=== PATIENT | male | born 1960 | race Caucasian/White ===

== ENCOUNTER 2017-05-10 16:41 | Inpatient (IN) | payer BC, MEDICARE, OTHER ==
[2017-05-10] MEDS ORDERED: IPRATROPIUM-ALBUTEROL 3 ML NEB INHALATION STA (17:15)
[2017-05-10] MEDS ORDERED: methylPREDNISolone SOD SUCCI 125 MG/2 ML VIAL IV STA (17:15)
[2017-05-10] MEDS ORDERED: LEVOFLOXACIN 750MG-D5W PMX 750 MG in DEXTROSE/WATER 1 150ML.BAG IVPB STA (17:15)
[2017-05-10] MEDS ORDERED: ACETAMINOPHEN TAB 500 MG TAB PO STA (17:16)
[2017-05-10] MEDS ORDERED: KETOROLAC 30 MG/ML 1 ML VIAL IVP STA (17:16)
--- NOTE | 2017-05-10 17:20 | ED ---
SOB HPI - General Chief Complaint: Shortness of Breath Stated Complaint: TWYLA Time Seen by Provider: 05/10/17 16:57 Source: patient Mode of arrival: ambulatory Limitations: no limitations - History of Present Illness Initial Comments: This 56-year-old white male presents with a complaint of some shortness of breath. This is been present over the past few days. He has had a cough with only slight clear production. He did have a fever today of 100.5 at home. He denies any chest pain. He complains of significant nasal congestion and rhinorrhea and frontal headache as well. He denies any previous known pulmonary problems but does state that he quit smoking after a long history of tobacco abuse 1 month ago. He was seen yesterday at [facility] and was diagnosed with bronchitis. He did not have a flu test completed at that time. He was placed on an inhaler and states that this does not seem to be helping him much. He has significant exertional dyspnea. He denies any previous similar incidents. He states that his legs feel somewhat swollen as well but are not painful. His apparently has somewhat similar but less severe symptoms. No other complaints or modifying factors. - Related Data Home Medications Medication Instructions Recorded Confirmed Albuterol Inhaler [Ventolin Hfa 2 puff INHALATION RT-Q6H PRN 05/10/17 05/10/17 Inhaler] Aspirin EC [Ecotrin Low Dose] 81 mg PO DAILY 05/10/17 05/10/17 Atorvastatin [Lipitor] 80 mg PO DAILY 05/10/17 05/10/17 Azithromycin [Zithromax Z-pack] See Taper PO DIRECTED 05/10/17 05/10/17 Baclofen 10 mg PO TID PRN 05/10/17 05/10/17 Fluticasone/Salmeterol [Advair 1 puff INHALATION RT-BID 05/10/17 05/10/17 100-50 Diskus] HYDROcodone/APAP 10-325MG [[place] 1 tab PO DAILY PRN 05/10/17 05/10/17 10-325] Insulin Aspart [Novolog Flexpen] 40 unit SQ TID 05/10/17 05/10/17 Insulin Glargine [Lantus] 80 unit SQ DAILY 05/10/17 05/10/17 Lidocaine 4% Cream [Lmx 4] 1 applic TOPICAL DAILY PRN 05/10/17 05/10/17 Lisinopril 40 mg PO DAILY 05/10/17 05/10/17 Loratadine 10 mg PO DAILY 05/10/17 05/10/17 Meloxicam [Mobic] 15 mg PO DAILY 05/10/17 05/10/17 Omeprazole 20 mg PO BID 05/10/17 05/10/17 Polyethylene Glycol 3350 [Miralax] 17 gm PO DAILY PRN 05/10/17 05/10/17 Repaglinide/Metformin HCl 2 tab PO DAILY 05/10/17 05/10/17 [Prandimet 1-500mg] Sildenafil Citrate [Viagra] 100 mg PO ONCE PRN 05/10/17 05/10/17 Allergies Allergy/AdvReac Type Severity Reaction Status Date / Time No Known Allergies Allergy Verified 05/10/17 17:18 Review of Systems ROS Statement: Those systems with pertinent positive or pertinent negative responses have been documented in the HPI. ROS Other: All systems not noted in ROS Statement are negative. Past Medical History Past Medical History: Diabetes Mellitus, Hyperlipidemia, Hypertension, Sleep Apnea/CPAP/BIPAP History of Any Multi-Drug Resistant Organisms: None Reported Past Surgical History: Orthopedic Surgery Additional Past Surgical History / Comment(s): l/r knee, laminectomy L3-5 Past Psychological History: No Psychological Hx Reported Smoking Status: Former smoker Past Alcohol Use History: None Reported Past Drug Use History: None Reported General Exam - General Exam Comments Initial Comments: GENERAL: The patient is well nourished and well hydrated. VITAL SIGNS: Heart rate, blood pressure, respiratory rate reviewed as recorded in nurse's notes. EYES: Pupils are round and reactive. Extraocular movements are intact. No conjunctival / lid redness or swelling. ENT: No external evidence of injury, swelling, or ecchymosis. Airway is patent. Throat is clear. Mild nasal congestion identified. NECK: Nontender. No swelling or evidence of injury. No subcutaneous emphysema. Trachea is midline. No thyroid mass. HEART: Regular rate and rhythm. Good peripheral pulses. LUNGS/CHEST: Mild scattered wheezing noted bilaterally. No ecchymosis, subcutaneous emphysema, or tenderness. ABDOMEN: Abdomen soft without tenderness. No palpable masses or organomegaly. No peritoneal signs. No abdominal wall swelling or ecchymosis. EXTREMITIES: No extremity tenderness. Normal muscle tone and function. No thoracolumbar tenderness. No pitting edema noted. NEUROLOGIC: Sensation is grossly intact. Cranial nerve exam reveals face is symmetrical, tongue is midline, speech is clear. SKIN: No abrasions or ecchymosis is noted. No induration or masses noted. PSYCHIATRIC: Alert and oriented. Appropriate behavior and judgment. Limitations: no limitations Course Vital Signs 05/10/17 05/10/17 05/10/17 16:52 17:43 17:53 Temperature 100.5 F H Pulse Rate 108 H 102 H 105 H Respiratory 22 18 Rate Blood Pressure 176/77 182/85 O2 Sat by Pulse 94 L 96 Oximetry 05/10/17 17:58 Temperature Pulse Rate 110 H Respiratory Rate Blood Pressure O2 Sat by Pulse Oximetry Medical Decision Making - Medical Decision Making The patient was seen and examined. All diagnostics were reviewed. EKG shows a sinus tachycardia at a rate of 106. There is no acute ST-T wave changes identified. The AK intervals 144, QRS duration is 90, and QTC intervals 459. An IV is established patient does receive Solu-Medrol intravenously as well as some Toradol. He receives Tylenol orally and a double DuoNeb breathing treatment. He also receives some Levaquin intravenously. The influenza test came back negative. The laboratory shows slight elevation of the CK-MB at the troponin is negative. The BNP is essentially normal. The chest x-ray is read out per radiology as showing some scarring but there is no current evidence of definite infiltrate or pneumonia. It is felt as though he likely does have a COPD exacerbation with a bronchitis. He is still hypoxic and dyspneic. He states that he is still short of breath even with standing up for the x-ray. It is felt as though he would require admission. Case is discussed with Dr. Cedeño and he is agreeable to admission. - Lab Data Result diagrams: 05/10/17 17:00 05/10/17 17:00 Lab Results 05/10/17 05/10/17 05/10/17 Range/Units 17:00 17:00 17:00 WBC 8.5 (3.8-10.6) k/uL RBC 5.61 (4.30-5.90) m/uL Hgb 14.8 (13.0-17.5) gm/dL Hct 46.8 (39.0-53.0) % MCV 83.5 (80.0-100.0) fL MCH 26.4 (25.0-35.0) pg MCHC 31.6 (31.0-37.0) g/dL RDW 12.8 (11.5-15.5) % Plt Count 349 (150-450) k/uL Neutrophils % 72 % Lymphocytes % 13 % Monocytes % 10 % Eosinophils % 1 % Basophils % 1 % Neutrophils # 6.1 (1.3-7.7) k/uL Lymphocytes # 1.1 (1.0-4.8) k/uL Monocytes # 0.8 (0-1.0) k/uL Eosinophils # 0.1 (0-0.7) k/uL Basophils # 0.1 (0-0.2) k/uL PT (9.0-12.0) sec INR (<1.2) APTT (22.0-30.0) sec Sodium 138 (137-145) mmol/L Potassium 4.4 (3.5-5.1) mmol/L Chloride 104 (98-107) mmol/L Carbon Dioxide 25 (22-30) mmol/L Anion Gap 9 mmol/L BUN 14 (9-20) mg/dL Creatinine 0.98 (0.66-1.25) mg/dL Est GFR (MDRD) Af Amer >60 (>60 ml/min/1.73 sqM) Est GFR (MDRD) Non-Af >60 (>60 ml/min/1.73 sqM) Glucose 182 H (74-99) mg/dL Calcium 9.1 (8.4-10.2) mg/dL Total Bilirubin 0.5 (0.2-1.3) mg/dL AST 44 (17-59) U/L ALT 75 H (21-72) U/L Alkaline Phosphatase 111 (38-126) U/L Total Creatine Kinase 467 H (55-170) U/L CK-MB (CK-2) 5.7 H* (0.0-2.4) ng/mL CK-MB (CK-2) Rel Index 1.2 Troponin I 0.020 (0.000-0.034) ng/mL NT-Pro-B Natriuret Pep pg/mL Total Protein 6.8 (6.3-8.2) g/dL Albumin 3.6 (3.5-5.0) g/dL Influenza Type A RNA (Not Detectd) Influenza Type B (PCR) (Not Detectd) 05/10/17 05/10/17 05/10/17 Range/Units 17:00 17:00 17:00 WBC (3.8-10.6) k/uL RBC (4.30-5.90) m/uL Hgb (13.0-17.5) gm/dL Hct (39.0-53.0) % MCV (80.0-100.0) fL MCH (25.0-35.0) pg MCHC (31.0-37.0) g/dL RDW (11.5-15.5) % Plt Count (150-450) k/uL Neutrophils % % Lymphocytes % % Monocytes % % Eosinophils % % Basophils % % Neutrophils # (1.3-7.7) k/uL Lymphocytes # (1.0-4.8) k/uL Monocytes # (0-1.0) k/uL Eosinophils # (0-0.7) k/uL Basophils # (0-0.2) k/uL PT 9.7 (9.0-12.0) sec INR 1.0 (<1.2) APTT 23.8 (22.0-30.0) sec Sodium (137-145) mmol/L Potassium (3.5-5.1) mmol/L Chloride (98-107) mmol/L Carbon Dioxide (22-30) mmol/L Anion Gap mmol/L BUN (9-20) mg/dL Creatinine (0.66-1.25) mg/dL Est GFR (MDRD) Af Amer (>60 ml/min/1.73 sqM) Est GFR (MDRD) Non-Af (>60 ml/min/1.73 sqM) Glucose (74-99) mg/dL Calcium (8.4-10.2) mg/dL Total Bilirubin (0.2-1.3) mg/dL AST (17-59) U/L ALT (21-72) U/L Alkaline Phosphatase (38-126) U/L Total Creatine Kinase (55-170) U/L CK-MB (CK-2) (0.0-2.4) ng/mL CK-MB (CK-2) Rel Index Troponin I (0.000-0.034) ng/mL NT-Pro-B Natriuret Pep 195 pg/mL Total Protein (6.3-8.2) g/dL Albumin (3.5-5.0) g/dL Influenza Type A RNA Not Detected (Not Detectd) Influenza Type B (PCR) Not Detected (Not Detectd) Disposition Clinical Impression: Fever, Dyspnea, Hypoxia, Bronchitis, COPD exacerbation, Hypertension Disposition: ADMITTED IP TO THIS HOSP Condition: Fair Time of Disposition: 18:34 Decision Date: 05/10/17 Decision Time: 18:35
[2017-05-10 17:31] LABS: Basophils # (A) 0.1 k/uL (0-0.2); Basophils % (A) 1 %; Eosinophils # (A) 0.1 k/uL (0-0.7); Eosinophils % (A) 1 %; HCT 46.8 % (39.0-53.0); HGB 14.8 gm/dL (13.0-17.5); Lymphocytes # (A) 1.1 k/uL (1.0-4.8); Lymphocytes % (A) 13 %; MCH 26.4 pg (25.0-35.0); MCHC 31.6 g/dL (31.0-37.0); MCV 83.5 fL (80.0-100.0); Mean Platelet Volume 6.6; Monocytes # (A) 0.8 k/uL (0-1.0); Monocytes % (A) 10 %; Neutrophils # (A) 6.1 k/uL (1.3-7.7); Neutrophils % (A) 72 %; Platelet Count 349 k/uL (150-450); RBC 5.61 m/uL (4.30-5.90); RDW 12.8 % (11.5-15.5); WBC 8.5 k/uL (3.8-10.6)
[2017-05-10 17:40] LABS: Partial Thromboplastin Time 23.8 sec (22.0-30.0); Prothrombin Time 9.7 sec (9.0-12.0)
[2017-05-10 17:54] LABS: ALT 75 U/L (21-72); AST 44 U/L (17-59); Albumin 3.6 g/dL (3.5-5.0); Alkaline Phosphatase 111 U/L (38-126); Anion Gap 9 mmol/L; Blood Urea Nitrogen 14 mg/dL (9-20); Calcium 9.1 mg/dL (8.4-10.2); Carbon Dioxide 25 mmol/L (22-30); Chloride 104 mmol/L (98-107); Glucose 182 mg/dL (74-99); Potassium 4.4 mmol/L (3.5-5.1); Sodium 138 mmol/L (137-145); Total Bilirubin 0.5 mg/dL (0.2-1.3); Total Protein 6.8 g/dL (6.3-8.2)
[2017-05-10 18:06] LABS: Troponin I 0.02 ng/mL (0.000-0.034)
[2017-05-10 18:19] LABS: Creatine Kinase MB 5.7 ng/mL (0.0-2.4)
--- NOTE | 2017-05-10 18:22 | XR ---
EXAMINATION TYPE: XR chest 2V DATE OF EXAM: 05/10/2017 COMPARISON: 04/10/2009 HISTORY: Difficulty breathing TECHNIQUE: Frontal and lateral views of the chest are obtained. FINDINGS: Heart is normal. Lungs are clear of consolidation. There is some coarsening of interstitia l markings. There are chest leads. Costophrenic angles are clear. There is spurring in the thoracic s pine. IMPRESSION: Mild pulmonary fibrotic changes. This appears increased slightly compared to old exam.
[2017-05-10] MEDS ORDERED: IPRATROPIUM-ALBUTEROL 3 ML NEB INHALATION PRN (18:35)
[2017-05-10] MEDS ORDERED: HYDROcodone/APAP 10-325MG 1 EACH TAB PO PRN (18:38)
[2017-05-10] MEDS ORDERED: LIDOCAINE 4% CREAM 5 GM TUBE TOPICAL PRN (18:38)
[2017-05-10] MEDS ORDERED: BACLOFEN 10 MG TAB PO PRN (18:38)
[2017-05-10] MEDS ORDERED: POLYETHYLENE GLYCOL 3350 17 GM POWD.PACK PO PRN (18:38)
[2017-05-10] MEDS: SYMBICORT 80-4.5 MCG INHALER INHALATION SCH (19:26)
[2017-05-10] MEDS ORDERED: BUDESONIDE 0.5 MG/2 ML NEBU INHALATION SCH (20:00)
[2017-05-10 21:23] LABS: Glucose,Whole Blood 221 mg/dL (75-99)
[2017-05-10] MEDS ORDERED: INSULIN ASPART 100 UNIT/ML 1 ML 10 ML VIAL SQ SCH (22:00)
[2017-05-10 22:02] VITALS: BMI 42.3
[2017-05-10] MEDS: PANTOPRAZOLE 40 MG TABLET PO SCH (22:05)
[2017-05-10] MEDS ORDERED: RX INFO: IV CONTRAST WAS GIVEN 1 EACH MISC MISCELLANE PRN (22:32)
[2017-05-10] MEDS ORDERED: MELATONIN 3 MG TABLET PO PRN (22:36)
[2017-05-10] MEDS ORDERED: CALCIUM CARBONATE 500 MG CHEWABLE PO PRN (22:36)
[2017-05-10] MEDS ORDERED: LORazepam 0.5 MG TAB PO PRN (22:36)
[2017-05-10] MEDS ORDERED: ONDANSETRON 4 MG/2 ML VIAL IVP PRN (22:36)
[2017-05-10] MEDS ORDERED: traMADol 50 MG TAB PO PRN (22:36)
[2017-05-10] MEDS ORDERED: NALOXONE 0.4 MG/ML 1 ML VIAL IV PRN (22:36)
[2017-05-10] MEDS ORDERED: ACETAMINOPHEN TAB 325 MG TAB PO PRN (22:36)
--- NOTE | 2017-05-10 23:26 | CT ---
EXAMINATION TYPE: CT angio chest DATE OF EXAM: 05/10/2017 11:11 PM COMPARISON: NONE HISTORY: R/o PE chest pain CT DLP: 729.20 mGycm Automated exposure control for dose reduction was used. CONTRAST: CTA scan of the thorax is performed with IV Contrast, patient injected with 70 mL of Omnipaque 350, p ulmonary embolism protocol. There are 3-D post processed images.. FINDINGS: The lungs are clear of consolidation. There is no evidence of a pulmonary mass. I see no filling defects in the pulmonary arteries. There is no evidence of aortic aneurysm or dissec tion. There is minimal atheromatous change in the thoracic aorta. There is no pericardial effusion. T here are some mediastinal and bronchial lymph nodes that measure up to 1.8 cm. There is no pleural effusion. There is no pericardial effusion. There is minimal, emphysema at the evans ng apices. There is minimal pleural thickening posteriorly at the right lung apex. There is spurring in the thoracic spine. IMPRESSION: NO EVIDENCE OF PULMONARY EMBOLISM. MILD PULMONARY EMPHYSEMA. MILD PLEURAL SCARRING AT THE LUNG APICES . THERE IS MILD MEDIASTINAL AND BRONCHIAL ADENOPATHY OF UNCERTAIN SIGNIFICANCE.
[2017-05-11] MEDS ORDERED: methylPREDNISolone SOD SUCCI 125 MG/2 ML VIAL IV SCH
[2017-05-11] MEDS: INSULIN DETEMIR 100 UNIT/ML 10 ML VIAL SQ SCH ×2 (00:09→21:43)
[2017-05-11] MEDS: methylPREDNISolone SOD SUCCI 40 MG/ML 1 ML VIAL IV SCH ×3 (00:09→19:14)
[2017-05-11 00:18] LABS: Creatine Kinase MB 5.2 ng/mL (0.0-2.4)
[2017-05-11 00:20] LABS: Troponin I 0.055 ng/mL (0.000-0.034)
[2017-05-11 05:07] LABS: Basophils % (A) 0 %; Eosinophils % (A) 0 %; HCT 47.7 % (39.0-53.0); HGB 14.2 gm/dL (13.0-17.5); Hypochromasia Slight; Lymphocytes # (A) 0.8 k/uL (1.0-4.8); Lymphocytes % (A) 10 %; MCH 25.6 pg (25.0-35.0); MCHC 29.7 g/dL (31.0-37.0); MCV 86.1 fL (80.0-100.0); Mean Platelet Volume 6.8; Monocytes # (A) 0.2 k/uL (0-1.0); Monocytes % (A) 3 %; Neutrophils # (A) 6.5 k/uL (1.3-7.7); Neutrophils % (A) 85 %; Platelet Count 371 k/uL (150-450); RBC 5.54 m/uL (4.30-5.90); RDW 13.2 % (11.5-15.5); WBC 7.6 k/uL (3.8-10.6)
[2017-05-11 05:10] LABS: Anion Gap 11 mmol/L; Blood Urea Nitrogen 20 mg/dL (9-20); Calcium 9.6 mg/dL (8.4-10.2); Carbon Dioxide 23 mmol/L (22-30); Chloride 105 mmol/L (98-107); Glucose 235 mg/dL (74-99); Sodium 139 mmol/L (137-145)
[2017-05-11 05:51] LABS: Creatine Kinase MB 6.8 ng/mL (0.0-2.4); Troponin I 0.036 ng/mL (0.000-0.034)
--- NOTE | 2017-05-11 06:49 | HP ---
HISTORY AND PHYSICAL DATE OF ADMISSION: 05/10/17 PRESENTING COMPLAINT: Short of breath. HISTORY OF PRESENTING COMPLAINT: This is a 56-year-old patient of Dr. Ng. Chronic stable medical conditions include diabetes, hypertension, hyperlipidemia. The patient also has got obstructive sleep apnea, does not use the CPAP. The patient progressively the patient has been short of breath for quite a while, but getting more so for the last 3 days. Very mild cough, some clear sputum. Low-grade fever. No nausea, vomiting. Decreased appetite. The patient is having increasing edema lower extremity at least a month and also having some orthopnea. The patient is getting easily short-winded. Going to the bathroom. Admitted for the same. REVIEW OF SYSTEMS: Constitutional: Tired, low-grade fever. HEENT as above. Respiratory as above. Cardiovascular: No chest pain. Gastrointestinal none. Genitourinary none. Musculoskeletal none. Dermatological and hematologic, lymphatic none. Psychiatry: A bit of anxiety. Neurological: Numbness and tingling in hands and feet. PAST MEDICAL HISTORY: Diabetes mellitus type 2, hypertension, hyperlipidemia, obstructive sleep apnea. PAST SURGICAL HISTORY: Orthopedic surgery, laminectomy L3-L5. SOCIAL HISTORY: Patient smoked about 2 packs a day for 38 years, stopped about a month ago. 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 . FAMILY HISTORY: Of diabetes. Myocardial infarction. HOME MEDICATION: 1. Z-Darell. 2. Ventolin HFA 2 puffs q.6h p.r.n. 3. Viagra 100 mg p.o. p.r.n. 4. Prandimet 2 tablets p.o. daily. 5. MiraLAX 17 g p.o. daily p.r.n. 6. Omeprazole 20 mg p.o. b.i.d. 7. Mobic 50 mg p.o. daily. 8. Claritin 10 mg p.o. daily. 9. Lidocaine 4% cream topical daily p.r.n. 10.Lantus 80 units subcu daily. 11.NovoLog 40 units a.c. t.i.d. 12.Lisinopril 40 mg p.o. daily. 13.Advair 100/50 1 puff b.i.d. 14.Baclofen 10 mg t.i.d. p.r.n. 15.Lipitor 80 mg p.o. daily. 16.Aspirin 81 mg p.o. daily. 17.[place] 10 1 tab p.o. daily p.r.n. ALLERGIES: None. PHYSICAL EXAMINATION: Vital signs on presentation: Temperature 100.5, 108, respiratory 22, blood pressure 176/77, pulse ox 94% on 3 L. General appearance: Well built, BMI of 42.3, sitting up, short of breath. Eyes: Pupils are equal. Conjunctivae normal. HEENT: Oral cavity normal. Neck JVD unable to assess. Mass not palpable. Respiratory effort increased. Lungs decreased breath sounds. Prolonged expiration. Cardiovascular: First and seconds normal. Edema present. Abdomen distended, soft. Liver and spleen not palpable. No mass palpable. Lymphatics: No lymph nodes palpable in the neck and axilla. Psychiatry: Alert and oriented times three. Mood and affect normal. Neurological pupils equal. Cranial nerves grossly intact. Power and sensation decreased distally. The patient has got good distal pulses. INVESTIGATIONS: White count 8.5, hemoglobin 14.8, potassium 4.4. BUN and creatinine is normal. Troponin 0.020. ProBNP is 195. Chest x-ray showed some prominent interstitium, prominent pulmonary artery. ASSESSMENT: 1. This is a patient who has been getting short of breath for some time much worse in the last 3 days. The patient has got a low-grade fever, slight cough and patient may have an acute pneumonitis, pneumonia cannot be ruled out. 2. Acute chronic obstructive pulmonary disease exacerbation in a recent ex smoker. 3. Highly doubt congestive heart failure given that the patient's BNP is only 195. 4. Suspect underlying pulmonary hypertension. We will do 2D echocardiogram. 5. Rule out a pulmonary embolism. Ordered CT scan of the chest with angio. 6. Diabetes mellitus type 2, chronically on insulin. 7. Essential hypertension. 8. Hyperlipidemia. 9. Obstructive sleep apnea, does not use CPAP machine. PLAN: Do CT angio chest. Give patient breathing treatments, steroids, inhaled steroids. Also order 2D echocardiogram. Care was discussed with the patient. Questions were answered. Copy to Dr. Ng. MMLAIL / JEYSONN: [id number] /
[2017-05-11] MEDS: BUDESONIDE 1 MG/2 ML NEBU INHALATION SCH ×2 (07:04→19:08)
[2017-05-11] MEDS: IPRATROPIUM-ALBUTEROL 3 ML NEB INHALATION SCH ×6 (07:04→23:51)
[2017-05-11 07:15] LABS: Glucose,Whole Blood 212 mg/dL (75-99)
[2017-05-11] MEDS: SYMBICORT 80-4.5 MCG INHALER INHALATION SCH ×2 (07:38→19:10)
[2017-05-11] MEDS: INSULIN ASPART 100 UNIT/ML 1 ML 10 ML VIAL SQ SCH ×3 (08:12→19:14)
--- NOTE | 2017-05-11 08:32 | CT ---
EXAMINATION TYPE: CT chest wo con DATE OF EXAM: 05/11/2017 COMPARISON: May 10, 2017 HISTORY: Pulmonary fibrosis CT DLP: 156 mGycm High-resolution noncontrast CT of the chest was performed with the patient in the prone and supine po sitions. Lung and mediastinal window settings are submitted. The lungs appear to be well-aerated. Minimal upper lobe emphysematous change. I do not see evidence f or fibrotic change. There is no evidence for bronchiectasis, groundglass infiltrate, nodule or mass . No pleural effusion is identified. Prominence of the mediastinal and hilar lymph nodes of uncertai n etiology described on previous examination. IMPRESSION: 1. No evidence of pulmonary fibrosis. 2. Mild hilar and mediastinal adenopathy of uncertain etiology described on previous examination.
[2017-05-11] MEDS ORDERED: INSULIN DETEMIR 100 UNIT/ML 10 ML VIAL SQ SCH (09:00)
[2017-05-11] MEDS ORDERED: metFORMIN 500 MG TAB PO SCH (09:00)
[2017-05-11] MEDS: ATORVASTATIN 80 MG TAB PO SCH (09:30)
[2017-05-11] MEDS: REPAGLINIDE 1 MG TAB PO SCH (09:30)
[2017-05-11] MEDS: MELOXICAM 7.5 MG TAB PO SCH (09:31)
[2017-05-11] MEDS: LORATADINE 10 MG TAB PO SCH (09:31)
[2017-05-11] MEDS: ASPIRIN 81 MG PO SCH (09:31)
[2017-05-11] MEDS: LISINOPRIL 20 MG TAB PO SCH (09:31)
[2017-05-11] MEDS: PANTOPRAZOLE 40 MG TABLET PO SCH ×2 (09:31→21:43)
[2017-05-11] MEDS: ENOXAPARIN 40 MG/0.4 ML SYRINGE SQ SCH (09:32)
--- NOTE | 2017-05-11 10:16 | CONS ---
CONSULTATION Mr. Malin is a 56-year-old male with a known history of smoking which he stopped very recently, history of diabetes, hypertension, obstructive sleep apnea, who presented with symptoms of significant dyspnea over the last few days. He was seen in the emergency room at [facility] and subsequently was sent home and readmitted yesterday because of the progressive dyspnea, that is according to him is much worse than his baseline. He has some chest heaviness at times. He has no prior documented history of cardiac disease. Recently, he had a low-grade fever as well as coughing with no clear wheezing. He is not very active physically, had recently some peripheral edema. He denies any dizziness. He has occasional palpitation. No syncope. He has no clear PND nor orthopnea. His coronary risk factors are remarkable for the recent history of smoking. He had a history of diabetes and hypertension and hyperlipidemia. MEDICATION: His medications at home included albuterol, Viagra, Prandimet, MiraLAX, Mobic, insulin, lisinopril 40 mg daily, baclofen, Lipitor 80 mg daily, aspirin once a day. REVIEW OF SYSTEMS: RESPIRATORY SYSTEM: He had dyspnea on exertion and cough. Prior history of smoking. GI SYSTEM: No recent GI bleeding. No peptic ulcer disease. SYSTEM: No dysuria or hematuria. NERVOUS SYSTEM: No stroke or seizure. PHYSICAL EXAMINATION: He is a 56-year-old male, alert, oriented, in no apparent distress. Blood pressure 172/80 with the heart rate in the 90s, had a temperature of 100.5 on presentation. HEAD: Normocephalic EYES: Sclerae anicteric. NECK: Good carotid upstroke. No bruit. LUNGS: With decreased air exchange with no wheezes. HEART: Regular rate and rhythm. S1, S2. No S3 with systolic murmur at the base, ejection type. No diastolic murmur. No rub. ABDOMEN: Soft, obese, nontender. Positive bowel sounds. No organomegaly. EXTREMITIES: With +1 edema. Intact distal pulses. LAB DATA: Lab data revealed hemoglobin 14.2, white blood cell of 7.6, platelet count 371. BUN and creatinine 20 and 1.15. Troponin 0.02, 0.05 and 0.03. His EKG revealed a sinus mechanism, rate of [address]-T wave changes. He had a CT angiogram of the chest that revealed no evidence of pulmonary embolism with adenopathy of the mediastinum and bronchial. Subsequently he had chest CT revealed the hilar and mediastinal adenopathy. IMPRESSION: 1. Symptoms of progressive dyspnea with cough and fever, could be exacerbation of chronic obstructive pulmonary disease with acute bronchitis. 2. Minimally elevated troponin could be a type 2 event although in a patient with multiple risk factors. 3. Abnormal CT scan of the chest. 4. Diabetes. 5. Hypertension. 6. Hyperlipidemia. 7. Prior history of smoking. 8. Obesity. RECOMMENDATION: From the cardiac standpoint, I would obtain an echocardiogram with Doppler to evaluate left ventricular systolic function. His blood pressure remains elevated and adjustment of his medical regimen will be done. The patient may require further cardiac workup once his respiratory status is stabilized. Depending on his progress, further recommendation will be made. Thank you for this consult. We will follow with you. MMLAIL / IJN: [id number] /
[2017-05-11] MEDS: ISOSORBIDE MONONITRATE ER 30 MG TAB.ER.24H PO SCH (11:11)
[2017-05-11] MEDS: METOPROLOL TARTRATE 25 MG TAB PO SCH ×2 (11:11→21:43)
[2017-05-11 11:21] LABS: Glucose,Whole Blood 198 mg/dL (75-99)
[2017-05-11 11:42] LABS: Troponin I 0.019 ng/mL (0.000-0.034)
[2017-05-11 11:46] LABS: Creatine Kinase MB 7.9 ng/mL (0.0-2.4)
[2017-05-11 17:16] LABS: Glucose,Whole Blood 199 mg/dL (75-99)
--- NOTE | 2017-05-11 17:33 | P.PN ---
Progress Note - Text Progress Note Date: 05/11/17 DATE OF SERVICE: 05/11/2017 PRESENTING COMPLAINT: Shortness of breath HISTORY OF PRESENT ILLNESS: 56-year-old male who developed progressive shortness of breath but got worse over the previous 3 days. Mild cough, is clear sputum low-grade fever. No nausea no vomiting but decreased appetite. Does have lower extremity edema that 's been increasing over the last month and having some orthopnea. Easily short winded when doing activities such as going to the bathroom. INTERVAL HISTORY: 05/11/2017 Sitting up in a chair at the bedside, appears very anxious and short of breath with minimal exertion. Has a very coarse cough with clear sputum production. Continues to feel very tired, but improved since admission. Appetite is improving but continues to be low eating about 50% of his meals. Is able to ambulate as long as he is oxygen on and only to the bathroom. Last BM prior to admission. REVIEW OF SYSTEMS: Done for constitutional ,cardiovascular, GI, pulmonary with relevant findings as above. CURRENT MEDICATIONS Acetaminophen, [place], DuoNeb, aspirin, Lipitor, baclofen, Pulmicort, Serafin, Lovenox, NovoLog insulin, Levemir, Imdur, lidocaine cream, lisinopril, Claritin, , Ativan, melatonin, mobility, Solu-Medrol, Lopressor, Zofran, Narcan, MiraLAX, Prandin, Ultram. PHYSICAL EXAM VITAL SIGNS: Temperature 97.5, pulse 93, respiratory rate 18, blood pressure 172/81, oxygen saturation 94% on 2 L GENERAL APPEARANCE: Sitting up in a chair at the bedside visiting with his , mildly anxious appearing. HENT: Normocephalic, JVD not raised. Mass not palpable. Oral cavity dry mucous membranes, external appearance of ears and nose normal. EYES:Pupils equal. Conjunctiva normal. RESPIRATORY: Respiratory effort increased with minimal exertion. Lungs diminished with prolonged expiration to auscultation. CARDIOVASCULAR: First and second sounds normal. No edema. ABDOMEN: Soft. Liver and spleen not palpable. No tenderness. No mass palpable. PSYCHIATRY: Alert and oriented x3. Mood and affect somewhat anxious appearing. INVESTIGATIONS: LABS: CBC unremarkable, BMP unremarkable Accu-Cheks noted. ASSESSMENT: -Possible acute pneumonitis, likely viral, pneumonia cannot be ruled out, slow to respond -Acute chronic obstructive pulmonary disease exacerbation in a recent ex-smoker , slow to respond -Chronic congestive heart failure in a patient whose BNP is only 195 -Suspect underlying coronary hypertension 2-D echocardiogram pending -Rule out pulmonary embolism, computed tomography scan of the chest with angiogram . -Diabetes mellitus type 2 chronically on insulin. -Essential hypertension. -Hyperlipidemia. -Obstructive sleep apnea, does not use a CPAP machine. PLAN: Continue breathing treatments steroids and inhaled steroids, 2-D echocardiogram pending. Chest CTA negative for pulmonary embolism. We'll continue current medication and treatment plan discussed plan of care at bedside with and patient they're agreeable. We will follow closely. FANCY WIRE DRAWER statement: Patient was seen and examined by nurse practitioner Umu Phan and all elements of the case discussed with attending Dr. Cedeño
[2017-05-11] MEDS ORDERED: LEVOFLOXACIN 750MG-D5W PMX 750 MG in DEXTROSE/WATER 1 150ML.BAG IVPB SCH (18:00)
--- NOTE | 2017-05-11 19:28 | P.CNPUL ---
History of Present Illness Consult date: 05/11/17 Reason for consult: dyspnea, COPD, hypoxemia, pulmonary hypertension, obstructive sleep apnea Chief complaint: Shortness of breath as dressed with worsening dyspnea on exertion for week History of present illness: Mr. Malin is a pleasant 56-year-old morbidly obese male seen and evaluated examined in fifth floor, this patient has been admitted to hospital with progressive increased shortness of breath all week to 10 day duration in addition to that patient also noted some swelling and edema in the lower extremity, patient has a long-standing history of diabetes dyslipidemia hypertension hypertensive cardiovascular disease patient has a history of obstructive sleep apnea with polysomnogram performed about 7 years ago at [facility] patient was recommended for CPAP machine but couldn't tolerated and did not use for extended period time. 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 He did have a fever today of 100.5 at home. He denies any chest pain. He complains of significant nasal congestion and rhinorrhea and frontal headache as well. He denies any previous known pulmonary problems but does state that he quit smoking after a long history of tobacco abuse 1 month ago. He was seen yesterday at [facility] and was diagnosed with bronchitis. He did not have a flu test completed at that time. He was placed on an inhaler and states that this does not seem to be helping him much. He has significant exertional dyspnea. He denies any previous similar incidents. He states that his legs feel somewhat swollen as well but are not painful. His apparently has somewhat similar but less severe symptoms. No other complaints or modifying factors. Patient has been complaining of nasal stuffiness congestion and facial discomfort and pain Review of Systems All systems: negative Past Medical History Past Medical History: Diabetes Mellitus, Hyperlipidemia, Hypertension, Sleep Apnea/CPAP/BIPAP Additional Past Medical History / Comment(s): doesnt wear cpap uncomfortable History of Any Multi-Drug Resistant Organisms: None Reported Past Surgical History: Orthopedic Surgery Additional Past Surgical History / Comment(s): l/r knee, laminectomy L3-5 Past Psychological History: No Psychological Hx Reported Smoking Status: Former smoker Past Alcohol Use History: None Reported Past Drug Use History: None Reported - Past Family History Mother Family Medical History: Diabetes Mellitus, Myocardial Infarction (NM) Father Additional Family Medical History / Comment(s): silicosis of the lung, lung removal Medications and Allergies Home Medications Medication Instructions Recorded Confirmed Type Albuterol Inhaler [Ventolin Hfa 2 puff INHALATION RT-Q6H PRN 05/10/17 05/10/17 History Inhaler] Aspirin EC [Ecotrin Low Dose] 81 mg PO DAILY 05/10/17 05/10/17 History Atorvastatin [Lipitor] 80 mg PO DAILY 05/10/17 05/10/17 History Azithromycin [Zithromax Z-pack] See Taper PO DIRECTED 05/10/17 05/10/17 History Baclofen 10 mg PO TID PRN 05/10/17 05/10/17 History Fluticasone/Salmeterol [Advair 1 puff INHALATION RT-BID 05/10/17 05/10/17 History 100-50 Diskus] HYDROcodone/APAP 10-325MG [[place] 1 tab PO DAILY PRN 05/10/17 05/10/17 History 10-325] Insulin Aspart [Novolog Flexpen] 40 unit SQ TID 05/10/17 05/10/17 History Insulin Glargine [Lantus] 80 unit SQ DAILY 05/10/17 05/10/17 History Lidocaine 4% Cream [Lmx 4] 1 applic TOPICAL DAILY PRN 05/10/17 05/10/17 History Lisinopril 40 mg PO DAILY 05/10/17 05/10/17 History Loratadine 10 mg PO DAILY 05/10/17 05/10/17 History Meloxicam [Mobic] 15 mg PO DAILY 05/10/17 05/10/17 History Omeprazole 20 mg PO BID 05/10/17 05/10/17 History Polyethylene Glycol 3350 [Miralax] 17 gm PO DAILY PRN 05/10/17 05/10/17 History Repaglinide/Metformin HCl 2 tab PO DAILY 05/10/17 05/10/17 History [Prandimet 1-500mg] Sildenafil Citrate [Viagra] 100 mg PO ONCE PRN 05/10/17 05/10/17 History Allergies Allergy/AdvReac Type Severity Reaction Status Date / Time No Known Allergies Allergy Verified 05/10/17 17:18 Physical Exam Vitals: Vital Signs Temp Pulse Pulse Resp BP Pulse Ox 05/11/17 15:22 86 05/11/17 15:11 88 05/11/17 15:00 97.9 F 92 18 138/64 91 L 05/11/17 12:52 94 19 05/11/17 11:38 86 05/11/17 11:28 86 05/11/17 11:01 93 L 05/11/17 10:55 88 L 05/11/17 07:18 82 05/11/17 07:06 80 92 L 05/11/17 07:00 97.5 F L 93 18 172/81 94 L 05/10/17 22:45 97.3 F L 96 17 172/85 93 L 05/10/17 22:36 94 L 05/10/17 21:00 102 H 20 05/10/17 19:49 98.1 F 107 H 17 162/86 94 L 05/10/17 19:38 112 H 05/10/17 19:28 108 H Intake and Output 05/11/17 05/11/17 05/11/17 06:59 14:59 22:59 Intake Total 730 Output Total 900 Balance -170 Intake: IV 80 0.9 20 80 Oral 650 Output: Urine 900 Other: Voiding Method Urinal # Voids 3 Weight 145.5 kg Patient Weight 05/12/17 06:59 Weight 145.5 kg GENERAL: The patient is well nourished and well hydrated. VITAL SIGNS: Heart rate, blood pressure, respiratory rate reviewed as recorded in nurse's notes. EYES: Pupils are round and reactive. Extraocular movements are intact. No conjunctival / lid redness or swelling. ENT: No external evidence of injury, swelling, or ecchymosis. Airway is patent. Throat is clear extremely narrow Mallampati grade 4. Mild nasal congestion identified. NECK: Nontender. No swelling or evidence of injury. No subcutaneous emphysema. Trachea is midline. No thyroid mass. Form nodule left anterior cervical area noted with mobile his skin discussed with the patient it is been there for over 2 years has been biopsied in the past and was benign HEART: Regular rate and rhythm. Good peripheral pulses. LUNGS/CHEST: Mild scattered wheezing noted bilaterally. No ecchymosis, subcutaneous emphysema, or tenderness. ABDOMEN: Abdomen soft without tenderness. No palpable masses or organomegaly. No peritoneal signs. No abdominal wall swelling or ecchymosis. EXTREMITIES: No extremity tenderness. Normal muscle tone and function. No thoracolumbar tenderness. +1 pitting edema noted. NEUROLOGIC: Sensation is grossly intact. Cranial nerve exam reveals face is symmetrical, tongue is midline, speech is clear. SKIN: No abrasions or ecchymosis is noted. No induration or masses noted. PSYCHIATRIC: Alert and oriented. Appropriate behavior and judgment. Results - Laboratory Findings CBC and BMP: 05/11/17 04:25 05/11/17 04:25 PT/INR, D-dimer PT 9.7 sec (9.0-12.0) 05/10/17 17:00 INR 1.0 (<1.2) 05/10/17 17:00 Abnormal lab findings: Abnormal Labs 05/10/17 05/10/17 05/10/17 17:00 17:00 20:55 MCHC Lymphocytes # Glucose 182 H POC Glucose (mg/dL) 221 H ALT 75 H Total Creatine Kinase 467 H CK-MB (CK-2) 5.7 H* Troponin I 05/10/17 05/11/17 05/11/17 23:10 04:25 04:25 MCHC 29.7 L Lymphocytes # 0.8 L Glucose POC Glucose (mg/dL) ALT Total Creatine Kinase 526 H 681 H CK-MB (CK-2) 5.2 H* 6.8 H* Troponin I 0.055 H* 0.036 H* 05/11/17 05/11/17 05/11/17 04:25 07:13 10:37 MCHC Lymphocytes # Glucose 235 H POC Glucose (mg/dL) 212 H ALT Total Creatine Kinase 814 H CK-MB (CK-2) 7.9 H* Troponin I 05/11/17 05/11/17 11:19 17:08 MCHC Lymphocytes # Glucose POC Glucose (mg/dL) 198 H 199 H ALT Total Creatine Kinase CK-MB (CK-2) Troponin I - Diagnostic Findings Chest x-ray: report reviewed, image reviewed CT scan - chest: report reviewed, image reviewed (EKG reviewed sinus tachycardia otherwise fairly within normal limit, chest x-ray performed on 05/10 revealed prominent interstitial marking early pulmonary fibrosis cannot be excluded, CT N0 negative for pulmonary embolism however pulmonary emphysema was seen along with pleural scarring and some thickening in the apices some nonspecific mediastinal and bronchial adenopathy has been noted, high- resolution computed tomography scan of the chest continue show mild hilar and mediastinal prominent lymph node but no pulmonary fibrosis or honeycombing seen , echocardiogram is pending) Assessment and Plan Assessment: Low-grade fever cough shortness of breath off unclear etiology, Acute sinusitis Lymphadenopathy and hilar and mediastinal area Acute hypoxic respiratory failure with Exertional dyspnea appears to be multifactorial likely associated with severe COPD and emphysema, pulmonary hypertension and sleep disorder breathing and sleep apnea of long-standing duration Non-ST segment elevated [place] Suspect acute bronchitis/viral syndrome, would recommend to repeat flu testing as index of suspicion is high Severe morbid obesity along with obstructive sleep apnea to be further evaluated outpatient setting Severe COPD emphysema to be further evaluated outpatient setting Plan: IV steroids along with bronchodilators Follow up on echocardiogram Computed tomography scan of the chest high-resolution as well as CT NG reviewed Further evaluation of lymphadenopathy and follow-up in outpatient setting Repeat influenza A and B nasopharyngeal swab IV antibiotics with Rocephin Time with Patient: Greater than 30
--- NOTE | 2017-05-11 19:55 | PN ---
PROGRESS NOTE DATE OF SERVICE: 05/11/2017. ATTENDING NOTE: This patient was seen and examined by me. I discussed the case with the nurse practitioner Ms. Phan. Patient was admitted very short of breath, felt to be acute pneumonitis and COPD exacerbation. Congestive heart failure is felt to be unlikely. PE was ruled out. Patient is still quite a bit short of breath, sitting on the edge of the bed. On examination, afebrile. Pulse 92, respiration 22, blood pressure 138/64, pulse ox 91% on 2 L. GENERAL APPEARANCE: Sitting up, short of breath. RESPIRATORY: Effort increased. LUNGS: Diminished breath sounds. Mild edema. INVESTIGATIONS: Troponin 0.066, 0.019. Chest CTA negative for PE. Spiral CT negative for any pulmonary fibrosis. ASSESSMENT: 1. Acute severe chronic obstructive pulmonary disease exacerbation. 2. Diabetes mellitus, type 2, chronically on insulin. 3. Essential hypertension. 4. Hyperlipidemia. 5. Obstructive sleep apnea; does not use CPAP machine. 6. Possible cor pulmonale. Will await 2D echocardiogram. 7. Morbid obesity. BMI of 42.3. 8. Acute chronic obstructive pulmonary disease exacerbation, slow to respond. PLAN: Keep the patient on nebulized bronchodilators, steroids. Follow Accu-Cheks. Awaiting 2D echocardiogram. Care was discussed with the patient. Will follow. MMLAIL / IJN: [id number] /
[2017-05-11 20:06] LABS: Glucose,Whole Blood 253 mg/dL (75-99)
[2017-05-12] MEDS: methylPREDNISolone SOD SUCCI 40 MG/ML 1 ML VIAL IV SCH ×3 (00:43→16:50)
[2017-05-12] MEDS: IPRATROPIUM-ALBUTEROL 3 ML NEB INHALATION SCH ×5 (03:44→20:42)
[2017-05-12 07:05] LABS: Glucose,Whole Blood 323 mg/dL (75-99)
[2017-05-12] MEDS: LISINOPRIL 20 MG TAB PO SCH (08:02)
[2017-05-12] MEDS: INSULIN ASPART 100 UNIT/ML 1 ML 10 ML VIAL SQ SCH ×4 (08:02→20:34)
[2017-05-12] MEDS: ASPIRIN 81 MG PO SCH (08:03)
[2017-05-12] MEDS: METOPROLOL TARTRATE 25 MG TAB PO SCH ×2 (08:03→20:34)
[2017-05-12] MEDS: REPAGLINIDE 1 MG TAB PO SCH (08:03)
[2017-05-12] MEDS: ISOSORBIDE MONONITRATE ER 30 MG TAB.ER.24H PO SCH (08:03)
[2017-05-12] MEDS: PANTOPRAZOLE 40 MG TABLET PO SCH ×2 (08:03→20:35)
[2017-05-12] MEDS: ATORVASTATIN 80 MG TAB PO SCH (08:04)
[2017-05-12] MEDS: MELOXICAM 7.5 MG TAB PO SCH (08:04)
[2017-05-12] MEDS: LORATADINE 10 MG TAB PO SCH (08:04)
[2017-05-12] MEDS: ENOXAPARIN 40 MG/0.4 ML SYRINGE SQ SCH (08:04)
[2017-05-12] MEDS: cefTRIAXone IN SWFI 1,000 MG/10 ML SYRINGE IVP SCH (09:07)
[2017-05-12] MEDS: BUDESONIDE 1 MG/2 ML NEBU INHALATION SCH ×2 (09:50→20:42)
[2017-05-12] MEDS: SYMBICORT 80-4.5 MCG INHALER INHALATION SCH ×2 (09:50→20:42)
--- NOTE | 2017-05-12 10:14 | ECHOF ---
Referral Reason:poss pulm HTN MEASUREMENTS -------- HEIGHT: 185.4 cm WEIGHT: 145.1 kg BP: 172/85 RVIDd: 2.8 cm (< 3.3) IVSd: 1.5 cm (0.6 - 1.1) LVIDd: 5.0 cm (3.9 - 5.3) LVPWd: 1.3 cm (0.6 - 1.1) IVSs: 1.5 cm LVIDs: 3.7 cm LVPWs: 1.8 cm LA Diam: 3.8 cm (2.7 - 3.8) Ao Diam: 4.0 cm (2.0 - 3.7) AV Cusp: 2.3 cm (1.5 - 2.6) MV EXCURSION: 17.180 mm (> 18.000) MV EF SLOPE: 56 mm/s (70 - 150) EPSS: 0.6 cm MV E Taiwo: 0.86 m/s MV DecT: 346 ms MV A Taiwo: 0.91 m/s MV E/A Ratio: 0.94 FINDINGS -------- Sinus rhythm. This was a technically difficult study with suboptimal views. The left ventricular size is normal. There is moderate concentric left ventricular hypertrophy. O verall left ventricular systolic function is normal with, an EF between 60 - 65 %. The right ventricle is normal in size. The left atrial size is normal. The right atrium is normal in size. 1.5mg of Definity was utilized for enhancement of images There is mild aortic valve sclerosis. Mild mitral annular calcification present. There is trace to mild mitral regurgitation. No regurgitation noted The pulmonic valve was not well visualized. The aortic root is dilated measuring 4.0cm. IVC Not well visulized. There is no pericardial effusion. CONCLUSIONS -------- 1. Sinus rhythm. 2. This was a technically difficult study with suboptimal views. 3. The left ventricular size is normal. 4. There is moderate concentric left ventricular hypertrophy. 5. Overall left ventricular systolic function is normal with, an EF between 60 - 65 %. 6. The left atrial size is normal. 7. 1.5mg of Definity was utilized for enhancement of images 8. There is mild aortic valve sclerosis. 9. Mild mitral annular calcification present. 10. There is trace to mild mitral regurgitation. 11. No regurgitation noted 12. The pulmonic valve was not well visualized. 13. The aortic root is dilated measuring 4.0cm. 14. IVC Not well visulized. 15. There is no pericardial effusion. WATER POLLUTION CONTROL TECHNICIAN: Lilia Spicer RDCS
[2017-05-12 11:38] LABS: Glucose,Whole Blood 261 mg/dL (75-99)
--- NOTE | 2017-05-12 12:53 | P.PN ---
Subjective Progress Note Date: 05/12/17 Mr. Malin is seen and examined today sitting up in the chair. He continues to complain of shortness of breath. He denies chest pain, palpitations, dizziness, nausea or vomiting. He states he hasn't really gotten up and moved around much except from the chair to the bed. Echocardiogram obtained yesterday reveals preserved left ventricular systolic function with ejection fraction 60-65%, moderate left ventricular hypertrophy, mild aortic valve sclerosis and mild mitral calcification. He has no documented history of heart failure in the past. Telemetry tracings have been unremarkable. He was also seen and examined by pulmonary as well and continues on IV antibiotics, IV steroids and nebulizer treatments. Objective - Vital Signs Vital signs: Vital Signs Temp 96.9 F L 05/12/17 07:00 Pulse 92 05/12/17 10:07 Resp 18 05/12/17 09:11 BP 147/81 05/12/17 07:00 Pulse Ox 94 L 05/12/17 07:00 Intake & Output 05/11/17 05/12/17 05/12/17 18:59 06:59 18:59 Weight 145.5 kg Other: Voiding Method Urinal Urinal Urinal # Voids 3 2 - Exam Blood pressure 147/81 heart rate 88 afebrile since admission GENERAL: Well-appearing, well-nourished and in no acute distress. Morbid obesity. NECK: Supple without JVD or thyromegaly. LUNGS: Breath sounds clear to auscultation bilaterally. Respiration equal and unlabored. No wheezes, rales or rhonchi. Diminished. HEART: Regular rate and rhythm with systolic ejection murmur at the base, no rubs or gallops. S1 and S2 heard. EXTREMITIES: Normal range of motion, 1+ pitting bilateral lower extremity edema. No clubbing or cyanosis. Peripheral pulses intact. - Labs CBC & Chem 7: 05/11/17 04:25 05/11/17 04:25 Labs: Abnormal Lab Results - Last 24 Hours (Table) 05/11/17 05/11/17 05/11/17 Range/Units 10:37 17:08 20:01 POC Glucose (mg/dL) 199 H 253 H (75-99) mg/dL Total Creatine Kinase 814 H (55-170) U/L CK-MB (CK-2) 7.9 H* (0.0-2.4) ng/mL 05/12/17 Range/Units 07:03 POC Glucose (mg/dL) 323 H (75-99) mg/dL Total Creatine Kinase (55-170) U/L CK-MB (CK-2) (0.0-2.4) ng/mL Microbiology - Last 24 Hours (Table) 05/10/17 17:00 Blood Culture - Preliminary Blood No Growth after 24 hours Assessment and Plan Assessment: ASSESSMENT 1. Symptoms of progressive dyspnea with cough and fever, could be exacerbation of COPD with acute bronchitis. Not heart failure with normal proBNP, no rales in lungs and normal EF. 2. Minimally elevated troponin, secondary to a type II event in a patient with multiple cardiac risk factors. 3. Abnormal computed tomography scan of the chest 4. Diabetes mellitus 5. Hypertension 6. Dyslipidemia 7. Former tobacco abuse 8. Sleep apnea 9. Obesity PLAN Continue with ongoing medical treatment of COPD. Medical therapy has been maximized with addition of imdur and metoprolol. Further cardiac evaluation to take place once respiratory status has stabilized. Advised to attempt to slowly increase activity and ambulation perhaps just around his room today. Continue with lisinopril, aspirin, atorvastatin, imdur and metoprolol as was previously ordered. Will add small dose of hydrochlorothiazide that he has taken in the past for lower extremity edema. Follow up with Dr. Mancini in 3 weeks. We will continue to follow as needed, please feel free to call with questions or concerns. Nurse Practitioner note has been reviewed, I agree with a documented findings and plan of care. Patient was seen and examined.
--- NOTE | 2017-05-12 14:00 | P.PN ---
Subjective Progress Note Date: 05/12/17 Principal diagnosis: Acute COPD exacerbation, acute sinusitis and tracheobronchitis, lymphadenopathy likely reactive, acute on chronic hypoxic respiratory failure, non-ST segment elevated [place], severe morbid obesity obstructive sleep apnea and severe COPD 05/12/2017, patient seen and evaluated examined he feels less congested on the face his cough congestion is improved he is not producing any sputum his Rocephin has been started last night he's due for second dose today he had a repeat influenza nasopharyngeal swab which is negative, patient is breathing lifting more easily Mr. Malin is a pleasant 56-year-old morbidly obese male seen and evaluated examined in fifth floor, this patient has been admitted to hospital with progressive increased shortness of breath all week to 10 day duration in addition to that patient also noted some swelling and edema in the lower extremity, patient has a long-standing history of diabetes dyslipidemia hypertension hypertensive cardiovascular disease patient has a history of obstructive sleep apnea with polysomnogram performed about 7 years ago at [facility] patient was recommended for CPAP machine but couldn't tolerated and did not use for extended period time. 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 He did have a fever today of 100.5 at home. He denies any chest pain. He complains of significant nasal congestion and rhinorrhea and frontal headache as well. He denies any previous known pulmonary problems but does state that he quit smoking after a long history of tobacco abuse 1 month ago. He was seen yesterday at [facility] and was diagnosed with bronchitis. He did not have a flu test completed at that time. He was placed on an inhaler and states that this does not seem to be helping him much. He has significant exertional dyspnea. He denies any previous similar incidents. He states that his legs feel somewhat swollen as well but are not painful. His apparently has somewhat similar but less severe symptoms. No other complaints or modifying factors. Patient has been complaining of nasal stuffiness congestion and facial discomfort and pain Objective - Vital Signs Vital signs: Vital Signs Temp 96.9 F L 05/12/17 07:00 Pulse 84 05/12/17 13:20 Resp 18 05/12/17 09:11 BP 147/81 05/12/17 07:00 Pulse Ox 94 L 05/12/17 07:00 Intake & Output 05/11/17 05/12/17 05/12/17 18:59 06:59 18:59 Output Total 700 Balance -700 Weight 145.5 kg Output: Urine 700 Other: Voiding Method Urinal Urinal Urinal # Voids 3 2 - Exam GENERAL: The patient is well nourished and well hydrated. VITAL SIGNS: Heart rate, blood pressure, respiratory rate reviewed as recorded in nurse's notes. EYES: Pupils are round and reactive. Extraocular movements are intact. No conjunctival / lid redness or swelling. ENT: No external evidence of injury, swelling, or ecchymosis. Airway is patent. Throat is clear extremely narrow Mallampati grade 4. Mild nasal congestion identified. NECK: Nontender. No swelling or evidence of injury. No subcutaneous emphysema. Trachea is midline. No thyroid mass. Form nodule left anterior cervical area noted with mobile his skin discussed with the patient it is been there for over 2 years has been biopsied in the past and was benign HEART: Regular rate and rhythm. Good peripheral pulses. LUNGS/CHEST: Mild scattered wheezing noted bilaterally. No ecchymosis, subcutaneous emphysema, or tenderness. ABDOMEN: Abdomen soft without tenderness. No palpable masses or organomegaly. No peritoneal signs. No abdominal wall swelling or ecchymosis. EXTREMITIES: No extremity tenderness. Normal muscle tone and function. No thoracolumbar tenderness. +1 pitting edema noted. NEUROLOGIC: Sensation is grossly intact. Cranial nerve exam reveals face is symmetrical, tongue is midline, speech is clear. SKIN: No abrasions or ecchymosis is noted. No induration or masses noted. PSYCHIATRIC: Alert and oriented. Appropriate behavior and judgment. - Labs CBC & Chem 7: 05/11/17 04:25 05/11/17 04:25 Labs: Abnormal Lab Results - Last 24 Hours (Table) 05/11/17 05/11/17 05/12/17 Range/Units 17:08 20:01 07:03 POC Glucose (mg/dL) 199 H 253 H 323 H (75-99) mg/dL 05/12/17 Range/Units 11:36 POC Glucose (mg/dL) 261 H (75-99) mg/dL Microbiology - Last 24 Hours (Table) 05/10/17 17:00 Blood Culture - Preliminary Blood No Growth after 24 hours Assessment and Plan Assessment: Low-grade fever cough shortness of breath off unclear etiology, Acute sinusitis Acute COPD exacerbation and purulent tracheobronchitis Lymphadenopathy and hilar and mediastinal area Acute hypoxic respiratory failure with Exertional dyspnea appears to be multifactorial likely associated with severe COPD and emphysema, pulmonary hypertension and sleep disorder breathing and sleep apnea of long-standing duration Non-ST segment elevated [place] Suspect acute bronchitis/viral syndrome, would recommend to repeat flu testing as index of suspicion is high Severe morbid obesity along with obstructive sleep apnea to be further evaluated outpatient setting Severe COPD emphysema to be further evaluated outpatient setting Plan: IV steroids along with bronchodilators Follow up on echocardiogram Computed tomography scan of the chest high-resolution as well as CT NG reviewed Further evaluation of lymphadenopathy and follow-up in outpatient setting Repeat influenza A and B nasopharyngeal swab noted is negative IV antibiotics with Rocephin Time with Patient: Greater than 30
[2017-05-12] MEDS: HYDROCHLOROTHIAZIDE 12.5 MG CAP PO SCH (16:50)
[2017-05-12 17:19] LABS: Glucose,Whole Blood 292 mg/dL (75-99)
--- NOTE | 2017-05-12 18:05 | PN ---
PROGRESS NOTE DATE OF SERVICE: May 12, 2017. ATTENDING NOTE: The patient seen and examined by me. I discussed with my nurse practitioner, Ms. Phan. The patient breathing slowly getting better. Admitted with acute pneumonitis and COPD exacerbation. Did tolerate a diet. Sitting in a chair. is present today. PHYSICAL EXAMINATION: Temperature 97.4,pulse 95, respirations 18, blood pressure 130/71, pulse ox 93% on 4- 1/2 L. Lungs decreased breath sounds. Slightly improved air entry. Cardiovascular 1st and 2nd sounds normal. 2D shows some concentric LVH. Accu-Cheks are noted. ASSESSMENT: 1. Acute severe chronic obstructive pulmonary disease exacerbation, slow to respond. 2. Diabetes mellitus type 2, chronically on insulin, uncontrolled from being on steroids. 3. Essential hypertension. 4. Obesity. PLAN: Continue nebulized bronchodilators, IV Solu-Medrol. Care was discussed with the patient and . Encouraged to ambulate. MMODL / IJN: [id number] /
--- NOTE | 2017-05-12 18:08 | P.PN ---
Progress Note - Text Progress Note Date: 05/12/17 DATE OF SERVICE: 05/12/2017 PRESENTING COMPLAINT: Shortness of breath HISTORY OF PRESENT ILLNESS: 56-year-old male who developed progressive shortness of breath but got worse over the previous 3 days. Mild cough, is clear sputum low-grade fever. No nausea no vomiting but decreased appetite. Does have lower extremity edema that 's been increasing over the last month and having some orthopnea. Easily short winded when doing activities such as going to the bathroom. INTERVAL HISTORY: 05/12/2017: Sitting up in a chair talking to family on the cell phone. Appears very anxious remains short of breath with minimal exertion, has a coarse productive cough with clear sputum. States he feels somewhat better today however continues to be tired did not sleep well last night. Appetite improving continues to be low. is bringing him things from home to eat. Patient counseled on weight management and smoking cessation. Able to ambulate a bit easier today to and from the bathroom. Last BM prior to admission. 05/11/2017 Sitting up in a chair at the bedside, appears very anxious and short of breath with minimal exertion. Has a very coarse cough with clear sputum production. Continues to feel very tired, but improved since admission. Appetite is improving but continues to be low eating about 50% of his meals. Is able to ambulate as long as he is oxygen on and only to the bathroom. Last BM prior to admission. REVIEW OF SYSTEMS: Done for constitutional ,cardiovascular, GI, pulmonary with relevant findings as above. CURRENT MEDICATIONS Acetaminophen, [place], DuoNeb, aspirin, Lipitor, baclofen, Pulmicort, Serafin, Lovenox, NovoLog insulin, Levemir, Imdur, lidocaine cream, lisinopril, Claritin, , Ativan, melatonin, mobility, Solu-Medrol, Lopressor, Zofran, Narcan, MiraLAX, Prandin, Ultram. PHYSICAL EXAM VITAL SIGNS: Temperature 96.9, pulse 80, respiratory rate 18, blood pressure 147/81, oxygen saturation 94% on 2 L. GENERAL APPEARANCE: Sitting up in a chair at the bedside using his cell phone. mildly anxious appearing. HENT: Normocephalic, JVD not raised. Mass not palpable. Oral cavity dry mucous membranes, external appearance of ears and nose normal. EYES:Pupils equal. Conjunctiva normal. RESPIRATORY: Respiratory effort increased with minimal exertion. Lungs diminished with prolonged expiration to auscultation. CARDIOVASCULAR: First and second sounds normal. No edema. ABDOMEN: Soft. Liver and spleen not palpable. No tenderness. No mass palpable. PSYCHIATRY: Alert and oriented x3. Mood and affect somewhat anxious appearing. INVESTIGATIONS: LABS: Accu-Cheks noted to be high due to steroid use. ASSESSMENT: -Acute severe chronic obstructive pulmonary disease exacerbation in a recent ex- smoker, slow to respond -Chronic congestive heart failure in a patient whose BNP is only 195 -Suspect underlying coronary hypertension 2-D echocardiogram pending -pulmonary embolism, computed tomography scan of the chest negative for pulmonary embolism. -Diabetes mellitus type 2 chronically on insulin. -Essential hypertension. -Hyperlipidemia. -Obstructive sleep apnea, does not use a CPAP machine. -Morbid obesity BMI of 42.3 PLAN: Continue breathing treatments steroids and inhaled steroids, 2-D echocardiogram reveals preserved left ventricular systolic function with ejection fraction of 60-65 %. Additional cardiac evaluation will take place once his respiratory status is stabilized. We'll continue current medication and treatment plan discussed plan of care at bedside with and patient they're agreeable. Discharge planning for closer to the weekend. We'll see how he does. We will follow closely. SCHOOL CROSSING GUARD SUPERVISOR statement: Patient was seen and examined by nurse practitioner Umu Phan and all elements of the case discussed with attending Dr. Cedeño
[2017-05-12 20:00] LABS: Glucose,Whole Blood 324 mg/dL (75-99)
[2017-05-12] MEDS: INSULIN DETEMIR 100 UNIT/ML 10 ML VIAL SQ SCH (20:33)
[2017-05-13] MEDS: IPRATROPIUM-ALBUTEROL 3 ML NEB INHALATION SCH ×6 (00:56→21:46)
[2017-05-13] MEDS: methylPREDNISolone SOD SUCCI 40 MG/ML 1 ML VIAL IV SCH ×3 (00:59→15:58)
[2017-05-13 07:20] LABS: Glucose,Whole Blood 318 mg/dL (75-99)
[2017-05-13] MEDS: INSULIN ASPART 100 UNIT/ML 1 ML 10 ML VIAL SQ SCH ×6 (07:57→17:42)
[2017-05-13] MEDS: ENOXAPARIN 40 MG/0.4 ML SYRINGE SQ SCH (07:59)
[2017-05-13] MEDS: FLUTICASONE 50MCG/SPRAY NASAL 16GM EA NOSTRIL SCH (08:01)
[2017-05-13] MEDS: REPAGLINIDE 1 MG TAB PO SCH (08:02)
[2017-05-13] MEDS: MELOXICAM 7.5 MG TAB PO SCH (08:02)
[2017-05-13] MEDS: ASPIRIN 81 MG PO SCH (08:02)
[2017-05-13] MEDS: ATORVASTATIN 80 MG TAB PO SCH (08:02)
[2017-05-13] MEDS: metFORMIN 500 MG TAB PO SCH (08:03)
[2017-05-13] MEDS: PANTOPRAZOLE 40 MG TABLET PO SCH (08:03)
[2017-05-13] MEDS: LISINOPRIL 20 MG TAB PO SCH (08:03)
[2017-05-13] MEDS: HYDROCHLOROTHIAZIDE 12.5 MG CAP PO SCH (08:03)
[2017-05-13] MEDS: LORATADINE 10 MG TAB PO SCH (08:03)
[2017-05-13] MEDS: ISOSORBIDE MONONITRATE ER 30 MG TAB.ER.24H PO SCH (08:03)
[2017-05-13] MEDS: METOPROLOL TARTRATE 25 MG TAB PO SCH (08:04)
[2017-05-13] MEDS: cefTRIAXone IN SWFI 1,000 MG/10 ML SYRINGE IVP SCH (08:15)
[2017-05-13] MEDS: BUDESONIDE 1 MG/2 ML NEBU INHALATION SCH ×2 (08:38→21:46)
[2017-05-13] MEDS: SYMBICORT 80-4.5 MCG INHALER INHALATION SCH ×2 (08:38→21:46)
[2017-05-13 11:51] LABS: Glucose,Whole Blood 277 mg/dL (75-99)
--- NOTE | 2017-05-13 14:07 | P.PN ---
Subjective Progress Note Date: 05/13/17 Mr. Malin is seen and examined today sitting up in the chair. He states he has been up and ambulating in his room. Complains of shortness of breath after he gets back to the chair but this seems to be getting better. He denies chest pain, palpitations, dizziness, nausea or vomiting. Hydrochlorothiazide was added yesterday for lower extremity edema. This is mildly improving but not completely resolved. Telemetry tracings have been unremarkable. He is continued on IV antibiotics, steroids and nebulizer treatments. Objective - Vital Signs Vital signs: Vital Signs Temp 97.6 F 05/13/17 07:00 Pulse 88 05/13/17 12:12 Resp 20 05/13/17 09:50 BP 172/82 05/13/17 07:00 Pulse Ox 93 L 05/13/17 07:00 Intake & Output 05/12/17 05/13/17 05/13/17 18:59 06:59 18:59 Output Total 700 Balance -700 Output: Urine 700 Other: Voiding Method Urinal Urinal Urinal # Voids 2 1 - Exam Blood pressure 172/82 heart rate 79 afebrile GENERAL: Well-appearing, well-nourished and in no acute distress. Morbid obesity. NECK: Supple without JVD or thyromegaly. LUNGS: Breath sounds clear to auscultation bilaterally. Respiration equal and unlabored. No wheezes, rales or rhonchi. Diminished. HEART: Regular rate and rhythm with systolic ejection murmur at the base, no rubs or gallops. S1 and S2 heard. EXTREMITIES: Normal range of motion, 1+ pitting bilateral lower extremity edema. No clubbing or cyanosis. Peripheral pulses intact. - Labs CBC & Chem 7: 05/11/17 04:25 05/11/17 04:25 Labs: Abnormal Lab Results - Last 24 Hours (Table) 05/12/17 05/12/17 05/13/17 Range/Units 17:17 19:58 07:14 POC Glucose (mg/dL) 292 H 324 H 318 H (75-99) mg/dL 05/13/17 Range/Units 11:50 POC Glucose (mg/dL) 277 H (75-99) mg/dL Microbiology - Last 24 Hours (Table) 05/10/17 17:00 Blood Culture - Preliminary Blood No Growth after 48 hours Assessment and Plan Assessment: ASSESSMENT 1. Symptoms of progressive dyspnea with cough and fever, could be exacerbation of COPD with acute bronchitis. Not heart failure with normal proBNP, no rales in lungs and normal EF. 2. Minimally elevated troponin, secondary to a type II event in a patient with multiple cardiac risk factors. 3. Abnormal computed tomography scan of the chest 4. Diabetes mellitus 5. Hypertension 6. Dyslipidemia 7. Former tobacco abuse 8. Sleep apnea 9. Obesity PLAN Continue with ongoing medical treatment of COPD. No further cardiac work-up as an inpatient. Appointment has been made to see Dr. Mancini in 3 weeks. Nurse Practitioner note has been reviewed, I agree with a documented findings and plan of care. Patient was seen and examined.
[2017-05-13 16:06] LABS: Hemoglobin A1C 7.8 % (4.0-6.0)
[2017-05-13 17:19] LABS: Glucose,Whole Blood 226 mg/dL (75-99)
--- NOTE | 2017-05-13 17:36 | PN ---
PROGRESS NOTE DATE OF SERVICE: 05/13/17. ATTENDING NOTE: The patient seen and examined by me. I discussed with nurse practitioner Ms. Phan. Patient continues to improve. No sputum production. Been up to the bathroom. On oxygen. PHYSICAL EXAMINATION: Temperature 97.6, pulse 79, respiratory rate 20, blood pressure 132/82, pulse ox 93% on 4 L. Repeat blood pressure 130/63. Lungs slightly improved air entry. Decreased wheezing. No edema. Accu-Cheks noted. ASSESSMENT: 1. Acute severe chronic obstructive pulmonary disease exacerbation improving. 2. Diabetes mellitus type 2, uncontrolled from being on steroids. PLAN: The patient is overall doing much better. The patient is on 94% on 3 L. Oxygen to be dialed down and we will check for home oxygen. We will switch patient over to oral prednisone. Care was discussed with the patient. KENYETTA / MILAGROS: [id number] /
--- NOTE | 2017-05-13 20:01 | P.PN ---
Progress Note - Text Progress Note Date: 05/13/17 DATE OF SERVICE: 05/13/2017 PRESENTING COMPLAINT: Shortness of breath HISTORY OF PRESENT ILLNESS: 56-year-old male who developed progressive shortness of breath but got worse over the previous 3 days. Mild cough, is clear sputum low-grade fever. No nausea no vomiting but decreased appetite. Does have lower extremity edema that 's been increasing over the last month and having some orthopnea. Easily short winded when doing activities such as going to the bathroom. INTERVAL HISTORY: 05/13/2017: Sitting up in a chair talking to family on the cell phone. Eating a bag of Doritos. No acute overnight events, vital signs are stable. Looks comfortable. Has shortness of breath with minimal exertion has only been walking to and from the bathroom. Has a cough but unable to produce any sputum. States he feels much better today. Appetite is improving. 05/12/2017: Sitting up in a chair talking to family on the cell phone. Appears very anxious remains short of breath with minimal exertion, has a coarse productive cough with clear sputum. States he feels somewhat better today however continues to be tired did not sleep well last night. Appetite improving continues to be low. is bringing him things from home to eat. Patient counseled on weight management and smoking cessation. Able to ambulate a bit easier today to and from the bathroom. Last BM prior to admission. 05/11/2017 Sitting up in a chair at the bedside, appears very anxious and short of breath with minimal exertion. Has a very coarse cough with clear sputum production. Continues to feel very tired, but improved since admission. Appetite is improving but continues to be low eating about 50% of his meals. Is able to ambulate as long as he is oxygen on and only to the bathroom. Last BM prior to admission. REVIEW OF SYSTEMS: Done for constitutional ,cardiovascular, GI, pulmonary with relevant findings as above. CURRENT MEDICATIONS Acetaminophen, [place], DuoNeb, aspirin, Lipitor, baclofen, Pulmicort, Serafin, Lovenox, NovoLog insulin, Levemir, Imdur, lidocaine cream, lisinopril, Claritin, , Ativan, melatonin, mobility, Solu-Medrol, Lopressor, Zofran, Narcan, MiraLAX, Prandin, Ultram. PHYSICAL EXAM VITAL SIGNS: Temperature 97.6, pulse 79, respirations 20, blood pressure 172/82, oxygen saturation 93% on 4 L. GENERAL APPEARANCE: Sitting up in a chair at the bedside using his cell phone. Comfortable appearing. HENT: Normocephalic, JVD not raised. Mass not palpable. Oral cavity normal, external appearance of ears and nose normal. EYES:Pupils equal. Conjunctiva normal. RESPIRATORY: Respiratory effort increased with minimal exertion. Lungs diminished with prolonged expiration to auscultation. CARDIOVASCULAR: First and second sounds normal. No edema. ABDOMEN: Soft. Liver and spleen not palpable. No tenderness. No mass palpable. PSYCHIATRY: Alert and oriented x3. Mood and affect somewhat anxious appearing. INVESTIGATIONS: LABS: Accu-Cheks noted to be high due to steroid use sliding scale available. ASSESSMENT: -Acute severe chronic obstructive pulmonary disease exacerbation in a recent ex- smoker, improving -Chronic congestive heart failure in a patient whose BNP is only 195 -Suspect underlying coronary hypertension 2-D echocardiogram pending -pulmonary embolism, computed tomography scan of the chest negative for pulmonary embolism. -Diabetes mellitus type 2 chronically on insulin, uncontrolled due to steroid use. -Essential hypertension. -Hyperlipidemia. -Obstructive sleep apnea, does not use a CPAP machine. -Morbid obesity BMI of 42.3 PLAN: Continue breathing treatments steroids and inhaled steroids, patient had an initial troponin elevation on admission, cardiology is seeing the patient and feels that it is a type II event in which case patient can follow-up outpatient once his respiratory status is stabilized and he is discharged. We'll continue to titrate oxygen down and determine if patient requires home oxygen. Nebulizer prescription provided earlier today. We'll continue current medication and treatment plan discussed plan of care at bedside with patient he is agreeable. Discharge planning for closer to the weekend. We'll see how he does. We will follow closely. BRANCH OFFICE ADMINISTRATOR statement: Patient was seen and examined by nurse practitioner Umu Phan and all elements of the case discussed with attending Dr. Cedeño
[2017-05-13 20:50] LABS: Glucose,Whole Blood 275 mg/dL (75-99)
[2017-05-13] MEDS: INSULIN DETEMIR 100 UNIT/ML 10 ML VIAL SQ SCH (21:50)
[2017-05-13 22:59] VITALS: TEMP 97.8
[2017-05-14] MEDS: INSULIN ASPART 100 UNIT/ML 1 ML 10 ML VIAL SQ SCH ×5 (00:05→12:44)
[2017-05-14] MEDS: IPRATROPIUM-ALBUTEROL 3 ML NEB INHALATION SCH ×5 (00:24→15:28)
[2017-05-14] MEDS: PANTOPRAZOLE 40 MG TABLET PO SCH ×2 (03:06→07:59)
[2017-05-14] MEDS: METOPROLOL TARTRATE 25 MG TAB PO SCH ×2 (03:08→07:59)
[2017-05-14] MEDS: methylPREDNISolone SOD SUCCI 40 MG/ML 1 ML VIAL IV SCH ×2 (03:09→09:16)
[2017-05-14 03:16] LABS: Glucose,Whole Blood 262 mg/dL (75-99)
[2017-05-14] MEDS: SYMBICORT 80-4.5 MCG INHALER INHALATION SCH (07:14)
[2017-05-14] MEDS: BUDESONIDE 1 MG/2 ML NEBU INHALATION SCH (07:14)
[2017-05-14 07:42] LABS: Glucose,Whole Blood 280 mg/dL (75-99)
[2017-05-14] MEDS: ENOXAPARIN 40 MG/0.4 ML SYRINGE SQ SCH (07:55)
[2017-05-14] MEDS: FLUTICASONE 50MCG/SPRAY NASAL 16GM EA NOSTRIL SCH (07:57)
[2017-05-14] MEDS: LORATADINE 10 MG TAB PO SCH (07:57)
[2017-05-14] MEDS: ISOSORBIDE MONONITRATE ER 30 MG TAB.ER.24H PO SCH (07:57)
[2017-05-14] MEDS: REPAGLINIDE 1 MG TAB PO SCH (07:58)
[2017-05-14] MEDS: metFORMIN 500 MG TAB PO SCH (07:59)
[2017-05-14] MEDS: ATORVASTATIN 80 MG TAB PO SCH (07:59)
[2017-05-14] MEDS: ASPIRIN 81 MG PO SCH (07:59)
[2017-05-14] MEDS: MELOXICAM 7.5 MG TAB PO SCH (07:59)
[2017-05-14] MEDS: LISINOPRIL 20 MG TAB PO SCH (07:59)
[2017-05-14 08:24] VITALS: BP 178/86; RESP 19
[2017-05-14] MEDS ORDERED: HYDROCHLOROTHIAZIDE 25 MG TAB PO SCH (09:00)
[2017-05-14] MEDS: cefTRIAXone IN SWFI 1,000 MG/10 ML SYRINGE IVP SCH (10:15)
[2017-05-14 11:32] VITALS: PULSE 88
[2017-05-14 12:11] LABS: Glucose,Whole Blood 129 mg/dL (75-99)
--- NOTE | 2017-05-14 12:43 | P.PN ---
Subjective Progress Note Date: 05/13/17 (Late entry note) Principal diagnosis: Acute COPD exacerbation, acute sinusitis and tracheobronchitis, lymphadenopathy likely reactive, acute on chronic hypoxic respiratory failure, non-ST segment elevated ME, severe morbid obesity obstructive sleep apnea and severe COPD 05/13/2017, patient seen and evaluated examined from respiratory standpoint is still congested complaining of facial congestion and nasal stuffiness noted that patient is on oxygen sats are in mid 90s, facial headache and sinus pain is better under control denies any more chest pain does have intermittent cough 05/12/2017, patient seen and evaluated examined he feels less congested on the face his cough congestion is improved he is not producing any sputum his Rocephin has been started last night he's due for second dose today he had a repeat influenza nasopharyngeal swab which is negative, patient is breathing lifting more easily Mr. Malin is a pleasant 56-year-old morbidly obese male seen and evaluated examined in fifth floor, this patient has been admitted to hospital with progressive increased shortness of breath all week to 10 day duration in addition to that patient also noted some swelling and edema in the lower extremity, patient has a long-standing history of diabetes dyslipidemia hypertension hypertensive cardiovascular disease patient has a history of obstructive sleep apnea with polysomnogram performed about 7 years ago at [facility] patient was recommended for CPAP machine but couldn't tolerated and did not use for extended period time. 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 He did have a fever today of 100.5 at home. He denies any chest pain. He complains of significant nasal congestion and rhinorrhea and frontal headache as well. He denies any previous known pulmonary problems but does state that he quit smoking after a long history of tobacco abuse 1 month ago. He was seen yesterday at [facility] and was diagnosed with bronchitis. He did not have a flu test completed at that time. He was placed on an inhaler and states that this does not seem to be helping him much. He has significant exertional dyspnea. He denies any previous similar incidents. He states that his legs feel somewhat swollen as well but are not painful. His apparently has somewhat similar but less severe symptoms. No other complaints or modifying factors. Patient has been complaining of nasal stuffiness congestion and facial discomfort and pain Objective - Vital Signs Vital signs: Vital Signs Temp 97.8 F 05/14/17 07:00 Pulse 88 05/14/17 11:32 Resp 19 05/14/17 09:25 BP 178/86 05/14/17 07:00 Pulse Ox 92 L 05/14/17 10:27 Intake & Output 05/13/17 05/14/17 05/14/17 18:59 06:59 18:59 Intake Total 140 400 Balance 140 400 Weight 145.5 kg Intake: IV 140 160 0.9 20 140 160 Oral 240 Other: Voiding Method Urinal Urinal Toilet # Voids 1 - Exam GENERAL: The patient is well nourished and well hydrated. VITAL SIGNS: Heart rate, blood pressure, respiratory rate reviewed as recorded in nurse's notes. EYES: Pupils are round and reactive. Extraocular movements are intact. No conjunctival / lid redness or swelling. ENT: No external evidence of injury, swelling, or ecchymosis. Airway is patent. Throat is clear extremely narrow Mallampati grade 4. Mild nasal congestion identified. Positive facial tenderness in the maxillary area NECK: Nontender. No swelling or evidence of injury. No subcutaneous emphysema. Trachea is midline. No thyroid mass. Form nodule left anterior cervical area noted with mobile his skin discussed with the patient it is been there for over 2 years has been biopsied in the past and was benign HEART: Regular rate and rhythm. Good peripheral pulses. LUNGS/CHEST: Mild scattered wheezing noted bilaterally. No ecchymosis, subcutaneous emphysema, or tenderness. ABDOMEN: Abdomen soft without tenderness. No palpable masses or organomegaly. No peritoneal signs. No abdominal wall swelling or ecchymosis. EXTREMITIES: No extremity tenderness. Normal muscle tone and function. No thoracolumbar tenderness. +1 pitting edema noted. NEUROLOGIC: Sensation is grossly intact. Cranial nerve exam reveals face is symmetrical, tongue is midline, speech is clear. SKIN: No abrasions or ecchymosis is noted. No induration or masses noted. PSYCHIATRIC: Alert and oriented. Appropriate behavior and judgment. - Labs CBC & Chem 7: 05/11/17 04:25 05/11/17 04:25 Labs: Abnormal Lab Results - Last 24 Hours (Table) 05/11/17 05/13/17 05/13/17 Range/Units 04:25 17:16 20:48 POC Glucose (mg/dL) 226 H 275 H (75-99) mg/dL Hemoglobin A1c 7.8 H (4.0-6.0) % 05/14/17 05/14/17 05/14/17 Range/Units 03:04 07:36 12:02 POC Glucose (mg/dL) 262 H 280 H 129 H (75-99) mg/dL Hemoglobin A1c (4.0-6.0) % Microbiology - Last 24 Hours (Table) 05/10/17 17:00 Blood Culture - Preliminary Blood No Growth after 72 hours Assessment and Plan Assessment: Acute sinusitis Low-grade fever cough shortness of breath off unclear etiology, Acute sinusitis Acute COPD exacerbation and purulent tracheobronchitis Lymphadenopathy and hilar and mediastinal area Acute hypoxic respiratory failure with Exertional dyspnea appears to be multifactorial likely associated with severe COPD and emphysema, pulmonary hypertension and sleep disorder breathing and sleep apnea of long-standing duration Non-ST segment elevated ME Suspect acute bronchitis/viral syndrome, would recommend to repeat flu testing as index of suspicion is high Severe morbid obesity along with obstructive sleep apnea to be further evaluated outpatient setting Severe COPD emphysema to be further evaluated outpatient setting Plan: Check pulse ox at room air if the saturation are more than 92% DC the oxygen IV steroids along with bronchodilators Follow up on echocardiogram Computed tomography scan of the chest high-resolution as well as CT NG reviewed Further evaluation of lymphadenopathy and follow-up in outpatient setting Repeat influenza A and B nasopharyngeal swab noted is negative IV antibiotics with Rocephin Time with Patient: Greater than 30
--- NOTE | 2017-05-14 12:45 | P.PN ---
Subjective Progress Note Date: 05/14/17 Principal diagnosis: Acute COPD exacerbation, acute sinusitis and tracheobronchitis, lymphadenopathy likely reactive, acute on chronic hypoxic respiratory failure, non-ST segment elevated MA, severe morbid obesity obstructive sleep apnea and severe COPD 05/14/2017, patient seen eval examined during the rounds doing well from respiratory standpoint nasal stuffiness congestion is improved her cough is better and denies any chest pain breathing more comfortably sinus pressure headache is slightly better as well patient is now off of oxygen saturation is stable 05/13/2017, patient seen and evaluated examined from respiratory standpoint is still congested complaining of facial congestion and nasal stuffiness noted that patient is on oxygen sats are in mid 90s, facial headache and sinus pain is better under control denies any more chest pain does have intermittent cough 05/12/2017, patient seen and evaluated examined he feels less congested on the face his cough congestion is improved he is not producing any sputum his Rocephin has been started last night he's due for second dose today he had a repeat influenza nasopharyngeal swab which is negative, patient is breathing lifting more easily Mr. Malin is a pleasant 56-year-old morbidly obese male seen and evaluated examined in fifth floor, this patient has been admitted to hospital with progressive increased shortness of breath all week to 10 day duration in addition to that patient also noted some swelling and edema in the lower extremity, patient has a long-standing history of diabetes dyslipidemia hypertension hypertensive cardiovascular disease patient has a history of obstructive sleep apnea with polysomnogram performed about 7 years ago at [facility] patient was recommended for CPAP machine but couldn't tolerated and did not use for extended period time. 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 He did have a fever today of 100.5 at home. He denies any chest pain. He complains of significant nasal congestion and rhinorrhea and frontal headache as well. He denies any previous known pulmonary problems but does state that he quit smoking after a long history of tobacco abuse 1 month ago. He was seen yesterday at [facility] and was diagnosed with bronchitis. He did not have a flu test completed at that time. He was placed on an inhaler and states that this does not seem to be helping him much. He has significant exertional dyspnea. He denies any previous similar incidents. He states that his legs feel somewhat swollen as well but are not painful. His apparently has somewhat similar but less severe symptoms. No other complaints or modifying factors. Patient has been complaining of nasal stuffiness congestion and facial discomfort and pain Objective - Vital Signs Vital signs: Vital Signs Temp 97.8 F 05/14/17 07:00 Pulse 88 05/14/17 11:32 Resp 19 05/14/17 09:25 BP 178/86 05/14/17 07:00 Pulse Ox 92 L 05/14/17 10:27 Intake & Output 05/13/17 05/14/17 05/14/17 18:59 06:59 18:59 Intake Total 140 400 Balance 140 400 Weight 145.5 kg Intake: IV 140 160 0.9 20 140 160 Oral 240 Other: Voiding Method Urinal Urinal Toilet # Voids 1 - Exam GENERAL: The patient is well nourished and well hydrated. VITAL SIGNS: Heart rate, blood pressure, respiratory rate reviewed as recorded in nurse's notes. EYES: Pupils are round and reactive. Extraocular movements are intact. No conjunctival / lid redness or swelling. ENT: No external evidence of injury, swelling, or ecchymosis. Airway is patent. Throat is clear extremely narrow Mallampati grade 4. Mild nasal congestion identified. Positive facial tenderness in the maxillary area improved compared to yesterday exam NECK: Nontender. No swelling or evidence of injury. No subcutaneous emphysema. Trachea is midline. No thyroid mass. Form nodule left anterior cervical area noted with mobile his skin discussed with the patient it is been there for over 2 years has been biopsied in the past and was benign HEART: Regular rate and rhythm. Good peripheral pulses. LUNGS/CHEST: Mild scattered wheezing noted bilaterally. No ecchymosis, subcutaneous emphysema, or tenderness. ABDOMEN: Abdomen soft without tenderness. No palpable masses or organomegaly. No peritoneal signs. No abdominal wall swelling or ecchymosis. EXTREMITIES: No extremity tenderness. Normal muscle tone and function. No thoracolumbar tenderness. +1 pitting edema noted. NEUROLOGIC: Sensation is grossly intact. Cranial nerve exam reveals face is symmetrical, tongue is midline, speech is clear. SKIN: No abrasions or ecchymosis is noted. No induration or masses noted. PSYCHIATRIC: Alert and oriented. Appropriate behavior and judgment. - Labs CBC & Chem 7: 05/11/17 04:25 05/11/17 04:25 Labs: Abnormal Lab Results - Last 24 Hours (Table) 05/11/17 05/13/17 05/13/17 Range/Units 04:25 17:16 20:48 POC Glucose (mg/dL) 226 H 275 H (75-99) mg/dL Hemoglobin A1c 7.8 H (4.0-6.0) % 05/14/17 05/14/17 05/14/17 Range/Units 03:04 07:36 12:02 POC Glucose (mg/dL) 262 H 280 H 129 H (75-99) mg/dL Hemoglobin A1c (4.0-6.0) % Microbiology - Last 24 Hours (Table) 05/10/17 17:00 Blood Culture - Preliminary Blood No Growth after 72 hours Assessment and Plan Assessment: Acute sinusitis Low-grade fever cough shortness of breath off unclear etiology, Acute sinusitis Acute COPD exacerbation and purulent tracheobronchitis Lymphadenopathy and hilar and mediastinal area Acute hypoxic respiratory failure with Exertional dyspnea appears to be multifactorial likely associated with severe COPD and emphysema, pulmonary hypertension and sleep disorder breathing and sleep apnea of long-standing duration Non-ST segment elevated MA Suspect acute bronchitis/viral syndrome, would recommend to repeat flu testing as index of suspicion is high Severe morbid obesity along with obstructive sleep apnea to be further evaluated outpatient setting Severe COPD emphysema to be further evaluated outpatient setting Plan: Monitor off of oxygen keep saturation more than 92% If remains stable can be discharged home from pulmonary standpoint on oral antibiotics and tapering steroids with follow-up in outpatient setting IV steroids along with bronchodilators Follow up on echocardiogram Computed tomography scan of the chest high-resolution as well as CT NG reviewed Further evaluation of lymphadenopathy and follow-up in outpatient setting Repeat influenza A and B nasopharyngeal swab noted is negative IV antibiotics with Rocephin Time with Patient: Greater than 30
--- NOTE | 2017-05-17 01:16 | DS ---
DISCHARGE SUMMARY DATE OF ADMISSION: May 10, 2017. DATE OF DISCHARGE: May 14, 2017. FINAL DIAGNOSES: 1. Acute severe chronic obstructive pulmonary disease exacerbation in a recent ex- smoker. 2. Pulmonary embolism ruled out. 3. Diabetes mellitus type 2, chronically on insulin uncontrolled due to steroid use. 4. Essential hypertension. 5. Hyperlipidemia. 6. Obstructive sleep apnea does not use CPAP machine. 7. Morbid obesity BMI 42.34. 8. The patient does not have secondary pulmonary hypertension and patient does not have congestive heart failure. 9. Hypertensive heart disease. HOSPITAL COURSE: This patient presented with shortness of breath/COPD exacerbation. Recently did stop smoking. Chest CTA was negative for PE. 2D echocardiogram showed preserved LV function and did not report any evidence of pulmonary hypertension. The patient is doing better by the time of discharge. Breathing better. The patient's pulse ox is 92% on room air. EXAMINATION: Lungs improved air entry. Cardiovascular 1st and 2nd sounds normal. Care was discussed in detail with the patient and . Questions were answered. CONSULTATION: Dr. Crispin Hernandez from Pulmonary, Dr. Mancini from Cardiology. PLAN: 1. Ventolin HFA 2 puffs q.6h p.r.n. 2. Aspirin 81 mg p.o. daily. 3. Lipitor 80 mg p.o. daily. 4. Baclofen 10 mg p.o. t.i.d. p.r.n. 5. Advair 100/50 1 puff b.i.d. 6. [place] 10 1 tab p.o. daily p.r.n. 7. NovoLog 40 units subcu t.i.d. 8. Lantus 8 units subcu daily. 9. Lidocaine 4% topical daily p.r.n. 10.Lisinopril 40 mg p.o. daily. 11.Claritin 10 mg p.o. daily. 12.Mobic 50 mg p.o. daily. 13.Omeprazole 20 mg p.o. b.i.d. 14.MiraLAX 17 g p.o. daily p.r.n.. 15. 1/100 2 tablets p.o. daily. 16.Viagra p.r.n. 17.Ceftin 500 mg p.o. b.i.d. 6 tablets. 18.Chlorthalidone 25 mg p.o. daily. 19.DuoNeb t.i.d. 20.Imdur ER 30 mg p.o. daily. 21.Melatonin 3 mg at bedtime p.r.n. 22.Lopressor 25 p.o. b.i.d. 23.Prednisone taper. FOLLOWUP: Follow up with Dr. Mancini in 3 weeks, Dr. Ng on 05/21/17, Dr. Crispin Hernandez on 05/20/17. Copy to Dr Ng. KENYETTA / JEYSONN: [id number] /
== END 2017-05-14 16:20 | disposition home or self-care (01) | DRG 193 ==
LOC: EC 16:41 → 5MS5E 18:35
PROVIDERS: ADMIT Hospitalist; ATTEND Hospitalist
DX: J18.9 Pneumonia, unspecified organism (principal); I21.A1 Myocardial infarction type 2; J96.21 Acute and chronic respiratory failure with hypoxia; J44.0 Chronic obstructive pulmonary disease with (acute) lower respiratory infection; E66.01 Morbid (severe) obesity due to excess calories; J01.90 Acute sinusitis, unspecified; E11.9 Type 2 diabetes mellitus without complications; Z68.41 Body mass index [BMI] 40.0-44.9, adult; J44.1 Chronic obstructive pulmonary disease with (acute) exacerbation; I11.9 Hypertensive heart disease without heart failure; J20.9 Acute bronchitis, unspecified; R59.1 Generalized enlarged lymph nodes; I35.8 Other nonrheumatic aortic valve disorders; E78.5 Hyperlipidemia, unspecified; G47.33 Obstructive sleep apnea (adult) (pediatric); T38.0X5A Adverse effect of glucocorticoids and synthetic analogues, initial encounter; Z79.82 Long term (current) use of aspirin; Z79.1 Long term (current) use of non-steroidal anti-inflammatories (NSAID); Z79.51 Long term (current) use of inhaled steroids; Z79.4 Long term (current) use of insulin; Z79.899 Other long term (current) drug therapy; Z87.891 Personal history of nicotine dependence
CPT/HCPCS: 36415; 71046; 71250; 71275; 80048; 80053; 82550; 82553; 83036; 83880; 84484; 85025; 85610; 85730; 87040; 87502; 93005; 93306; 94640; 94760; 96365; 96375; 99285

== ENCOUNTER 2020-06-05 09:50 | Day surgery (SDC) | payer BC, MEDICARE, OTHER ==
[2020-06-03 11:07] VITALS: BMI 46.1
[~2020-06-05 09:50] MED LIST: LACTATED RINGERS 1,000 ML IV SCH; LIDOCAINE 1% (10MG/ML) FOR IV START INTRADERMA PRN
[2020-06-05 10:27] LABS: Glucose,Whole Blood 135 mg/dL (75-99)
[2020-06-05 10:28] VITALS: TEMP 96.8
[2020-06-05] MEDS ORDERED: PROPOFOL 10 MG/ML 20 ML VIAL IV ONE (10:53)
--- NOTE | 2020-06-05 11:21 | P.PCN ---
Date of Procedure: 06/05/20 Procedure(s) Performed: BRIEF HISTORY: Patient is a in [id number] pleasant white male scheduled for an elective colonoscopy as a part of evaluation of chronic diarrhea for the last 1 year duration. PROCEDURE PERFORMED: Colonoscopy and since snare polypectomy. PREOPERATIVE DIAGNOSIS: Chronic diarrhea for 1 year duration. IV sedation per Anesthesia. PROCEDURE: After informed consent was obtained, the patient, was brought into the endoscopy unit. IV sedation was administered by Anesthesia under continuous monitoring. Digital rectal examination was normal. Initially the Olympus CF-160 flexible video colonoscope was then inserted in the rectum, gradually advanced into the cecum without any difficulty. Careful examination was performed as the scope was gradually being withdrawn. Ileocecal valve and the appendiceal orifice were visualized and appeared normal. Prep was fair.. Mucosa of the cecum, appeared normal. In the ascending colon there was a 5 mm and 7 mm polyps removed by snare polypectomy. In the hepatic flexure there was another 5 limited polyp that was removed by snare polypectomy. Rest of the ascending colon, transverse colon, descending colon, sigmoid colon, and rectum appeared normal. Scattered left-sided diverticulosis seen. Retroflexion was performed in the rectum and no lesions were seen. The patient tolerated the procedure well. IMPRESSION: 5 mm, 7 mm 2 ascending colon polyp status post polypectomy 5 mm hepatic flexure polyp status post polypectomy Scattered sigmoid diverticulosis RECOMMENDATIONS: Findings of this examination were discussed with the patient well as his family. He was advised to follow with the biopsy results. He'll be seen in office in 2 weeks..
[2020-06-05 11:28] VITALS: RESP 16
[2020-06-05 11:44] VITALS: BP 163/81; PULSE 85
== END 2020-06-05 12:10 | disposition home or self-care (01) ==
LOC: ORWHC2ENDO 09:50
PROVIDERS: ATTEND Internal Medicine Gastroenterology
DX: K51.30 Ulcerative (chronic) rectosigmoiditis without complications (principal); K52.9 Noninfective gastroenteritis and colitis, unspecified; D12.2 Benign neoplasm of ascending colon; D12.3 Benign neoplasm of transverse colon
CPT/HCPCS: 88305; 45385; J2704

== ENCOUNTER → 2020-06-26 | Outpatient (CLI) | payer BC, MEDICARE, OTHER ==
--- NOTE | 2020-06-26 15:16 | CT ---
EXAMINATION TYPE: CT lumbar spine wo con DATE OF EXAM: 06/26/2020 3:00 PM COMPARISON: None HISTORY: Pt states lower back pain, pain is worse on the left. Spondylosis w/o myelopathy or radiculo path CT DLP: 2402.00 mGycm Automated exposure control for dose reduction was used. Unenhanced CT of the lumbar spine was performed. Bone and soft tissue window settings are submitted as well as coronal and sagittal reconstructions. L1-L2: Mild degenerative disc space narrowing. Ventral spondylosis. No disc herniation protrusion or central stenosis. No facet joint arthropathy. No evidence for foraminal encroachment. L2-L3: Mild degenerative disc space narrowing. Ventral spondylosis. No disc herniation protrusion or central stenosis. No facet joint arthropathy. No evidence for foraminal encroachment. L3-L4: Moderate degenerative disc space narrowing with posterior disc bulge. Effacement ventral theca l sac. Hypertrophic change of the facet joints all contribute to mild central stenosis. L4-L5: Postoperative changes of lumbar laminectomy. Moderate degenerative disc space narrowing. Poste rior disc bulge. Lack of contrast limits evaluation. No definite recurrent or residual disease. L5-S1: Severe degenerative disc disease. Vacuum disks noted. Disc endplate complex identified with ef facement of the ventral thecal sac. Bilateral lateral recess stenosis without evidence for central st enosis. Bilateral foraminal encroachment left greater than right. IMPRESSION: 1. Multilevel degenerative disc disease with mild stenosis identified at L3-4. 2. Bilateral lateral recess stenosis L5-S1. 3. Postoperative changes lumbar laminectomy L4-5.
== END | disposition home or self-care (01) ==
LOC: RADCTMAIN 14:27
PROVIDERS: ATTEND Psychiatry & Neurology Neurology
DX: M48.07 Spinal stenosis, lumbosacral region (principal); M51.36 Other intervertebral disc degeneration, lumbar region
CPT/HCPCS: 72131

== ENCOUNTER 2020-11-14 10:02 | Emergency (ER) | payer BC, MEDICARE, OTHER ==
[2020-11-14 10:08] VITALS: RESP 18
[2020-11-14 10:09] LABS: Glucose,Whole Blood 159 mg/dL (75-99)
[2020-11-14] MEDS ORDERED: SODIUM CHLORIDE 0.9% 500 ML 500 ML IV STA (10:24)
[2020-11-14] MEDS ORDERED: MECLIZINE 12.5 MG TAB PO STA (10:25)
[2020-11-14 10:44] LABS: Basophils # (A) 0.1 k/uL (0-0.2); Basophils % (A) 1 %; Eosinophils # (A) 0.3 k/uL (0-0.7); Eosinophils % (A) 3 %; HCT 43.7 % (39.0-53.0); HGB 14.1 gm/dL (13.0-17.5); Lymphocytes # (A) 1.2 k/uL (1.0-4.8); Lymphocytes % (A) 13 %; MCHC 32.2 g/dL (31.0-37.0); MCV 83.9 fL (80.0-100.0); Mean Platelet Volume 6.6; Monocytes # (A) 0.7 k/uL (0-1.0); Monocytes % (A) 7 %; Neutrophils # (A) 6.9 k/uL (1.3-7.7); Neutrophils % (A) 74 %; Platelet Count 422 k/uL (150-450); RBC 5.21 m/uL (4.30-5.90); RDW 13.7 % (11.5-15.5); WBC 9.3 k/uL (3.8-10.6)
--- NOTE | 2020-11-14 10:50 | ED ---
General Adult HPI - General Source: patient, EMS, RN notes reviewed Mode of arrival: EMS Limitations: physical limitation <Artis Hall - Last Filed: 11/14/20 11:35> <Arabella Ramos - Last Filed: 11/15/20 21:54> - General Chief complaint: Dizziness Stated complaint: weakness/dizziness Time Seen by Provider: 11/14/20 10:21 - History of Present Illness Initial comments: This a 60-year-old male presents emergency Department with chief complaint of left-sided weakness, dizziness, headache. Patient states symptoms started 2-3 days ago. Patient states that he just didn't feel well he is very dizzy room was spinning felt off balance. Patient has noticed that he said left-sided arm and leg weakness. Patient does have a history of hypertension hyperlipidemia and diabetes. Patient has no history of CVA. He does complain of a headache. He also has been having injections and difficulty with right eye vision which he is currently seen gas leak tester and a pain specialist. (Artis Hall) - Related Data Home Medications Medication Instructions Recorded Confirmed Aspirin EC [Ecotrin Low Dose] 81 mg PO DAILY 05/10/17 11/14/20 Baclofen 10 mg PO DAILY 05/10/17 11/14/20 Insulin Regular [HumuLIN R] 50 units SQ BID 06/03/20 11/14/20 DULoxetine HCL [Cymbalta] 60 mg PO DAILY 11/14/20 11/14/20 Dicyclomine HCl 20 mg PO QID 11/14/20 11/14/20 HYDROcodone/APAP 7.5-325MG [[place] 1 tab PO BID PRN 11/14/20 11/14/20 7.5-325] Ipratropium-Albuterol Nebulize 3 ml INHALATION RT-TID PRN 11/14/20 11/14/20 [Duoneb 0.5 mg-3 mg/3 ml Soln] Lidocaine 5% Patch [Lidoderm] 1 patch TOPICAL DAILY 11/14/20 11/14/20 Montelukast [Singulair] 10 mg PO DAILY 11/14/20 11/14/20 Ozempic 4mg/3ml 4 mg SQ TU 11/14/20 11/14/20 Pioglitazone [Actos] 15 mg PO DAILY 11/14/20 11/14/20 Rosuvastatin [Crestor] 10 mg PO DAILY 11/14/20 11/14/20 lisinopriL [Zestril] 10 mg PO DAILY 11/14/20 11/14/20 Previous Rx's Medication Instructions Recorded Chlorthalidone 25 mg PO DAILY #30 tab 05/14/17 Isosorbide Mononitrate ER [Imdur] 30 mg PO DAILY #30 tab.er.24h 05/14/17 Metoprolol Tartrate [Lopressor] 25 mg PO BID #60 tab 05/14/17 Allergies Allergy/AdvReac Type Severity Reaction Status Date / Time No Known Allergies Allergy Verified 11/14/20 11:08 Review of Systems ROS Other: All systems not noted in ROS Statement are negative. <Artis Hall - Last Filed: 11/14/20 11:35> ROS Other: All systems not noted in ROS Statement are negative. <Arabella Ramos - Last Filed: 11/15/20 21:54> ROS Statement: Those systems with pertinent positive or pertinent negative responses have been documented in the HPI. Past Medical History Past Medical History: Diabetes Mellitus, Hyperlipidemia, Hypertension, Sleep Apnea/CPAP/BIPAP Additional Past Medical History / Comment(s): DIARRHEA. doesnt wear cpap uncomfortable History of Any Multi-Drug Resistant Organisms: None Reported Past Surgical History: Back Surgery, Orthopedic Surgery Additional Past Surgical History / Comment(s): BILAT knee, laminectomy L3-5, COLONOSCOPY, SPINAL CORD STIMULATOR, Past Anesthesia/Blood Transfusion Reactions: No Reported Reaction Past Psychological History: Anxiety Smoking Status: Former smoker Past Alcohol Use History: None Reported Past Drug Use History: None Reported - Past Family History Mother Family Medical History: Diabetes Mellitus, Myocardial Infarction (NH) Father Additional Family Medical History / Comment(s): silicosis of the lung, lung removal <Artis Hall - Last Filed: 11/14/20 11:35> General Exam Limitations: physical limitation General appearance: alert, in no apparent distress Head exam: Present: atraumatic, normocephalic, normal inspection Eye exam: Present: normal appearance, PERRL, EOMI. Absent: scleral icterus, conjunctival injection, periorbital swelling ENT exam: Present: normal exam, normal oropharynx, mucous membranes moist Neck exam: Present: normal inspection, full ROM. Absent: tenderness, menin gismus, lymphadenopathy Respiratory exam: Present: normal lung sounds bilaterally. Absent: respiratory distress, wheezes, rales, rhonchi, stridor Cardiovascular Exam: Present: regular rate, normal rhythm, normal heart sounds. Absent: systolic murmur, diastolic murmur, rubs, gallop, clicks GI/Abdominal exam: Present: soft, normal bowel sounds. Absent: distended, tenderness, guarding, rebound, rigid Extremities exam: Present: other (Left arm and left leg strength 3/5 right side 5/5) Neurological exam: Present: alert, oriented X3, CN II-XII intact, reflexes normal, other (NIH 2) Expanded Speech: Present: fluid speech Cranial nerves: EOM's Intact: Normal, Tongue Deviation: Normal, Facial Sensation: Normal Cerebellar function: Finger to Nose: Normal Upper motor neuron: Ranjit Neglect: Abnormal Left Motor strength exam: RUE: 5, LUE: 3, RLE: 5, LLE: 3 Eye Response: (4) open spontaneously Motor Response: (6) obeys commands Verbal Response: (5) oriented [place] Total: 15 Skin exam: Present: warm, dry, intact, normal color. Absent: rash <Artis Hall - Last Filed: 11/14/20 11:35> Course Vital Signs 11/14/20 11/14/20 11/14/20 10:04 10:10 12:09 Temperature 97.8 F 98.0 F Pulse Rate 71 74 76 Respiratory 18 18 18 Rate Blood Pressure 181/96 162/92 O2 Sat by Pulse 98 97 94 L Oximetry Medical Decision Making - Lab Data Result diagrams: 11/14/20 10:24 11/14/20 10:24 <Artis Hall - Last Filed: 11/14/20 11:35> - Lab Data Result diagrams: 11/14/20 10:24 11/14/20 10:24 <Arabella Ramos - Last Filed: 11/15/20 21:54> - Medical Decision Making Patient's CT shows vasogenic edema, Yury 0.5 x 1.7 on the right. Patient does have left-sided weakness, vertigo. I discuss case with Bijan Sheehan accepts admission for neurosurgery. (Artis Hall) I was available for consultation in the emergency department. The history and physical exam were done by the midlevel provider. I was consulted for this patients care. I reviewed the case with the midlevel provider and based on their presentation of the patient, I agree with the assessment, medical decision making and plan of care as documented. Chart was dictated using [employer]Roll dictation software. Attempts were made to glynn ect any dictation errors however some typographical errors may persist. Patient was seen during a national state of emergency due to the Covid-19 pandemic. (Arabella Ramos) - Lab Data Lab Results 11/14/20 11/14/20 11/14/20 Range/Units 10:08 10:24 10:24 WBC 9.3 (3.8-10.6) k/uL RBC 5.21 (4.30-5.90) m/uL Hgb 14.1 (13.0-17.5) gm/dL Hct 43.7 (39.0-53.0) % MCV 83.9 (80.0-100.0) fL MCH 27.0 (25.0-35.0) pg MCHC 32.2 (31.0-37.0) g/dL RDW 13.7 (11.5-15.5) % Plt Count 422 (150-450) k/uL MPV 6.6 Neutrophils % 74 % Lymphocytes % 13 % Monocytes % 7 % Eosinophils % 3 % Basophils % 1 % Neutrophils # 6.9 (1.3-7.7) k/uL Lymphocytes # 1.2 (1.0-4.8) k/uL Monocytes # 0.7 (0-1.0) k/uL Eosinophils # 0.3 (0-0.7) k/uL Basophils # 0.1 (0-0.2) k/uL PT 10.2 (9.0-12.0) sec INR 0.9 (<1.2) APTT 24.6 (22.0-30.0) sec Sodium (137-145) mmol/L Potassium (3.5-5.1) mmol/L Chloride (98-107) mmol/L Carbon Dioxide (22-30) mmol/L Anion Gap mmol/L BUN (9-20) mg/dL Creatinine (0.66-1.25) mg/dL Est GFR (CKD-EPI)AfAm (>60 ml/min/1.73 sqM) Est GFR (CKD-EPI)NonAf (>60 ml/min/1.73 sqM) Glucose (74-99) mg/dL POC Glucose (mg/dL) 159 H (75-99) mg/dL POC Glu [employer] Installation Mechanic Federico Duarte Calcium (8.4-10.2) mg/dL Total Bilirubin (0.2-1.3) mg/dL AST (17-59) U/L ALT (4-49) U/L Alkaline Phosphatase (38-126) U/L Troponin I (0.000-0.034) ng/mL Total Protein (6.3-8.2) g/dL Albumin (3.5-5.0) g/dL 11/14/20 11/14/20 Range/Units 10:24 10:24 WBC (3.8-10.6) k/uL RBC (4.30-5.90) m/uL Hgb (13.0-17.5) gm/dL Hct (39.0-53.0) % MCV (80.0-100.0) fL MCH (25.0-35.0) pg MCHC (31.0-37.0) g/dL RDW (11.5-15.5) % Plt Count (150-450) k/uL MPV Neutrophils % % Lymphocytes % % Monocytes % % Eosinophils % % Basophils % % Neutrophils # (1.3-7.7) k/uL Lymphocytes # (1.0-4.8) k/uL Monocytes # (0-1.0) k/uL Eosinophils # (0-0.7) k/uL Basophils # (0-0.2) k/uL PT (9.0-12.0) sec INR (<1.2) APTT (22.0-30.0) sec Sodium 137 (137-145) mmol/L Potassium 4.4 (3.5-5.1) mmol/L Chloride 105 (98-107) mmol/L Carbon Dioxide 23 (22-30) mmol/L Anion Gap 9 mmol/L BUN 21 H (9-20) mg/dL Creatinine 0.96 (0.66-1.25) mg/dL Est GFR (CKD-EPI)AfAm >90 (>60 ml/min/1.73 sqM) Est GFR (CKD-EPI)NonAf 85 (>60 ml/min/1.73 sqM) Glucose 171 H (74-99) mg/dL POC Glucose (mg/dL) (75-99) mg/dL POC Glu [employer] Truck Installation Mechanic ID Calcium 9.3 (8.4-10.2) mg/dL Total Bilirubin 0.3 (0.2-1.3) mg/dL AST 31 (17-59) U/L ALT 26 (4-49) U/L Alkaline Phosphatase 208 H (38-126) U/L Troponin I 0.013 (0.000-0.034) ng/mL Total Protein 7.1 (6.3-8.2) g/dL Albumin 3.5 (3.5-5.0) g/dL Disposition Time of Disposition: 11:37 - Out of Hospital Transfer - Req. Specs Out of Hospital Transfer - Requested Specifics: Other Emergency Center ([facility]) <Artis Hall - Last Filed: 11/14/20 11:35> <Arabella Ramos - Last Filed: 11/15/20 21:54> Clinical Impression: Brain mass, Vasogenic brain edema, CVA (cerebral vascular accident) Disposition: OTHER INSTITUTION NOT DEFINED Referrals: Beto Ng MD [Primary Care Provider] - 1-2 days
[2020-11-14 10:54] LABS: Anion Gap 9 mmol/L; Blood Urea Nitrogen 21 mg/dL (9-20); Carbon Dioxide 23 mmol/L (22-30); Chloride 105 mmol/L (98-107); Glucose 171 mg/dL (74-99); Potassium 4.4 mmol/L (3.5-5.1); Sodium 137 mmol/L (137-145)
[2020-11-14 10:55] LABS: ALT 26 U/L (4-49); AST 31 U/L (17-59); African American GFR (CKD) >90 (>60 ml/min/1.73 sqM); Albumin 3.5 g/dL (3.5-5.0); Alkaline Phosphatase 208 U/L (38-126); Calcium 9.3 mg/dL (8.4-10.2); Non-African American GFR(CKD) 85 (>60 ml/min/1.73 sqM); Total Bilirubin 0.3 mg/dL (0.2-1.3); Total Protein 7.1 g/dL (6.3-8.2)
--- NOTE | 2020-11-14 10:57 | CT ---
EXAMINATION TYPE: CT brain wo con DATE OF EXAM: 11/14/2020 COMPARISON: None HISTORY: Weakness/dizziness, stroke suspected CT DLP: 1162.[address] of the brain was performed. Large area of vasogenic edema right parietal lobe with difficult to visualize underlying mass estimat ed at 3.5 x 1.7 cm. Correlate for underlying glioma or metastatic lesion. MRI of the brain is advised . No additional abnormal areas of vasogenic edema seen. No evidence for cytotoxic edema. Midline shif t from right to left of 3.9 mm without subfalcine herniation at this time. No evidence for intracranial hemorrhage. There is decreased attenuation about the periventricular white matter and deep white matter of both c erebral hemispheres, compatible with chronic small vessel ischemia. Differential diagnosis does inclu de demyelination. Osseous calvarium is intact. If symptoms persist consider MRI. IMPRESSION: 1. Large area of vasogenic edema right parietal lobe with difficult to visualize underlying mass neil mated at 3.5 x 1.7 cm. Correlate for underlying glioma or metastatic lesion. MRI of the brain is advi sed. 2. Midline shift from right to left of 3.9 mm without herniation at this point in time.
[2020-11-14 10:58] LABS: INR 0.9 (<1.2); Partial Thromboplastin Time 24.6 sec (22.0-30.0); Prothrombin Time 10.2 sec (9.0-12.0)
--- NOTE | 2020-11-14 10:58 | XR ---
EXAMINATION TYPE: XR chest 2V DATE OF EXAM: 11/14/2020 COMPARISON: 05/10/2017 HISTORY: Shortness of breath TECHNIQUE: Frontal and lateral views of the chest are obtained. FINDINGS: Scattered senescent parenchymal changes noted. Hyperinflation compatible with COPD. No evidence for infiltrate. No evidence for atelectasis. Heart size is stable. Mediastinal structures are stable and grossly unremarkable. No evidence for hilar prominence. Degenerative changes dorsal spine. IMPRESSION: 1. No evidence for acute pulmonary disease.
[2020-11-14] MEDS ORDERED: DEXAMETHASONE SOD PHOSPHATE 10 MG/ML 1 ML VIAL IV STA (11:21)
[2020-11-14 12:10] VITALS: BP 162/92; PULSE 76; TEMP 98
== END 2020-11-14 12:25 | disposition other institution (70) ==
LOC: EC 10:02
DX: G93.9 Disorder of brain, unspecified (principal); G93.6 Cerebral edema; I63.9 Cerebral infarction, unspecified; I10 Essential (primary) hypertension; E78.5 Hyperlipidemia, unspecified; E11.9 Type 2 diabetes mellitus without complications; Z87.891 Personal history of nicotine dependence; Z79.899 Other long term (current) drug therapy; Z79.4 Long term (current) use of insulin
CPT/HCPCS: 99285; 36415; 93005; 80053; 84484; 85025; 85610; 85730; 71046; 70450; 96374; J1100

== ENCOUNTER → 2021-01-03 | Outpatient (CLI) | payer BC, MEDICARE, OTHER ==
--- NOTE | 2021-01-07 15:04 | PE ---
Nuclear medicine PET/CT HISTORY: Brain neoplasm Patient received 11.8 mCi F-18 FDG intravenously in delayed scanning was performed from the skull bas e to the mid thighs. Localization and attenuation correction CT scan was formed. 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 There is some mild hypermetabolic uptake along the region of the jugulodigastric node on the left, axial image #48. SUV is 3.1 . No supraclavicular adenopathy. Some calcified nodes are pres ent in the supraclavicular region on the right however, there is some uptake associated with the praful bilaterally, SUV on the left 4.9 and on the right 4.0. There are calcified mediastinal, hilar, some carinal nodes present. There is no pleural or pericardial effusion. Emphysematous changes are present within the lungs. ABDOMEN: There is no suspicious uptake. No evident retroperitoneal adenopathy. Exam somewhat limited by patient body habitus. No evident pelvic adenopathy. Uptake along the bowel is thought likely to be physiologic. Osseous structures show no suspicious uptake. Degenerative disc change and facet arthropathy noted at the lower lumbar spine. 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 Cooper elate for old granulomatous disease, sarcoid. There is hilar uptake as described. Exam may be limited by patient body habitus.
== END | disposition home or self-care (01) ==
LOC: RADPETMAIN 13:49
PROVIDERS: ATTEND Radiology Radiation Oncology
DX: C79.31 Secondary malignant neoplasm of brain (principal); C71.3 Malignant neoplasm of parietal lobe
CPT/HCPCS: 78815; A9552

== ENCOUNTER 2021-01-27 01:52 | Inpatient (IN) | payer BC, MEDICARE, OTHER ==
[2021-01-27] MEDS ORDERED: SODIUM CHLORIDE 0.9% 500 ML 500 ML IV STA (02:20)
--- NOTE | 2021-01-27 02:35 | ED ---
SOB HPI - General Source: patient, EMS Mode of arrival: EMS - History of Present Illness MD Complaint: chest pain, pain with inspiration Onset/Timin -: hour(s) Severity: moderate Quality: aching, sharp Consistency: constant Improves With: nothing Worsens With: nothing Associated Symptoms: denies other symptoms Treatments Prior to Arrival: none - Related Data Home Oxygen Therapy: No <Rakesh Guy - Last Filed: 01/27/21 04:33> <Caleb Argueta - Last Filed: 01/27/21 08:02> - General Source: RN notes reviewed, old records reviewed <Beto Trimble - Last Filed: 01/28/21 06:09> - General Chief Complaint: Shortness of Breath Stated Complaint: SOB Time Seen by Provider: 01/27/21 02:07 - History of Present Illness Initial Comments: This is a 60-year-old male here with significant shortness of breath and chest pain. Began just prior to arrival. At home treatments were not doing a much help. Patient denies fevers but does have headache and chest pain. Otherwise no travel history or sick contacts. No other complaints (Beto Trimble) - Related Data Home Medications Medication Instructions Recorded Confirmed Aspirin EC [Ecotrin Low Dose] 81 mg PO DAILY 05/10/17 01/27/21 Baclofen 10 mg PO TID PRN 05/10/17 01/27/21 DULoxetine HCL [Cymbalta] 60 mg PO DAILY 11/14/20 01/27/21 Dicyclomine HCl 20 mg PO QID 11/14/20 01/27/21 HYDROcodone/APAP 7.5-325MG [[place] 1 tab PO Q6H PRN 11/14/20 01/27/21 7.5-325] Ipratropium-Albuterol Nebulize 3 ml INHALATION RT-QID PRN 11/14/20 01/27/21 [Duoneb 0.5 mg-3 mg/3 ml Soln] Lidocaine 5% Patch [Lidoderm] 1 patch TOPICAL DAILY 11/14/20 01/27/21 Montelukast [Singulair] 10 mg PO DAILY 11/14/20 01/27/21 Ozempic 4mg/3ml 4 mg SQ WE 11/14/20 01/27/21 Pioglitazone [Actos] 15 mg PO DAILY 11/14/20 01/27/21 Rosuvastatin [Crestor] 10 mg PO DAILY 11/14/20 01/27/21 Albuterol Inhaler [Ventolin Hfa 2 puff INHALATION RT-QID PRN 01/27/21 01/27/21 Inhaler] Cholecalciferol (Vitamin D3) 250 mcg PO DAILY 01/27/21 01/27/21 [Vitamin D3 (125 MCG = 5,000 IU)] Dextrose Chew [Glucose Chew Tab] 4 gm PO Q10M PRN 01/27/21 01/27/21 Fluticasone Nasal [place] [Flonase 1 spray EA NOSTRIL BID 01/27/21 01/27/21 Nasal [place]] Gabapentin 300 mg PO HS 01/27/21 01/27/21 Insulin Regular, Human [humulin R 135 unit SQ BID 01/27/21 01/27/21 U-500 Kwikpen] Lidocaine 5% Oint [Xylocaine 5% 1 applic TOPICAL DAILY PRN 01/27/21 01/27/21 Oint] Loratadine [Claritin] 10 mg PO DAILY 01/27/21 01/27/21 levETIRAcetam [Keppra] 1,000 mg PO Q12HR 01/27/21 01/27/21 Previous Rx's Medication Instructions Recorded Chlorthalidone 25 mg PO DAILY #30 tab 05/14/17 Isosorbide Mononitrate ER [Imdur] 30 mg PO DAILY #30 tab.er.24h 05/14/17 Allergies Allergy/AdvReac Type Severity Reaction Status Date / Time No Known Allergies Allergy Verified 01/27/21 08:19 Review of Systems ROS Other: All systems not noted in ROS Statement are negative. Constitutional: Denies: fever, chills Respiratory: Reports: cough. Denies: dyspnea Cardiovascular: Reports: chest pain. Denies: palpitations, dyspnea on exertion Gastrointestinal: Denies: abdominal pain, nausea, vomiting, diarrhea Musculoskeletal: Denies: back pain Skin: Denies: rash Neurological: Denies: headache, weakness, numbness <Rakesh Guy - Last Filed: 01/27/21 04:33> ROS Other: All systems not noted in ROS Statement are negative. <Caleb Argueta - Last Filed: 01/27/21 08:02> ROS Other: All systems not noted in ROS Statement are negative. <Beto Trimble - Last Filed: 01/28/21 06:09> ROS Statement: Those systems with pertinent positive or pertinent negative responses have been documented in the HPI. Past Medical History Past Medical History: Diabetes Mellitus, Hyperlipidemia, Hypertension, Sleep Apnea/CPAP/BIPAP Additional Past Medical History / Comment(s): DIARRHEA. doesnt wear cpap unc omfortable History of Any Multi-Drug Resistant Organisms: None Reported Past Surgical History: Back Surgery, Orthopedic Surgery Additional Past Surgical History / Comment(s): BILAT knee, laminectomy L3-5, COLONOSCOPY, SPINAL CORD STIMULATOR, brain tumor removed ([id number]) Past Anesthesia/Blood Transfusion Reactions: No Reported Reaction Past Psychological History: Anxiety Smoking Status: Former smoker Past Alcohol Use History: None Reported Past Drug Use History: None Reported - Past Family History Mother Family Medical History: Diabetes Mellitus, Myocardial Infarction ([place]) Father Additional Family Medical History / Comment(s): silicosis of the lung, lung removal <Rakesh Guy - Last Filed: 01/27/21 04:33> General Exam General appearance: alert, in no apparent distress Head exam: Present: atraumatic, normocephalic Eye exam: Present: normal appearance. Absent: scleral icterus, conjunctival injection ENT exam: Present: normal oropharynx Neck exam: Present: normal inspection Respiratory exam: Present: normal lung sounds bilaterally. Absent: respiratory distress, wheezes, rales, rhonchi, stridor, chest wall tenderness Cardiovascular Exam: Present: regular rate, normal rhythm, normal heart sounds. Absent: systolic murmur, diastolic murmur, rubs, gallop GI/Abdominal exam: Present: soft. Absent: distended, tenderness, guarding, rebound, rigid, mass Extremities exam: Present: normal inspection, normal capillary refill. Absent: pedal edema, calf tenderness Back exam: Present: normal inspection. Absent: CVA tenderness (R), CVA tenderness (L) Neurological exam: Present: alert Skin exam: Present: warm, dry, intact, normal color. Absent: rash <Rakesh Guy - Last Filed: 01/27/21 04:33> General appearance: alert, in no apparent distress, anxious Head exam: Present: atraumatic, normocephalic, normal inspection Eye exam: Present: normal appearance, PERRL, EOMI. Absent: scleral icterus, conjunctival injection, periorbital swelling ENT exam: Present: normal exam, mucous membranes moist Neck exam: Present: normal inspection. Absent: tenderness, meningismus, lymphadenopathy Respiratory exam: Present: normal lung sounds bilaterally. Absent: respiratory distress, wheezes, rales, rhonchi, stridor Cardiovascular Exam: Present: normal rhythm, tachycardia, normal heart sounds. Absent: systolic murmur, diastolic murmur, rubs, gallop, clicks GI/Abdominal exam: Present: soft, normal bowel sounds. Absent: distended, tenderness, guarding, rebound, rigid Extremities exam: Present: normal inspection, full ROM, normal capillary refill. Absent: tenderness, pedal edema, joint swelling, calf tenderness Back exam: Present: normal inspection Neurological exam: Present: alert, oriented X3, CN II-XII intact Psychiatric exam: Present: normal affect, normal mood Skin exam: Present: warm, dry, intact, normal color. Absent: rash <Beto Trimble - Last Filed: 01/28/21 06:09> Course <Beto Trimble - Last Filed: 01/28/21 06:09> Vital Signs 01/27/21 01/27/21 01/27/21 01:58 02:03 05:00 Temperature 97.3 F L Pulse Rate 109 H 116 H Respiratory 22 24 18 Rate Blood Pressure 128/85 133/75 O2 Sat by Pulse 97 97 Oximetry - Reevaluation(s) Reevaluation #1: Medical record is reviewed Patient symptoms are significantly improved Patient family informed results questions answered (Beto Trimble) Medical Decision Making - Lab Data Result diagrams: 01/27/21 02:36 01/27/21 02:36 - EKG Data EKG shows normal: sinus rhythm, axis (Normal), intervals (Normal), QRS complexes (Normal), ST-T waves (Normal) Rate: tachycardia (Rate 108 bpm) <Rakesh Guy - Last Filed: 01/27/21 04:33> - Lab Data Result diagrams: 01/27/21 02:36 01/27/21 02:36 <Caleb Argueta - Last Filed: 01/27/21 08:02> - Lab Data Result diagrams: 01/27/21 02:36 01/27/21 02:36 - Radiology Data Radiology results: report reviewed (Chest x-ray CT chest positive for pericardial effusion), image reviewed <Beto Trimble - Last Filed: 01/28/21 06:09> - Medical Decision Making 60 male to the emergency department for evaluation of significant chest pain. Shortness of breath. Patient doesn't currently effusion possibly related to pericarditis. Patient be admitted for cardiology to evaluate and see (Beto Trimble) - Lab Data Lab Results 01/27/21 01/27/21 01/27/21 Range/Units 02:36 02:36 02:36 WBC 15.2 H (3.8-10.6) k/uL RBC 4.90 (4.30-5.90) m/uL Hgb 13.3 (13.0-17.5) gm/dL Hct 42.2 (39.0-53.0) % MCV 86.2 (80.0-100.0) fL MCH 27.2 (25.0-35.0) pg MCHC 31.5 (31.0-37.0) g/dL RDW 14.4 (11.5-15.5) % Plt Count 392 (150-450) k/uL MPV 7.3 Neutrophils % 83 % Lymphocytes % 8 % Monocytes % 5 % Eosinophils % 2 % Basophils % 1 % Neutrophils # 12.6 H (1.3-7.7) k/uL Lymphocytes # 1.2 (1.0-4.8) k/uL Monocytes # 0.8 (0-1.0) k/uL Eosinophils # 0.4 (0-0.7) k/uL Basophils # 0.1 (0-0.2) k/uL PT 10.4 (9.0-12.0) sec INR 1.0 (<1.2) APTT 23.5 (22.0-30.0) sec D-Dimer 9.84 H (<0.60) mg/L FEU Sodium 135 L (137-145) mmol/L Potassium 4.9 (3.5-5.1) mmol/L Chloride 102 (98-107) mmol/L Carbon Dioxide 24 (22-30) mmol/L Anion Gap 9 mmol/L BUN 18 (9-20) mg/dL Creatinine 1.20 (0.66-1.25) mg/dL Est GFR (CKD-EPI)AfAm 75 (>60 ml/min/1.73 sqM) Est GFR (CKD-EPI)NonAf 65 (>60 ml/min/1.73 sqM) Glucose 241 H (74-99) mg/dL Lactic Ac Sepsis Rflx Plasma Lactic Acid German (0.7-2.0) mmol/L Calcium 9.0 (8.4-10.2) mg/dL Total Bilirubin 0.6 (0.2-1.3) mg/dL AST 43 (17-59) U/L ALT 31 (4-49) U/L Alkaline Phosphatase 304 H (38-126) U/L Lactate Dehydrogenase (313-618) U/L Troponin I (0.000-0.034) ng/mL C-Reactive Protein (<1.0) mg/dL NT-Pro-B Natriuret Pep pg/mL Total Protein 7.5 (6.3-8.2) g/dL Albumin 3.3 L (3.5-5.0) g/dL Procalcitonin (0.02-0.09) ng/mL Coronavirus (PCR) (Not Detectd) 01/27/21 01/27/21 01/27/21 Range/Units 02:36 02:36 02:36 WBC (3.8-10.6) k/uL RBC (4.30-5.90) m/uL Hgb (13.0-17.5) gm/dL Hct (39.0-53.0) % MCV (80.0-100.0) fL MCH (25.0-35.0) pg MCHC (31.0-37.0) g/dL RDW (11.5-15.5) % Plt Count (150-450) k/uL MPV Neutrophils % % Lymphocytes % % Monocytes % % Eosinophils % % Basophils % % Neutrophils # (1.3-7.7) k/uL Lymphocytes # (1.0-4.8) k/uL Monocytes # (0-1.0) k/uL Eosinophils # (0-0.7) k/uL Basophils # (0-0.2) k/uL PT (9.0-12.0) sec INR (<1.2) APTT (22.0-30.0) sec D-Dimer (<0.60) mg/L FEU Sodium (137-145) mmol/L Potassium (3.5-5.1) mmol/L Chloride (98-107) mmol/L Carbon Dioxide (22-30) mmol/L Anion Gap mmol/L BUN (9-20) mg/dL Creatinine (0.66-1.25) mg/dL Est GFR (CKD-EPI)AfAm (>60 ml/min/1.73 sqM) Est GFR (CKD-EPI)NonAf (>60 ml/min/1.73 sqM) Glucose (74-99) mg/dL Lactic Ac Sepsis Rflx Plasma Lactic Acid German 2.3 H* (0.7-2.0) mmol/L Calcium (8.4-10.2) mg/dL Total Bilirubin (0.2-1.3) mg/dL AST (17-59) U/L ALT (4-49) U/L Alkaline Phosphatase (38-126) U/L Lactate Dehydrogenase (313-618) U/L Troponin I <0.012 (0.000-0.034) ng/mL C-Reactive Protein (<1.0) mg/dL NT-Pro-B Natriuret Pep 145 pg/mL Total Protein (6.3-8.2) g/dL Albumin (3.5-5.0) g/dL Procalcitonin (0.02-0.09) ng/mL Coronavirus (PCR) (Not Detectd) 01/27/21 01/27/21 01/27/21 Range/Units 03:55 06:33 06:35 WBC (3.8-10.6) k/uL RBC (4.30-5.90) m/uL Hgb (13.0-17.5) gm/dL Hct (39.0-53.0) % MCV (80.0-100.0) fL MCH (25.0-35.0) pg MCHC (31.0-37.0) g/dL RDW (11.5-15.5) % Plt Count (150-450) k/uL MPV Neutrophils % % Lymphocytes % % Monocytes % % Eosinophils % % Basophils % % Neutrophils # (1.3-7.7) k/uL Lymphocytes # (1.0-4.8) k/uL Monocytes # (0-1.0) k/uL Eosinophils # (0-0.7) k/uL Basophils # (0-0.2) k/uL PT (9.0-12.0) sec INR (<1.2) APTT (22.0-30.0) sec D-Dimer (<0.60) mg/L FEU Sodium (137-145) mmol/L Potassium (3.5-5.1) mmol/L Chloride (98-107) mmol/L Carbon Dioxide (22-30) mmol/L Anion Gap mmol/L BUN (9-20) mg/dL Creatinine (0.66-1.25) mg/dL Est GFR (CKD-EPI)AfAm (>60 ml/min/1.73 sqM) Est GFR (CKD-EPI)NonAf (>60 ml/min/1.73 sqM) Glucose (74-99) mg/dL Lactic Ac Sepsis Rflx Y Plasma Lactic Acid [place] (0.7-2.0) mmol/L Calcium (8.4-10.2) mg/dL Total Bilirubin (0.2-1.3) mg/dL AST (17-59) U/L ALT (4-49) U/L Alkaline Phosphatase (38-126) U/L Lactate Dehydrogenase 1192 H (313-618) U/L Troponin I (0.000-0.034) ng/mL C-Reactive Protein 3.1 H (<1.0) mg/dL NT-Pro-B Natriuret Pep pg/mL Total Protein (6.3-8.2) g/dL Albumin (3.5-5.0) g/dL Procalcitonin (0.02-0.09) ng/mL Coronavirus (PCR) Not Detected (Not Detectd) 01/27/21 01/27/21 Range/Units 06:45 06:45 WBC (3.8-10.6) k/uL RBC (4.30-5.90) m/uL Hgb (13.0-17.5) gm/dL Hct (39.0-53.0) % MCV (80.0-100.0) fL MCH (25.0-35.0) pg MCHC (31.0-37.0) g/dL RDW (11.5-15.5) % Plt Count (150-450) k/uL MPV Neutrophils % % Lymphocytes % % Monocytes % % Eosinophils % % Basophils % % Neutrophils # (1.3-7.7) k/uL Lymphocytes # (1.0-4.8) k/uL Monocytes # (0-1.0) k/uL Eosinophils # (0-0.7) k/uL Basophils # (0-0.2) k/uL PT (9.0-12.0) sec INR (<1.2) APTT (22.0-30.0) sec D-Dimer (<0.60) mg/L FEU Sodium (137-145) mmol/L Potassium (3.5-5.1) mmol/L Chloride (98-107) mmol/L Carbon Dioxide (22-30) mmol/L Anion Gap mmol/L BUN (9-20) mg/dL Creatinine (0.66-1.25) mg/dL Est GFR (CKD-EPI)AfAm (>60 ml/min/1.73 sqM) Est GFR (CKD-EPI)NonAf (>60 ml/min/1.73 sqM) Glucose (74-99) mg/dL Lactic Ac Sepsis Rflx Plasma Lactic Acid [place] 1.5 (0.7-2.0) mmol/L Calcium (8.4-10.2) mg/dL Total Bilirubin (0.2-1.3) mg/dL AST (17-59) U/L ALT (4-49) U/L Alkaline Phosphatase (38-126) U/L Lactate Dehydrogenase (313-618) U/L Troponin I (0.000-0.034) ng/mL C-Reactive Protein (<1.0) mg/dL NT-Pro-B Natriuret Pep pg/mL Total Protein (6.3-8.2) g/dL Albumin (3.5-5.0) g/dL Procalcitonin 0.19 H (0.02-0.09) ng/mL Coronavirus (PCR) (Not Detectd) Critical Care Time Critical Care Time: Yes Total Critical Care Time: 31 <Beto Trimble - Last Filed: 01/28/21 06:09> Disposition <Rakesh Guy - Last Filed: 01/27/21 04:33> <Caleb Argueta - Last Filed: 01/27/21 08:02> Is patient prescribed a controlled substance at d/c from ED?: No <Beto Trimble - Last Filed: 01/28/21 06:09> Clinical Impression: COPD exacerbation, Hypoxia, Pericardial effusion, Community acquired pneumonia, Pericarditis Disposition: ADMITTED IP TO THIS HOSP Condition: Fair
--- NOTE | 2021-01-27 02:54 | XR ---
EXAMINATION TYPE: XR chest 2V DATE OF EXAM: 01/27/2021 COMPARISON: 05/10/2017 HISTORY: Short of breath TECHNIQUE: FINDINGS: Heart is enlarged. There is no gross heart failure. There is mild coarsening of interstitia l markings. There is neural stimulator in the thoracic spine. Bony thorax is intact. There is slight blunting of the costophrenic angles. There is minimal fluid in the left major fissure. IMPRESSION: Mild cardiomegaly. Small pleural effusions appear new compared to old exam. No obvious he art failure.
[2021-01-27 03:07] LABS: Basophils # (A) 0.1 k/uL (0-0.2); Basophils % (A) 1 %; Eosinophils # (A) 0.4 k/uL (0-0.7); Eosinophils % (A) 2 %; HCT 42.2 % (39.0-53.0); HGB 13.3 gm/dL (13.0-17.5); Lymphocytes # (A) 1.2 k/uL (1.0-4.8); Lymphocytes % (A) 8 %; MCH 27.2 pg (25.0-35.0); MCHC 31.5 g/dL (31.0-37.0); MCV 86.2 fL (80.0-100.0); Mean Platelet Volume 7.3; Monocytes # (A) 0.8 k/uL (0-1.0); Monocytes % (A) 5 %; Neutrophils # (A) 12.6 k/uL (1.3-7.7); Neutrophils % (A) 83 %; Platelet Count 392 k/uL (150-450); RDW 14.4 % (11.5-15.5); WBC 15.2 k/uL (3.8-10.6)
[2021-01-27 03:19] LABS: Albumin 3.3 g/dL (3.5-5.0); Total Bilirubin 0.6 mg/dL (0.2-1.3); Total Protein 7.5 g/dL (6.3-8.2)
[2021-01-27 03:35] LABS: Partial Thromboplastin Time 23.5 sec (22.0-30.0); Prothrombin Time 10.4 sec (9.0-12.0)
[2021-01-27 03:39] LABS: Potassium 4.9 mmol/L (3.5-5.1)
[2021-01-27] MEDS ORDERED: SODIUM CHLORIDE 0.9% 1,000 ML IV ONE (04:01)
--- NOTE | 2021-01-27 05:04 | CT ---
EXAMINATION TYPE: CT chest angio for PE DATE OF EXAM: 01/27/2021 COMPARISON: 05/11/2017 and 01/03/2021 HISTORY: R/O PE CT DLP: 1088.90 mGycm Automated exposure control for dose reduction was used. CONTRAST: Performed with IV Contrast, patient injected with 100 mL of Isovue 370. There are 3-D post processed images. There is a moderate-sized pericardial effusion. There are large calcified granulomata at the pulmonar y praful. There is densely calcified subcarinal lymph nodes. There are also extensive calcified lymph n odes at the aortopulmonary window. The thoracic aorta is intact. There is no aneurysm or dissection. Pericardial fluid measures up to 2 cm. There is no evidence of filling defect in the pulmonary arteries. There is some patchy atelectasis at the lung bases. There is some degenerative spurring in the thoracic spine. There is no compression f racture. IMPRESSION: No evidence of pulmonary embolism. There are bilateral basilar pulmonary linear infiltrates and atele ctasis which are mostly new compared to 01/03/2021. There is a moderate pericardial effusion that is s ignificantly increased compared to recent exam. Extensive old granulomatous disease.
[2021-01-27] MEDS ORDERED: cefTRIAXone IN SWFI 1,000 MG/10 ML SYRINGE IVP STA (08:09)
[2021-01-27] MEDS ORDERED: AZITHROMYCIN 500 MG in SODIUM CHLORIDE 0.9% 250 ML IVPB STA (08:14)
[2021-01-27] MEDS ORDERED: CHLORTHALIDONE 25 MG TAB PO SCH (09:15)
[2021-01-27] MEDS ORDERED: BACLOFEN 10 MG TAB PO PRN (09:15)
[2021-01-27] MEDS ORDERED: ALBUTEROL HFA INHALER INHALATION PRN (09:15)
--- NOTE | 2021-01-27 09:29 | P.HPIM ---
History of Present Illness H&P Date: 01/27/21 This is a 60-year-old male with complex past medical history noted below significant for metastatic lung cancer to the brain status post brain mass removal and radiation therapy at [facility] presented to the emergency room with chest pain. Patient said his pain started last night and he describe it as heaviness feeling in the middle of his chest only with breathing. Patient denies any radiation. No diaphoresis or nausea. He does not wear oxygen at home. Patient is a former smoker and quit 4 years ago. Before that he used to smoke 2 packs of cigarettes per day. Patient told me that he is following with an oncologist at [place] and is scheduled to start chemotherapy in the next week or 2. Patient was evaluated in the ER Twelve-lead EKG showed no acute ischemic changes. CT angiogram was negative for PE that showed a questionable infiltrate. Patient denies any cough. No fevers or chills. Patient is vaccinated against COVID-19. Not[address] on CT was enlarging pericardial effusion compared to previous imaging. Patient will be placed in observation. Review of Systems Review of system: 14 points review of systems were obtained and were negative except to what were mentioned in the HPI. Past Medical History Past Medical History: Diabetes Mellitus, Hyperlipidemia, Hypertension, Sleep Apnea/CPAP/BIPAP Additional Past Medical History / Comment(s): DIARRHEA. doesnt wear cpap uncomfortable History of Any Multi-Drug Resistant Organisms: None Reported Past Surgical History: Back Surgery, Orthopedic Surgery Additional Past Surgical History / Comment(s): BILAT knee, laminectomy L3-5, COLONOSCOPY, SPINAL CORD STIMULATOR, brain tumor removed ([id number]) Past Anesthesia/Blood Transfusion Reactions: No Reported Reaction Past Psychological History: Anxiety Smoking Status: Former smoker Past Alcohol Use History: None Reported Past Drug Use History: None Reported - Past Family History Mother Family Medical History: Diabetes Mellitus, Myocardial Infarction ([place]) Father Additional Family Medical History / Comment(s): silicosis of the lung, lung removal Medications and Allergies Home Medications Medication Instructions Recorded Confirmed Type Aspirin EC [Ecotrin Low Dose] 81 mg PO DAILY 05/10/17 01/27/21 History Baclofen 10 mg PO TID PRN 05/10/17 01/27/21 History Chlorthalidone 25 mg PO DAILY #30 tab 05/14/17 01/27/21 Rx Isosorbide Mononitrate ER [Imdur] 30 mg PO DAILY #30 tab.er.24h 05/14/17 01/27/21 Rx DULoxetine HCL [Cymbalta] 60 mg PO DAILY 11/14/20 01/27/21 History Dicyclomine HCl 20 mg PO QID 11/14/20 01/27/21 History HYDROcodone/APAP 7.5-325MG [[place] 1 tab PO Q6H PRN 11/14/20 01/27/21 History 7.5-325] Ipratropium-Albuterol Nebulize 3 ml INHALATION RT-QID PRN 11/14/20 01/27/21 History [Duoneb 0.5 mg-3 mg/3 ml Soln] Lidocaine 5% Patch [Lidoderm] 1 patch TOPICAL DAILY 11/14/20 01/27/21 History Montelukast [Singulair] 10 mg PO DAILY 11/14/20 01/27/21 History Ozempic 4mg/3ml 4 mg SQ WE 11/14/20 01/27/21 History Pioglitazone [Actos] 15 mg PO DAILY 11/14/20 01/27/21 History Rosuvastatin [Crestor] 10 mg PO DAILY 11/14/20 01/27/21 History Albuterol Inhaler [Ventolin Hfa 2 puff INHALATION RT-QID PRN 01/27/21 01/27/21 History Inhaler] Cholecalciferol (Vitamin D3) 250 mcg PO DAILY 01/27/21 01/27/21 History [Vitamin D3 (125 MCG = 5,000 IU)] Dextrose Chew [Glucose Chew Tab] 4 gm PO Q10M PRN 01/27/21 01/27/21 History Fluticasone Nasal [place] [Flonase 1 spray EA NOSTRIL BID 01/27/21 01/27/21 History Nasal [place]] Gabapentin 300 mg PO HS 01/27/21 01/27/21 History Insulin Regular, Human [humulin R 135 unit SQ BID 01/27/21 01/27/21 History U-500 Kwikpen] Lidocaine 5% Oint [Xylocaine 5% 1 applic TOPICAL DAILY PRN 01/27/21 01/27/21 History Oint] Loratadine [Claritin] 10 mg PO DAILY 01/27/21 01/27/21 History levETIRAcetam [Keppra] 1,000 mg PO Q12HR 01/27/21 01/27/21 History Allergies Allergy/AdvReac Type Severity Reaction Status Date / Time No Known Allergies Allergy Verified 01/27/21 08:19 Physical Exam Vitals: Vital Signs Temp Pulse Resp BP Pulse Ox 01/27/21 05:00 116 H 18 133/75 97 01/27/21 02:03 24 01/27/21 01:58 97.3 F L 109 H 22 128/85 97 Intake and Output 01/26/21 01/27/21 01/27/21 22:59 06:59 14:59 Other: Weight 147.418 kg General: The patient is awake and alert, in no distress Eye: there is normal conjunctiva bilaterally. Neck: The neck is supple, there is no JVD. Cardiovascular: Normal S1-S2, no S3-S4, no murmurs. Respiratory: Lungs clear to auscultation bilaterally Gastrointestinal: Abdomen is soft, nontender Musculoskeletal: There is no pedal edema. Neurological:. Speech is normal. Skin: Skin is warm and dry Results CBC & Chem 7: 01/27/21 02:36 01/27/21 02:36 Labs: Abnormal Lab Results - Last 24 Hours (Table) 01/27/21 01/27/21 01/27/21 Range/Units 02:36 02:36 02:36 WBC 15.2 H (3.8-10.6) k/uL Neutrophils # 12.6 H (1.3-7.7) k/uL D-Dimer 9.84 H (<0.60) mg/L FEU Sodium 135 L (137-145) mmol/L Glucose 241 H (74-99) mg/dL Plasma Lactic Acid German (0.7-2.0) mmol/L Alkaline Phosphatase 304 H (38-126) U/L Albumin 3.3 L (3.5-5.0) g/dL 01/27/21 Range/Units 02:36 WBC (3.8-10.6) k/uL Neutrophils # (1.3-7.7) k/uL D-Dimer (<0.60) mg/L FEU Sodium (137-145) mmol/L Glucose (74-99) mg/dL Plasma Lactic Acid German 2.3 H* (0.7-2.0) mmol/L Alkaline Phosphatase (38-126) U/L Albumin (3.5-5.0) g/dL Assessment and Plan Assessment: 1. Chest pain: Mostly pleuritic pain with breathing. Repeat EKG showed no acute ischemic changes. Initial troponin was negative. Cardiology consulted for further evaluation. I ordered a second troponin as well. 2. Worsening pericardial effusion, I ordered echocardiogram for further evaluation 3. Metastatic lung cancer status post brain metastases surgical removal and radiation [facility]. Scheduled to follow-up with oncology 4. Type 2 diabetes, I adjusted his insulin dose will continue sliding scale. 5. Hypertension, hyperlipidemia, morbid obesity, former heavy smoker, Today, I reviewed his medication list and lab work results. I would check pro calcitonin to rule out underlying pneumonia. Clinical presentation is not suggestive for pneumonia. We will continue supportive care otherwise. Appreciate talent development consultant's recommendations.
[2021-01-27 10:47] LABS: C Reactive Protein 3.1 mg/dL (<1.0)
--- NOTE | 2021-01-27 11:01 | ECHOF ---
Referral Reason:pericardial effusion MEASUREMENTS -------- HEIGHT: 185.4 cm WEIGHT: 147.4 kg BP: 123/61 RVIDd: 3.4 cm (< 3.3) IVSd: 1.7 cm (0.6 - 1.1) LVIDd: 4.0 cm (3.9 - 5.3) LVPWd: 1.4 cm (0.6 - 1.1) IVSs: 1.9 cm LVIDs: 3.0 cm LVPWs: 1.8 cm Ao Diam: 3.2 cm (2.0 - 3.7) AV Cusp: 1.7 cm (1.5 - 2.6) LA Diam: 4.1 cm (2.7 - 3.8) MV EXCURSION: 17.297 mm (> 18.000) MV EF SLOPE: 138 mm/s (70 - 150) EPSS: 0.4 cm MV E Taiwo: 0.90 m/s MV DecT: 197 ms MV A Taiwo: 1.06 m/s MV E/A Ratio: 0.85 RAP: 5.00 mmHg RVSP: 32.86 mmHg FINDINGS -------- Sinus rhythm. This was a technically difficult study with suboptimal views. The left ventricular size is normal. There is moderate concentric left ventricular hypertrophy. O verall left ventricular systolic function is low-normal with, an EF between 50 - 55 %. The right ventricle is mildly enlarged. The left atrium is mildly dilated. The right atrial size is normal. 5.0mg of Lumason was utilized for enhancement of images Interatrial and interventricular septum intact. The aortic valve was not well visualized. There is no evidence of aortic regurgitation. There is no evidence of aortic stenosis. The mitral valve was not well visualized. No mitral regurgitation. Mild tricuspid regurgitation present. There is no evidence of pulmonary hypertension. The right v entricular systolic pressure, as measured by Doppler, is 32.86mmHg. There is no pulmonic regurgitation present. The aortic root size is normal. IVC Not well visulized. There is a moderate, generalized pericardial effusion present. CONCLUSIONS -------- 1. The left ventricular size is normal. 2. There is moderate concentric left ventricular hypertrophy. 3. Overall left ventricular systolic function is low-normal with, an EF between 50 - 55 %. 4. The right ventricle is mildly enlarged. 5. The left atrium is mildly dilated. 6. Mild tricuspid regurgitation present. 7. There is a moderate, generalized pericardial effusion present. LIBRARY SALES CONSULTANT: Hiwot Vee RDCS
[2021-01-27 11:30] LABS: Glucose,Whole Blood 401 mg/dL (75-99)
--- NOTE | 2021-01-27 11:39 | P.CRDCN ---
History of Present Illness Consult date: 01/27/21 Chief complaint: Chest discomfort History of present illness: This is a 60-year-old gentleman who was unfortunate with a diagnosis of lung cancer with metastasis to the brain and recent history of brain mass removal and status post radiation therapy as well as history of smoking and chronic obstructive pulmonary disease in addition to multiple comorbid conditions including diabetes and hypertension and dyslipidemia presented to the emergency department complaining of chest discomfort. The patient stated that the chest discomfort started within the last 12 hours. He described it in the middle of the chest as a sharp kind of discomfort definitely worse with a deep breath. He denies any increasing in the shortness of breath or dizziness or lightheadedness or presyncope or syncope. No symptoms of fever or chills. The EKG showed sinus rhythm with somewhat low voltage across the chest lead. The first set of troponin came in to be unremarkable. He underwent a computed tomography scan of the chest to rule out PE and that showed no evidence of PE but it did show bilateral pulmonary infiltrate and also evidence of pericardial effusion seems to be circumferential. Subsequently he underwent an echocardiogram which I reviewed and that showed normal LV function with evidence of moderate pericardial effusion without any evidence of RV diastolic collapse but he definitely does have flow variation across mitral and tricuspid valve with respiration. Currently the patient is hemodynamically stable in terms of blood pressure with a heart rate around 100 bpm. He was receiving chlorthalidone as well as oral nitrate which I'm going to stop both. I'm going to start him on colchicine. We are going to monitor the patient for evidence of tamponade clinically. If he develop any increasing in the heart rate or lower blood pressure he might benefit from pericardiocentesis/pericardial window. At this point he is relatively stable. Past Medical History Past Medical History: Cancer, Diabetes Mellitus, Hyperlipidemia, Hypertension, Sleep Apnea/CPAP/BIPAP Additional Past Medical History / Comment(s): Patient has metastatic lung cancer, brain and neck also - sees treating teams at [facility]. History of Any Multi-Drug Resistant Organisms: None Reported Past Surgical History: Back Surgery, Orthopedic Surgery Additional Past Surgical History / Comment(s): BILAT knee, laminectomy L3-5, COLONOSCOPY, SPINAL CORD STIMULATOR. Excision of brain tumor October 2020 at [facility]. Past Anesthesia/Blood Transfusion Reactions: No Reported Reaction Past Psychological History: Anxiety Smoking Status: Former smoker Past Alcohol Use History: None Reported Additional Past Alcohol Use History / Comment(s): QUIT SMOKING 2017 Past Drug Use History: None Reported - Past Family History Mother Family Medical History: Diabetes Mellitus, Myocardial Infarction ([place]) Father Additional Family Medical History / Comment(s): silicosis of the lung, lung removal Medications and Allergies Home Medications Medication Instructions Recorded Confirmed Type Aspirin EC [Ecotrin Low Dose] 81 mg PO DAILY 05/10/17 01/27/21 History Baclofen 10 mg PO TID PRN 05/10/17 01/27/21 History Chlorthalidone 25 mg PO DAILY #30 tab 05/14/17 01/27/21 Rx Isosorbide Mononitrate ER [Imdur] 30 mg PO DAILY #30 tab.er.24h 05/14/17 01/27/21 Rx DULoxetine HCL [Cymbalta] 60 mg PO DAILY 11/14/20 01/27/21 History Dicyclomine HCl 20 mg PO QID 11/14/20 01/27/21 History HYDROcodone/APAP 7.5-325MG [[place] 1 tab PO Q6H PRN 11/14/20 01/27/21 History 7.5-325] Ipratropium-Albuterol Nebulize 3 ml INHALATION RT-QID PRN 11/14/20 01/27/21 History [Duoneb 0.5 mg-3 mg/3 ml Soln] Lidocaine 5% Patch [Lidoderm] 1 patch TOPICAL DAILY 11/14/20 01/27/21 History Montelukast [Singulair] 10 mg PO DAILY 11/14/20 01/27/21 History Ozempic 4mg/3ml 4 mg SQ WE 11/14/20 01/27/21 History Pioglitazone [Actos] 15 mg PO DAILY 11/14/20 01/27/21 History Rosuvastatin [Crestor] 10 mg PO DAILY 11/14/20 01/27/21 History Albuterol Inhaler [Ventolin Hfa 2 puff INHALATION RT-QID PRN 01/27/21 01/27/21 History Inhaler] Cholecalciferol (Vitamin D3) 250 mcg PO DAILY 01/27/21 01/27/21 History [Vitamin D3 (125 MCG = 5,000 IU)] Dextrose Chew [Glucose Chew Tab] 4 gm PO Q10M PRN 01/27/21 01/27/21 History Fluticasone Nasal [place] [Flonase 1 spray EA NOSTRIL BID 01/27/21 01/27/21 History Nasal [place]] Gabapentin 300 mg PO HS 01/27/21 01/27/21 History Insulin Regular, Human [humulin R 135 unit SQ BID 01/27/21 01/27/21 History U-500 Kwikpen] Lidocaine 5% Oint [Xylocaine 5% 1 applic TOPICAL DAILY PRN 01/27/21 01/27/21 History Oint] Loratadine [Claritin] 10 mg PO DAILY 01/27/21 01/27/21 History levETIRAcetam [Keppra] 1,000 mg PO Q12HR 01/27/21 01/27/21 History Allergies Allergy/AdvReac Type Severity Reaction Status Date / Time No Known Allergies Allergy Verified 01/27/21 08:19 Physical Exam Vitals: Vital Signs Temp Pulse Pulse Resp BP BP Pulse Ox 01/27/21 10:40 98 F 104 H 16 138/83 98 01/27/21 05:00 116 H 18 133/75 97 01/27/21 02:03 24 01/27/21 01:58 97.3 F L 109 H 22 128/85 97 Intake and Output 01/26/21 01/27/21 01/27/21 22:59 06:59 14:59 Other: Weight 147.418 kg 147.418 kg - Constitutional General appearance: no acute distress - Respiratory Respiratory: bilateral: diminished - Cardiovascular Rhythm: regular Heart sounds: normal: S1, S2 Results 01/27/21 02:36 01/27/21 02:36 Cardiac Enzymes 01/27/21 01/27/21 01/27/21 Range/Units 02:36 02:36 06:33 AST 43 (17-59) U/L Lactate Dehydrogenase 1192 H (313-618) U/L Troponin I <0.012 (0.000-0.034) ng/mL Coagulation 01/27/21 Range/Units 02:36 PT 10.4 (9.0-12.0) sec APTT 23.5 (22.0-30.0) sec CBC 01/27/21 Range/Units 02:36 WBC 15.2 H (3.8-10.6) k/uL RBC 4.90 (4.30-5.90) m/uL Hgb 13.3 (13.0-17.5) gm/dL Hct 42.2 (39.0-53.0) % Plt Count 392 (150-450) k/uL Comprehensive Metabolic Panel 01/27/21 Range/Units 02:36 Sodium 135 L (137-145) mmol/L Potassium 4.9 (3.5-5.1) mmol/L Chloride 102 (98-107) mmol/L Carbon Dioxide 24 (22-30) mmol/L BUN 18 (9-20) mg/dL Creatinine 1.20 (0.66-1.25) mg/dL Glucose 241 H (74-99) mg/dL Calcium 9.0 (8.4-10.2) mg/dL AST 43 (17-59) U/L ALT 31 (4-49) U/L Alkaline Phosphatase 304 H (38-126) U/L Total Protein 7.5 (6.3-8.2) g/dL Albumin 3.3 L (3.5-5.0) g/dL Current Medications Generic Name Dose Route Start Last Admin Trade Name Freq PRN Reason Stop Dose Admin Hydrocodone Bitart/Acetaminophen 1 each 01/27/21 09:15 Hydrocodone/Apap 7.5-325mg 1 Each Tab PO Q6H PRN Pain Albuterol/Ipratropium 3 ml 01/27/21 09:15 Ipratropium-Albuterol 3 Ml Neb INHALATION RT-QID PRN Shortness Of Breath Aspirin 81 mg 01/27/21 09:15 Aspirin 81 Mg PO DAILY [facility] Atorvastatin Calcium 20 mg 01/28/21 09:00 Atorvastatin 20 Mg Tab PO DAILY [facility] Baclofen 10 mg 01/27/21 09:15 Baclofen 10 Mg Tab PO TID PRN Muscle Spasm Cholecalciferol 250 mcg 01/28/21 09:00 Cholecalciferol 25 Mcg (1000 Iu) Tablet PO DAILY [facility] Colchicine 0.6 mg 01/27/21 21:00 Colchicine 0.6 Mg Each PO BID [facility] Dicyclomine HCl 20 mg 01/27/21 13:00 Dicyclomine 20 Mg Tab PO QID [facility] Duloxetine HCl 60 mg 01/27/21 09:15 Duloxetine Hcl 60 Mg Capsule.Dr PO DAILY [facility] Fluticasone Propionate 1 spray 01/27/21 21:00 Fluticasone 50mcg/[place] Nasal 16gm EA NOSTRIL BID [facility] Gabapentin 300 mg 01/27/21 21:00 Gabapentin 300 Mg Cap PO HS [facility] Ceftriaxone Sodium 1 gm/ 50 mls @ 100 mls/hr 01/27/21 11:12 Sodium Chloride IVPB 01/27/21 11:41 ONCE STA Insulin Aspart 0 unit 01/27/21 12:30 Insulin Aspart (Novolog) 100 Unit/Ml Vial SQ ACHS [facility] Protocol Insulin Detemir 25 unit 01/28/21 07:00 Insulin Detemir (Levemir) 100 Unit/Ml Syr SQ DAILY@0700 [facility] Insulin Detemir 25 unit 01/27/21 21:00 Insulin Detemir (Levemir) 100 Unit/Ml Syr SQ HS [facility] Levetiracetam 1,000 mg 01/27/21 09:15 Levetiracetam 500 Mg Tab PO Q12HR [facility] Loratadine 10 mg 01/28/21 09:00 Loratadine 10 Mg Tab PO DAILY [facility] Montelukast Sodium 10 mg 01/28/21 09:00 Montelukast 10 Mg Tab PO DAILY [facility] Intake and Output 01/26/21 01/27/21 01/27/21 22:59 06:59 14:59 Other: Weight 147.418 kg 147.418 kg Patient Weight 01/28/21 06:59 Weight 147.418 kg 01/27/21 02:36 01/27/21 02:36 Assessment and Plan Assessment: Assessment #1 pleuritic chest discomfort likely related to pericarditis #2 pericardial effusion secondary to the above #3 history of lung cancer with metastasis #4 history of smoking #5 multiple comorbid conditions Plan #1 avoid any medication can lower the blood pressure. #2 in the light of that stop chlorthalidone and stopped oral nitrate #3 monitor the patient hemodynamically very closely #4 repeat the echo in 48 hours if there is no clinical deterioration #5 start the patient on colchicine #6 continue aspirin We will continue following up with the patient
[2021-01-27] MEDS: DULoxetine HCL 60 MG CAPSULE.DR PO SCH (11:51)
[2021-01-27] MEDS: ASPIRIN 81 MG PO SCH (11:51)
[2021-01-27] MEDS: levETIRAcetam 500 MG TAB PO SCH ×2 (11:51→20:47)
[2021-01-27] MEDS: INSULIN ASPART (NovoLOG) 100 UNIT/ML VIAL SQ SCH ×3 (12:03→20:47)
[2021-01-27] MEDS ORDERED: INSULIN DETEMIR (LEVEMIR) 100 UNIT/ML SYR SQ ONE (12:30)
[2021-01-27] MEDS: DICYCLOMINE 20 MG TAB PO SCH ×3 (14:19→20:47)
--- NOTE | 2021-01-27 14:49 | P.CNPUL ---
History of Present Illness Consult date: 01/27/21 Requesting physician: Andreas Velasquez Reason for consult: dyspnea, abnormal CXR/CT Chief complaint: Lung cancer. History of present illness: Pulmonary consultation dated 01/27/2021. 60-year-old male who presents to the emergency department on January 27, complaining of chest pain, with inspiration. The pain was described as being moderate in severity, and very sharp in nature. It was constant. Nothing seemed to improve it or make it worse. He did have some very mild shortness of breath. He denies any fever or chills. He is not coughing or bringing up any phlegm. He denies any nausea, vomiting, diarrhea, or abdominal pain. He also denies any genitourinary complaints. 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 The patient has a very interesting history of having had a craniotomy, with removal of a lesion in his brain. The lesion in the brain turned out to be adenocarcinoma, thought to be lung primary. The patient has received radiation to the brain. He sees a medical oncologist at an outside hospital. He also sees a radiation doctor, Dr. Cancino. He has a history of diabetes, hyperlipidemia, hypertension, sleep apnea, probable COPD, and was a heavy smoker in the past. A computed tomography scan showed a moderately large pericardial effusion, and an echocardiogram was ordered. The pulmonary standpoint, he is relatively stable on 4 L nasal cannula with saturations of 98%. White count 15.2, hemoglobin 13.3, hematocrit 42.2, platelet count 392,000. D-dimer was 9.84. Sodium 135, potassium 4.9, chlorides 102, CO2 24, anion gap 9, BUN 18, creatinine 1.20. Alkaline phosphatase was 304, and lactate dehydrogenase was 1192. Testing for coronavirus was negative. Chest x-ray showed cardiomegaly and small pleural effusions. CT angiogram was negative for PE, but did show a moderate pericardial effusion that is new. Review of Systems REVIEW OF SYSTEMS: CONSTITUTIONAL: [Negative.] NEUROLOGIC: [ Negative.] HEENT: [ Negative.] CARDIAC: Sharp chest pain on deep inspiration. PULMONARY: Very mild shortness of breath. GI: [Negative.] : [Negative.] RHEUMATOLOGIC: [ Negative.] IMMUNOLOGIC: [ Negative.] ENDOCRINE: [Negative. ] DERMATOLOGIC: [Negative.] Past Medical History Past Medical History: Cancer, Diabetes Mellitus, Hyperlipidemia, Hypertension, Sleep Apnea/CPAP/BIPAP Additional Past Medical History / Comment(s): Patient has metastatic lung cancer, brain and neck also - sees treating teams at [facility]. History of Any Multi-Drug Resistant Organisms: None Reported Past Surgical History: Back Surgery, Orthopedic Surgery Additional Past Surgical History / Comment(s): BILAT knee, laminectomy L3-5, COLONOSCOPY, SPINAL CORD STIMULATOR. Excision of brain tumor October 2020 at [facility]. Past Anesthesia/Blood Transfusion Reactions: No Reported Reaction Past Psychological History: Anxiety Smoking Status: Former smoker Past Alcohol Use History: None Reported Additional Past Alcohol Use History / Comment(s): QUIT SMOKING 2017 Past Drug Use History: None Reported - Past Family History Mother Family Medical History: Diabetes Mellitus, Myocardial Infarction ([place]) Father Additional Family Medical History / Comment(s): silicosis of the lung, lung removal Medications and Allergies Home Medications Medication Instructions Recorded Confirmed Type Aspirin EC [Ecotrin Low Dose] 81 mg PO DAILY 05/10/17 01/27/21 History Baclofen 10 mg PO TID PRN 05/10/17 01/27/21 History Chlorthalidone 25 mg PO DAILY #30 tab 05/14/17 01/27/21 Rx Isosorbide Mononitrate ER [Imdur] 30 mg PO DAILY #30 tab.er.24h 05/14/17 01/27/21 Rx DULoxetine HCL [Cymbalta] 60 mg PO DAILY 11/14/20 01/27/21 History Dicyclomine HCl 20 mg PO QID 11/14/20 01/27/21 History HYDROcodone/APAP 7.5-325MG [[place] 1 tab PO Q6H PRN 11/14/20 01/27/21 History 7.5-325] Ipratropium-Albuterol Nebulize 3 ml INHALATION RT-QID PRN 11/14/20 01/27/21 History [Duoneb 0.5 mg-3 mg/3 ml Soln] Lidocaine 5% Patch [Lidoderm] 1 patch TOPICAL DAILY 11/14/20 01/27/21 History Montelukast [Singulair] 10 mg PO DAILY 11/14/20 01/27/21 History Ozempic 4mg/3ml 4 mg SQ WE 11/14/20 01/27/21 History Pioglitazone [Actos] 15 mg PO DAILY 11/14/20 01/27/21 History Rosuvastatin [Crestor] 10 mg PO DAILY 11/14/20 01/27/21 History Albuterol Inhaler [Ventolin Hfa 2 puff INHALATION RT-QID PRN 01/27/21 01/27/21 History Inhaler] Cholecalciferol (Vitamin D3) 250 mcg PO DAILY 01/27/21 01/27/21 History [Vitamin D3 (125 MCG = 5,000 IU)] Dextrose Chew [Glucose Chew Tab] 4 gm PO Q10M PRN 01/27/21 01/27/21 History Fluticasone Nasal [place] [Flonase 1 spray EA NOSTRIL BID 01/27/21 01/27/21 History Nasal [place]] Gabapentin 300 mg PO HS 01/27/21 01/27/21 History Insulin Regular, Human [humulin R 135 unit SQ BID 01/27/21 01/27/21 History U-500 Kwikpen] Lidocaine 5% Oint [Xylocaine 5% 1 applic TOPICAL DAILY PRN 01/27/21 01/27/21 History Oint] Loratadine [Claritin] 10 mg PO DAILY 01/27/21 01/27/21 History levETIRAcetam [Keppra] 1,000 mg PO Q12HR 01/27/21 01/27/21 History Allergies Allergy/AdvReac Type Severity Reaction Status Date / Time No Known Allergies Allergy Verified 01/27/21 08:19 Physical Exam Osteopathic Statement: *. No significant issues noted on an osteopathic structural exam other than those noted in the History and Physical/Consult. Vitals: Vital Signs Temp Pulse Pulse Resp BP BP Pulse Ox 01/27/21 14:30 106 H 16 01/27/21 13:36 98.1 F 106 H 16 106/70 97 01/27/21 10:40 98 F 104 H 16 138/83 98 01/27/21 05:00 116 H 18 133/75 97 01/27/21 02:03 24 01/27/21 01:58 97.3 F L 109 H 22 128/85 97 Intake and Output 01/26/21 01/27/21 01/27/21 22:59 06:59 14:59 Intake Total 236 Balance 236 Intake: Oral 236 Other: Voiding Method Toilet Weight 147.418 kg 147.418 kg No acute distress, oriented 3. Nasal O2 in place. No respiratory distress, audible wheezing, use of accessory muscles, or conversational dyspnea. HEENT examination is grossly unremarkable. Neck supple. Full range of motion. No adenopathy thyromegaly or neck vein distention. Cardiovascular examination reveals regular rhythm rate. S1-S2 normal. No S3 or S4. No discernible murmur noted. Heart sounds are distant. Heart rate 100 bpm. Lungs reveal mostly clear breath sounds. Minimal rhonchi noted. No wheezes or crackles. Breath sounds equal bilaterally. 4 L saturation is 98%. Abdomen soft bowel sounds are heard. No masses or tenderness. Extremities are intact. No cyanosis clubbing or edema. Skin is without rash or lesion. Neurologic examination is brief but nonfocal. Results - Laboratory Findings CBC and BMP: 01/27/21 02:36 01/27/21 02:36 PT/INR, D-dimer PT 10.4 sec (9.0-12.0) 01/27/21 02:36 INR 1.0 (<1.2) 01/27/21 02:36 D-Dimer 9.84 mg/L FEU (<0.60) H 01/27/21 02:36 Abnormal lab findings: Abnormal Labs 01/27/21 01/27/21 01/27/21 02:36 02:36 02:36 WBC 15.2 H Neutrophils # 12.6 H D-Dimer 9.84 H Sodium 135 L Glucose 241 H POC Glucose (mg/dL) Plasma Lactic Acid [place] Alkaline Phosphatase 304 H Lactate Dehydrogenase C-Reactive Protein Albumin 3.3 L 01/27/21 01/27/21 01/27/21 02:36 06:33 11:29 WBC Neutrophils # D-Dimer Sodium Glucose POC Glucose (mg/dL) 401 H Plasma Lactic Acid [place] 2.3 H* Alkaline Phosphatase Lactate Dehydrogenase 1192 H C-Reactive Protein 3.1 H Albumin - Diagnostic Findings Chest x-ray: image reviewed CT scan - chest: image reviewed Assessment and Plan Assessment: Sharp pleuritic-type chest pain with findings of a moderate pericardial effusion on CT and echocardiogram. Probable underlying COPD. History of metastatic adenocarcinoma of the lung, to the brain, status post craniotomy and excision. Left parotid mass, rule out metastatic disease. Prior history of tobacco use. History of diabetes mellitus. History of hyperlipidemia. History of hypertension. History of sleep apnea syndrome, noncompliant with CPAP. Chronic back pain, status post spinal cord stimulator. Plan: Plan dated 01/27/2021. The patient is being transferred down to 3 S. per cardiology. From the pulmonary standpoint, the patient is stable. We will continue to follow make recommendations where appropriate. The patient may need a thoracic surgery consultation for the pericardial effusion, given his history of metastatic lung cancer. The patient also has a lesion in his left parotid gland that will need attention. We will continue to follow and make recommendations where appropriate. Time with Patient: Greater than 30
[2021-01-27] MEDS: HYDROcodone/APAP 7.5-325MG 1 EACH TAB PO PRN (15:13)
[2021-01-27 16:41] LABS: Glucose,Whole Blood 242 mg/dL (75-99)
[2021-01-27 20:08] LABS: Glucose,Whole Blood 203 mg/dL (75-99)
[2021-01-27] MEDS: GABAPENTIN 300 MG CAP PO SCH (20:47)
[2021-01-27] MEDS: INSULIN DETEMIR (LEVEMIR) 100 UNIT/ML SYR SQ SCH (20:49)
[2021-01-27] MEDS: COLCHICINE 0.6 MG EACH PO SCH (21:50)
[2021-01-27] MEDS: FLUTICASONE 50MCG/SPRAY NASAL 16GM EA NOSTRIL SCH (21:50)
[2021-01-28] MEDS: HYDROcodone/APAP 7.5-325MG 1 EACH TAB PO PRN ×3 (03:52→15:48)
[2021-01-28 06:04] LABS: Glucose,Whole Blood 180 mg/dL (75-99)
[2021-01-28] MEDS: INSULIN ASPART (NovoLOG) 100 UNIT/ML VIAL SQ SCH ×4 (07:07→20:54)
[2021-01-28] MEDS: INSULIN DETEMIR (LEVEMIR) 100 UNIT/ML SYR SQ SCH ×2 (07:07→20:54)
[2021-01-28] MEDS: ATORVASTATIN 20 MG TAB PO SCH (07:54)
[2021-01-28] MEDS: DICYCLOMINE 20 MG TAB PO SCH ×4 (07:54→20:53)
[2021-01-28] MEDS: COLCHICINE 0.6 MG EACH PO SCH ×2 (07:54→20:55)
[2021-01-28] MEDS: DULoxetine HCL 60 MG CAPSULE.DR PO SCH (07:54)
[2021-01-28] MEDS: ASPIRIN 81 MG PO SCH (07:54)
[2021-01-28] MEDS: MONTELUKAST 10 MG TAB PO SCH (07:55)
[2021-01-28] MEDS: levETIRAcetam 500 MG TAB PO SCH ×2 (07:55→20:53)
[2021-01-28] MEDS: LORATADINE 10 MG TAB PO SCH (07:55)
[2021-01-28] MEDS: CHOLECALCIFEROL 25 MCG (1000 IU) TABLET PO SCH (07:56)
[2021-01-28] MEDS: FLUTICASONE 50MCG/SPRAY NASAL 16GM EA NOSTRIL SCH ×2 (07:57→20:58)
[2021-01-28] MEDS: AZITHROMYCIN 250 MG TAB PO SCH (08:53)
[2021-01-28] MEDS ORDERED: ISOSORBIDE MONONITRATE ER 30 MG TAB.ER.24H PO SCH (09:00)
[2021-01-28 10:56] LABS: Basophils # (A) 0.1 k/uL (0-0.2); Basophils % (A) 1 %; Eosinophils # (A) 0.4 k/uL (0-0.7); Eosinophils % (A) 3 %; HCT 39.7 % (39.0-53.0); HGB 12.4 gm/dL (13.0-17.5); Lymphocytes % (A) 8 %; MCH 26.8 pg (25.0-35.0); MCHC 31.2 g/dL (31.0-37.0); MCV 86.1 fL (80.0-100.0); Mean Platelet Volume 7.8; Monocytes # (A) 0.9 k/uL (0-1.0); Monocytes % (A) 7 %; Neutrophils # (A) 10.7 k/uL (1.3-7.7); Neutrophils % (A) 80 %; Platelet Count 390 k/uL (150-450); RBC 4.61 m/uL (4.30-5.90); RDW 14.5 % (11.5-15.5); WBC 13.4 k/uL (3.8-10.6)
[2021-01-28 11:24] LABS: Calcium 8.4 mg/dL (8.4-10.2); Magnesium 1.9 mg/dL (1.6-2.3); Potassium 5.4 mmol/L (3.5-5.1)
[2021-01-28 12:17] LABS: Glucose,Whole Blood 180 mg/dL (75-99)
--- NOTE | 2021-01-28 12:46 | P.PN ---
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 Patient follows with an oncologist and radiation oncologist from [facility]. His most recent PET scan was done here at [facility] on 01/05/2021 and showed left salivary gland mass, with local jugulodigastric hypermetabolic uptake and SCV of 3.4. There was no supraclavicular adenopathy, there were calcified nodes present in the supraclavicular region on the right, some uptake associated with the hilar bilaterally with SUV on the left of 4.9 and on the right of 4.0, there are calcified mediastinal hilar and subcarinal nodes present. At that time there was no evidence of pleural or pericardial effusion. Patient came into the emergency department on 01/27/2021 complaining of sharp chest pain with inspiration. He described a sensation of heaviness in the middle of the chest with breathing only. Patient is supposed to be starting on chemotherapy in the next 2 weeks. His EKG in the emergency department showed no evidence of acute ischemic changes. Patient denies any fever or chills, no cough, no phlegm production, patient has completed his COVID-[address] angiogram of the chest showed no evidence of pulmonary embolism, however showed bilateral basilar pulmonary anemia infiltrates and atelectasis and moderate pericardial effusion that has significantly increased from his recent exam. Chest x-ray showed mild cardiomegaly and small pleural effusions. Patient has been afebrile while in the hospital, he is currently on 4 L of oxygen pulse ox is 97-98%, blood pressure is 128/85. EKG showed sinus tachycardia. COVID-19 PCR was negative. Initial blood work was reviewed showing white blood cell count of 15.2, hemoglobin of 13.3, d-dimer was 9.84, PT INR and APTT were within normal limits, sodium was 135, the rest of electrolytes were within normal limits, BUN of 18 creatinine is 1.2, lactic acid was 2.3, alkaline phosphatase was 304, and AST and ALT were within normal limits of 43 and 31, LDH is 1192, troponin was less than 0.012, CRP was 3.1, proBNP was within normal limits at 145. Patient was started on empiric antibiotics in the form of azithromycin and Rocephin in the emergency department, he was also started on colchicine 0.6 mg by mouth twice daily. He was given a liter bolus and IV fluids, his lactic acid has improved. He started on nebulized bronchodilators. Echocardiogram has been completed showing moderate concentric LVH, low normal EF of 50-55%, no evidence of pulmonary hypertension, no evidence of valvular heart disease. It did show moderate generalized pericardial effusion. On 01/28/2021 patient seen in follow-up on selective care unit, he states his breathing much more comfortably today, no complaints of chest pain on today's exam, he is awake and alert, he is on room air, his pulse ox is 92%, he is afebrile, he is in sinus mechanism with a rate of 104 BPM, he does get some mild shortness of breath with exertion, but no acute distress, he is getting ready to get in the shower with limited assistance. He's been tolerating ambulation. He's had no acute events overnight, blood pressure is been stable, 102/63. Lung sounds reveal some scattered bibasilar crackles, no wheezing. His echocardiogram showed moderate pericardial effusion, cardiology is following, and is planning on repeating the echocardiogram in another 24 hours, today's labs have been reviewed, white blood cell count is 13.4, improved from admission, hemoglobin is 12.4, sodium is 136, potassium is 5.4, B1 is 22, creatinine is 1.58. His had no fever or chills, his pro-calcitonin level came back at 0.19, and his subsequent pro-calcitonin was 0.39, patient is on empiric antibiotics in the form of Rocephin and azithromycin. Objective - Vital Signs Vital signs: Vital Signs Temp 97.9 F 01/28/21 12:00 Pulse 104 H 01/28/21 12:00 Resp 18 01/28/21 12:00 BP 102/63 01/28/21 12:00 Pulse Ox 92 L 01/28/21 12:00 Intake & Output 01/27/21 01/28/21 01/28/21 18:59 06:59 18:59 Intake Total 236 360 Balance 236 360 Weight 147.418 kg 153 kg Intake: Oral 236 360 Other: Voiding Method Toilet Toilet # Voids 1 - Exam GENERAL EXAM: Alert, very pleasant, 60-year-old white male, sitting up in the recliner, currently on room air with pulse ox of 92% comfortable in no apparent distress. HEAD: Normocephalic/atraumatic. EYES: Normal reaction of pupils, equal size. Conjunctiva pink, sclera white. NOSE: Clear with pink turbinates. THROAT: No erythema or exudates. NECK: No masses, no JVD, no thyroid enlargement, no adenopathy. CHEST: No chest wall deformity. Symmetrical expansion. LUNGS: Equal air entry with no crackles, wheeze, rhonchi or dullness. CVS: Regular rate and rhythm, normal S1 and S2, no gallops, no murmurs, no rubs ABDOMEN: Soft, nontender. No hepatosplenomegaly, normal bowel sounds, no guarding or rigidity. EXTREMITIES: No clubbing, chronic venous stasis changes in bilateral lower extremities noted, no edema was appreciated on today's exam no cyanosis, 2+ pu lses and upper and lower extremities. MUSCULOSKELETAL: Muscle strength and tone normal. SPINE: No scoliosis or deformity SKIN: No rashes CENTRAL NERVOUS SYSTEM: Alert and oriented -3. No focal deficits, tone is normal in all 4 extremities. PSYCHIATRIC: Alert and oriented -3. Appropriate affect. Intact judgment and insight. - Labs CBC & Chem 7: 01/28/21 10:39 01/28/21 10:39 Labs: Abnormal Lab Results - Last 24 Hours (Table) 01/27/21 01/27/21 01/27/21 Range/Units 06:45 12:34 16:34 WBC (3.8-10.6) k/uL Hgb (13.0-17.5) gm/dL Neutrophils # (1.3-7.7) k/uL Sodium (137-145) mmol/L Potassium (3.5-5.1) mmol/L BUN (9-20) mg/dL Creatinine (0.66-1.25) mg/dL Glucose (74-99) mg/dL POC Glucose (mg/dL) 242 H (75-99) mg/dL Procalcitonin 0.19 H 0.39 H (0.02-0.09) ng/mL 01/27/21 01/28/21 01/28/21 Range/Units 20:06 06:02 10:39 WBC 13.4 H (3.8-10.6) k/uL Hgb 12.4 L (13.0-17.5) gm/dL Neutrophils # 10.7 H (1.3-7.7) k/uL Sodium (137-145) mmol/L Potassium (3.5-5.1) mmol/L BUN (9-20) mg/dL Creatinine (0.66-1.25) mg/dL Glucose (74-99) mg/dL POC Glucose (mg/dL) 203 H 180 H (75-99) mg/dL Procalcitonin (0.02-0.09) ng/mL 01/28/21 01/28/21 Range/Units 10:39 11:52 WBC (3.8-10.6) k/uL Hgb (13.0-17.5) gm/dL Neutrophils # (1.3-7.7) k/uL Sodium 136 L (137-145) mmol/L Potassium 5.4 H (3.5-5.1) mmol/L BUN 22 H (9-20) mg/dL Creatinine 1.58 H (0.66-1.25) mg/dL Glucose 199 H (74-99) mg/dL POC Glucose (mg/dL) 180 H (75-99) mg/dL Procalcitonin (0.02-0.09) ng/mL Assessment and Plan Plan: Assessment: #1. Pleuritic chest pain, and shortness of breath related to moderately sized generalized pericardial effusion, possibly malignant. COVID-19 negative. Possibility of bacterial pneumonia is less likely, CT chest showed #2. Metastatic adenocarcinoma of the lungs with brain metastasis, status post surgical resection and radiation therapy at [facility]. Patient will be starting on chemotherapy in the next 2 weeks #3. History of emphysema, not home oxygen dependent at baseline #4. Type 2 diabetes mellitus #5. Hypertension #6. Hyperlipidemia #7. Morbid obesity #8. History of sleep apnea syndrome, noncompliant with CPAP #9. Chronic back pain, status post spinal cord stimulator #10. Probable underlying COPD Plan: Continue current medical treatment No worsening dyspnea, no chest pain on today's exam No fever or chills No acute events overnight Cardiology is planning on repeating echocardiogram in another 24 hours Hemodynamically patient is stable We'll continue to follow his clinical course Possibility of metastatic pericardial effusion is also being considered Currently clinically stable, his chest pain has improved Continue to follow I performed a history & physical examination of the patient and discussed their management with my nurse practitioner, Steffanie Drake. I reviewed the nurse practitioner's note and agree with the documented findings and plan of care. Lung sounds are positive for bibasilar crackles throughout the lung perez. The findings and the impression was discussed with the patient. I attest to the d ocumentation by the nurse practitioner. Time with Patient: Less than 30
--- NOTE | 2021-01-28 14:22 | P.PN ---
Subjective Progress Note Date: 01/28/21 HISTORY OF PRESENT ILLNESS: This is a 60-year-old gentleman who was unfortunate with a diagnosis of lung cancer with metastasis to the brain and recent history of brain mass removal and status post radiation therapy as well as history of smoking and chronic obstructive pulmonary disease in addition to multiple comorbid conditions including diabetes and hypertension and dyslipidemia presented to the emergency department complaining of chest discomfort. The patient stated that the chest discomfort started within the last 12 hours. He described it in the middle of the chest as a sharp kind of discomfort definitely worse with a deep breath. He denies any increasing in the shortness of breath or dizziness or lightheadedness or presyncope or syncope. No symptoms of fever or chills. The EKG showed sinus rhythm with somewhat low voltage across the chest lead. The first set of troponin came in to be unremarkable. He underwent a computed tomography scan of the chest to rule out PE and that showed no evidence of PE but it did show bilateral pulmonary infiltrate and also evidence of pericardial effusion seems to be circumferential. Subsequently he underwent an echocardiogram which I reviewed and that showed normal LV function with evidence of moderate pericardial effusion without any evidence of RV diastolic collapse but he definitely does have flow variation across mitral and tricuspid valve with respiration. Currently the patient is hemodynamically stable in terms of blood pressure with a heart rate around 100 bpm. He was receiving chlorthalidone as well as oral nitrate which I'm going to stop both. I'm going to start him on colchicine. We are going to monitor the patient for evidence of tamponade clinically. If he develop any increasing in the heart rate or lower blood pressure he might benefit from pericardiocentesis/pericardial window. At this point he is relatively stable. 01/28/2021 Patient examined this morning. He is sitting up in the chair. Patient states his chest discomfort has improved since yesterday. He does report some dizziness today. Blood pressure is on the lower side with a systolic in the 90s. He is mildly tachycardic. PHYSICAL EXAM: VITAL SIGNS: Reviewed. GENERAL: Well-developed in no acute distress. NECK: Supple. No JVD or thyromegaly LUNGS: Respirations even and unlabored. Lungs diminished to auscultation bilaterally. HEART: Regular rate and rhythm. S1 and S2 heard. EXTREMITIES: Normal range of motion. No clubbing or cyanosis. Peripheral pulses intact. No lower extremity edema ASSESSMENT: Pericardial effusion Pleuritic chest discomfort Pericarditis History of lung cancer with metastasis History of smoking PLAN: Continue current medications Continue aspirin and colchicine Begin IV fluids at 50cc/hr Consult CTS for evaluation Further recommendations pending patient course Nurse practitioner note has been reviewed by physician. Signing provider agrees with the documented findings, assessment, and plan of care. Objective - Vital Signs Vital signs: Vital Signs Temp 97.9 F 01/28/21 12:00 Pulse 104 H 01/28/21 12:00 Resp 18 01/28/21 12:00 BP 102/63 01/28/21 12:00 Pulse Ox 92 L 01/28/21 12:00 Intake & Output 01/27/21 01/28/21 01/28/21 18:59 06:59 18:59 Intake Total 236 960 Balance 236 960 Weight 147.418 kg 153 kg Intake: Oral 236 960 Other: Voiding Method Toilet Toilet # Voids 1 - Labs CBC & Chem 7: 01/28/21 10:39 01/28/21 10:39 Labs: Abnormal Lab Results - Last 24 Hours (Table) 01/27/21 01/27/21 01/27/21 Range/Units 06:45 12:34 16:34 WBC (3.8-10.6) k/uL Hgb (13.0-17.5) gm/dL Neutrophils # (1.3-7.7) k/uL Sodium (137-145) mmol/L Potassium (3.5-5.1) mmol/L BUN (9-20) mg/dL Creatinine (0.66-1.25) mg/dL Glucose (74-99) mg/dL POC Glucose (mg/dL) 242 H (75-99) mg/dL Procalcitonin 0.19 H 0.39 H (0.02-0.09) ng/mL 01/27/21 01/28/21 01/28/21 Range/Units 20:06 06:02 10:39 WBC 13.4 H (3.8-10.6) k/uL Hgb 12.4 L (13.0-17.5) gm/dL Neutrophils # 10.7 H (1.3-7.7) k/uL Sodium (137-145) mmol/L Potassium (3.5-5.1) mmol/L BUN (9-20) mg/dL Creatinine (0.66-1.25) mg/dL Glucose (74-99) mg/dL POC Glucose (mg/dL) 203 H 180 H (75-99) mg/dL Procalcitonin (0.02-0.09) ng/mL 01/28/21 01/28/21 Range/Units 10:39 11:52 WBC (3.8-10.6) k/uL Hgb (13.0-17.5) gm/dL Neutrophils # (1.3-7.7) k/uL Sodium 136 L (137-145) mmol/L Potassium 5.4 H (3.5-5.1) mmol/L BUN 22 H (9-20) mg/dL Creatinine 1.58 H (0.66-1.25) mg/dL Glucose 199 H (74-99) mg/dL POC Glucose (mg/dL) 180 H (75-99) mg/dL Procalcitonin (0.02-0.09) ng/mL
--- NOTE | 2021-01-28 14:36 | P.PN ---
Subjective Patient is doing fairly well today. He denies any shortness of breath. He said that his chest discomfort is a lot better. Objective - Vital Signs Vital signs: Vital Signs Temp 97.9 F 01/28/21 12:00 Pulse 104 H 01/28/21 12:00 Resp 18 01/28/21 12:00 BP 102/63 01/28/21 12:00 Pulse Ox 92 L 01/28/21 12:00 Intake & Output 01/27/21 01/28/21 01/28/21 18:59 06:59 18:59 Intake Total 236 960 Balance 236 960 Weight 147.418 kg 153 kg Intake: Oral 236 960 Other: Voiding Method Toilet Toilet # Voids 1 - Exam General: The patient is awake and alert, in no distress Eye: there is normal conjunctiva bilaterally. Neck: The neck is supple, there is no JVD. Cardiovascular: Normal S1-S2, no S3-S4, no murmurs. Respiratory: Lungs clear to auscultation bilaterally Gastrointestinal: Abdomen is soft, nontender Musculoskeletal: There is no pedal edema. Neurological:. Speech is normal. Skin: Skin is warm and dry - Labs CBC & Chem 7: 01/28/21 10:39 01/28/21 10:39 Labs: Abnormal Lab Results - Last 24 Hours (Table) 01/27/21 01/27/21 01/27/21 Range/Units 06:45 12:34 16:34 WBC (3.8-10.6) k/uL Hgb (13.0-17.5) gm/dL Neutrophils # (1.3-7.7) k/uL Sodium (137-145) mmol/L Potassium (3.5-5.1) mmol/L BUN (9-20) mg/dL Creatinine (0.66-1.25) mg/dL Glucose (74-99) mg/dL POC Glucose (mg/dL) 242 H (75-99) mg/dL Procalcitonin 0.19 H 0.39 H (0.02-0.09) ng/mL 01/27/21 01/28/21 01/28/21 Range/Units 20:06 06:02 10:39 WBC 13.4 H (3.8-10.6) k/uL Hgb 12.4 L (13.0-17.5) gm/dL Neutrophils # 10.7 H (1.3-7.7) k/uL Sodium (137-145) mmol/L Potassium (3.5-5.1) mmol/L BUN (9-20) mg/dL Creatinine (0.66-1.25) mg/dL Glucose (74-99) mg/dL POC Glucose (mg/dL) 203 H 180 H (75-99) mg/dL Procalcitonin (0.02-0.09) ng/mL 01/28/21 01/28/21 Range/Units 10:39 11:52 WBC (3.8-10.6) k/uL Hgb (13.0-17.5) gm/dL Neutrophils # (1.3-7.7) k/uL Sodium 136 L (137-145) mmol/L Potassium 5.4 H (3.5-5.1) mmol/L BUN 22 H (9-20) mg/dL Creatinine 1.58 H (0.66-1.25) mg/dL Glucose 199 H (74-99) mg/dL POC Glucose (mg/dL) 180 H (75-99) mg/dL Procalcitonin (0.02-0.09) ng/mL Assessment and Plan Assessment: 1. Chest pain: Mostly pleuritic pain with breathing. EKG showed no acute ischemic changes. troponin negative x2. Cardiology consulted for further evaluation. 2. Worsening pericardial effusion with suspected pericarditis/malignant effusion, echocardiogram reviewed by cardiology. Patient was started on colchicine. Surgery consulted for possible drainage 3. Suspected pneumonia on chest x-ray with elevated pro calcitonin, started on ceftriaxone and azithromycin day #2 4. Metastatic lung cancer status post brain metastases surgical removal and radiation therapy at [facility]. Scheduled to follow-up with oncology 5. Type 2 diabetes, I adjusted his insulin dose will continue sliding scale. 6. Hypertension, hyperlipidemia, morbid obesity, former heavy smoker, Today, I reviewed his medication list and lab work results. We will continue supportive care otherwise. Appreciate hr shared services consultant's recommendations.
[2021-01-28] MEDS: SODIUM CHLORIDE 0.9% 1,000 ML IV SCH (15:49)
--- NOTE | 2021-01-28 16:12 | P.GSCN ---
History of Present Illness Consult date: 01/28/21 Reason for Consult: Pericardial effusion Requesting physician: Cachorro Singer History of present illness: This is a 60-year-old gentleman who follows with Dr. Vargas Ng on an outpatient basis for his primary care services. He also follows with Dr. Mancini [facility] and a physician at [facility] for his oncology care. He is a past medical history significant for a brain tumor which was removed on 11/19/2020, status post 5 radiation treatments, history of a grape size mass to his left neck below his left ear, chronic back pain status post placement of spinal stimulator, hypertension, hyperlipidemia, COPD, remote history of smoking quit 4 years ago, vaccinated for COVID-19 receiving 2 doses Moderna vaccine, sleep apnea with noncompliance of CPAP use, type 2 diabetes mellitus, morbid obesity with a BMI of 44.5 kg/m and is hard of hearing to his left ear. He presented to the emergency department here at [facility] on 01/27/2021 via EMS due to an acute onset of chest tightness associated with shortness of breath and he became diaphoretic as well. The patient does report that he does get short of breath with activity typically, although the acute shortness of breath that he experienced was from pain to his chest with taking a breath. He denies any recent fever, chills, nausea, vomiting, diarrhea, constipation, headache, hemoptysis, hematemesis, recent trauma, or palpitations. The patient's does report that he has had some increase in swelling to his bilateral lower extremities over the past few months. In October 2020 the patient had a craniotomy with removal of a brain mass. According to the patient and his the brain mass turned out to be positive for adenocarcinoma, thought to be primary lung cancer. Subsequently due to the findings of pathology the patient underwent a PET computed tomography scan on 01/05/2021 which demonstrated a left Salvatori gland mass, some local jugulodigastric hypermetabolic uptake with an SUV of 3.1, and some hilar uptake bilaterally with the SUV on the left of 4.9 and on the right of 4.0. On admission to the hospital the patient's initial labs showed a WBC count of 15.2, hemoglobin 13.3, platelets 392, d-dimer 9.84, sodium 135, potassium 4.9, BUN 18, creatinine 1.20, glucose 241, plastic lactic acid 2.3, alkaline phosphatase 304, troponin less than 0.012 and proBNP of 145. A chest x-ray was completed which showed mild cardiomegaly, small pleural effusions with no obvious heart failure. For further evaluation the patient underwent a CT chest angio for PE which showed no evidence of pulmonary embolism, bilateral basilar pulmonary linear infiltrate and atelectasis, and a moderate pericardial effusion. A 12-lead EKG was also completed which showed sinus tachycardia with a heart rate of 108 BPM. Patient has been afebrile since admission, and he remains hemodynamically stable and is currently on no anatrophic or pressor support. Oxygen saturations are currently 92% on room air. A 2-D echocardiogram was completed on 01/27/2021 which demonstrated a normal left ventricular size, and overall left ventricular systolic function to be low normal with an ejection fraction between 50 and 55%, mild tricuspid valve regurgitation, mildly enlarged right ventricle and a moderate, generalized pericardial effusion. Subsequently, due to the patient's presenting symptoms and findings on the above-mentioned studies a consult was placed to cardiothoracic surgery for further evaluation and treatment recommendations. Review of Systems A 14 point review of systems was completed and was negative except as mentioned in the HPI. Past Medical History Past Medical History: Cancer, COPD, Diabetes Mellitus, Hyperlipidemia, Hypertension, Sleep Apnea/CPAP/BIPAP Additional Past Medical History / Comment(s): Patient has metastatic lung cancer, brain and neck also - sees a team of physicians at [facility] for his cancer treatment. History of Any Multi-Drug Resistant Organisms: None Reported Past Surgical History: Back Surgery, Hernia Repair, Orthopedic Surgery Additional Past Surgical History / Comment(s): BILAT knee replacements, 2 laminectomies L3-5, COLONOSCOPY, SPINAL CORD STIMULATOR. Excision of brain tumor 11/19/2020 at [facility]. Right inguinal hernia repair. Bilateral catara cts. Past Anesthesia/Blood Transfusion Reactions: No Reported Reaction Past Psychological History: Anxiety Smoking Status: Former smoker Past Alcohol Use History: None Reported Additional Past Alcohol Use History / Comment(s): QUIT SMOKING 2017 Past Drug Use History: None Reported - Past Family History Mother Family Medical History: Diabetes Mellitus, Myocardial Infarction ([place]) Father Additional Family Medical History / Comment(s): silicosis of the lung, lung removal Medications and Allergies Home Medications Medication Instructions Recorded Confirmed Type Aspirin EC [Ecotrin Low Dose] 81 mg PO DAILY 05/10/17 01/27/21 History Baclofen 10 mg PO TID PRN 05/10/17 01/27/21 History Chlorthalidone 25 mg PO DAILY #30 tab 05/14/17 01/27/21 Rx Isosorbide Mononitrate ER [Imdur] 30 mg PO DAILY #30 tab.er.24h 05/14/17 01/27/21 Rx DULoxetine HCL [Cymbalta] 60 mg PO DAILY 11/14/20 01/27/21 History Dicyclomine HCl 20 mg PO QID 11/14/20 01/27/21 History HYDROcodone/APAP 7.5-325MG [[place] 1 tab PO Q6H PRN 11/14/20 01/27/21 History 7.5-325] Ipratropium-Albuterol Nebulize 3 ml INHALATION RT-QID PRN 11/14/20 01/27/21 History [Duoneb 0.5 mg-3 mg/3 ml Soln] Lidocaine 5% Patch [Lidoderm] 1 patch TOPICAL DAILY 11/14/20 01/27/21 History Montelukast [Singulair] 10 mg PO DAILY 11/14/20 01/27/21 History Ozempic 4mg/3ml 4 mg SQ WE 11/14/20 01/27/21 History Pioglitazone [Actos] 15 mg PO DAILY 11/14/20 01/27/21 History Rosuvastatin [Crestor] 10 mg PO DAILY 11/14/20 01/27/21 History Albuterol Inhaler [Ventolin Hfa 2 puff INHALATION RT-QID PRN 01/27/21 01/27/21 History Inhaler] Cholecalciferol (Vitamin D3) 250 mcg PO DAILY 01/27/21 01/27/21 History [Vitamin D3 (125 MCG = 5,000 IU)] Dextrose Chew [Glucose Chew Tab] 4 gm PO Q10M PRN 01/27/21 01/27/21 History Fluticasone Nasal [place] [Flonase 1 spray EA NOSTRIL BID 01/27/21 01/27/21 History Nasal [place]] Gabapentin 300 mg PO HS 01/27/21 01/27/21 History Insulin Regular, Human [humulin R 135 unit SQ BID 01/27/21 01/27/21 History U-500 Kwikpen] Lidocaine 5% Oint [Xylocaine 5% 1 applic TOPICAL DAILY PRN 01/27/21 01/27/21 History Oint] Loratadine [Claritin] 10 mg PO DAILY 01/27/21 01/27/21 History levETIRAcetam [Keppra] 1,000 mg PO Q12HR 01/27/21 01/27/21 History Allergies Allergy/AdvReac Type Severity Reaction Status Date / Time No Known Allergies Allergy Verified 01/27/21 08:19 Surgical - Exam Vital Signs Temp Pulse Resp BP Pulse Ox 97.3 F L 109 H 22 128/85 97 01/27/21 01:58 01/27/21 01:58 01/27/21 01:58 01/27/21 01:58 01/27/21 01:58 - General Currently sitting up to his bedside chair on the cardiac stepdown unit, he is cooperative, and is in no acute distress. well developed, well nourished, no distress, no pain, obese (Morbidly obese) - Eyes PERRL, normal ocular movement, no pale, no icteric - ENT normal pinna, normal nares, normal mucosa, no congestion, decreased hearing (To his left ear), poor retirement - Neck Grape sized mass to his left neck below his left ear. no bruits, trachea midline, no venous distension - Respiratory Lung sounds essentially clear throughout, diminished to his bilateral bases with few scattered crackles. Respirations are symmetrical and nonlabored. No wheezes or rhonchi present. Oxygen saturations 92% on room air. - Cardiovascular Regular rhythm and tachycardic rate. S1 and S2 present, negative for S3, gallop or murmur. +1 edema to his bilateral lower extremities. Knee-high TONIO hose in place to his bilateral lower extremities. - Abdomen Abdomen is soft, nontender and nondistended. Active bowel sounds present all 4 abdominal quadrants. No guarding or rigidity. No organomegaly appreciated. Morbidly obese. - Integumentary Skin is warm and dry. No clubbing or cyanosis is present. no rash, no abnormal pigmentation - Neurologic Speech is normal no disoriented, no combative, no confused, no memory loss - Musculoskeletal Generalized weakness. - Psychiatric oriented to time, oriented to person, oriented to place, speech is normal, memory intact Results - Labs 01/28/21 10:39 01/28/21 10:39 Abnormal Lab Results - Last 24 Hours (Table) 01/27/21 01/27/21 01/27/21 Range/Units 06:45 12:34 16:34 WBC (3.8-10.6) k/uL Hgb (13.0-17.5) gm/dL Neutrophils # (1.3-7.7) k/uL Sodium (137-145) mmol/L Potassium (3.5-5.1) mmol/L BUN (9-20) mg/dL Creatinine (0.66-1.25) mg/dL Glucose (74-99) mg/dL POC Glucose (mg/dL) 242 H (75-99) mg/dL Procalcitonin 0.19 H 0.39 H (0.02-0.09) ng/mL 01/27/21 01/28/21 01/28/21 Range/Units 20:06 06:02 10:39 WBC 13.4 H (3.8-10.6) k/uL Hgb 12.4 L (13.0-17.5) gm/dL Neutrophils # 10.7 H (1.3-7.7) k/uL Sodium (137-145) mmol/L Potassium (3.5-5.1) mmol/L BUN (9-20) mg/dL Creatinine (0.66-1.25) mg/dL Glucose (74-99) mg/dL POC Glucose (mg/dL) 203 H 180 H (75-99) mg/dL Procalcitonin (0.02-0.09) ng/mL 01/28/21 01/28/21 Range/Units 10:39 11:52 WBC (3.8-10.6) k/uL Hgb (13.0-17.5) gm/dL Neutrophils # (1.3-7.7) k/uL Sodium 136 L (137-145) mmol/L Potassium 5.4 H (3.5-5.1) mmol/L BUN 22 H (9-20) mg/dL Creatinine 1.58 H (0.66-1.25) mg/dL Glucose 199 H (74-99) mg/dL POC Glucose (mg/dL) 180 H (75-99) mg/dL Procalcitonin (0.02-0.09) ng/mL Diabetes panel 01/28/21 Range/Units 10:39 Sodium 136 L (137-145) mmol/L Potassium 5.4 H (3.5-5.1) mmol/L Chloride 104 (98-107) mmol/L Carbon Dioxide 25 (22-30) mmol/L BUN 22 H (9-20) mg/dL Creatinine 1.58 H (0.66-1.25) mg/dL Glucose 199 H (74-99) mg/dL Calcium 8.4 (8.4-10.2) mg/dL Calcium panel 01/28/21 Range/Units 10:39 Calcium 8.4 (8.4-10.2) mg/dL Pituitary panel 01/28/21 Range/Units 10:39 Sodium 136 L (137-145) mmol/L Potassium 5.4 H (3.5-5.1) mmol/L Chloride 104 (98-107) mmol/L Carbon Dioxide 25 (22-30) mmol/L BUN 22 H (9-20) mg/dL Creatinine 1.58 H (0.66-1.25) mg/dL Glucose 199 H (74-99) mg/dL Calcium 8.4 (8.4-10.2) mg/dL Adrenal panel 01/28/21 Range/Units 10:39 Sodium 136 L (137-145) mmol/L Potassium 5.4 H (3.5-5.1) mmol/L Chloride 104 (98-107) mmol/L Carbon Dioxide 25 (22-30) mmol/L BUN 22 H (9-20) mg/dL Creatinine 1.58 H (0.66-1.25) mg/dL Glucose 199 H (74-99) mg/dL Calcium 8.4 (8.4-10.2) mg/dL - Imaging Chest x-ray: report reviewed, image reviewed CT scan - chest: report reviewed, image reviewed EKG: image reviewed Additional studies: Results of transthoracic 2-D echocardiogram reviewed. Assessment and Plan Assessment: 1. Pleuritic chest pain and shortness of breath with a moderate generalized pericardial effusion, possibly malignant 2. Metastatic adenocarcinoma of the lungs with brain metastasis, status post surgical resection and 5 treatments of radiation therapy at [facility] 3. COPD 4. History of hypertension 5. Hyperlipidemia 6. Type 2 diabetes mellitus 7. Morbid obesity with a BMI of 44.5 kg/m 8. Sleep apnea with noncompliance of CPAP use 9. Chronic back pain, status post spinal cord stimulator implant 10. Remote history of nicotine dependence, quit smoking 4 years ago 11. History of grape sized mass to his left neck, below his left ear, shows hypermetabolic uptake on recent PET scan 12. Hard of hearing to his left ear Plan: The patient was seen and examined at his bedside on the cardiac stepdown unit. His chart and diagnostics were reviewed. His case was discussed in detail with Dr. Rita Sanz from cardiothoracic surgery. The patient is currently hemodynamically stable and he is on no inotropic or pressor support. Medical management per primary service, cardiology and pulmonary medicine. More recommendations to follow based on further evaluation and patient's clinical course. Thank you for this consult and we look forward to working with you in the care of this patient. Time with Patient: Greater than 30
[2021-01-28 16:40] LABS: Glucose,Whole Blood 202 mg/dL (75-99)
[2021-01-28 20:00] LABS: Glucose,Whole Blood 235 mg/dL (75-99)
[2021-01-28] MEDS: GABAPENTIN 300 MG CAP PO SCH (20:53)
[2021-01-29 05:56] LABS: Glucose,Whole Blood 159 mg/dL (75-99)
[2021-01-29] MEDS: INSULIN ASPART (NovoLOG) 100 UNIT/ML VIAL SQ SCH ×4 (06:16→22:12)
[2021-01-29 08:46] LABS: HCT 40.8 % (39.0-53.0); HGB 12.1 gm/dL (13.0-17.5); Hypochromasia Slight; MCH 25.8 pg (25.0-35.0); MCHC 29.8 g/dL (31.0-37.0); MCV 86.6 fL (80.0-100.0); Mean Platelet Volume 7.4; Platelet Count 395 k/uL (150-450); RBC 4.71 m/uL (4.30-5.90); RDW 14.1 % (11.5-15.5); WBC 13.1 k/uL (3.8-10.6)
[2021-01-29 09:04] LABS: Calcium 8.7 mg/dL (8.4-10.2); Potassium 5.2 mmol/L (3.5-5.1)
[2021-01-29] MEDS: CHOLECALCIFEROL 25 MCG (1000 IU) TABLET PO SCH (10:20)
[2021-01-29] MEDS: ATORVASTATIN 20 MG TAB PO SCH (10:21)
[2021-01-29] MEDS: MONTELUKAST 10 MG TAB PO SCH (10:21)
[2021-01-29] MEDS: COLCHICINE 0.6 MG EACH PO SCH ×2 (10:21→22:33)
[2021-01-29] MEDS: LORATADINE 10 MG TAB PO SCH (10:21)
[2021-01-29] MEDS: levETIRAcetam 500 MG TAB PO SCH ×2 (10:21→22:12)
[2021-01-29] MEDS: DULoxetine HCL 60 MG CAPSULE.DR PO SCH (10:21)
[2021-01-29] MEDS: ASPIRIN 81 MG PO SCH (10:22)
[2021-01-29] MEDS: INSULIN DETEMIR (LEVEMIR) 100 UNIT/ML SYR SQ SCH ×2 (10:22→22:13)
[2021-01-29] MEDS: DICYCLOMINE 20 MG TAB PO SCH ×4 (10:22→22:12)
[2021-01-29] MEDS: FLUTICASONE 50MCG/SPRAY NASAL 16GM EA NOSTRIL SCH ×2 (10:23→22:14)
[2021-01-29 10:28] LABS: Glucose,Whole Blood 234 mg/dL (75-99)
[2021-01-29] MEDS: SODIUM CHLORIDE 0.9% 1,000 ML IV SCH (10:28)
[2021-01-29] MEDS: AZITHROMYCIN 250 MG TAB PO SCH (10:28)
--- NOTE | 2021-01-29 11:09 | P.PN ---
Subjective Progress Note Date: 01/29/21 Principal diagnosis: Pericardial effusion. Past medical history significant for a brain tumor which was removed on 11/19/2020 at [facility], status post 5 radiation treatments, pathology was positive for adenocarcinoma lung, history of a grape size mass to his left neck below his left ear, chronic back pain status post placement of spinal stimulator, hypertension, hyperlipidemia, COPD, remote history of smoking quit 4 years ago, vaccinated for COVID-19 receiving 2 doses Moderna vaccine, sleep apnea with noncompliance of CPAP use, type 2 diabetes mellitus, morbid obesity with a BMI of 44.5 kg/m and is hard of hearing to his left ear. The patient was seen in follow-up today 01/29/2021 at his bedside on the cardiac stepdown unit with Dr Christopher Weber. Currently the patient is sitting up to the bedside chair, is awake, alert and oriented 3 and is in no acute apparent distress. At this time the patient denies any shortness of breath although he continues to complain of some pain with taking a deep breath. He does report he feels improved from yesterday and that his pain with taking a deep breath it is not as bad as yesterday. The patient has been afebrile in the last 24 hours, he remained hemodynamically stable, remote telemetry showing sinus tachycardia heart rate 101, and his current blood pressure is 153/61. Oxygen saturations are 91% on room air. Laboratory results this morning show a WBC count 13.1, hemoglobin 12.1, hematocrit 40.8, platelets 395, sodium 136, potassium 5.2, BUN 23, creatinine 1.5 to and magnesium 2.0. Objective - Vital Signs Vital signs: Vital Signs Temp 98.0 F 01/29/21 04:00 Pulse 98 01/29/21 04:00 Resp 18 01/29/21 04:00 BP 153/61 01/29/21 04:00 Pulse Ox 91 L 01/29/21 04:00 Intake & Output 01/28/21 01/29/21 01/29/21 18:59 06:59 18:59 Intake Total 1010 1200 140 Output Total 250 Balance 1010 950 140 Weight 151.7 kg Intake: Intake, IV Titration 50 600 Amount Sodium Chloride 0.9% 1, 600 000 ml @ 50 mls/hr IV . Q20H [facility] Rx#:[id number] cefTRIAXone 1 gm In 50 Sodium Chloride 0.9% 50 ml @ 100 mls/hr IVPB Q24HR [facility] Rx#:[id number] Oral 960 600 140 Output: Urine 250 Other: Voiding Method Toilet # Voids 1 1 - Exam CONSTITUTIONAL: Sitting up to the bedside chair on the cardiac stepdown unit, appears comfortable, cooperative, no apparent acute distress. HEENT: Neck is supple, no JVD, grape size mass to his left neck below his left ear. RESPIRATORY: Lungs sounds essentially clear throughout, diminished to his bilateral bases. Respirations are symmetrical and nonlabored. Currently on room air with oxygen saturations 91%. CARDIOVASCULAR: Regular rhythm and tachycardic rate. S1 and S2 present, negative for S3, gallop or murmur. +1 edema to his bilateral lower extremities. No calf pain or tenderness noted. Remote telemetry showing sinus tachycardia heart rate 101 BPM. Knee high TONIO hose in place to his bilateral lower extremities. GASTROINTESTINAL: Abdomen soft, nontender, nondistended. Active bowel sounds present 4 quadrants. Tolerating diet. Passing flatus. No guarding or rigidity. Morbidly obese. GENITOURINARY: Continues to void. INTEGUMENTARY: Skin is warm and dry with no evidence of clubbing or cyanosis. NEUROLOGIC: Alert and oriented 3. No focal deficits. MUSKULOSKELETAL: Able to move all extremities, generalized weakness. PSYCHIATRIC: Alert and oriented to person place and time, appropriate affect, intact judgment and insight. - Allied health notes Allied health notes reviewed: nursing - Labs CBC & Chem 7: 01/29/21 08:21 01/29/21 08:21 Labs: Abnormal Lab Results - Last 24 Hours (Table) 01/28/21 01/28/21 01/28/21 Range/Units 10:39 10:39 11:52 WBC 13.4 H (3.8-10.6) k/uL Hgb 12.4 L (13.0-17.5) gm/dL MCHC (31.0-37.0) g/dL Neutrophils # 10.7 H (1.3-7.7) k/uL Sodium 136 L (137-145) mmol/L Potassium 5.4 H (3.5-5.1) mmol/L BUN 22 H (9-20) mg/dL Creatinine 1.58 H (0.66-1.25) mg/dL Glucose 199 H (74-99) mg/dL POC Glucose (mg/dL) 180 H (75-99) mg/dL 01/28/21 01/28/21 01/29/21 Range/Units 16:30 19:57 05:55 WBC (3.8-10.6) k/uL Hgb (13.0-17.5) gm/dL MCHC (31.0-37.0) g/dL Neutrophils # (1.3-7.7) k/uL Sodium (137-145) mmol/L Potassium (3.5-5.1) mmol/L BUN (9-20) mg/dL Creatinine (0.66-1.25) mg/dL Glucose (74-99) mg/dL POC Glucose (mg/dL) 202 H 235 H 159 H (75-99) mg/dL 01/29/21 01/29/21 01/29/21 Range/Units 08:21 08:21 10:26 WBC 13.1 H (3.8-10.6) k/uL Hgb 12.1 L (13.0-17.5) gm/dL MCHC 29.8 L (31.0-37.0) g/dL Neutrophils # (1.3-7.7) k/uL Sodium 136 L (137-145) mmol/L Potassium 5.2 H (3.5-5.1) mmol/L BUN 23 H (9-20) mg/dL Creatinine 1.52 H (0.66-1.25) mg/dL Glucose 173 H (74-99) mg/dL POC Glucose (mg/dL) 234 H (75-99) mg/dL Assessment and Plan Assessment: 1. Pleuritic chest pain and shortness of breath with a moderate generalized pericardial effusion, possibly malignant 2. Metastatic adenocarcinoma of the lungs with brain metastasis, status post surgical resection and 5 treatments of radiation therapy at [facility] 3. COPD 4. History of hypertension 5. Hyperlipidemia 6. Type 2 diabetes mellitus 7. Morbid obesity with a BMI of 44.5 kg/m 8. Sleep apnea with noncompliance of CPAP use 9. Chronic back pain, status post spinal cord stimulator implant 10. Remote history of nicotine dependence, quit smoking 4 years ago 11. History of grape sized mass to his left neck, below his left ear, shows hypermetabolic uptake on recent PET scan 12. Hard of hearing to his left ear Plan: 1. The patient was seen and examined at his bedside by Dr. Christopher Weber. The patient's chart and diagnostics were reviewed. No surgical intervention is warranted at this time, if need diagnosis for pericardial fluid recommend pericardiocentesis or pericardial drain placement. This was discussed between Dr. Weber and Dr. Singer. Pericardial effusion is felt not to be tamponade physiology and the patient remains hemodynamically stable. 2. Medical management and other comorbidities per primary care service. 3. Patient is currently on aspirin and colchicine, managed by cardiology. 4. More recommendations to follow based on patient's clinical course. Time with Patient: Greater than 30
[2021-01-29 12:18] LABS: Glucose,Whole Blood 216 mg/dL (75-99)
--- NOTE | 2021-01-29 13:35 | P.PN ---
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 Patient follows with an oncologist and radiation oncologist from [facility]. His most recent PET scan was done here at [facility] on 01/05/2021 and showed left salivary gland mass, with local jugulodigastric hypermetabolic uptake and SCV of 3.4. There was no supraclavicular adenopathy, there were calcified nodes present in the supraclavicular region on the right, some uptake associated with the hilar bilaterally with SUV on the left of 4.9 and on the right of 4.0, there are calcified mediastinal hilar and subcarinal nodes present. At that time there was no evidence of pleural or pericardial effusion. Patient came into the emergency department on 01/27/2021 complaining of sharp chest pain with inspiration. He described a sensation of heaviness in the middle of the chest with breathing only. Patient is supposed to be starting on chemotherapy in the next 2 weeks. His EKG in the emergency department showed no evidence of acute ischemic changes. Patient denies any fever or chills, no cough, no phlegm production, patient has completed his COVID-[address] angiogram of the chest showed no evidence of pulmonary embolism, however showed bilateral basilar pulmonary infiltrates and atelectasis and moderate pericardial effusion that has significantly increased from his recent exam. Chest x-ray showed mild cardiomegaly and small pleural effusions. Patient has been afebrile while in the hospital, he is currently on 4 L of oxygen pulse ox is 97-98%, blood pressure is 128/85. EKG showed sinus tachycardia. COVID-19 PCR was negative. Initial blood work was reviewed showing white blood cell count of 15.2, hemoglobin of 13.3, d-dimer was 9.84, PT INR and APTT were within normal limits, sodium was 135, the rest of electrolytes were within normal limits, BUN of 18 creatinine is 1.2, lactic acid was 2.3, alkaline phosphatase was 304, and AST and ALT were within normal limits of 43 and 31, LDH is 1192, troponin was less than 0.012, CRP was 3.1, proBNP was within normal limits at 145. Patient was started on empiric antibiotics in the form of azithromycin and Rocephin in the emergency department, he was also started on colchicine 0.6 mg by mouth twi ce daily. He was given a liter bolus and IV fluids, his lactic acid has improved. He started on nebulized bronchodilators. Echocardiogram has been completed showing moderate concentric LVH, low normal EF of 50-55%, no evidence of pulmonary hypertension, no evidence of valvular heart disease. It did show moderate generalized pericardial effusion. On 01/28/2021 patient seen in follow-up on selective care unit, he states his breathing much more comfortably today, no complaints of chest pain on today's exam, he is awake and alert, he is on room air, his pulse ox is 92%, he is afebrile, he is in sinus mechanism with a rate of 104 BPM, he does get some mild shortness of breath with exertion, but no acute distress, he is getting ready to get in the shower with limited assistance. He's been tolerating ambulation. He's had no acute events overnight, blood pressure is been stable, 102/63. Lung sounds reveal some scattered bibasilar crackles, no wheezing. His echocardiogram showed moderate pericardial effusion, cardiology is following, and is planning on repeating the echocardiogram in another 24 hours, today's labs have been reviewed, white blood cell count is 13.4, improved from ad mission, hemoglobin is 12.4, sodium is 136, potassium is 5.4, B1 is 22, creatinine is 1.58. His had no fever or chills, his pro-calcitonin level came back at 0.19, and his subsequent pro-calcitonin was 0.39, patient is on empiric antibiotics in the form of Rocephin and azithromycin. On 01/29/2021 patient seen in follow-up on selective care unit. He states he feels mildly short of breath, but he is on room air, does not appear to be in any acute distress. He states that his chest discomfort today, has changed, and it is in the upper anterior bilateral chest traveling up to his neck area. It is exacerbated by deep breathing and coughing. Patient has had no fever or chills, room air pulse ox is 90-91%, lung sounds are diminished, with no wheezing, no rhonchi. She does get short of breath with activity, he remains on a combination of azithromycin and Rocephin. No cough, no phlegm production. Today his echo was repeated, results are pending, CT surgery is following. Labs have been reviewed, his white blood cell count is stable, at 13.1, hemoglobin is 12.1, sodium is 136, potassium is 5.2, renal profile stable with BUN of 23 creatinine 1.52. Objective - Vital Signs Vital signs: Vital Signs Temp 98.2 F 01/29/21 08:08 Pulse 104 H 01/29/21 08:08 Resp 20 01/29/21 08:08 BP 126/81 01/29/21 08:08 Pulse Ox 91 L 01/29/21 08:08 Intake & Output 01/28/21 01/29/21 01/29/21 18:59 06:59 18:59 Intake Total 1010 1200 150 Output Total 250 Balance 1010 950 150 Weight 151.7 kg Intake: IV 10 Invasive Line 1 10 Intake, IV Titration 50 600 Amount Sodium Chloride 0.9% 1, 600 000 ml @ 50 mls/hr IV . Q20H SUNNY Rx#:[id number] cefTRIAXone 1 gm In 50 Sodium Chloride 0.9% 50 ml @ 100 mls/hr IVPB Q24HR SUNNY Rx#:[id number] Oral 960 600 140 Output: Urine 250 Other: Voiding Method Toilet # Voids 1 1 - Exam GENERAL EXAM: Alert, very pleasant, 60-year-old white male, sitting up in the recliner, currently on room air with pulse ox of 92% comfortable in no apparent distress. HEAD: Normocephalic/atraumatic. EYES: Normal reaction of pupils, equal size. Conjunctiva pink, sclera white. NOSE: Clear with pink turbinates. THROAT: No erythema or exudates. NECK: No masses, no JVD, no thyroid enlargement, no adenopathy. CHEST: No chest wall deformity. Symmetrical expansion. LUNGS: Equal air entry with no crackles, wheeze, rhonchi or dullness. CVS: Regular rate and rhythm, normal S1 and S2, no gallops, no murmurs, no rubs ABDOMEN: Soft, nontender. No hepatosplenomegaly, normal bowel sounds, no guarding or rigidity. EXTREMITIES: No clubbing, chronic venous stasis changes in bilateral lower extremities noted, no edema was appreciated on today's exam no cyanosis, 2+ pulses and upper and lower extremities. MUSCULOSKELETAL: Muscle strength and tone normal. SPINE: No scoliosis or deformity SKIN: No rashes CENTRAL NERVOUS SYSTEM: Alert and oriented -3. No focal deficits, tone is normal in all 4 extremities. PSYCHIATRIC: Alert and oriented -3. Appropriate affect. Intact judgment and insight. - Labs CBC & Chem 7: 01/29/21 08:21 01/29/21 08:21 Labs: Abnormal Lab Results - Last 24 Hours (Table) 01/28/21 01/28/21 01/29/21 Range/Units 16:30 19:57 05:55 WBC (3.8-10.6) k/uL Hgb (13.0-17.5) gm/dL MCHC (31.0-37.0) g/dL Sodium (137-145) mmol/L Potassium (3.5-5.1) mmol/L BUN (9-20) mg/dL Creatinine (0.66-1.25) mg/dL Glucose (74-99) mg/dL POC Glucose (mg/dL) 202 H 235 H 159 H (75-99) mg/dL 01/29/21 01/29/21 01/29/21 Range/Units 08:21 08:21 10:26 WBC 13.1 H (3.8-10.6) k/uL Hgb 12.1 L (13.0-17.5) gm/dL MCHC 29.8 L (31.0-37.0) g/dL Sodium 136 L (137-145) mmol/L Potassium 5.2 H (3.5-5.1) mmol/L BUN 23 H (9-20) mg/dL Creatinine 1.52 H (0.66-1.25) mg/dL Glucose 173 H (74-99) mg/dL POC Glucose (mg/dL) 234 H (75-99) mg/dL 01/29/21 Range/Units 12:15 WBC (3.8-10.6) k/uL Hgb (13.0-17.5) gm/dL MCHC (31.0-37.0) g/dL Sodium (137-145) mmol/L Potassium (3.5-5.1) mmol/L BUN (9-20) mg/dL Creatinine (0.66-1.25) mg/dL Glucose (74-99) mg/dL POC Glucose (mg/dL) 216 H (75-99) mg/dL Assessment and Plan Plan: #1. Pleuritic chest pain, and shortness of breath related to moderately sized generalized pericardial effusion, possibly malignant. COVID-19 negative. Possibility of bacterial pneumonia is less likely, CT chest showed bilateral basilar pulmonary infiltrates and atelectasis, extensive old granulomatous disease. And moderate pericardial effusion #2. Metastatic adenocarcinoma of the lungs with brain metastasis, status post surgical resection and radiation therapy at [facility]. Patient will be starting on chemotherapy in the next 2 weeks #3. History of emphysema, not home oxygen dependent at baseline #4. Type 2 diabetes mellitus #5. Hypertension #6. Hyperlipidemia #7. Morbid obesity #8. History of sleep apnea syndrome, noncompliant with CPAP #9. Chronic back pain, status post spinal cord stimulator #10. Probable underlying COPD #11. Left salivary gland mass, with hypermetabolic uptake on the PET scan Plan: Continue current medical treatment Patient is mildly more short of breath Vital signs are stable, not requiring any oxygen, Still having pleurisy Continue empiric antibiotics Follow-up pro-calcitonin Awaiting results of the repeat echocardiogram Hemodynamically patient remains stable, not requiring any vasopressor support CT surgery on the case We'll continue to follow I performed a history & physical examination of the patient and discussed their management with my nurse practitioner, Steffanie Drake. I reviewed the nurse practitioner's note and agree with the documented findings and plan of care. Lung sounds are positive for diffuse wheezes throughout the lung perez. The findings and the impression was discussed with the patient. I attest to the documentation by the nurse practitioner. Time with Patient: Less than 30
--- NOTE | 2021-01-29 13:54 | P.PN ---
Subjective Progress Note Date: 01/29/21 HISTORY OF PRESENT ILLNESS: This is a 60-year-old gentleman who was unfortunate with a diagnosis of lung cancer with metastasis to the brain and recent history of brain mass removal and status post radiation therapy as well as history of smoking and chronic obstructive pulmonary disease in addition to multiple comorbid conditions including diabetes and hypertension and dyslipidemia presented to the emergency department complaining of chest discomfort. The patient stated that the chest discomfort started within the last 12 hours. He described it in the middle of the chest as a sharp kind of discomfort definitely worse with a deep breath. He denies any increasing in the shortness of breath or dizziness or lightheadedness or presyncope or syncope. No symptoms of fever or chills. The EKG showed sinus rhythm with somewhat low voltage across the chest lead. The first set of troponin came in to be unremarkable. He underwent a computed tomography scan of the chest to rule out PE and that showed no evidence of PE but it did show bilateral pulmonary infiltrate and also evidence of pericardial effusion seems to be circumferential. Subsequently he underwent an echocardiogram which I reviewed and that showed normal LV function with evidence of moderate pericardial effusion without any evidence of RV diastolic collapse but he definitely does have flow variation across mitral and tricuspid valve with respiration. Currently the patient is hemodynamically stable in terms of blood pressure with a heart rate around 100 bpm. He was receiving chlorthalidone as well as oral nitrate which I'm going to stop both. I'm going to start him on colchicine. We are going to monitor the patient for evidence of tamponade clinically. If he develop any increasing in the heart rate or lower blood pressure he might benefit from pericardiocentesis/pericardial window. At this point he is relatively stable. 01/28/2021 Patient examined this morning. He is sitting up in the chair. Patient states his chest discomfort has improved since yesterday. He does report some dizziness today. Blood pressure is on the lower side with a systolic in the 90s. He is mildly tachycardic. Addendum entered and electronically signed by Cachorro Singer DO 01/28/21 17:42: Patient with worsened SHELIA, may be related to IV contrast given with CT although may also be ATN from borderline hypotensive episodes. Therefore he was given IVF. Remains mildly tachycardic. Monitor closely for any changes in BP however appears stable at this time. He was complaining of some lightheadedness with standing however orthostatics negative. Check repeat 2D echo tomorrow. Cardiothoracic surgery was consulted to have on board if need for pericardial window if medical therapy unsuccessful or may consider pericardiocentesis. Does appear to have effusion with fibrinous material as well. May be beneficial for theraputic and diagnostic tap. Continue to monitor. 01/29/2021 Patient examined this morning. He is sitting up in the chair. present. She reports the patient was having some hallucinations this morning. He denies SOB. Reports mild left upper chest discomfort. Blood pressure improved today. He denies any further dizziness. PHYSICAL EXAM: VITAL SIGNS: Reviewed. GENERAL: Well-developed in no acute distress. NECK: Supple. No JVD or thyromegaly LUNGS: Respirations even and unlabored. Lungs diminished to auscultation bilaterally. HEART: Regular rate and rhythm. S1 and S2 heard. EXTREMITIES: Normal range of motion. No clubbing or cyanosis. Peripheral pulses intact. Trace lower extremity edema ASSESSMENT: Pericardial effusion Pleuritic chest discomfort Pericarditis History of lung cancer with metastasis History of smoking Acute kidney injury Dizziness, resolved PLAN: Continue current medications Continue aspirin and colchicine Continue IV fluids Monitor kidney function Discussed with cardiothoracic surgery. No plans for pericardial window at this time. Repeat echo ordered. Await results Further recommendations pending patient course Nurse practitioner note has been reviewed by physician. Signing provider agrees with the documented findings, assessment, and plan of care. Objective - Vital Signs Vital signs: Vital Signs Temp 98.2 F 01/29/21 08:08 Pulse 104 H 01/29/21 08:08 Resp 20 01/29/21 08:08 BP 126/81 01/29/21 08:08 Pulse Ox 91 L 01/29/21 08:08 Intake & Output 01/28/21 01/29/21 01/29/21 18:59 06:59 18:59 Intake Total 1010 1200 150 Output Total 250 Balance 1010 950 150 Weight 151.7 kg Intake: IV 10 Invasive Line 1 10 Intake, IV Titration 50 600 Amount Sodium Chloride 0.9% 1, 600 000 ml @ 50 mls/hr IV . Q20H SUNNY Rx#:[id number] cefTRIAXone 1 gm In 50 Sodium Chloride 0.9% 50 ml @ 100 mls/hr IVPB Q24HR SUNNY Rx#:[id number] Oral 960 600 140 Output: Urine 250 Other: Voiding Method Toilet # Voids 1 1 - Labs CBC & Chem 7: 01/29/21 08:21 01/29/21 08:21 Labs: Abnormal Lab Results - Last 24 Hours (Table) 01/28/21 01/28/21 01/29/21 Range/Units 16:30 19:57 05:55 WBC (3.8-10.6) k/uL Hgb (13.0-17.5) gm/dL MCHC (31.0-37.0) g/dL Sodium (137-145) mmol/L Potassium (3.5-5.1) mmol/L BUN (9-20) mg/dL Creatinine (0.66-1.25) mg/dL Glucose (74-99) mg/dL POC Glucose (mg/dL) 202 H 235 H 159 H (75-99) mg/dL 01/29/21 01/29/21 01/29/21 Range/Units 08:21 08:21 10:26 WBC 13.1 H (3.8-10.6) k/uL Hgb 12.1 L (13.0-17.5) gm/dL MCHC 29.8 L (31.0-37.0) g/dL Sodium 136 L (137-145) mmol/L Potassium 5.2 H (3.5-5.1) mmol/L BUN 23 H (9-20) mg/dL Creatinine 1.52 H (0.66-1.25) mg/dL Glucose 173 H (74-99) mg/dL POC Glucose (mg/dL) 234 H (75-99) mg/dL 01/29/21 Range/Units 12:15 WBC (3.8-10.6) k/uL Hgb (13.0-17.5) gm/dL MCHC (31.0-37.0) g/dL Sodium (137-145) mmol/L Potassium (3.5-5.1) mmol/L BUN (9-20) mg/dL Creatinine (0.66-1.25) mg/dL Glucose (74-99) mg/dL POC Glucose (mg/dL) 216 H (75-99) mg/dL
[2021-01-29] MEDS: IPRATROPIUM-ALBUTEROL 3 ML NEB INHALATION PRN (16:06)
[2021-01-29 16:35] LABS: Glucose,Whole Blood 177 mg/dL (75-99)
[2021-01-29] MEDS: HYDROcodone/APAP 7.5-325MG 1 EACH TAB PO PRN (19:43)
[2021-01-29 20:03] LABS: Glucose,Whole Blood 156 mg/dL (75-99)
--- NOTE | 2021-01-29 20:19 | P.PN ---
Subjective Progress Note Date: 01/29/21 (delayed charting seen at 1030) Patient is a 60-year-old male with known metastatic lung cancer with metastases to brain status post radiation therapy following with [facility], diabetes, hypertension, and dyslipidemia who presented with complaints of chest pain and shortness of breath. He underwent a CT angiogram which was negative for PE but did show questionable infiltrates. CT did no pericardial effusion. He was admitted and cardiology was consulted. Echocardiogram showed an ejection fracti on 50-55% with a generalized pericardial effusion. Pulmonary was consulted and history on antibiotics for possible pneumonia. He underwent surgical consultation for possible pericardiocentesis. He was started on colchicine. Patient seen and examined at bedside. He continues to have some chest pain with movement but states it is getting better, breathing is getting better. He is following at [facility] with his oncology team closely. He denies any diarrhea. General: non toxic, no distress, appears at stated age Derm: warm, dry Head: atraumatic, normocephalic, symmetric Eyes: EOMI, no lid lag, anicteric sclera Mouth: no lip lesion, mucus membranes moist Cardiovascular: Distant heart sounds S1S2 reg, no murmur, positive posterior tibial pulse bilateral, Lungs: Coarse breath sounds bilateral, no rhonchi, no rales , no accessory muscle use Abdominal: soft, nontender to palpation, no guarding, no appreciable organomegaly Ext: no gross muscle atrophy, no edema, no contractures Neuro: CN II-XI grossly intact, no focal neuro deficits Psych: Alert, oriented, appropriate affect Pericardial effusion Chest pain secondary to above -Case discussed with cardiothoracic surgery who does not feel pericardial window is indicated at this point in time and recommends pericardiocentesis if needs for diagnostic purposes -Continue with colchicine -Await repeat echo -Cardiology recommendations SHELIA -Suspect secondary to colchicine -Off chlorthalidone -IV fluids Diabetes mellitus type 2 with hyperglycemia -Continue with fixed dose and sliding scale insulin -Follow blood sugars -Actos on hold, Ozempic on hold Lung cancer with metastatic disease -Continue outpatient follow-up Possible pneumonia -Doubt clinically significant with low pro-calcitonin that could be related to patient's known malignancy -Pulmonary recommendations -5 days of Rocephin and Zithromax Obesity with BMI 44 -structured outpatient weight loss DVT prophylaxis: Lovenox Objective - Vital Signs Vital signs: Vital Signs Temp 98.1 F 01/29/21 19:53 Pulse 97 01/29/21 19:53 Resp 20 01/29/21 19:53 BP 164/71 01/29/21 19:53 Pulse Ox 96 01/29/21 19:53 Intake & Output 01/29/21 01/29/21 01/30/21 06:59 18:59 06:59 Intake Total 1200 400 Output Total 250 400 Balance 950 0 Weight 151.7 kg Intake: IV 20 Invasive Line 1 20 Intake, IV Titration 600 Amount Sodium Chloride 0.9% 1, 600 000 ml @ 50 mls/hr IV . Q20H SUNNY Rx#:[id number] Oral 600 380 Output: Urine 250 400 Other: # Voids 1 - Labs CBC & Chem 7: 01/29/21 08:21 01/29/21 08:21 Labs: Abnormal Lab Results - Last 24 Hours (Table) 01/29/21 01/29/21 01/29/21 Range/Units 05:55 08:21 08:21 WBC 13.1 H (3.8-10.6) k/uL Hgb 12.1 L (13.0-17.5) gm/dL MCHC 29.8 L (31.0-37.0) g/dL Sodium 136 L (137-145) mmol/L Potassium 5.2 H (3.5-5.1) mmol/L BUN 23 H (9-20) mg/dL Creatinine 1.52 H (0.66-1.25) mg/dL Glucose 173 H (74-99) mg/dL POC Glucose (mg/dL) 159 H (75-99) mg/dL 01/29/21 01/29/21 01/29/21 Range/Units 10:26 12:15 16:33 WBC (3.8-10.6) k/uL Hgb (13.0-17.5) gm/dL MCHC (31.0-37.0) g/dL Sodium (137-145) mmol/L Potassium (3.5-5.1) mmol/L BUN (9-20) mg/dL Creatinine (0.66-1.25) mg/dL Glucose (74-99) mg/dL POC Glucose (mg/dL) 234 H 216 H 177 H (75-99) mg/dL 01/29/21 Range/Units 20:00 WBC (3.8-10.6) k/uL Hgb (13.0-17.5) gm/dL MCHC (31.0-37.0) g/dL Sodium (137-145) mmol/L Potassium (3.5-5.1) mmol/L BUN (9-20) mg/dL Creatinine (0.66-1.25) mg/dL Glucose (74-99) mg/dL POC Glucose (mg/dL) 156 H (75-99) mg/dL
[2021-01-29] MEDS: GABAPENTIN 300 MG CAP PO SCH (22:12)
[2021-01-30 06:10] LABS: Glucose,Whole Blood 145 mg/dL (75-99)
[2021-01-30] MEDS: SODIUM CHLORIDE 0.9% 1,000 ML IV SCH (06:22)
[2021-01-30] MEDS: INSULIN ASPART (NovoLOG) 100 UNIT/ML VIAL SQ SCH ×4 (06:22→20:47)
[2021-01-30] MEDS: INSULIN DETEMIR (LEVEMIR) 100 UNIT/ML SYR SQ SCH ×2 (06:22→20:49)
[2021-01-30] MEDS: MONTELUKAST 10 MG TAB PO SCH (08:52)
[2021-01-30] MEDS: AZITHROMYCIN 250 MG TAB PO SCH (08:52)
[2021-01-30] MEDS: COLCHICINE 0.6 MG EACH PO SCH (08:52)
[2021-01-30] MEDS: DULoxetine HCL 60 MG CAPSULE.DR PO SCH (08:52)
[2021-01-30] MEDS: CHOLECALCIFEROL 25 MCG (1000 IU) TABLET PO SCH (08:53)
[2021-01-30] MEDS: ATORVASTATIN 20 MG TAB PO SCH (08:53)
[2021-01-30] MEDS: LORATADINE 10 MG TAB PO SCH (08:53)
[2021-01-30] MEDS: DICYCLOMINE 20 MG TAB PO SCH ×4 (08:53→20:47)
[2021-01-30] MEDS: ASPIRIN 81 MG PO SCH (08:53)
[2021-01-30] MEDS: levETIRAcetam 500 MG TAB PO SCH ×2 (08:53→20:47)
[2021-01-30] MEDS: FLUTICASONE 50MCG/SPRAY NASAL 16GM EA NOSTRIL SCH ×2 (08:54→20:47)
[2021-01-30] MEDS ORDERED: ENOXAPARIN 40 MG/0.4 ML SYRINGE SQ SCH (09:00)
[2021-01-30 09:16] LABS: HCT 36.1 % (39.0-53.0); HGB 11.7 gm/dL (13.0-17.5); MCH 27.3 pg (25.0-35.0); MCHC 32.4 g/dL (31.0-37.0); MCV 84.3 fL (80.0-100.0); Mean Platelet Volume 7.3; Platelet Count 443 k/uL (150-450); RBC 4.28 m/uL (4.30-5.90); RDW 14.2 % (11.5-15.5); WBC 10.5 k/uL (3.8-10.6)
[2021-01-30 09:27] LABS: Calcium 8.4 mg/dL (8.4-10.2); Potassium 4.8 mmol/L (3.5-5.1)
--- NOTE | 2021-01-30 09:55 | P.PN ---
Subjective Progress Note Date: 01/30/21 Principal diagnosis: Pericardial effusion. 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 The patient was seen and examined this morning at the bedside on the cardiac stepdown unit. He is in no acute distress. States pain is well-controlled, states shortness of breath is about the same. Remains on 2 L nasal cannula. Hemodynamically stable currently. The case was discussed yesterday between Dr. Sanz and Dr. Singer, as well as between Dr. Weber and Dr. Singer, no plans for surgical intervention at this time. Objective - Vital Signs Vital signs: Vital Signs Temp 98.1 F 01/30/21 08:50 Pulse 95 01/30/21 08:50 Resp 20 01/30/21 08:50 BP 125/76 01/30/21 08:50 Pulse Ox 95 01/30/21 08:50 Intake & Output 01/29/21 01/30/21 01/30/21 18:59 06:59 18:59 Intake Total 400 1220 Output Total 400 Balance 0 1220 Weight 151.6 kg Intake: IV 20 Invasive Line 1 20 Intake, IV Titration 600 Amount Sodium Chloride 0.9% 1, 600 000 ml @ 50 mls/hr IV . Q20H COUNT INCLUDES THE [facility] Rx#:[id number] Oral 380 620 Output: Urine 400 Other: # Voids 2 - Exam CONSTITUTIONAL: Appears comfortable, cooperative, no acute distress RESPIRATORY: Lungs sounds diminished bilaterally. Respirations even, nonlabored. Currently on 2 L nasal cannula with oxygen saturation 94%. Strong cough. CARDIOVASCULAR: S1, S2 present. Regular rate and rhythm, sinus rhythm on tele metry. Palpable peripheral pulses bilaterally. Mild lower extremity edema present. No calf pain or tenderness noted. GASTROINTESTINAL: Abdomen soft, nontender, nondistended. Active bowel sounds present 4 quadrants. Tolerating diet. GENITOURINARY: Continues to void INTEGUMENTARY: Skin is warm and dry with evidence of good perfusion. NEUROLOGIC: Cranial nerves II through XII intact MUSKULOSKELETAL: Able to move all extremities, strength equal bilaterally, gait normal PSYCHIATRIC: Alert and oriented to person place and time, appropriate affect, intact judgment and insight - Allied health notes Allied health notes reviewed: nursing - Labs CBC & Chem 7: 01/30/21 08:17 01/30/21 08:17 Labs: Abnormal Lab Results - Last 24 Hours (Table) 01/29/21 01/29/21 01/29/21 Range/Units 10:26 12:15 16:33 RBC (4.30-5.90) m/uL Hgb (13.0-17.5) gm/dL Hct (39.0-53.0) % Sodium (137-145) mmol/L BUN (9-20) mg/dL Creatinine (0.66-1.25) mg/dL Glucose (74-99) mg/dL POC Glucose (mg/dL) 234 H 216 H 177 H (75-99) mg/dL 01/29/21 01/30/21 01/30/21 Range/Units 20:00 06:09 08:17 RBC 4.28 L (4.30-5.90) m/uL Hgb 11.7 L (13.0-17.5) gm/dL Hct 36.1 L (39.0-53.0) % Sodium (137-145) mmol/L BUN (9-20) mg/dL Creatinine (0.66-1.25) mg/dL Glucose (74-99) mg/dL POC Glucose (mg/dL) 156 H 145 H (75-99) mg/dL 01/30/21 Range/Units 08:17 RBC (4.30-5.90) m/uL Hgb (13.0-17.5) gm/dL Hct (39.0-53.0) % Sodium 135 L (137-145) mmol/L BUN 21 H (9-20) mg/dL Creatinine 1.35 H (0.66-1.25) mg/dL Glucose 166 H (74-99) mg/dL POC Glucose (mg/dL) (75-99) mg/dL Assessment and Plan Assessment: 1. Moderate pericardial effusion, possibly malignant 2. Shortness of breath and mild chest pain on admission 3. History of metastatic adenocarcinoma of the lung with brain metastasis s tatus post resection 11/19/2020 at [facility], status post 5 radiation treatments and pending initiation of chemotherapy 4. Left salivary gland mass with hypermetabolic uptake on PET scan 5. Chronic back pain status post placement of spinal stimulator 6. Hypertension 7. Hyperlipidemia 8. Emphysema, probable COPD 9. Previous tobacco dependence 10. RAMILA with noncompliance of CPAP use 11. Type 2 diabetes mellitus 12. Morbid obesity Plan: 1. Pericardial effusion is felt to lack tamponade physiology and the patient remains hemodynamically stable. No surgical intervention at this time. 2. Continue aspirin, statin, colchicine per cardiology 3. Antibiotics per primary care service 4. Increase activity, ambulate as tolerated 5. Wean O2 as tolerated. 6. Medical management of other comorbidities per primary care service 7. Will continue to see again on an as-needed basis. Please call us with any further questions Time with Patient: Greater than 30
--- NOTE | 2021-01-30 10:00 | ECHOF ---
Referral Reason:re: pericardial effusion MEASUREMENTS -------- HEIGHT: 182.9 cm WEIGHT: 152.9 kg BP: FINDINGS -------- Sinus rhythm. Morbid Obesity Echo done 01/27/21 moderate pericardial effusion: reassess pericardial effusion, mod erated no changes from study 01/27/21 There is a moderate, generalized pericardial effusion present. CONCLUSIONS -------- 1. Echo done 01/27/21 moderate pericardial effusion: reassess pericardial effusion, moderated no tolbert ges from study 01/27/21 2. There is a moderate, generalized pericardial effusion present. COMPOSITION MOLDER: Dunia Quevedo RDCS
[2021-01-30] MEDS: IPRATROPIUM-ALBUTEROL 3 ML NEB INHALATION PRN (10:10)
[2021-01-30] MEDS: IPRATROPIUM-ALBUTEROL 3 ML NEB INHALATION SCH ×3 (11:50→20:44)
[2021-01-30 11:53] LABS: Glucose,Whole Blood 202 mg/dL (75-99)
[2021-01-30] MEDS: HYDROcodone/APAP 7.5-325MG 1 EACH TAB PO PRN (13:09)
--- NOTE | 2021-01-30 13:49 | P.PN ---
Subjective Progress Note Date: 01/30/21 HISTORY OF PRESENT ILLNESS: This is a 60-year-old gentleman who was unfortunate with a diagnosis of lung cancer with metastasis to the brain and recent history of brain mass removal and status post radiation therapy as well as history of smoking and chronic obstructive pulmonary disease in addition to multiple comorbid conditions including diabetes and hypertension and dyslipidemia presented to the emergency department complaining of chest discomfort. The patient stated that the chest discomfort started within the last 12 hours. He described it in the middle of the chest as a sharp kind of discomfort definitely worse with a deep breath. He denies any increasing in the shortness of breath or dizziness or lightheadedness or presyncope or syncope. No symptoms of fever or chills. The EKG showed sinus rhythm with somewhat low voltage across the chest lead. The first set of troponin came in to be unremarkable. He underwent a computed tomography scan of the chest to rule out PE and that showed no evidence of PE but it did show bilateral pulmonary infiltrate and also evidence of pericardial effusion seems to be circumferential. Subsequently he underwent an echocardiogram which I reviewed and that showed normal LV function with evidence of moderate pericardial effusion without any evidence of RV diastolic collapse but he definitely does have flow variation across mitral and tricuspid valve with respiration. Currently the patient is hemodynamically stable in terms of blood pressure with a heart rate around 100 bpm. He was receiving chlorthalidone as well as oral nitrate which I'm going to stop both. I'm going to start him on colchicine. We are going to monitor the patient for evidence of tamponade clinically. If he develop any increasing in the heart rate or lower blood pressure he might benefit from pericardiocentesis/pericardial window. At this point he is relatively stable. 01/28/2021 Patient examined this morning. He is sitting up in the chair. Patient states his chest discomfort has improved since yesterday. He does report some dizziness today. Blood pressure is on the lower side with a systolic in the 90s. He is mildly tachycardic. Addendum entered and electronically signed by Cachorro Singer DO 01/28/21 17:42: Patient with worsened SHELIA, may be related to IV contrast given with CT although may also be ATN from borderline hypotensive episodes. Therefore he was given IVF. Remains mildly tachycardic. Monitor closely for any changes in BP however appears stable at this time. He was complaining of some lightheadedness with standing however orthostatics negative. Check repeat 2D echo tomorrow. Cardiothoracic surgery was consulted to have on board if need for pericardial window if medical therapy unsuccessful or may consider pericardiocentesis. Does appear to have effusion with fibrinous material as well. May be beneficial for theraputic and diagnostic tap. Continue to monitor. 01/29/2021 Patient examined this morning. He is sitting up in the chair. present. She reports the patient was having some hallucinations this morning. He denies SOB. Reports mild left upper chest discomfort. Blood pressure improved today. He denies any further dizziness. 01/30/2021 Patient examined this morning. He is sitting up in the chair. Denies chest pain or pressure. Denies SOB at rest. Creatinine is improving. Down from 1.52-1.35. Vital signs are stable. Patient is on 2 L nasal cannula with oxygen saturations greater then 95%. Blood pressure 125/76. Heart rate in the 90s. Repeat limited echo done reveals moderate pericardial effusion unchanged from study completed on 01/27/2021 PHYSICAL EXAM: VITAL SIGNS: Reviewed. GENERAL: Well-developed in no acute distress. NECK: Supple. No JVD or thyromegaly LUNGS: Respirations even and unlabored. Lungs diminished to auscultation bilaterally. HEART: Regular rate and rhythm. S1 and S2 heard. EXTREMITIES: Normal range of motion. No clubbing or cyanosis. Peripheral pulses intact. Trace lower extremity edema ASSESSMENT: Pericardial effusion Pleuritic chest discomfort Pericarditis History of lung cancer with metastasis History of smoking Acute kidney injury Dizziness, resolved PLAN: Continue current medications Continue aspirin and colchicine Monitor kidney function Cardiothoracic surgery following Patient is currently stable from a cardiac perspective We will continue to follow on an as-needed basis. Please call with questions or concerns. Nurse practitioner note has been reviewed by physician. Signing provider agrees with the documented findings, assessment, and plan of care. Objective - Vital Signs Vital signs: Vital Signs Temp 98.1 F 01/30/21 08:50 Pulse 92 01/30/21 10:18 Resp 20 01/30/21 08:50 BP 125/76 01/30/21 08:50 Pulse Ox 95 01/30/21 08:50 Intake & Output 01/29/21 01/30/21 01/30/21 18:59 06:59 18:59 Intake Total 400 1220 180 Output Total 400 Balance 0 1220 180 Weight 151.6 kg Intake: IV 20 Invasive Line 1 20 Intake, IV Titration 600 Amount Sodium Chloride 0.9% 1, 600 000 ml @ 50 mls/hr IV . Q20H [facility] Rx#:[id number] Oral 380 620 180 Output: Urine 400 Other: # Voids 2 1 # Bowel Movements 1 - Labs CBC & Chem 7: 01/30/21 08:17 01/30/21 08:17 Labs: Abnormal Lab Results - Last 24 Hours (Table) 01/29/21 01/29/21 01/30/21 Range/Units 16:33 20:00 06:09 RBC (4.30-5.90) m/uL Hgb (13.0-17.5) gm/dL Hct (39.0-53.0) % Sodium (137-145) mmol/L BUN (9-20) mg/dL Creatinine (0.66-1.25) mg/dL Glucose (74-99) mg/dL POC Glucose (mg/dL) 177 H 156 H 145 H (75-99) mg/dL 01/30/21 01/30/21 01/30/21 Range/Units 08:17 08:17 11:52 RBC 4.28 L (4.30-5.90) m/uL Hgb 11.7 L (13.0-17.5) gm/dL Hct 36.1 L (39.0-53.0) % Sodium 135 L (137-145) mmol/L BUN 21 H (9-20) mg/dL Creatinine 1.35 H (0.66-1.25) mg/dL Glucose 166 H (74-99) mg/dL POC Glucose (mg/dL) 202 H (75-99) mg/dL
--- NOTE | 2021-01-30 14:27 | P.PN ---
Subjective Progress Note Date: 01/30/21 Principal diagnosis: Sharp pleuritic chest pain, shortness of breath This is a 60-year-old white male patient past medical history of hypertension, hyperlipidemia, diabetes mellitus type 2, obstructive sleep apnea, COPD/emphysema not on home oxygen at baseline, metastatic adenocarcinoma of the lungs with brain metastasis, status post surgical resection, and radiation. Patient follows with an oncologist and radiation oncologist from [facility]. His most recent PET scan was done here at [facility] on 01/05/2021 and showed left salivary gland mass, with local jugulodigastric hypermetabolic uptake and SCV of 3.4. There was no supraclavicular adenopathy, there were calcified nodes present in the supraclavicular region on the right, some uptake associated with the hilar bilaterally with SUV on the left of 4.9 and on the right of 4.0, there are calcified mediastinal hilar and subcarinal nodes present. At that time there was no evidence of pleural or pericardial effusion. Patient came into the emergency department on 01/27/2021 complaining of sharp chest pain with inspiration. He described a sensation of heaviness in the middle of the chest with breathing only. Patient is supposed to be starting on chemotherapy in the next 2 weeks. His EKG in the emergency department showed no evidence of acute ischemic changes. Patient denies any fever or chills, no cough, no phlegm production, patient has completed his COVID-[address] angiogram of the chest showed no evidence of pulmonary embolism, however showed bilateral basilar pulmonary infiltrates and atelectasis and moderate pericardial effusion that has significantly increased from his recent exam. Chest x-ray showed mild cardiomegaly and small pleural effusions. Patient has been afebrile while in the hospital, he is currently on 4 L of oxygen pulse ox is 97-98%, blood pressure is 128/85. EKG showed sinus tachycardia. COVID-19 PCR was negative. Initial blood work was reviewed showing white blood cell count of 15.2, hemoglobin of 13.3, d-dimer was 9.84, PT INR and APTT were within normal limits, sodium was 135, the rest of electrolytes were within normal limits, BUN of 18 creatinine is 1.2, lactic acid was 2.3, alkaline phosphatase was 304, and AST and ALT were within normal limits of 43 and 31, LDH is 1192, troponin was less than 0.012, CRP was 3.1, proBNP was within normal limits at 145. Patient was started on empiric antibiotics in the form of azithromycin and Rocephin in the emergency department, he was also started on colchicine 0.6 mg by mouth twi ce daily. He was given a liter bolus and IV fluids, his lactic acid has improved. He started on nebulized bronchodilators. Echocardiogram has been completed showing moderate concentric LVH, low normal EF of 50-55%, no evidence of pulmonary hypertension, no evidence of valvular heart disease. It did show moderate generalized pericardial effusion. On 01/28/2021 patient seen in follow-up on selective care unit, he states his breathing much more comfortably today, no complaints of chest pain on today's exam, he is awake and alert, he is on room air, his pulse ox is 92%, he is afebrile, he is in sinus mechanism with a rate of 104 BPM, he does get some mild shortness of breath with exertion, but no acute distress, he is getting ready to get in the shower with limited assistance. He's been tolerating ambulation. He's had no acute events overnight, blood pressure is been stable, 102/63. Lung sounds reveal some scattered bibasilar crackles, no wheezing. His echocardiogram showed moderate pericardial effusion, cardiology is following, and is planning on repeating the echocardiogram in another 24 hours, today's labs have been reviewed, white blood cell count is 13.4, improved from ad mission, hemoglobin is 12.4, sodium is 136, potassium is 5.4, B1 is 22, creatinine is 1.58. His had no fever or chills, his pro-calcitonin level came back at 0.19, and his subsequent pro-calcitonin was 0.39, patient is on empiric antibiotics in the form of Rocephin and azithromycin. On 01/29/2021 patient seen in follow-up on selective care unit. He states he feels mildly short of breath, but he is on room air, does not appear to be in any acute distress. He states that his chest discomfort today, has changed, and it is in the upper anterior bilateral chest traveling up to his neck area. It is exacerbated by deep breathing and coughing. Patient has had no fever or chills, room air pulse ox is 90-91%, lung sounds are diminished, with no wheezing, no rhonchi. She does get short of breath with activity, he remains on a combination of azithromycin and Rocephin. No cough, no phlegm production. Today his echo was repeated, results are pending, CT surgery is following. Labs have been reviewed, his white blood cell count is stable, at 13.1, hemoglobin is 12.1, sodium is 136, potassium is 5.2, renal profile stable with BUN of 23 creatinine 1.52. On 01/30/2021 patient seen in follow-up on selective care unit, he sitting up in a recliner, he stays still has some exertional dyspnea, and chest discomfort with deep breathing and coughing, but no acute distress. He is currently on room air, his pulse ox is 98%, his had no fever or chills, his vitals have been stable, blood pressure is 154/89. Lung sounds are clear to auscultation, diminished at the bases. His repeat echocardiogram showed moderate generalized pericardial effusion without change compared to the previous study. Clinically has remained stable, CT surgeries on the case, and has no plans for pericardial window or pericardiocentesis. Patient has had no fever or chills, he is on azithromycin and Rocephin for empiric antibiotic coverage, his pro-calcitonin level was 0.39, patient continues on nebulized bronchodilators. No coughing no wheezing, or phlegm production. Today's labs have been reviewed, his white blood cell count is improving and is down to 10.5, hemoglobin is 11.7, sodium is 135, rest of electrolytes are within normal limits, his renal profile is improving with BUN down to 21 and creatinine down to 1.35 on today's labs. Objective - Vital Signs Vital signs: Vital Signs Temp 98.3 F 01/30/21 12:00 Pulse 63 01/30/21 12:00 Resp 20 01/30/21 12:00 BP 154/89 01/30/21 12:00 Pulse Ox 98 01/30/21 12:00 Intake & Output 01/29/21 01/30/21 01/30/21 18:59 06:59 18:59 Intake Total 400 1220 180 Output Total 400 Balance 0 1220 180 Weight 151.6 kg Intake: IV 20 Invasive Line 1 20 Intake, IV Titration 600 Amount Sodium Chloride 0.9% 1, 600 000 ml @ 50 mls/hr IV . Q20H [facility] Rx#:[id number] Oral 380 620 180 Output: Urine 400 Other: # Voids 2 1 # Bowel Movements 1 - Exam GENERAL EXAM: Alert, very pleasant, 60-year-old white male, sitting up in the recliner, currently on room air with pulse ox of 92% comfortable in no apparent distress. HEAD: Normocephalic/atraumatic. EYES: Normal reaction of pupils, equal size. Conjunctiva pink, sclera white. NOSE: Clear with pink turbinates. THROAT: No erythema or exudates. NECK: No masses, no JVD, no thyroid enlargement, no adenopathy. CHEST: No chest wall deformity. Symmetrical expansion. LUNGS: Equal air entry with no crackles, wheeze, rhonchi or dullness. CVS: Regular rate and rhythm, normal S1 and S2, no gallops, no murmurs, no rubs ABDOMEN: Soft, nontender. No hepatosplenomegaly, normal bowel sounds, no guarding or rigidity. EXTREMITIES: No clubbing, chronic venous stasis changes in bilateral lower extremities noted, no edema was appreciated on today's exam no cyanosis, 2+ pulses and upper and lower extremities. MUSCULOSKELETAL: Muscle strength and tone normal. SPINE: No scoliosis or deformity SKIN: No rashes CENTRAL NERVOUS SYSTEM: Alert and oriented -3. No focal deficits, tone is normal in all 4 extremities. PSYCHIATRIC: Alert and oriented -3. Appropriate affect. Intact judgment and insight. - Labs CBC & Chem 7: 01/30/21 08:17 01/30/21 08:17 Labs: Abnormal Lab Results - Last 24 Hours (Table) 01/29/21 01/29/21 01/30/21 Range/Units 16:33 20:00 06:09 RBC (4.30-5.90) m/uL Hgb (13.0-17.5) gm/dL Hct (39.0-53.0) % Sodium (137-145) mmol/L BUN (9-20) mg/dL Creatinine (0.66-1.25) mg/dL Glucose (74-99) mg/dL POC Glucose (mg/dL) 177 H 156 H 145 H (75-99) mg/dL 1101/30/21 01/30/21 Range/Units 08:17 08:17 11:52 RBC 4.28 L (4.30-5.90) m/uL Hgb 11.7 L (13.0-17.5) gm/dL Hct 36.1 L (39.0-53.0) % Sodium 135 L (137-145) mmol/L BUN 21 H (9-20) mg/dL Creatinine 1.35 H (0.66-1.25) mg/dL Glucose 166 H (74-99) mg/dL POC Glucose (mg/dL) 202 H (75-99) mg/dL Assessment and Plan Plan: #1. Pleuritic chest pain, and shortness of breath related to moderately sized generalized pericardial effusion, possibly malignant. COVID-19 negative. Possibility of bacterial pneumonia is less likely, CT chest showed bilateral basilar pulmonary infiltrates and atelectasis, extensive old granulomatous disease. And moderate pericardial effusion #2. Metastatic adenocarcinoma of the lungs with brain metastasis, status post surgical resection and radiation therapy at [facility]. Patient will be starting on chemotherapy in the next 2 weeks #3. History of emphysema, not home oxygen dependent at baseline #4. Type 2 diabetes mellitus #5. Hypertension #6. Hyperlipidemia #7. Morbid obesity #8. History of sleep apnea syndrome, noncompliant with CPAP #9. Chronic back pain, status post spinal cord stimulator #10. Probable underlying COPD #11. Left salivary gland mass, with hypermetabolic uptake on the PET scan Plan: Continue current medical treatment Vital signs are stable, not requiring any oxygen, Still having pleurisy, which is overall improved since admission the repeat echocardiogram showed stable pericardial effusion Hemodynamically patient remains stable, not requiring any vasopressor support CT surgery on the case, no plans for surgery or pericardiocentesis From pulmonary perspective he is stable, increase activity as tolerated, may be considered for discharge home in 24 hours if cleared by medicine We'll continue to follow I performed a history & physical examination of the patient and discussed their management with my nurse practitioner, Steffanie Drake. I reviewed the nurse practitioner's note and agree with the documented findings and plan of care. Lung sounds are positive for diffuse wheezes throughout the lung perez. The findings and the impression was discussed with the patient. I attest to the documentation by the nurse practitioner. Time with Patient: Less than 30
[2021-01-30 16:41] LABS: Glucose,Whole Blood 161 mg/dL (75-99)
--- NOTE | 2021-01-30 20:16 | P.PN ---
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 He underwent a CT angiogram which was negative for PE but did show questionable infiltrates. CT did no pericardial effusion. He was admitted and cardiology was consulted. Echocardiogram showed an ejection fracti on 50-55% with a generalized pericardial effusion. Pulmonary was consulted and history on antibiotics for possible pneumonia. He underwent surgical consultation for possible pericardiocentesis. He was started on colchicine. He had improvement in his symptoms. He was determined not to need peric ardiocentesis or pericardial window. Repeat echo done 48 hours after admission showed stable pericardial effusion Patient seen and examined at bedside. He has had 2 loose bowel movements today. He reports that his chest pain is much better. He reports that he is still quite short of breath and states that he takes bronchodilators around the clock at home and has not been receiving them here. General: non toxic, no distress, appears at stated age Derm: warm, dry Head: atraumatic, normocephalic, symmetric Eyes: EOMI, no lid lag, anicteric sclera Mouth: no lip lesion, mucus membranes moist Cardiovascular: Distant heart sounds S1S2 reg, no murmur, positive posterior tibial pulse bilateral, Lungs: Coarse breath sounds bilateral, no rhonchi, no rales , no accessory muscle use Abdominal: soft, nontender to palpation, no guarding, no appreciable organomegaly Ext: no gross muscle atrophy, no edema, no contractures Neuro: CN II-XI grossly intact, no focal neuro deficits Psych: Alert, oriented, appropriate affect Pericardial effusion Chest pain secondary to above -Cardiothoracic surgery recs appreciated: No plans for surgical intervention -Cardiology recommendations appreciated -Continue with colchicine -Repeat echo with stable effusion -Cardiology recommendations Diarrhea secondary to colchicine -Dose reduce colchicine from 0.6 twice a day which is total of 1.2 mg daily.0.6 daily inconsistent with this COPD trial which demonstrated an improvement using 0.5-1 mg daily with a total duration of 3 months. SHELIA -Suspect secondary to colchicine -Off chlorthalidone -IV fluids Diabetes mellitus type 2 with hyperglycemia -Continue with fixed dose and sliding scale insulin -Follow blood sugars -Actos on hold, Ozempic on hold Lung cancer with metastatic disease -Continue outpatient follow-up - recent brain radiation due to edema Possible pneumonia -Doubt clinically significant with low pro-calcitonin that could be related to patient's known malignancy -Pulmonary recommendations -D#4 days of Rocephin and Zithromax Obesity with BMI 44 -structured outpatient weight loss DVT prophylaxis: SCD (no lovenox with recent cerebral edema due to mets) Home in AM if dairrhea improved Objective - Vital Signs Vital signs: Vital Signs Temp 97.6 F 01/30/21 19:52 Pulse 97 01/30/21 19:52 Resp 14 01/30/21 19:52 BP 130/81 01/30/21 19:52 Pulse Ox 96 01/30/21 19:52 Intake & Output 01/30/21 01/30/21 01/31/21 06:59 18:59 06:59 Intake Total 1220 720 Balance 1220 720 Weight 151.6 kg Intake: Intake, IV Titration 600 Amount Sodium Chloride 0.9% 1, 600 000 ml @ 50 mls/hr IV . Q20H [facility] Rx#:[id number] Oral 620 720 Other: # Voids 2 1 # Bowel Movements 1 - Labs CBC & Chem 7: 01/30/21 08:17 01/30/21 08:17 Labs: Abnormal Lab Results - Last 24 Hours (Table) 01/29/21 01/30/21 01/30/21 Range/Units 20:00 06:09 08:17 RBC 4.28 L (4.30-5.90) m/uL Hgb 11.7 L (13.0-17.5) gm/dL Hct 36.1 L (39.0-53.0) % Sodium (137-145) mmol/L BUN (9-20) mg/dL Creatinine (0.66-1.25) mg/dL Glucose (74-99) mg/dL POC Glucose (mg/dL) 156 H 145 H (75-99) mg/dL 01/30/21 01/30/21 01/30/21 Range/Units 08:17 11:52 16:39 RBC (4.30-5.90) m/uL Hgb (13.0-17.5) gm/dL Hct (39.0-53.0) % Sodium 135 L (137-145) mmol/L BUN 21 H (9-20) mg/dL Creatinine 1.35 H (0.66-1.25) mg/dL Glucose 166 H (74-99) mg/dL POC Glucose (mg/dL) 202 H 161 H (75-99) mg/dL
[2021-01-30 20:45] LABS: Glucose,Whole Blood 185 mg/dL (75-99)
[2021-01-30] MEDS: GABAPENTIN 300 MG CAP PO SCH (20:47)
[2021-01-31 05:56] LABS: Glucose,Whole Blood 125 mg/dL (75-99)
[2021-01-31] MEDS: INSULIN ASPART (NovoLOG) 100 UNIT/ML VIAL SQ SCH ×2 (06:26→13:21)
[2021-01-31] MEDS: SODIUM CHLORIDE 0.9% 1,000 ML IV SCH (06:27)
[2021-01-31] MEDS: INSULIN DETEMIR (LEVEMIR) 100 UNIT/ML SYR SQ SCH (06:27)
[2021-01-31 08:36] VITALS: BP 137/80; TEMP 98.3
[2021-01-31] MEDS: MONTELUKAST 10 MG TAB PO SCH (08:36)
[2021-01-31] MEDS: LORATADINE 10 MG TAB PO SCH (08:36)
[2021-01-31] MEDS: DULoxetine HCL 60 MG CAPSULE.DR PO SCH (08:36)
[2021-01-31] MEDS: ATORVASTATIN 20 MG TAB PO SCH (08:36)
[2021-01-31] MEDS: levETIRAcetam 500 MG TAB PO SCH (08:37)
[2021-01-31] MEDS: AZITHROMYCIN 250 MG TAB PO SCH (08:37)
[2021-01-31] MEDS: ASPIRIN 81 MG PO SCH (08:37)
[2021-01-31] MEDS: DICYCLOMINE 20 MG TAB PO SCH ×2 (08:37→13:22)
[2021-01-31] MEDS: CHOLECALCIFEROL 25 MCG (1000 IU) TABLET PO SCH (08:38)
[2021-01-31] MEDS: FLUTICASONE 50MCG/SPRAY NASAL 16GM EA NOSTRIL SCH (08:43)
[2021-01-31] MEDS ORDERED: COLCHICINE 0.6 MG EACH PO SCH (09:00)
[2021-01-31] MEDS: IPRATROPIUM-ALBUTEROL 3 ML NEB INHALATION SCH ×2 (09:47→12:59)
[2021-01-31 09:49] VITALS: RESP 16
[2021-01-31 09:56] LABS: HCT 37.5 % (39.0-53.0); HGB 11.4 gm/dL (13.0-17.5); MCHC 30.4 g/dL (31.0-37.0); MCV 85.3 fL (80.0-100.0); Platelet Count 448 k/uL (150-450); WBC 9.8 k/uL (3.8-10.6)
[2021-01-31 09:59] VITALS: PULSE 92
[2021-01-31 10:06] LABS: Calcium 8.4 mg/dL (8.4-10.2); Potassium 4.4 mmol/L (3.5-5.1)
[2021-01-31 11:55] LABS: Glucose,Whole Blood 149 mg/dL (75-99)
--- NOTE | 2021-01-31 12:40 | P.PN ---
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 Patient follows with an oncologist and radiation oncologist from [facility]. His most recent PET scan was done here at [facility] on 01/05/2021 and showed left salivary gland mass, with local jugulodigastric hypermetabolic uptake and SCV of 3.4. There was no supraclavicular adenopathy, there were calcified nodes present in the supraclavicular region on the right, some uptake associated with the hilar bilaterally with SUV on the left of 4.9 and on the right of 4.0, there are calcified mediastinal hilar and subcarinal nodes present. At that time there was no evidence of pleural or pericardial effusion. Patient came into the emergency department on 01/27/2021 complaining of sharp chest pain with inspiration. He described a sensation of heaviness in the middle of the chest with breathing only. Patient is supposed to be starting on chemotherapy in the next 2 weeks. His EKG in the emergency department showed no evidence of acute ischemic changes. Patient denies any fever or chills, no cough, no phlegm production, patient has completed his COVID-[address] angiogram of the chest showed no evidence of pulmonary embolism, however showed bilateral basilar pulmonary infiltrates and atelectasis and moderate pericardial effusion that has significantly increased from his recent exam. Chest x-ray showed mild cardiomegaly and small pleural effusions. Patient has been afebrile while in the hospital, he is currently on 4 L of oxygen pulse ox is 97-98%, blood pressure is 128/85. EKG showed sinus tachycardia. COVID-19 PCR was negative. Initial blood work was reviewed showing white blood cell count of 15.2, hemoglobin of 13.3, d-dimer was 9.84, PT INR and APTT were within normal limits, sodium was 135, the rest of electrolytes were within normal limits, BUN of 18 creatinine is 1.2, lactic acid was 2.3, alkaline phosphatase was 304, and AST and ALT were within normal limits of 43 and 31, LDH is 1192, troponin was less than 0.012, CRP was 3.1, proBNP was within normal limits at 145. Patient was started on empiric antibiotics in the form of azithromycin and Rocephin in the emergency department, he was also started on colchicine 0.6 mg by mouth twi ce daily. He was given a liter bolus and IV fluids, his lactic acid has improved. He started on nebulized bronchodilators. Echocardiogram has been completed showing moderate concentric LVH, low normal EF of 50-55%, no evidence of pulmonary hypertension, no evidence of valvular heart disease. It did show moderate generalized pericardial effusion. On 01/28/2021 patient seen in follow-up on selective care unit, he states his breathing much more comfortably today, no complaints of chest pain on today's exam, he is awake and alert, he is on room air, his pulse ox is 92%, he is afebrile, he is in sinus mechanism with a rate of 104 BPM, he does get some mild shortness of breath with exertion, but no acute distress, he is getting ready to get in the shower with limited assistance. He's been tolerating ambulation. He's had no acute events overnight, blood pressure is been stable, 102/63. Lung sounds reveal some scattered bibasilar crackles, no wheezing. His echocardiogram showed moderate pericardial effusion, cardiology is following, and is planning on repeating the echocardiogram in another 24 hours, today's labs have been reviewed, white blood cell count is 13.4, improved from ad mission, hemoglobin is 12.4, sodium is 136, potassium is 5.4, B1 is 22, creatinine is 1.58. His had no fever or chills, his pro-calcitonin level came back at 0.19, and his subsequent pro-calcitonin was 0.39, patient is on empiric antibiotics in the form of Rocephin and azithromycin. On 01/29/2021 patient seen in follow-up on selective care unit. He states he feels mildly short of breath, but he is on room air, does not appear to be in any acute distress. He states that his chest discomfort today, has changed, and it is in the upper anterior bilateral chest traveling up to his neck area. It is exacerbated by deep breathing and coughing. Patient has had no fever or chills, room air pulse ox is 90-91%, lung sounds are diminished, with no wheezing, no rhonchi. She does get short of breath with activity, he remains on a combination of azithromycin and Rocephin. No cough, no phlegm production. Today his echo was repeated, results are pending, CT surgery is following. Labs have been reviewed, his white blood cell count is stable, at 13.1, hemoglobin is 12.1, sodium is 136, potassium is 5.2, renal profile stable with BUN of 23 creatinine 1.52. On 01/30/2021 patient seen in follow-up on selective care unit, he sitting up in a recliner, he stays still has some exertional dyspnea, and chest discomfort with deep breathing and coughing, but no acute distress. He is currently on room air, his pulse ox is 98%, his had no fever or chills, his vitals have been stable, blood pressure is 154/89. Lung sounds are clear to auscultation, diminished at the bases. His repeat echocardiogram showed moderate generalized pericardial effusion without change compared to the previous study. Clinically has remained stable, CT surgeries on the case, and has no plans for pericardial window or pericardiocentesis. Patient has had no fever or chills, he is on azithromycin and Rocephin for empiric antibiotic coverage, his pro-calcitonin level was 0.39, patient continues on nebulized bronchodilators. No coughing no wheezing, or phlegm production. Today's labs have been reviewed, his white blood cell count is improving and is down to 10.5, hemoglobin is 11.7, sodium is 135, rest of electrolytes are within normal limits, his renal profile is improving with BUN down to 21 and creatinine down to 1.35 on today's labs. On today's evaluation on 01/31/2021 patient seen in follow-up on selective care unit, he is resting comfortably in the recliner, denies any worsening dyspnea, he is on room air, also paroxysmal 94%, he has been ambulating to the bathroom, does get exertional dyspnea but in no acute distress, and recovers. His chest pain is almost all resolved on today's examination, his vital signs have been stable, no cough, no wheezing, no rhonchi, no fever or chills. Maintenance on nebulized bronchodilators in the form of DuoNeb, he is on azithromycin and Rocephin, his had no fever or chills, today's labs show normal white count of 9.8, hemoglobin is 11.4, sodium was 137, potassium is 4.4, chloride is 108, BUN is 18 creatinine is 1.2. No acute events overnight, patient is being discharged home today. Objective - Vital Signs Vital signs: Vital Signs Temp 98.3 F 01/31/21 08:35 Pulse 92 01/31/21 09:59 Resp 16 01/31/21 09:59 BP 137/80 01/31/21 08:35 Pulse Ox 94 L 01/31/21 09:47 Intake & Output 01/30/21 01/31/21 01/31/21 18:59 06:59 18:59 Intake Total 720 50 50 Output Total 600 275 Balance 720 -550 -225 Intake: Intake, IV Titration 50 Amount Sodium Chloride 0.9% 1, 50 000 ml @ 50 mls/hr IV . Q20H [facility] Rx#:[id number] Oral 720 50 Output: Urine 600 275 Other: Voiding Method Toilet Toilet # Voids 1 1 # Bowel Movements 1 1 - Exam GENERAL EXAM: Alert, very pleasant, 60-year-old white male, sitting up in the recliner, currently on room air with pulse ox of 94% comfortable in no apparent distress. HEAD: Normocephalic/atraumatic. EYES: Normal reaction of pupils, equal size. Conjunctiva pink, sclera white. NOSE: Clear with pink turbinates. THROAT: No erythema or exudates. NECK: No masses, no JVD, no thyroid enlargement, no adenopathy. CHEST: No chest wall deformity. Symmetrical expansion. LUNGS: Equal air entry with no crackles, wheeze, rhonchi or dullness. CVS: Regular rate and rhythm, normal S1 and S2, no gallops, no murmurs, no rubs ABDOMEN: Soft, nontender. No hepatosplenomegaly, normal bowel sounds, no guarding or rigidity. EXTREMITIES: No clubbing, chronic venous stasis changes in bilateral lower extremities noted, no edema was appreciated on today's exam no cyanosis, 2+ pulses and upper and lower extremities. MUSCULOSKELETAL: Muscle strength and tone normal. SPINE: No scoliosis or deformity SKIN: No rashes CENTRAL NERVOUS SYSTEM: Alert and oriented -3. No focal deficits, tone is normal in all 4 extremities. PSYCHIATRIC: Alert and oriented -3. Appropriate affect. Intact judgment and insight. - Labs CBC & Chem 7: 01/31/21 09:03 01/31/21 09:03 Labs: Abnormal Lab Results - Last 24 Hours (Table) 01/30/21 01/30/21 01/31/21 Range/Units 16:39 20:40 05:55 Hgb (13.0-17.5) gm/dL Hct (39.0-53.0) % MCHC (31.0-37.0) g/dL Chloride (98-107) mmol/L Glucose (74-99) mg/dL POC Glucose (mg/dL) 161 H 185 H 125 H (75-99) mg/dL 01/31/21 01/31/21 01/31/21 Range/Units 09:03 09:03 11:47 Hgb 11.4 L (13.0-17.5) gm/dL Hct 37.5 L (39.0-53.0) % MCHC 30.4 L (31.0-37.0) g/dL Chloride 108 H (98-107) mmol/L Glucose 149 H (74-99) mg/dL POC Glucose (mg/dL) 149 H (75-99) mg/dL Assessment and Plan Plan: #1. Pleuritic chest pain, and shortness of breath related to moderately sized generalized pericardial effusion, possibly malignant. COVID-19 negative. Possibility of bacterial pneumonia is less likely, CT chest showed bilateral basilar pulmonary infiltrates and atelectasis, extensive old granulomatous disease. And moderate pericardial effusion #2. Metastatic adenocarcinoma of the lungs with brain metastasis, status post surgical resection and radiation therapy at [facility]. Patient will be starting on chemotherapy in the next 2 weeks #3. History of emphysema, not home oxygen dependent at baseline #4. Type 2 diabetes mellitus #5. Hypertension #6. Hyperlipidemia #7. Morbid obesity #8. History of sleep apnea syndrome, noncompliant with CPAP #9. Chronic back pain, status post spinal cord stimulator #10. Probable underlying COPD #11. Left salivary gland mass, with hypermetabolic uptake on the PET scan Plan: Vital signs are stable, not requiring any oxygen, Pleuritic chest pain is almost resolved the repeat echocardiogram showed stable pericardial effusion Hemodynamically patient remains stable, not requiring any vasopressor support CT surgery on the case, no plans for surgery or pericardiocentesis This is stable for discharge home Follow up with Dr. Naylor in the office in 7-10 days And patient was asked to bring his records from his cancer doctors the treatment for his lung cancer Patient can go home on DuoNeb 4 times a day, he has a Ventolin rescue inhaler Will likely need full PFT in the office No other additional maintenance inhalers are needed at this time, no antibiotics or prednisone upon discharge I performed a history & physical examination of the patient and discussed their management with my nurse practitioner, Steffanie Drake. I reviewed the nurse practitioner's note and agree with the documented findings and plan of care. Lung sounds are positive for diffuse wheezes throughout the lung perez. The findings and the impression was discussed with the patient. I attest to the documentation by the nurse practitioner. Time with Patient: Less than 30
--- NOTE | 2021-01-31 21:53 | P.DS ---
Providers Date of admission: 01/27/21 08:13 Expected date of discharge: 01/31/21 Attending physician: Andreas Velasquez Consults: 01/27/21 08:12 Consult Physician Routine Consulting Provider: Isiah Naylor Consult Reason/Comments: COPD exacerbation, dyspnea, CAP Do you want consulting provider notified?: Yes 01/28/21 14:19 Consult Physician Routine Consulting Provider: Rita Sanz Consult Reason/Comments: pericardial effusion, possible window Do you want consulting provider notified?: Yes Primary care physician: Vargas Ng Hospital Course: Discharge Diagnosis: Pericardial effusion Chest pain secondary to above Diarrhea secondary to colchicine- resolved with dose reduction SHELIA Diabetes mellitus type 2 with hyperglycemia Lung cancer with metastatic disease Possible pneumonia Obesity with BMI 44 Hospital Course: Patient is a 60-year-old male with known metastatic lung cancer with 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 He underwent a CT angiogram which was negative for PE but did show questionable infiltrates and moderate pericardial effusion. He was admitted and cardiology was consulted. Echocardiogram showed an ejection fraction 50-55% with a generalized pericardial effusion. Pulmonary was consulted and history on antibiotics for possible pneumonia. He underwent surgical consultation for possible pericardial window. He was started on colchicine. He had improvement in his symptoms. He was determined not to need pericardiocentesis or pericardial window. Repeat echo done 48 hours after admission showed stable pericardial effusion. He did have some diarrhea and intolerance to cold just seen when it was 0.6 mg twice daily, this was reduced to 0.6 mg daily and he was able to tolerate the medication. His chest pain had resolved, shortness of breath had improved and he was determined stable for discharge. Follow-up: Dr. Ng, Oncology follow-up, Dr. Mancini, Dr. Naylor. Completed IV antibiotics, Colchine for 1 month and possibly 3 months in total with effusion Patient seen and examined at bedside. No chest pain, No shortness of breath, no nausea. Vital signs reviewed and stable. General: non toxic, no distress, appears at stated age Derm: warm, dry Head: atraumatic, normocephalic, symmetric Eyes: EOMI, no lid lag, anicteric sclera Mouth: no lip lesion, mucus membranes moist Cardiovascular: S1S2 reg, no murmur, positive posterior tibial pulse bilateral, Lungs: Decreased bs bilateral, no rhonchi, no rales , no accessory muscle use Abdominal: soft, nontender to palpation, no guarding, no appreciable organomegaly Ext: no gross muscle atrophy, no edema, no contractures Neuro: CN II-XI grossly intact, no focal neuro deficits Psych: Alert, oriented, appropriate affect A total of 37 minutes of time were spent preparing this complex discharge summary . Patient Condition at Discharge: Fair Plan - Discharge Summary Discharge Rx Participant: Yes New Discharge Prescriptions: New Ipratropium-Albuterol Nebulize [Duoneb 0.5 mg-3 mg/3 ml Soln] 3 ml INHALATION QID 30 Days #6 pack Colchicine [Colcrys] 0.6 mg PO DAILY #30 each Continue Baclofen 10 mg PO TID PRN PRN Reason: Muscle Spasm Aspirin EC [Ecotrin Low Dose] 81 mg PO DAILY Isosorbide Mononitrate ER [Imdur] 30 mg PO DAILY #30 tab.er.24h Pioglitazone [Actos] 15 mg PO DAILY Montelukast [Singulair] 10 mg PO DAILY Lidocaine 5% Patch [Lidoderm 5% Patch] 1 patch TOPICAL DAILY Dicyclomine HCl 20 mg PO QID Rosuvastatin [Crestor] 10 mg PO DAILY Ipratropium-Albuterol Nebulize [Duoneb 0.5 mg-3 mg/3 ml Soln] 3 ml INHALATION RT-QID PRN PRN Reason: Shortness Of Breath Loratadine [Claritin] 10 mg PO DAILY Lidocaine 5% Oint [Xylocaine 5% Oint] 1 applic TOPICAL DAILY PRN PRN Reason: knee pain Insulin Regular, Human [humulin R U-500 Kwikpen] 135 unit SQ BID Albuterol Inhaler [Ventolin Hfa Inhaler] 2 puff INHALATION RT-QID PRN PRN Reason: Shortness Of Breath Gabapentin 300 mg PO HS Dextrose Chew [Glucose Chew Tab] 4 gm PO Q10M PRN PRN Reason: Blood Sugar - Low HYDROcodone/APAP 7.5-325MG [Morganza 7.5-325] 1 tab PO Q6H PRN PRN Reason: Pain DULoxetine HCL [Cymbalta] 60 mg PO DAILY Ozempic 4mg/3ml 4 mg SQ WE levETIRAcetam [Keppra] 1,000 mg PO Q12HR Cholecalciferol (Vitamin D3) [Vitamin D3 (125 MCG = 5,000 IU)] 250 mcg PO DAILY Fluticasone Nasal [place] [Flonase Nasal [place]] 1 spray EA NOSTRIL BID Discontinued Chlorthalidone 25 mg PO DAILY #30 tab Discharge Medication List Aspirin EC [Ecotrin Low Dose] 81 mg PO DAILY 05/10/17 [History] Baclofen 10 mg PO TID PRN 05/10/17 [History] Isosorbide Mononitrate ER [Imdur] 30 mg PO DAILY #30 tab.er.24h 05/14/17 [Rx] DULoxetine HCL [Cymbalta] 60 mg PO DAILY 11/14/20 [History] Dicyclomine HCl 20 mg PO QID 11/14/20 [History] HYDROcodone/APAP 7.5-325MG [[place]za 7.5-325] 1 tab PO Q6H PRN 11/14/20 [History] Ipratropium-Albuterol Nebulize [Duoneb 0.5 mg-3 mg/3 ml Soln] 3 ml INHALATION RT-QID PRN 11/14/20 [History] Lidocaine 5% Patch [Lidoderm 5% Patch] 1 patch TOPICAL DAILY 11/14/20 [History] Montelukast [Singulair] 10 mg PO DAILY 11/14/20 [History] Ozempic 4mg/3ml 4 mg SQ WE 11/14/20 [History] Pioglitazone [Actos] 15 mg PO DAILY 11/14/20 [History] Rosuvastatin [Crestor] 10 mg PO DAILY 11/14/20 [History] Albuterol Inhaler [Ventolin Hfa Inhaler] 2 puff INHALATION RT-QID PRN 01/27/21 [History] Cholecalciferol (Vitamin D3) [Vitamin D3 (125 MCG = 5,000 IU)] 250 mcg PO DAILY 01/27/21 [History] Dextrose Chew [Glucose Chew Tab] 4 gm PO Q10M PRN 01/27/21 [History] Fluticasone Nasal [place] [Flonase Nasal [place]] 1 spray EA NOSTRIL BID 01/27/21 [History] Gabapentin 300 mg PO HS 01/27/21 [History] Insulin Regular, Human [humulin R U-500 Kwikpen] 135 unit SQ BID 01/27/21 [History] Lidocaine 5% Oint [Xylocaine 5% Oint] 1 applic TOPICAL DAILY PRN 01/27/21 [History] Loratadine [Claritin] 10 mg PO DAILY 01/27/21 [History] levETIRAcetam [Keppra] 1,000 mg PO Q12HR 01/27/21 [History] Colchicine [Colcrys] 0.6 mg PO DAILY #30 each 01/31/21 [Rx] Ipratropium-Albuterol Nebulize [Duoneb 0.5 mg-3 mg/3 ml Soln] 3 ml INHALATION QID 30 Days #6 pack 01/31/21 [Rx] Follow up Appointment(s)/Referral(s): Mallory Mancini MD [STAFF PHYSICIAN] - 02/24/21 1:30 pm Beto Ng MD [Primary Care Provider] - 02/27/21 11:20 am (The office has also added patient to cancellation list.) Isiah Naylor DO [Doctor of Osteopathic Medicine] - 1 Week Patient Instructions/Handouts: Viral Pneumonia (DC), Durable Power of Pad Machine Operator for Healthcare Decisions (DC), Acute Pericarditis (DC), Pericardial Effusion (DC) Activity/Diet/Wound Care/Special Instructions: Activity: as tolerated Diet: heart healthy, carb consistent Special Instructions: Call [facility] if diarrhea reoccurs Discharge Disposition: HOME SELF-CARE
== END 2021-01-31 13:25 | disposition home or self-care (01) | DRG 314 ==
LOC: EC 01:52 → 4SSUR 08:13 → 3SCARD 14:06
PROVIDERS: ADMIT Internal Medicine; ATTEND Internal Medicine
DX: I31.9 Disease of pericardium, unspecified (principal); N17.0 Acute kidney failure with tubular necrosis; C79.31 Secondary malignant neoplasm of brain; C34.90 Malignant neoplasm of unspecified part of unspecified bronchus or lung; Z68.41 Body mass index [BMI] 40.0-44.9, adult; J98.11 Atelectasis; K52.1 Toxic gastroenteritis and colitis; J90 Pleural effusion, not elsewhere classified; I31.3 Pericardial effusion (noninflammatory); Z20.822 Contact with and (suspected) exposure to COVID-19; F17.210 Nicotine dependence, cigarettes, uncomplicated; R00.0 Tachycardia, unspecified; J43.9 Emphysema, unspecified; R09.02 Hypoxemia; T50.4X5A Adverse effect of drugs affecting uric acid metabolism, initial encounter; I10 Essential (primary) hypertension; E78.5 Hyperlipidemia, unspecified; E11.9 Type 2 diabetes mellitus without complications; G47.30 Sleep apnea, unspecified; R19.7 Diarrhea, unspecified; F41.9 Anxiety disorder, unspecified; E07.89 Other specified disorders of thyroid; D64.9 Anemia, unspecified; E11.65 Type 2 diabetes mellitus with hyperglycemia; T50.8X5A Adverse effect of diagnostic agents, initial encounter; E66.01 Morbid (severe) obesity due to excess calories; G47.33 Obstructive sleep apnea (adult) (pediatric); G89.29 Other chronic pain; G93.9 Disorder of brain, unspecified; H91.90 Unspecified hearing loss, unspecified ear; Z79.4 Long term (current) use of insulin; Z79.82 Long term (current) use of aspirin; Z79.899 Other long term (current) drug therapy; Z85.118 Personal history of other malignant neoplasm of bronchus and lung; Z91.19 Patient's noncompliance with other medical treatment and regimen; Z92.3 Personal history of irradiation; Z96.653 Presence of artificial knee joint, bilateral; Z87.19 Personal history of other diseases of the digestive system; Z98.42 Cataract extraction status, left eye; Z98.41 Cataract extraction status, right eye; Z96.82 Presence of neurostimulator
CPT/HCPCS: 36415; 71046; 71275; 80048; 80053; 83605; 83615; 83735; 83880; 84145; 84484; 85025; 85027; 85379; 85610; 85730; 86140; 87635; 93005; 93306; 93308; 94640; 94760; 96360; 96361; 99291

== ENCOUNTER → 2021-05-09 | Outpatient (CLI) | payer BC, MEDICARE, OTHER ==
--- NOTE | 2021-05-12 10:17 | PE ---
EXAMINATION TYPE: PET CT fusion skull to thigh DATE OF EXAM: 05/09/2021 COMPARISON: Prior PET/CT January 03, 2021 HISTORY: Right lung cancer diagnosed December 2020 completed chemotherapy March 2021. History of r adiation to head and neck. TECHNIQUE: Following the intravenous administration of 12.86 mCi of F-18 FDG, whole body images are performed from the top of skull to the midthigh. Images are reviewed on the computer in the coronal, axial, and sagittal planes. Reconstructed rotating images are created on independent workstation an d reviewed on the computer. A localization and attenuation correction CT is performed in conjunctio n with the PET scan. Blood glucose level equals 177. SCAN: Subsequent Scan FINDINGS: Exam is suboptimal due to body habitus. HEAD AND NECK: Right parietal craniotomy changes now identified. Persistent 1.9 x 1.7 cm left paroti d lesion with mild hypermetabolic uptake currently less than 2.5 versus 3.4 on prior study. However j ust below this there are 2 hypermetabolic masses or lymph nodes, one measures 1.3 cm submandibular r egion just anterior to carotid artery axial image 64, max SUV is 4.66 increased from 3.1. Second at l evel of hyoid bone posterior cervical triangle measures 2.0 x 1.8 cm axial image 72, max SUV is 6.31s . There is mildly hypermetabolic 2.4 x 1.2 cm left supraclavicular lymph node, max SUV is less than 2.5 . Mild diffuse uptake through the thyroid gland is now present. CHEST, MEDIASTINUM, AND HILAR REGION: Emphysematous change of the lungs redemonstrated. There are ne w small to moderate-sized bilateral pleural effusions. Small pericardial effusion is more prominent. Densely calcified bilateral hilar and subcarinal lymph nodes redemonstrated. Mild hyper metabolic upt sully bilaterally improved from prior currently max SUV 3.39 on the left versus 4.9 on the left and 3.0 6 on the right versus 4.0 on the right on prior. There are new hypermetabolic enlarged prevascular ly mph nodes axial image 113, max SUV is 3.58. There is new hypermetabolic 1.9 x 1.3 cm anterior superio r mediastinal lymph node between the left common carotid artery and left subclavian artery axial imag e 104, max SUV is 2.85. ABDOMEN AND PELVIS: No new areas of abnormal hypermetabolic uptake. More artifact is present. OSSEOUS STRUCTURES: No new areas of abnormal hypermetabolic uptake. OTHER CT: Bilateral flame-shaped gynecomastia is redemonstrated. Cardiomegaly with coronary artery ca lcification again seen. Posterior stimulator device terminates in the thoracic spinal canal. IMPRESSION: Overall mixed response, some areas of improvement present but additional new and enlargin g masses and lymph nodes are noted as detailed above.
== END | disposition home or self-care (01) ==
LOC: RADPETMAIN 08:43
PROVIDERS: ATTEND Radiology Radiation Oncology
DX: C79.31 Secondary malignant neoplasm of brain (principal)
CPT/HCPCS: 78815; A9552

== ENCOUNTER → 2021-05-09 | Outpatient (CLI) | payer BC, MEDICARE, OTHER ==
[2021-05-09 11:33] LABS: Total Bilirubin 0.4 mg/dL (0.2-1.3)
[2021-05-09 11:50] LABS: T4, Free (Free Thyroxine) 1.32 ng/dL (0.78-2.19)
== END | disposition home or self-care (01) ==
LOC: LABWHC1 10:55
PROVIDERS: ATTEND Internal Medicine
DX: C34.90 Malignant neoplasm of unspecified part of unspecified bronchus or lung (principal); Z79.811 Long term (current) use of aromatase inhibitors
CPT/HCPCS: 36415; 82024; 82247; 82533; 82565; 84439; 84443; 84450; 84460; 84481

== ENCOUNTER → 2021-09-12 | Outpatient (CLI) | payer BC, MEDICARE, OTHER ==
--- NOTE | 2021-09-15 11:32 | PE ---
Nuclear medicine PET/CT HISTORY: Right Lung carcinoma, subsequent Patient received 13.9 mCi F-18 FDG intravenously and delayed scanning was performed from the skull ba se to the mid thighs. A localization and attenuation correction CT was performed. Correlation to prior nuclear medicine PET/CT 05/09/2021 Exam and SUV calculation may be somewhat limited by patient body habitus Average mediastinal uptake SUV is calculated approximately 3, average liver uptake SUV is 4.3 Neck and chest: At the skull base craniotomy defect is present. There is a focus of abnormal uptake seen within the left parotid gland, SUV 4. Left-sided cervical ad enopathy has progressed somewhat in the interval, some new nodes are present in the supraclavicular r egion on the left, interval development of elevated uptake SUV 4.9, 8.7, 5.4 range. Thyroid gland dianna ws nodules with uptake, SUV 5.2, 4.4 the left and right respectively. Superior mediastinal node on the left is noted, SUV 4. There are extensive calcified nodes within the mediastinum, hilar regions similar to prior exam. Bilateral pleural effusions are again noted, associated atelectasis. Mild hilar uptake, 3.5-3.6 bilat erally, subcarinal uptake identified. ABDOMEN: No evident liver mass. No retroperitoneal activity is noted, axial image #153, SUV 5.4, some periportal uptake axial image #156 and sided some calcification shows SUV 5.9. There is no evident a scites. Calcification seen within the liver may be due to treated disease inferior aspect of the righ t lobe, an interval finding. Osseous structures are unchanged impression: There has been progression of patient's left neck and supraclavicular adenopathy
== END | disposition home or self-care (01) ==
LOC: RADPETMAIN 13:21
PROVIDERS: ATTEND Internal Medicine
DX: C34.90 Malignant neoplasm of unspecified part of unspecified bronchus or lung (principal)
CPT/HCPCS: 78815; A9552

== ENCOUNTER → 2021-09-17 | Outpatient (CLI) | payer BC, MEDICARE, OTHER ==
--- NOTE | 2021-09-17 12:04 | CT ---
EXAMINATION TYPE: CT cervical spine wo con DATE OF EXAM: 09/17/2021 COMPARISON: No previous CT scan is available for comparison HISTORY: Cervical disc degeneration CT DLP: 684.6 mGycm Automated exposure control for dose reduction was used. TECHNIQUE: CT scan of the cervical spine is obtained without contrast, axial images are obtained, sa gittal and coronal reformatted images are also reviewed. FINDINGS: Good vertebral alignment without significant anterolisthesis or retrolisthesis. No definite vertebral body collapse or acute displaced fracture. Unremarkable atlantoaxial and atlantooccipital articulati ons. No facet dislocation. Degenerative changes of the cervical spine with multilevel opposing endplate osteophytosis, degenerat ed discs and uncovertebral osteoarthropathy. Mild multilevel facet arthropathy is also noted. At C2-3 level: Small central posterior disc protrusion, causing moderate central spinal canal stenosi s without significant neural foraminal stenosis. At C3-4 level: Posterior disc osteophyte complex, causing severe central spinal canal stenosis, moder ate left and severe right neuroforaminal stenosis. At C4-5 level: Posterior disc osteophyte complex, causing mild central spinal canal stenosis and mode rate left neuroforaminal stenosis. At C5-6 level: Posterior disc osteophyte complex, causing mild central spinal canal stenosis and mode rate left neuroforamina stenosis. At C6-7 level: Posterior disc osteophyte complex, causing [id number] central spinal canal steno sis and moderate right neuroforaminal stenosis. Previous right parieto-occipital craniotomy. Multiple variable sized partially calcified cervical and supraclavicular lymph nodes. Scattered thyroid gland calcifications. Left parotid gland lesion measu ring 2.1 cm. The patient had a recent PET scan, kindly refer to detailed report. Bilateral pleural ef fusions and mild COPD changes. Scattered arterial atherosclerotic calcifications. Unremarkable prever tebral soft tissues. IMPRESSION: Degenerative changes of the cervical spine with multilevel DDD, central spinal canal stenosis and holly roforaminal stenosis as detailed above. Further MRI assessment can be considered if clinically requir ed. Other findings as described above.
== END | disposition home or self-care (01) ==
LOC: RADCTMAIN 08:12
PROVIDERS: ATTEND Psychiatry & Neurology Neurology
DX: M50.30 Other cervical disc degeneration, unspecified cervical region (principal); M54.12 Radiculopathy, cervical region
CPT/HCPCS: 72125

== ENCOUNTER 2021-09-23 04:19 | Observation (INO) | payer BC, MEDICARE, OTHER ==
[2021-09-23] MEDS ORDERED: IPRATROPIUM-ALBUTEROL 3 ML NEB INHALATION STA ×2 (04:26→05:54)
[2021-09-23] MEDS ORDERED: SODIUM CHLORIDE 0.9% 1,000 ML IV STA (04:26)
--- NOTE | 2021-09-23 04:27 | ED ---
SOB HPI - General Stated Complaint: SOB Time Seen by Provider: 09/23/21 04:26 - Related Data Home Medications Medication Instructions Recorded Confirmed Aspirin EC [Ecotrin Low Dose] 81 mg PO DAILY 05/10/17 01/27/21 Baclofen 10 mg PO TID PRN 05/10/17 01/27/21 DULoxetine HCL [Cymbalta] 60 mg PO DAILY 11/14/20 01/27/21 Dicyclomine HCl 20 mg PO QID 11/14/20 01/27/21 HYDROcodone/APAP 7.5-325MG [[place] 1 tab PO Q6H PRN 11/14/20 01/27/21 7.5-325] Ipratropium-Albuterol Nebulize 3 ml INHALATION RT-QID PRN 11/14/20 01/27/21 [Duoneb 0.5 mg-3 mg/3 ml Soln] Lidocaine 5% Patch [Lidoderm 5% 1 patch TOPICAL DAILY 11/14/20 01/27/21 Patch] Montelukast [Singulair] 10 mg PO DAILY 11/14/20 01/27/21 Ozempic 4mg/3ml 4 mg SQ WE 11/14/20 01/27/21 Pioglitazone [Actos] 15 mg PO DAILY 11/14/20 01/27/21 Rosuvastatin [Crestor] 10 mg PO DAILY 11/14/20 01/27/21 Albuterol Inhaler [Ventolin Hfa 2 puff INHALATION RT-QID PRN 01/27/21 01/27/21 Inhaler] Cholecalciferol (Vitamin D3) 250 mcg PO DAILY 01/27/21 01/27/21 [Vitamin D3 (125 MCG = 5,000 IU)] Dextrose Chew [Glucose Chew Tab] 4 gm PO Q10M PRN 01/27/21 01/27/21 Fluticasone Nasal [place] [Flonase 1 spray EA NOSTRIL BID 01/27/21 01/27/21 Nasal [place]] Gabapentin 300 mg PO HS 01/27/21 01/27/21 Insulin Regular, Human [humulin R 135 unit SQ BID 01/27/21 01/27/21 U-500 Kwikpen] Lidocaine 5% Oint [Xylocaine 5% 1 applic TOPICAL DAILY PRN 01/27/21 01/27/21 Oint] Loratadine [Claritin] 10 mg PO DAILY 01/27/21 01/27/21 levETIRAcetam [Keppra] 1,000 mg PO Q12HR 01/27/21 01/27/21 Previous Rx's Medication Instructions Recorded Isosorbide Mononitrate ER [Imdur] 30 mg PO DAILY #30 tab.er.24h 05/14/17 Colchicine [Colcrys] 0.6 mg PO DAILY #30 each 01/31/21 Ipratropium-Albuterol Nebulize 3 ml INHALATION QID 30 Days #6 pack 01/31/21 [Duoneb 0.5 mg-3 mg/3 ml Soln] Allergies Allergy/AdvReac Type Severity Reaction Status Date / Time No Known Allergies Allergy Verified 01/27/21 08:19 Review of Systems ROS Statement: Those systems with pertinent positive or pertinent negative responses have been documented in the HPI. ROS Other: All systems not noted in ROS Statement are negative. Past Medical History Past Medical History: Cancer, COPD, Diabetes Mellitus, Hyperlipidemia, Hyp ertension, Sleep Apnea/CPAP/BIPAP Additional Past Medical History / Comment(s): Patient has metastatic lung cancer, brain and neck also - sees a team of physicians at [facility] for his cancer treatment. History of Any Multi-Drug Resistant Organisms: None Reported Past Surgical History: Back Surgery, Hernia Repair, Orthopedic Surgery Additional Past Surgical History / Comment(s): BILAT knee replacements, 2 laminectomies L3-5, COLONOSCOPY, SPINAL CORD STIMULATOR. Excision of brain tumor 11/19/2020 at [facility]. Right inguinal hernia repair. Bilateral cataracts. Past Anesthesia/Blood Transfusion Reactions: No Reported Reaction Past Psychological History: Anxiety Smoking Status: Former smoker Past Alcohol Use History: None Reported Additional Past Alcohol Use History / Comment(s): QUIT SMOKING 2017 Past Drug Use History: None Reported - Past Family History Mother Family Medical History: Diabetes Mellitus, Myocardial Infarction ([place]) Father Additional Family Medical History / Comment(s): silicosis of the lung, lung removal Course Vital Signs 09/23/21 09/23/21 09/23/21 04:25 04:48 05:25 Temperature 97.8 F Pulse Rate 87 74 Respiratory 18 18 Rate Blood Pressure 165/91 O2 Sat by Pulse 98 Oximetry 09/23/21 05:32 Temperature Pulse Rate 79 Respiratory Rate Blood Pressure O2 Sat by Pulse Oximetry Medical Decision Making - Lab Data Result diagrams: 09/23/21 04:47 09/23/21 04:47 Lab Results 09/23/21 09/23/21 09/23/21 Range/Units 04:47 04:47 04:47 WBC 9.4 (3.8-10.6) k/uL RBC 5.06 (4.30-5.90) m/uL Hgb 13.2 (13.0-17.5) gm/dL Hct 41.7 (39.0-53.0) % MCV 82.4 (80.0-100.0) fL MCH 26.1 (25.0-35.0) pg MCHC 31.6 (31.0-37.0) g/dL RDW 14.7 (11.5-15.5) % Plt Count 382 (150-450) k/uL MPV 6.6 Neutrophils % 73 % Lymphocytes % 11 % Monocytes % 8 % Eosinophils % 6 % Basophils % 1 % Neutrophils # 6.8 (1.3-7.7) k/uL Lymphocytes # 1.0 (1.0-4.8) k/uL Monocytes # 0.8 (0-1.0) k/uL Eosinophils # 0.6 (0-0.7) k/uL Basophils # 0.1 (0-0.2) k/uL Hypochromasia Slight PT 10.6 (9.0-12.0) sec INR 1.0 (<1.2) APTT 25.1 (22.0-30.0) sec Sodium 139 (137-145) mmol/L Potassium 4.6 (3.5-5.1) mmol/L Chloride 104 (98-107) mmol/L Carbon Dioxide 29 (22-30) mmol/L Anion Gap 6 mmol/L BUN 14 (9-20) mg/dL Creatinine 1.17 (0.66-1.25) mg/dL Est GFR (CKD-EPI)AfAm 76 (>60 ml/min/1.73 sqM) Est GFR (CKD-EPI)NonAf 66 (>60 ml/min/1.73 sqM) Glucose 126 H (74-99) mg/dL Calcium 9.2 (8.4-10.2) mg/dL Total Bilirubin 0.4 (0.2-1.3) mg/dL AST 25 (17-59) U/L ALT 15 (4-49) U/L Alkaline Phosphatase 261 H (38-126) U/L Troponin I (0.000-0.034) ng/mL NT-Pro-B Natriuret Pep pg/mL Total Protein 6.8 (6.3-8.2) g/dL Albumin 3.2 L (3.5-5.0) g/dL 09/23/21 09/23/21 Range/Units 04:47 04:47 WBC (3.8-10.6) k/uL RBC (4.30-5.90) m/uL Hgb (13.0-17.5) gm/dL Hct (39.0-53.0) % MCV (80.0-100.0) fL MCH (25.0-35.0) pg MCHC (31.0-37.0) g/dL RDW (11.5-15.5) % Plt Count (150-450) k/uL MPV Neutrophils % % Lymphocytes % % Monocytes % % Eosinophils % % Basophils % % Neutrophils # (1.3-7.7) k/uL Lymphocytes # (1.0-4.8) k/uL Monocytes # (0-1.0) k/uL Eosinophils # (0-0.7) k/uL Basophils # (0-0.2) k/uL Hypochromasia PT (9.0-12.0) sec INR (<1.2) APTT (22.0-30.0) sec Sodium (137-145) mmol/L Potassium (3.5-5.1) mmol/L Chloride (98-107) mmol/L Carbon Dioxide (22-30) mmol/L Anion Gap mmol/L BUN (9-20) mg/dL Creatinine (0.66-1.25) mg/dL Est GFR (CKD-EPI)AfAm (>60 ml/min/1.73 sqM) Est GFR (CKD-EPI)NonAf (>60 ml/min/1.73 sqM) Glucose (74-99) mg/dL Calcium (8.4-10.2) mg/dL Total Bilirubin (0.2-1.3) mg/dL AST (17-59) U/L ALT (4-49) U/L Alkaline Phosphatase (38-126) U/L Troponin I 0.019 (0.000-0.034) ng/mL NT-Pro-B Natriuret Pep 535 pg/mL Total Protein (6.3-8.2) g/dL Albumin (3.5-5.0) g/dL Disposition Clinical Impression: Bronchitis, COPD exacerbation, Dyspnea, Acute exacerbation of COPD with asthma Disposition: ADMITTED IP TO THIS HOSP Condition: Good Is patient prescribed a controlled substance at d/c from ED?: No Referrals: Beto Ng MD [Primary Care Provider] - 1-2 days
[2021-09-23 05:02] LABS: Basophils # (A) 0.1 k/uL (0-0.2); Basophils % (A) 1 %; Eosinophils # (A) 0.6 k/uL (0-0.7); Eosinophils % (A) 6 %; HCT 41.7 % (39.0-53.0); HGB 13.2 gm/dL (13.0-17.5); Hypochromasia Slight; Lymphocytes % (A) 11 %; MCH 26.1 pg (25.0-35.0); MCHC 31.6 g/dL (31.0-37.0); MCV 82.4 fL (80.0-100.0); Mean Platelet Volume 6.6; Monocytes # (A) 0.8 k/uL (0-1.0); Monocytes % (A) 8 %; Neutrophils # (A) 6.8 k/uL (1.3-7.7); Neutrophils % (A) 73 %; Platelet Count 382 k/uL (150-450); RBC 5.06 m/uL (4.30-5.90); RDW 14.7 % (11.5-15.5); WBC 9.4 k/uL (3.8-10.6)
[2021-09-23 05:09] LABS: Partial Thromboplastin Time 25.1 sec (22.0-30.0); Prothrombin Time 10.6 sec (9.0-12.0)
[2021-09-23 05:17] LABS: Albumin 3.2 g/dL (3.5-5.0); Calcium 9.2 mg/dL (8.4-10.2); Potassium 4.6 mmol/L (3.5-5.1); Total Bilirubin 0.4 mg/dL (0.2-1.3); Total Protein 6.8 g/dL (6.3-8.2)
--- NOTE | 2021-09-23 06:14 | XR ---
EXAM: XR Chest, 1 View CLINICAL HISTORY: ITS.REASON XR Reason: sob TECHNIQUE: Frontal view of the chest. COMPARISON: No relevant prior studies available. FINDINGS: Lungs: Patchy retrocardiac and medial right base opacities. Pleural space: Small right pleural effusion. No pneumothorax. Heart: Unremarkable. No cardiomegaly. Mediastinum: Unremarkable. Bones/joints: Unremarkable. IMPRESSION: 1. Patchy retrocardiac and medial right base opacities which may be due to edema or infection. 2. Small right pleural effusion.
[2021-09-23] MEDS: methylPREDNISolone SOD SUCCI 125 MG/2 ML VIAL IV SCH ×4 (06:25→23:05)
[2021-09-23] MEDS ORDERED: ALBUTEROL NEBULIZED 2.5 MG/3 ML INHALATION SCH ×2 (08:00→12:00)
[2021-09-23] MEDS: SODIUM CHLORIDE 0.9% 1,000 ML IV SCH (08:17)
[2021-09-23] MEDS ORDERED: ALBUTEROL NEBULIZED 2.5 MG/3 ML INHALATION PRN (12:46)
--- NOTE | 2021-09-23 12:51 | P.HPIM ---
History of Present Illness H&P Date: 09/23/21 Chief Complaint: Dyspnea 61-year-old man with a history of COPD and chronic respiratory failure requiring 4 L nasal cannula, metastatic non-small cell lung cancer, hypertensio n/hyperlipidemia/diabetes, RAMILA on CPAP presented with dyspnea. Patient says that her shortness of breath got worse this morning. He is normally on 4 L of nasal cannula but felt very short of breath especially with exertion. This prompted them to come to the emergency room for further evaluation. He attempted to use his inhalers, but did not have excess with his inhalers. Otherwise, he denies fevers, chills, nausea, vomiting, chest pain, palpitations, cough, abdominal pain, constipation, diarrhea, dysuria, dyschezia, numbness/weakness of extremities. In the emergency room, patient is afebrile, 165/91, 98% on 4 L nasal cannula, heart rate 87. CBC is unremarkable. Chemistries are unremarkable. LFTs are unremarkable. Initial troponin is 0.019, initial BNP was 535. Coags unremarkable. EKG shows normal sinus rhythm with right axis deviation. Chest x-ray shows patchy retrocardiac and medial right base opacities as well as right-sided pleural effusion, small. All Systems reviewed and pertinent positives and negatives noted in HPI, all other symptoms are negative Gen: in no apparent distress, resting comfortably in bed Eyes: PERRL, no scleral injection or icterus HENT: normocephalic, atraumatic, good hearing acuity, moist mucous membranes Neck: no tracheal deviation, full range of motion Resp: good air exchange, breathing comfortably with no accessory muscle use, no tactile fremitus, right-sided posterior crackles in the base to mid chest CVS: good distal perfusion x 4, trace pitting edema, regular rate and rhythm GI: soft, no tenderness to palpation, periumbilical area, ND, no hepatosplenomegaly : no suprapubic tenderness, no CVAT, arreola catheter not present MSK: no clubbing, no cyanosis, no noted contractures of extremities Skin: no noted rashes, petechiae; temperature of skin is appropriate Neuro: moving all extremities without signs of weakness, CN II-XII intact Psych: cooperative, euthymic mood, insight and judgment intact Labs and imaging as above Assessment/plan: Dyspnea on exertion Volume overload Chronic respiratory failure requiring 4 L nasal cannula -Admit to observation, telemetry -Oxygen as needed -Echocardiogram -Continue Lasix -Pulmonary consult -Strict ins and outs, daily weights COPD without exacerbation RAMILA on CPAP Hypertension Hyperlipidemia Diabetes type 2 Metastatic non-small cell lung cancer -Home medications reviewed and reconciled Patient is full code DVT prophylaxis covered with Xarelto Past Medical History Past Medical History: Cancer, COPD, Diabetes Mellitus, Hyperlipidemia, Hypertension, Sleep Apnea/CPAP/BIPAP Additional Past Medical History / Comment(s): Patient has metastatic lung cancer, brain and neck also - sees a team of physicians at [facility] for his cancer treatment. History of Any Multi-Drug Resistant Organisms: None Reported Past Surgical History: Back Surgery, Hernia Repair, Orthopedic Surgery Additional Past Surgical History / Comment(s): BILAT knee replacements, 2 laminectomies L3-5, COLONOSCOPY, SPINAL CORD STIMULATOR. Excision of brain tumor 11/19/2020 at [facility]. Right inguinal hernia repair. Bilateral cataracts. Past Anesthesia/Blood Transfusion Reactions: No Reported Reaction Past Psychological History: Anxiety Smoking Status: Former smoker Past Alcohol Use History: None Reported Additional Past Alcohol Use History / Comment(s): QUIT SMOKING 2017 Past Drug Use History: None Reported - Past Family History Mother Family Medical History: Diabetes Mellitus, Myocardial Infarction ([place]) Father Additional Family Medical History / Comment(s): silicosis of the lung, lung removal Medications and Allergies Home Medications Medication Instructions Recorded Confirmed Type Baclofen 10 mg PO DAILY 05/10/17 09/23/21 History Isosorbide Mononitrate ER [Imdur] 30 mg PO DAILY #30 tab.er.24h 05/14/17 09/23/21 Rx DULoxetine HCL [Cymbalta] 60 mg PO DAILY 11/14/20 09/23/21 History HYDROcodone/APAP 7.5-325MG [[place] 1 tab PO Q8H PRN 11/14/20 09/23/21 History 7.5-325] Lidocaine 5% Patch [Lidoderm 5% 1 patch TOPICAL DAILY 11/14/20 09/23/21 History Patch] Montelukast [Singulair] 10 mg PO DAILY 11/14/20 09/23/21 History Pioglitazone [Actos] 15 mg PO DAILY 11/14/20 09/23/21 History Rosuvastatin [Crestor] 10 mg PO DAILY 11/14/20 09/23/21 History Albuterol Inhaler [Ventolin Hfa 2 puff INHALATION RT-Q4H PRN 01/27/21 09/23/21 History Inhaler] Fluticasone Nasal [place] [Flonase 1 spray EA NOSTRIL BID 01/27/21 09/23/21 History Nasal [place]] Lidocaine 5% Oint [Xylocaine 5% 1 applic TOPICAL DAILY PRN 01/27/21 09/23/21 History Oint] levETIRAcetam [Keppra] 1,000 mg PO BID 01/27/21 09/23/21 History Furosemide [Lasix] 40 mg PO BID 09/23/21 09/23/21 History Gabapentin [Neurontin] 200 mg PO DAILY 09/23/21 09/23/21 History Ipratropium-Albuterol Nebulize 3 ml INHALATION RT-QID 09/23/21 09/23/21 History [Duoneb 0.5 mg-3 mg/3 ml Soln] Metoprolol Tartrate [Lopressor] 12.5 mg PO BID 09/23/21 09/23/21 History Omeprazole 20 mg PO DAILY 09/23/21 09/23/21 History Ondansetron [Zofran] 4 - 8 mg PO Q8H PRN 09/23/21 09/23/21 History Rivaroxaban [Xarelto] 20 mg PO DAILY 09/23/21 09/23/21 History Semaglutide [Ozempic] 1 mg SQ MO 09/23/21 09/23/21 History Allergies Allergy/AdvReac Type Severity Reaction Status Date / Time No Known Allergies Allergy Verified 01/27/21 08:19 Physical Exam Osteopathic Statement: *. No significant issues noted on an osteopathic structural exam other than those noted in the History and Physical/Consult. Vitals: Vital Signs Temp Pulse Resp BP Pulse Ox 09/23/21 09:53 92 09/23/21 09:34 92 97 09/23/21 08:00 85 20 183/96 97 09/23/21 06:32 84 20 187/110 09/23/21 05:32 79 09/23/21 05:25 74 09/23/21 04:48 18 09/23/21 04:25 97.8 F 87 18 165/91 98 Intake and Output 09/22/21 09/23/21 09/23/21 22:59 06:59 14:59 Other: Weight 129 kg Results CBC & Chem 7: 09/23/21 04:47 09/23/21 04:47 Labs: Abnormal Lab Results - Last 24 Hours (Table) 09/23/21 Range/Units 04:47 Glucose 126 H (74-99) mg/dL Alkaline Phosphatase 261 H (38-126) U/L Albumin 3.2 L (3.5-5.0) g/dL
[2021-09-23] MEDS: RIVAROXABAN 20 MG TAB PO SCH (13:49)
[2021-09-23] MEDS: levETIRAcetam 500 MG TAB PO SCH ×2 (14:24→23:05)
[2021-09-23] MEDS: ISOSORBIDE MONONITRATE ER 30 MG TAB.ER.24H PO SCH (14:24)
[2021-09-23] MEDS: METOPROLOL TARTRATE 12.5 MG TAB PO SCH ×2 (14:24→23:05)
[2021-09-23] MEDS: IPRATROPIUM-ALBUTEROL 3 ML NEB INHALATION SCH ×2 (15:24→19:25)
[2021-09-23] MEDS: INSULIN ASPART (NovoLOG) 100 UNIT/ML VIAL SQ SCH (18:01)
[2021-09-23] MEDS: FUROSEMIDE 40 MG TAB PO SCH (19:14)
[2021-09-23 20:39] LABS: Glucose,Whole Blood 236 mg/dL (70-110)
[2021-09-23] MEDS: HYDROcodone/APAP 7.5-325MG 1 EACH TAB PO PRN (20:42)
[2021-09-23] MEDS: FLUTICASONE 50MCG/SPRAY NASAL 16GM EA NOSTRIL SCH (23:01)
[2021-09-24] MEDS: methylPREDNISolone SOD SUCCI 125 MG/2 ML VIAL IV SCH ×2 (05:11→13:08)
[2021-09-24] MEDS: LIDOCAINE 5% PATCH TOPICAL SCH (05:14)
[2021-09-24 07:07] LABS: Glucose,Whole Blood 180 mg/dL (70-110)
[2021-09-24] MEDS: IPRATROPIUM-ALBUTEROL 3 ML NEB INHALATION SCH ×4 (08:00→20:09)
[2021-09-24] MEDS: BACLOFEN 10 MG TAB PO SCH (08:22)
[2021-09-24] MEDS: levETIRAcetam 500 MG TAB PO SCH ×2 (08:22→20:53)
[2021-09-24] MEDS: INSULIN ASPART (NovoLOG) 100 UNIT/ML VIAL SQ SCH ×3 (08:22→17:53)
[2021-09-24] MEDS: PANTOPRAZOLE 40 MG TABLET PO SCH (08:22)
[2021-09-24] MEDS: ISOSORBIDE MONONITRATE ER 30 MG TAB.ER.24H PO SCH (08:22)
[2021-09-24] MEDS: METOPROLOL TARTRATE 12.5 MG TAB PO SCH ×2 (08:23→20:53)
[2021-09-24] MEDS: FUROSEMIDE 40 MG TAB PO SCH ×2 (08:23→17:53)
[2021-09-24] MEDS: DULoxetine HCL 60 MG CAPSULE.DR PO SCH (08:23)
[2021-09-24] MEDS: MONTELUKAST 10 MG TAB PO SCH (08:23)
[2021-09-24] MEDS: GABAPENTIN 100 MG CAP PO SCH (08:23)
[2021-09-24] MEDS: ATORVASTATIN 20 MG TAB PO SCH (08:23)
[2021-09-24] MEDS: SODIUM CHLORIDE 0.9% 1,000 ML IV SCH (08:24)
[2021-09-24] MEDS: HYDROcodone/APAP 7.5-325MG 1 EACH TAB PO PRN (08:31)
[2021-09-24 09:06] LABS: Basophils # (A) 0.02 X 10*3/uL (0.00-0.10); Basophils % (A) 0.1 %; Eosinophils # (A) 0 X 10*3/uL (0.04-0.35); Eosinophils % (A) 0 %; HCT 42.3 % (39.6-50.0); HGB 12.7 g/dL (13.0-17.0); Immature Grans, Automated 0.8 %; Lymphocytes # (A) 0.46 X 10*3/uL (0.90-5.00); Lymphocytes % (A) 2.9 %; MCH 24.5 pg (27.0-32.0); MCV 81.5 fL (80.0-97.0); Mean Platelet Volume 10.1 fL (9.5-12.2); Monocytes # (A) 0.25 X 10*3/uL (0.20-1.00); Monocytes % (A) 1.6 %; NRBC Per 100 WBC 0 /100 WBCS (0.0-0.0); Neutrophils % (A) 94.6 %; Platelet Count 356 X 10*3/uL (140-440); RBC 5.19 X 10*6/uL (4.40-5.60); RDW 15.1 % (11.5-14.5); WBC 15.75 X 10*3/uL (4.50-10.00)
[2021-09-24 09:23] LABS: African American GFR (CKD) 73.4 (60.0-200.0); Anion Gap 15.1 mmol/L (10.00-18.00); BUN/Creat Ratio 15.45 Ratio (12.00-20.00); Blood Urea Nitrogen 18.7 mg/dL (9.0-27.0); Calcium 8.8 mg/dL (8.7-10.3); Magnesium 2.1 mg/dL (1.5-2.4); Non-African American GFR(CKD) 63.3 (60.0-200.0); Potassium 5.1 mmol/L (3.5-5.5)
[2021-09-24] MEDS: FLUTICASONE 50MCG/SPRAY NASAL 16GM EA NOSTRIL SCH ×2 (10:18→20:55)
[2021-09-24 11:26] LABS: Glucose,Whole Blood 222 mg/dL (70-110)
--- NOTE | 2021-09-24 11:26 | P.CNPUL ---
History of Present Illness Consult date: 09/23/21 Reason for consult: dyspnea History of present illness: 58-year-old male patient with known history of COPD and chronic hypoxic respiratory failure maintained on oxygen 4 L per minute nasal cannula. The patient has metastatic adenocarcinoma of the lung with previous history of [employer]ICIAN metastases and the patient has undergone surgical resection and radiation therapy. The patient then followed up with oncology/radiation oncology from [facility] in [facility].. The patient had a recent PET/CT that was done on 09/12/2021 that showed focal uptake in the parotid gland a severe 4, left cervical adenopathy progressed compared to the earlier PET scan from April 2021 and supraclavicular lymphadenopathy on the left with various SUVs high as being at around 8.7. There is also superior mediastinal lymph node on the left measuring an SUV of 4 and extensive calcified nodes within the mediastinum and hilar regions bilaterally. There is also bilateral pleural effusion noted and some mild hilar uptake and subcarinal uptake in the lymph nodes. As such, the impression was that the patient has had some progression of the left neck and supraclavicular lymphadenopathy. His other comorbidities include diabetes mellitus, hypertension and hyperlipidemia and the patient is morbidly obese and the patient has obstructive sleep apnea and he is not compliant to CPAP therapy. He suffers from chronic back pain and the patient is a pain stimulator in place. The patient came into the hospital yesterday complaining of shortness of breath. He denied having any fever chills or night sweats. No nausea vomiting or emesis. No abdominal pain. No diarrhea. In the emergency, he was on 4 L with a pulse ox of 98%. CBC was unremarkable. LFTs were unremarkable. Chemistry was unremarkable. ProBNP level was 535 with a troponin level of 0.01. EKG showed normal sinus rhythm. The chest x-ray showing small right-sided pleural effusion. There was a patchy retrocardiac and basilar opacity. Note that the patient a white cell count of 9.4 with a hemoglobin of 13.2. He was admitted to the hospital and the patient was started on bronchodilators and systemic steroids. He is on long-term anticoagulation with Xarelto 20 mg on a daily basis. All medications of been ordered resume. Review of Systems Constitutional: Reports fatigue, Reports weakness Eyes: denies as per HPI, denies blurred vision, denies bulging eye, denies decreased vision, denies diplopia, denies discharge, denies dry eye, denies irritation, denies itching, denies pain, denies photophobia, denies loss of peripheral vision, denies loss of vision, denies tunnel vision/blind spots Ears: deny: decreased hearing, ear discharge, earache, tinnitus Ears, nose, mouth and throat: Reports as per HPI Breasts: absent: as per HPI, gynecomastia Cardiovascular: Reports decreased exercise tolerance, Reports dyspnea on exertion Respiratory: Reports dyspnea, Reports home oxygen Gastrointestinal: Reports as per HPI Genitourinary: Reports as per HPI Musculoskeletal: Reports as per HPI Musculoskeletal: absent: ankle pain, ankle stiffness, ankle swelling Integumentary: Reports as per HPI Neurological: Reports as per HPI Psychiatric: Reports as per HPI Endocrine: Reports as per HPI Hematologic/Lymphatic: Reports as per HPI Allergic/Immunologic: Reports as per HPI Past Medical History Past Medical History: Cancer, COPD, Diabetes Mellitus, Hyperlipidemia, Hypertension, Sleep Apnea/CPAP/BIPAP Additional Past Medical History / Comment(s): Patient has metastatic lung cancer, brain and neck also - sees a team of physicians at [facility] for his cancer treatment. History of Any Multi-Drug Resistant Organisms: None Reported Past Surgical History: Back Surgery, Hernia Repair, Orthopedic Surgery Additional Past Surgical History / Comment(s): BILAT knee replacements, 2 laminectomies L3-5, COLONOSCOPY, SPINAL CORD STIMULATOR. Excision of brain tumor 11/19/2020 at [facility]. Right inguinal hernia repair. Bilateral cataracts. Past Anesthesia/Blood Transfusion Reactions: No Reported Reaction Past Psychological History: Anxiety Smoking Status: Former smoker Past Alcohol Use History: None Reported Additional Past Alcohol Use History / Comment(s): QUIT SMOKING 2017 Past Drug Use History: None Reported - Past Family History Mother Family Medical History: Diabetes Mellitus, Myocardial Infarction ([place]) Father Additional Family Medical History / Comment(s): silicosis of the lung, lung removal Medications and Allergies Home Medications Medication Instructions Recorded Confirmed Type Baclofen 10 mg PO DAILY 05/10/17 09/23/21 History Isosorbide Mononitrate ER [Imdur] 30 mg PO DAILY #30 tab.er.24h 05/14/17 09/23/21 Rx DULoxetine HCL [Cymbalta] 60 mg PO DAILY 11/14/20 09/23/21 History HYDROcodone/APAP 7.5-325MG [[place] 1 tab PO Q8H PRN 11/14/20 09/23/21 History 7.5-325] Lidocaine 5% Patch [Lidoderm 5% 1 patch TOPICAL DAILY 11/14/20 09/23/21 History Patch] Montelukast [Singulair] 10 mg PO DAILY 11/14/20 09/23/21 History Pioglitazone [Actos] 15 mg PO DAILY 11/14/20 09/23/21 History Rosuvastatin [Crestor] 10 mg PO DAILY 11/14/20 09/23/21 History Albuterol Inhaler [Ventolin Hfa 2 puff INHALATION RT-Q4H PRN 01/27/21 09/23/21 History Inhaler] Fluticasone Nasal [place] [Flonase 1 spray EA NOSTRIL BID 01/27/21 09/23/21 History Nasal [place]] Lidocaine 5% Oint [Xylocaine 5% 1 applic TOPICAL DAILY PRN 01/27/21 09/23/21 History Oint] levETIRAcetam [Keppra] 1,000 mg PO BID 01/27/21 09/23/21 History Furosemide [Lasix] 40 mg PO BID 09/23/21 09/23/21 History Gabapentin [Neurontin] 200 mg PO DAILY 09/23/21 09/23/21 History Ipratropium-Albuterol Nebulize 3 ml INHALATION RT-QID 09/23/21 09/23/21 History [Duoneb 0.5 mg-3 mg/3 ml Soln] Metoprolol Tartrate [Lopressor] 12.5 mg PO BID 09/23/21 09/23/21 History Omeprazole 20 mg PO DAILY 09/23/21 09/23/21 History Ondansetron [Zofran] 4 - 8 mg PO Q8H PRN 09/23/21 09/23/21 History Rivaroxaban [Xarelto] 20 mg PO DAILY 09/23/21 09/23/21 History Semaglutide [Ozempic] 1 mg SQ MO 09/23/21 09/23/21 History Allergies Allergy/AdvReac Type Severity Reaction Status Date / Time No Known Allergies Allergy Verified 01/27/21 08:19 Physical Exam Vitals: Vital Signs Temp Pulse Resp BP Pulse Ox 09/23/21 09:53 92 09/23/21 09:34 92 97 09/23/21 08:00 85 20 183/96 97 09/23/21 06:32 84 20 187/110 09/23/21 05:32 79 09/23/21 05:25 74 09/23/21 04:48 18 09/23/21 04:25 97.8 F 87 18 165/91 98 Intake and Output 09/22/21 09/23/21 09/23/21 22:59 06:59 14:59 Other: Weight 129 kg GENERAL EXAM: Alert, very pleasant, 60-year-old white male, sitting up in the recliner, currently on 4 L O2 with pulse ox of 92% comfortable in no apparent distress. HEAD: Normocephalic/atraumatic. EYES: Normal reaction of pupils, equal size. Conjunctiva pink, sclera white. NOSE: Clear with pink turbinates. THROAT: No erythema or exudates. NECK: No masses, no JVD, no thyroid enlargement, no adenopathy. CHEST: No chest wall deformity. Symmetrical expansion. LUNGS: Equal air entry with no crackles, wheeze, rhonchi or dullness. The breath sounds are quite diminished in the right lung base CVS: Regular rate and rhythm, normal S1 and S2, no gallops, no murmurs, no rubs ABDOMEN: Soft, nontender. No hepatosplenomegaly, normal bowel sounds, no guarding or rigidity. EXTREMITIES: No clubbing, chronic venous stasis changes in bilateral lower extremities noted, no edema was appreciated on today's exam no cyanosis, 2+ pulses and upper and lower extremities. MUSCULOSKELETAL: Muscle strength and tone normal. SPINE: No scoliosis or deformity SKIN: No rashes CENTRAL NERVOUS SYSTEM: Alert and oriented -3. No focal deficits, tone is normal in all 4 extremities. PSYCHIATRIC: Alert and oriented -3. Appropriate affect. Intact judgment and insight. Results - Laboratory Findings CBC and BMP: 09/24/21 05:36 09/24/21 05:36 PT/INR, D-dimer PT 10.6 sec (9.0-12.0) 09/23/21 04:47 INR 1.0 (<1.2) 09/23/21 04:47 Abnormal lab findings: Abnormal Labs 09/23/21 04:47 Glucose 126 H Alkaline Phosphatase 261 H Albumin 3.2 L - Diagnostic Findings Chest x-ray: image reviewed Assessment and Plan Plan: Acute on chronic shortness of breath, multifactorial. No clear indication for pneumonia and the most recent PET/CT on 09/12/2021 revealing evidence of pro gression of the patient's supraclavicular and left neck lymphadenopathy consistent with his underlying adenocarcinoma of the lung. There is also evidence of bilateral pleural effusion, and the pleural effusions have been chronic and unchanged compared to the previous PET scan from April 2021. F urthermore, the patient possibly is a component of COPD with exacerbation. Metastatic adenocarcinoma of the lungs with brain metastasis, status post surgical resection and radiation therapy at [facility]. Most recent PET scan was noted from 09/12/2021. The patient is mediastinal lymphadenopathy and cervical lymphadenopathy which is progress. Bilateral pleural effusions remain unchanged. History of COPD/ emphysema, not home oxygen dependent at baseline Type 2 diabetes mellitus Hypertension Hyperlipidemia Morbid obesity History of sleep apnea syndrome, noncompliant with CPAP Chronic back pain, status post spinal cord stimulator Left salivary gland mass, with hypermetabolic uptake on the PET scan Plan: She was evaluated in the emergency and the patient seemed to be quite comfortable on 4 L of O2 nasal cannula. With discussed various possible options to optimize his shortness of breath. The patient's pleural effusions of been chronic and unchanged. Nevertheless, there is some room for improvement in his breathing if thoracentesis is done. Based on that, I stopped the anticoagulation with Eliquis I intend to do a thoracentesis on this patient within the next 24-48 hours. Ultrasound markings will be also obtained. He was agreeable to the procedure. Overall picture showed some interval progression of his malignancy based on the PET scan that was done on 09/12/2021.
--- NOTE | 2021-09-24 11:49 | P.PN ---
Subjective Progress Note Date: 09/24/21 58-year-old male patient with known history of COPD and chronic hypoxic respira tory failure maintained on oxygen 4 L per minute nasal cannula. The patient has metastatic adenocarcinoma of the lung with previous history of [employer] metastases and the patient has undergone surgical resection and radiation therapy. The patient then followed up with oncology/radiation oncology from [facility] in [facility].. The patient had a recent PET/CT that was done on 09/12/2021 that showed focal uptake in the parotid gland a severe 4, left cervical adenopathy progressed compared to the earlier PET scan from April 2021 and supraclavicular lymphadenopathy on the left with various SUVs high as being at around 8.7. There is also superior mediastinal lymph node on the left measuring an SUV of 4 and extensive calcified nodes within the mediastinum and hilar regions bilaterally. There is also bilateral pleural effusion noted and some mild hilar uptake and subcarinal uptake in the lymph nodes. As such, the impression was that the patient has had some progression of the left neck and supraclavicular lymphadenopathy. His other comorbidities include diabetes mellitus, hypertension and hyperlipidemia and the patient is morbidly obese and the patient has obstructive sleep apnea and he is not compliant to CPAP therapy. He suffers from chronic back pain and the patient is a pain stimulator in place. The patient came into the hospital yesterday complaining of shortness of breath. He denied having any fever chills or night sweats. No nausea vomiting or emesis. No abdominal pain. No diarrhea. In the emergency, he was on 4 L with a pulse ox of 98%. CBC was unremarkable. LFTs were unremarkable. Chemistry was unremarkable. ProBNP level was 535 with a troponin level of 0.01. EKG showed normal sinus rhythm. The chest x-ray showing small right-sided pleural effusion. There was a patchy retrocardiac and basilar opacity. Note that the patient a white cell count of 9.4 with a hemoglobin of 13.2. He was admitted to the hospital and the patient was started on bronchodilators and systemic steroids. He is on long-term anticoagulation with Xarelto 20 mg on a daily basis. All medications of been ordered resume 09/24/2021, I'm seeing the patient for a follow-up. Fortunately, the was in the room and I was able to get some more information regarding his lung cancer treatment. The patient is currently receiving immunotherapy in the form of Keytruda. Note that since his last PET/CT from April 2021, the patient has undergone bilateral pleural effusion thoracentesis and a pericardiocentesis. The believes that the pericardial fluid was positive for malignancy. The pleural fluids are not known in terms of his cytology. Nevertheless, the follow-up PET scan that was done on 09/12/2021 showed recurrence of the pleural effusions amount of fluid in both lungs are essentially the same compared to the PET scan from April 2021. The patient is doing well for now. His own 40s about 2 by nasal cannula. He is a bit hesitant to undergo thoracentesis which I understand. 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 His condition is stable for now. No signs of any infection for now. There is evidence of disease progression based on the most recent CAT scan findings. Objective - Vital Signs Vital signs: Vital Signs Temp 97.5 F L 09/24/21 05:00 Pulse 67 09/24/21 11:27 Resp 16 09/24/21 05:00 BP 162/82 09/24/21 08:20 Pulse Ox 96 09/24/21 08:20 FiO2 Intake & Output 09/23/21 09/24/21 09/24/21 18:59 06:59 18:59 Intake Total 240 180 Output Total 200 Balance 40 180 Intake: Oral 240 180 Output: Urine 200 - Exam GENERAL EXAM: Alert, very pleasant, 60-year-old white male, sitting up in the recliner, currently on 4 L O2 with pulse ox of 92% comfortable in no apparent distress. HEAD: Normocephalic/atraumatic. EYES: Normal reaction of pupils, equal size. Conjunctiva pink, sclera white. NOSE: Clear with pink turbinates. THROAT: No erythema or exudates. NECK: No masses, no JVD, no thyroid enlargement, no adenopathy. CHEST: No chest wall deformity. Symmetrical expansion. LUNGS: Equal air entry with no crackles, wheeze, rhonchi or dullness. The breath sounds are quite diminished in the right lung base CVS: Regular rate and rhythm, normal S1 and S2, no gallops, no murmurs, no rubs ABDOMEN: Soft, nontender. No hepatosplenomegaly, normal bowel sounds, no guarding or rigidity. EXTREMITIES: No clubbing, chronic venous stasis changes in bilateral lower extremities noted, no edema was appreciated on today's exam no cyanosis, 2+ pulses and upper and lower extremities. MUSCULOSKELETAL: Muscle strength and tone normal. SPINE: No scoliosis or deformity SKIN: No rashes CENTRAL NERVOUS SYSTEM: Alert and oriented -3. No focal deficits, tone is normal in all 4 extremities. PSYCHIATRIC: Alert and oriented -3. Appropriate affect. Intact judgment and insight. - Labs CBC & Chem 7: 09/24/21 05:36 09/24/21 05:36 Labs: Abnormal Lab Results - Last 24 Hours (Table) 09/23/21 09/24/21 09/24/21 Range/Units 20:38 05:36 05:36 WBC 15.75 H (4.50-10.00) X 10*3/uL Hgb 12.7 L (13.0-17.0) g/dL MCH 24.5 L (27.0-32.0) pg MCHC 30.0 L (32.0-37.0) g/dL RDW 15.1 H (11.5-14.5) % Immature Gran # 0.12 H (0.00-0.04) X 10*3/uL Neutrophils # 14.90 H (1.80-7.70) X 10*3/uL Lymphocytes # 0.46 L (0.90-5.00) X 10*3/uL Eosinophils # 0 L (0.04-0.35) X 10*3/uL Glucose 188 H (70-110) mg/dL POC Glucose (mg/dL) 236 H (70-110) mg/dL 09/24/21 09/24/21 Range/Units 07:05 11:24 WBC (4.50-10.00) X 10*3/uL Hgb (13.0-17.0) g/dL MCH (27.0-32.0) pg MCHC (32.0-37.0) g/dL RDW (11.5-14.5) % Immature Gran # (0.00-0.04) X 10*3/uL Neutrophils # (1.80-7.70) X 10*3/uL Lymphocytes # (0.90-5.00) X 10*3/uL Eosinophils # (0.04-0.35) X 10*3/uL Glucose (70-110) mg/dL POC Glucose (mg/dL) 180 H 222 H (70-110) mg/dL Assessment and Plan Plan: Acute on chronic shortness of breath, multifactorial. No clear indication for pneumonia and the most recent PET/CT on 09/12/2021 revealing evidence of progression of the patient's supraclavicular and left neck lymphadenopathy consistent with his underlying adenocarcinoma of the lung. There is also evidence of bilateral pleural effusion, and the pleural effusions have been chronic and unchanged compared to the previous PET scan from April 2021. Furthermore, the patient possibly is a component of COPD with exacerbation. Metastatic adenocarcinoma of the lungs with brain metastasis, status post surgical resection and radiation therapy at [facility]. Most recent PET scan was noted from 09/12/2021. The patient is mediastinal lymphadenopathy and cervical lymphadenopathy which is progress. Bilateral pleural effusions remain unchanged. Patient is receiving Keytruda on outpatient basis every 3 weeks malignant pericardial effusion bilateral pleural effusion, pain is bilateral thoracentesis, fluid cytology is not known. There is a recurrence of the bilateral pleural fluid as mentioned. History of COPD/ emphysema, not home oxygen dependent at baseline Type 2 diabetes mellitus Hypertension Hyperlipidemia Morbid obesity History of sleep apnea syndrome, noncompliant with CPAP Chronic back pain, status post spinal cord stimulator Left salivary gland mass, with hypermetabolic uptake on the PET scan Plan: In my opinion, the patient is stable. No need for any immediate intervention. I think the patient is better off being discharged to be followed up with his oncologist and decide if another thoracentesis will be of any benefit versus insertion of a Pleurx catheter. The results of the pleural fluid cytology obviously would also help in this decision making. Meanwhile, I reviewed the CAT scan and there is some mild interval progression of the mediastinal lymphadenopathy consistent with malignancy. No evidence of any pericardial effusion. The amount of pleural fluid on both sides are essentially unchanged. I kept the patient back on Xarelto.
--- NOTE | 2021-09-24 11:53 | CA ---
Transthoracic Echo Report Name: Isiah Malin Age: 61 Gender: M : 1960 Exam Date: 09/24/2021 09:51 Exam Location: [place] Echo Ht (in): 73 Wt (lb): 284 Ordering Physician: Apolonia Rojas DO Attending/Referring Phys: [id number], Crystal Hay Buckler Hiwot Vee RDCS Procedure CPT: Indications: chf Cardiac Hx: Technical Quality: Technically difficult study Contrast 1: Lumason Total Dose (mL): 4 Contrast 2: Total Dose (mL): MEASUREMENTS (Male / Female) Normal Values 2D ECHO LV Diastolic Diameter PLAX 5.3 cm 4.2 - 5.9 / 3.9 - 5.3 cm LV Systolic Diameter PLAX 3.4 cm IVS Diastolic Thickness 1.1 cm 0.6 - 1.0 / 0.6 - 0.9 cm LVPW Diastolic Thickness 1.4 cm 0.6 - 1.0 / 0.6 - 0.9 cm LV Relative Wall Thickness 0.5 LA Volume 63.8 cm??? 18 - 58 / 22 - 52 cm??? M-MODE Aortic Root Diameter MM 3.9 cm LA Systolic Diameter MM 3.5 cm LA Ao Ratio MM 0.9 AV Cusp Separation MM 2.0 cm DOPPLER AV Peak Velocity 176.9 cm/s AV Peak Gradient 12.5 mmHg LVOT Peak Velocity 100.8 cm/s LVOT Peak Gradient 4.1 mmHg MV Area PHT 2.9 cm??? Mitral E Point Velocity 99.4 cm/s Mitral A Point Velocity 95.4 cm/s Mitral E to A Ratio 1.0 MV Deceleration Time 258.3 ms MV E' Velocity 4.1 cm/s Mitral E to MV E' Ratio 24.2 FINDINGS Left Ventricle Mildly increased left ventricular wall thickness. Normal left ventricular systolic function with no obvious regional wall motion abnormalities. Normal left ventricular diastolic filling pattern. Left ventricular ejection fraction is estimated at 55-60 %. Right Ventricle Right ventricle not well visualized. Right Atrium Right atrium not well visualized. Left Atrium Mildly increased left atrial volume. No evidence for an atrial septal defect. Mitral Valve Moderate mitral annular calcification. No mitral stenosis. No evidence for mitral valve prolapse. Mild mitral regurgitation. Aortic Valve No aortic valve stenosis or regurgitation. Tricuspid Valve Tricuspid valve not well visualized. Mild tricuspid regurgitation. Pulmonic Valve Pulmonic valve not well visualized. Pericardium Small pericardial effusion. Aorta Aortic root and proximal ascending aorta not well visualized. CONCLUSIONS Showed LV systolic function mitral calcification with mild mitral regurgitation Small pericardial effusion Previewed by: Dr. James Gunn MD (Electronically Signed) Final Date: 24 September 2021 11:52
[2021-09-24] MEDS: RIVAROXABAN 20 MG TAB PO SCH (13:08)
--- NOTE | 2021-09-24 14:13 | P.PN ---
Subjective Progress Note Date: 09/24/21 (delayed charting seen at 1030) Patient is a 61-year-old man with COPD and chronic respiratory failure on 4 L nasal cannula, metastatic non-small cell lung cancer currently following with oncology, hypertension, dyslipidemia, and diabetes who presented to the ER with worsening shortness of breath. In the ER he underwent an extensive evaluation. Laboratory analysis was rather unremarkable, BNP was 535. Chest x-ray showed patchy retrocardiac and medial right basilar opacities with a small right-sided pleural effusion. He is admitted for further monitoring. He was started on Lasix and echocardiogram was ordered which showed an ejection fraction of 55-60% and mild mitral regurgitation. He was seen by pulmonary. There was no indication for thoracentesis on the right Patient seen and examined at bedside. He states he is overall just not feeling well. He denies any shortness of breath at this time. Denies any chest pain, nausea, vomiting and inability to eat. He is very nonspecific about his symptoms but states he just does not feel well. General: nontoxic, no distress, appears older than stated age Derm: warm, dry Head: atraumatic, normocephalic, symmetric Eyes: EOMI, no lid lag, anicteric sclera Mouth: no lip lesion, mucus membranes moist Cardiovascular: S1S2 reg, no murmur, positive posterior tibial pulse bilateral, Lungs: Coarse breath sounds bilateral, no rhonchi, no rales , no accessory muscle use Abdominal: soft, nontender to palpation, no guarding, no appreciable organomegaly Ext: no gross muscle atrophy, no edema, no contractures Neuro: CN II-XI grossly intact, no focal neuro deficits Psych: Alert, oriented, appropriate affect Assessment/plan: Dyspnea on exertion Volume overload, echo within normal Chronic respiratory failure requiring 4 L nasal cannula Metastatic non-small cell lung cancer Acute exacerbation of COPD -Bronchodilators -Transition to oral steroids - resume xarelto - check procalcitonin -Continue Lasix -Pulmonary recs apprecaited -Strict ins and outs, daily weights - repeat CXR in AM Diabetes type 2 - actos and oxempic on hold, -SSI RAMILA on CPAP Hypertension Hyperlipidemia Anticipate home in a.m. if pro-calcitonin was negative. Appreciate pulmonary recommendations. Patient will need close outpatient follow-up with his oncologist regarding increasing cancer burden. Objective - Vital Signs Vital signs: Vital Signs Temp 97.5 F L 09/24/21 12:00 Pulse 67 09/24/21 12:00 Resp 18 09/24/21 12:00 BP 113/56 09/24/21 12:00 Pulse Ox 97 09/24/21 12:00 FiO2 Intake & Output 09/23/21 09/24/21 09/24/21 18:59 06:59 18:59 Intake Total 240 420 Output Total 200 Balance 40 420 Intake: Oral 240 420 Output: Urine 200 - Labs CBC & Chem 7: 09/24/21 05:36 09/24/21 05:36 Labs: Abnormal Lab Results - Last 24 Hours (Table) 09/23/21 09/24/21 09/24/21 Range/Units 20:38 05:36 05:36 WBC 15.75 H (4.50-10.00) X 10*3/uL Hgb 12.7 L (13.0-17.0) g/dL MCH 24.5 L (27.0-32.0) pg MCHC 30.0 L (32.0-37.0) g/dL RDW 15.1 H (11.5-14.5) % Immature Gran # 0.12 H (0.00-0.04) X 10*3/uL Neutrophils # 14.90 H (1.80-7.70) X 10*3/uL Lymphocytes # 0.46 L (0.90-5.00) X 10*3/uL Eosinophils # 0 L (0.04-0.35) X 10*3/uL Glucose 188 H (70-110) mg/dL POC Glucose (mg/dL) 236 H (70-110) mg/dL 09/24/21 09/24/21 Range/Units 07:05 11:24 WBC (4.50-10.00) X 10*3/uL Hgb (13.0-17.0) g/dL MCH (27.0-32.0) pg MCHC (32.0-37.0) g/dL RDW (11.5-14.5) % Immature Gran # (0.00-0.04) X 10*3/uL Neutrophils # (1.80-7.70) X 10*3/uL Lymphocytes # (0.90-5.00) X 10*3/uL Eosinophils # (0.04-0.35) X 10*3/uL Glucose (70-110) mg/dL POC Glucose (mg/dL) 180 H 222 H (70-110) mg/dL
[2021-09-24 16:49] LABS: Glucose,Whole Blood 193 mg/dL (70-110)
[2021-09-24 20:39] LABS: Glucose,Whole Blood 224 mg/dL (70-110)
[2021-09-25] MEDS: SODIUM CHLORIDE 0.9% 1,000 ML IV SCH (04:07)
[2021-09-25 04:11] VITALS: RESP 18
[2021-09-25 05:03] VITALS: BP 155/80; TEMP 97.9
[2021-09-25 07:00] LABS: Glucose,Whole Blood 153 mg/dL (70-110)
[2021-09-25] MEDS: IPRATROPIUM-ALBUTEROL 3 ML NEB INHALATION SCH ×2 (07:25→11:22)
[2021-09-25 08:12] LABS: Basophils % (A) 0 %; Eosinophils % (A) 0 %; HCT 40.2 % (39.0-53.0); HGB 12.3 gm/dL (13.0-17.5); Hypochromasia Slight; Lymphocytes # (A) 0.5 k/uL (1.0-4.8); Lymphocytes % (A) 3 %; MCH 25.2 pg (25.0-35.0); MCHC 30.6 g/dL (31.0-37.0); MCV 82.4 fL (80.0-100.0); Mean Platelet Volume 7.4; Monocytes # (A) 0.9 k/uL (0-1.0); Monocytes % (A) 5 %; Neutrophils # (A) 15.3 k/uL (1.3-7.7); Neutrophils % (A) 91 %; Platelet Count 368 k/uL (150-450); RBC 4.88 m/uL (4.30-5.90); RDW 14.7 % (11.5-15.5); WBC 16.9 k/uL (3.8-10.6)
[2021-09-25] MEDS: levETIRAcetam 500 MG TAB PO SCH (08:14)
[2021-09-25] MEDS: PANTOPRAZOLE 40 MG TABLET PO SCH (08:14)
[2021-09-25] MEDS: ISOSORBIDE MONONITRATE ER 30 MG TAB.ER.24H PO SCH (08:14)
[2021-09-25] MEDS: FUROSEMIDE 40 MG TAB PO SCH (08:14)
[2021-09-25] MEDS: MONTELUKAST 10 MG TAB PO SCH (08:15)
[2021-09-25] MEDS: HYDROcodone/APAP 7.5-325MG 1 EACH TAB PO PRN (08:15)
[2021-09-25] MEDS: ATORVASTATIN 20 MG TAB PO SCH (08:15)
[2021-09-25] MEDS: DULoxetine HCL 60 MG CAPSULE.DR PO SCH (08:15)
[2021-09-25] MEDS: METOPROLOL TARTRATE 12.5 MG TAB PO SCH (08:15)
[2021-09-25] MEDS: BACLOFEN 10 MG TAB PO SCH (08:15)
[2021-09-25] MEDS: RIVAROXABAN 20 MG TAB PO SCH (08:15)
[2021-09-25] MEDS: INSULIN ASPART (NovoLOG) 100 UNIT/ML VIAL SQ SCH (08:15)
[2021-09-25] MEDS: GABAPENTIN 100 MG CAP PO SCH (08:15)
[2021-09-25] MEDS: LIDOCAINE 5% PATCH TOPICAL SCH (08:16)
[2021-09-25] MEDS ORDERED: predniSONE 20 MG TAB PO SCH (09:00)
--- NOTE | 2021-09-25 09:07 | XR ---
EXAMINATION TYPE: XR chest 1V portable DATE OF EXAM: 09/25/2021 COMPARISON: X-ray dated 09/23/2021 HISTORY: Fluid overload TECHNIQUE: Single frontal view of the chest is obtained. FINDINGS: Persistent heterogeneous opacity superimposed on the inferior aspect of the right hilum and the adjac ent portion of the right lower lung zone which could be related to underlying lesion at that location however associated infection cannot be excluded. Slightly congested pulmonary vasculature. Small opacity in the right midlung zone, possibly inflammatory/infectious in etiology. Recommend foll ow-up to complete resolution. Suspected small bilateral pleural effusions. No definite pneumothorax. Unchanged cardiomediastinal silhouette. IMPRESSION: As above.
[2021-09-25] MEDS: FLUTICASONE 50MCG/SPRAY NASAL 16GM EA NOSTRIL SCH (11:10)
--- NOTE | 2021-09-25 11:16 | P.CONS ---
History of Present Illness - Reason for Consult Consult date: 09/25/21 Goals of care Requesting physician: Apolonia Rojas - Chief Complaint Shortness of breath - History of Present Illness The patient is a 61-year-old man with a history of COPD and chronic respiratory failure requiring 4 L nasal cannula home O2, metastatic non-small cell lung cancer, hypertension/hyperlipidemia/diabetes, RAMILA on CPAP. He presented to the emergency center on 09/23/21 with complaints of worsening shortness of breath, especially with exertion. He attempted to use his inhalers, but did not have success with them. Otherwise, he denies fevers, chills, nausea, vomiting, chest pain, palpitations, cough, abdominal pain,diarrhea, dysuria,or numbness/weakness of extremities. Chest x-ray showed small right-sided pleural effusion. CBC was unremarkable. LFTs were unremarkable. Chemistry was unremarkable. The patient has metastatic adenocarcinoma of the lung with previous history of HEEL BUFFER metastases and the patient has undergone surgical resection and radiation therapy. The patient then followed up with oncology/radiation oncology from [facility] in [facility].. The patient had a recent PET/CT that was done on 09/12/2021 that showed focal uptake in the parotid gland a severe 4, left cervical adenopathy progressed compared to the earlier PET scan from April 2021 and supraclavicular lymphadenopathy on the left with various SUVs high as being at around 8.7. There is also superior mediastinal lymph node on the left measuring an SUV of 4 and extensive calcified nodes within the mediastinum and hilar regions bilaterally. There is also bilateral pleural effusion noted and some mild hilar uptake and subcarinal uptake in the lymph nodes. As such, the impression was that the patient has had some progression of the left neck and supraclavicular lymphadenopathy. The patient is currently receiving immunotherapy in the form of Keytruda. Note that since his last PET/CT from April 2021, the patient has undergone bilateral pleural effusion thoracentesis and a pericardiocentesis. The believes that the pericardial fluid was positive for malignancy. The pleural fluids are not known in terms of his cytology. Nevertheless, the follow-up PET scan that was done on 09/12/2021 showed recurrence of the pleural effusions amount of fluid in both lungs are essentially the same compared to the PET scan from April 2021. Per pulmonary service, the patient is stable. No need for any immediate intervention. The patient is better off being discharged to be followed up with his oncologist and decide if another thoracentesis will be of any benefit versus insertion of a Pleurx catheter. The results of the pleural fluid cytology obviously would also help in this decision making. The CAT scan shows some mild interval progression of the mediastinal lymphadenopathy consistent with malignancy. No evidence of any pericardial effusion. The amount of pleural fluid on both sides are essentially unchanged. Review of Systems Review Of Systems: Constitutional: No fever, no chills, no night sweats. Reports weakness and fatigue. HEENT: No headache. No blurred vision or double vision, no loss of vision. No loss of Hearing, no ringing in the ears, no dizziness. No nasal drainage or c ongestion. No epistaxis. No sore throat. Lungs: Reports shortness of breath with exertion. No cough or sputum production. Wears 4L home O2. Cardiovascular: No chest pain. No palpitations. No paroxysmal nocturnal dyspnea. No orthopnea. No lightheadedness or dizziness. No syncopal episodes. Abdominal: No abdominal pain. No nausea, vomiting. No diarrhea. No bloody or tarry stools. Genitourinary: No dysuria, increased frequency, urgency. No urinary retention. Musculoskeletal: No myalgias. + gerneralized weakness, no frequent falls. +chronic back pain. No neck pain. Integumentary: No wounds, no lesions. No rash or pruritus. No unusual bruising. No change in hair or nails. Neurologic: No aphasia. No facial droop. No change in mentation. No head injury. No headache. No paralysis. No paresthesia. Psychiatric: Reports mild depression. No anxiety. No mood swings. Past Medical History Past Medical History: Cancer, COPD, Diabetes Mellitus, Hyperlipidemia, Hypertension, Sleep Apnea/CPAP/BIPAP Additional Past Medical History / Comment(s): Patient has metastatic lung cancer, brain and neck also - sees a team of physicians at [facility] for his cancer treatment. History of Any Multi-Drug Resistant Organisms: None Reported Past Surgical History: Back Surgery, Hernia Repair, Orthopedic Surgery Additional Past Surgical History / Comment(s): BILAT knee replacements, 2 laminectomies L3-5, COLONOSCOPY, SPINAL CORD STIMULATOR. Excision of brain tumor 11/19/2020 at [facility]. Right inguinal hernia repair. Bilateral cataracts. Past Anesthesia/Blood Transfusion Reactions: No Reported Reaction Past Psychological History: Anxiety Smoking Status: Former smoker Past Alcohol Use History: None Reported Additional Past Alcohol Use History / Comment(s): QUIT SMOKING 2017 Past Drug Use History: None Reported - Past Family History Mother Family Medical History: Diabetes Mellitus, Myocardial Infarction ([place]) Father Additional Family Medical History / Comment(s): silicosis of the lung, lung removal Medications and Allergies Home Medications Medication Instructions Recorded Confirmed Type Baclofen 10 mg PO DAILY 05/10/17 09/23/21 History Isosorbide Mononitrate ER [Imdur] 30 mg PO DAILY #30 tab.er.24h 05/14/17 09/23/21 Rx DULoxetine HCL [Cymbalta] 60 mg PO DAILY 11/14/20 09/23/21 History HYDROcodone/APAP 7.5-325MG [[employer] 1 tab PO Q8H PRN 11/14/20 09/23/21 History 7.5-325] Lidocaine 5% Patch [Lidoderm 5% 1 patch TOPICAL DAILY 11/14/20 09/23/21 History Patch] Montelukast [Singulair] 10 mg PO DAILY 11/14/20 09/23/21 History Pioglitazone [Actos] 15 mg PO DAILY 11/14/20 09/23/21 History Rosuvastatin [Crestor] 10 mg PO DAILY 11/14/20 09/23/21 History Albuterol Inhaler [Ventolin Hfa 2 puff INHALATION RT-Q4H PRN 01/27/21 09/23/21 History Inhaler] Fluticasone Nasal [place] [Flonase 1 spray EA NOSTRIL BID 01/27/21 09/23/21 History Nasal [place]] Lidocaine 5% Oint [Xylocaine 5% 1 applic TOPICAL DAILY PRN 01/27/21 09/23/21 History Oint] levETIRAcetam [Keppra] 1,000 mg PO BID 01/27/21 09/23/21 History Furosemide [Lasix] 40 mg PO BID 09/23/21 09/23/21 History Gabapentin [Neurontin] 200 mg PO DAILY 09/23/21 09/23/21 History Ipratropium-Albuterol Nebulize 3 ml INHALATION RT-QID 09/23/21 09/23/21 History [Duoneb 0.5 mg-3 mg/3 ml Soln] Metoprolol Tartrate [Lopressor] 12.5 mg PO BID 09/23/21 09/23/21 History Omeprazole 20 mg PO DAILY 09/23/21 09/23/21 History Ondansetron [Zofran] 4 - 8 mg PO Q8H PRN 09/23/21 09/23/21 History Rivaroxaban [Xarelto] 20 mg PO DAILY 09/23/21 09/23/21 History Semaglutide [Ozempic] 1 mg SQ MO 09/23/21 09/23/21 History predniSONE [Deltasone] 40 mg PO DAILY #8 tab 09/25/21 Rx Allergies Allergy/AdvReac Type Severity Reaction Status Date / Time No Known Allergies Allergy Verified 01/27/21 08:19 Physical Exam Vitals: Vital Signs Temp Pulse Pulse Resp BP Pulse Ox 09/25/21 07:38 70 09/25/21 07:27 65 96 09/25/21 05:01 97.9 F 69 18 155/80 95 09/25/21 04:08 97.7 F 62 18 159/84 97 09/24/21 21:00 97.3 F L 68 16 126/56 95 09/24/21 19:55 16 09/24/21 15:43 76 09/24/21 15:36 75 09/24/21 12:00 97.5 F L 67 18 113/56 97 09/24/21 11:49 67 09/24/21 11:27 67 Intake and Output 09/24/21 09/25/21 09/25/21 22:59 06:59 14:59 Intake Total 800 Output Total 150 Balance -150 800 Intake: Oral 800 Output: Urine 150 Other: Voiding Method Toilet Urinal # Voids 1 3 General: Patient awake alert and oriented x 3. No acute distress. HEENT: Head is atraumatic, normocephalic Neck is supple. Sclerae are clear. Pupils equal, round and reactive to light bilaterally. CV: Heart regular in rate and rhythm positive S1 and S2. No clicks, rubs, or murmurs. Peripheral pulses equal. 2/4 Lungs: Diminished bases bilaterally. No wheezes rales or rhonchi. Respirations even and nonlabored. No intercostal retractions. Currently on 3L NC. Abdomen/GI: Soft. Bowel sounds present in all 4 quadrants. Bowel sounds normoactive. No abdominal tenderness. Musculoskeletal/ Extremities: Muscle strength and tone normal. Vascular: Radial pulses equal. 2/4. No peripheral edema Skin: Warm and dry. No rash. Neurologic: Awake, alert and oriented times 3. Cranial nerves II-XII grossly intact. Psychiatric: Appropriate mood and affect. Results CBC & Chem 7: 09/25/21 07:15 09/24/21 05:36 Labs: Abnormal Lab Results - Last 24 Hours (Table) 09/24/21 09/24/21 09/24/21 Range/Units 05:36 11:24 16:48 WBC (3.8-10.6) k/uL Hgb (13.0-17.5) gm/dL MCHC (31.0-37.0) g/dL Neutrophils # (1.3-7.7) k/uL Lymphocytes # (1.0-4.8) k/uL POC Glucose (mg/dL) 222 H 193 H (70-110) mg/dL Procalcitonin 0.10 H (0.02-0.09) ng/mL 09/24/21 09/25/21 09/25/21 Range/Units 20:38 06:59 07:15 WBC 16.9 H (3.8-10.6) k/uL Hgb 12.3 L (13.0-17.5) gm/dL MCHC 30.6 L (31.0-37.0) g/dL Neutrophils # 15.3 H (1.3-7.7) k/uL Lymphocytes # 0.5 L (1.0-4.8) k/uL POC Glucose (mg/dL) 224 H 153 H (70-110) mg/dL Procalcitonin (0.02-0.09) ng/mL Chest x-ray: report reviewed Assessment and Plan Assessment: Reason for consult - Goals of care Social * Occupation - Was in the [employer] for 20 years. Then worked in [employer]. Has been retired for 10 years now. * Marital status - to , Marlene, for 26 years * Children/grandchildren - had 3 children, 2 boys and a girl. One * Residence - [place] * Who do you reside with - and youngest son * ETOH - No * Tobacco - Former smoker, Quit 2018 * Illicit drugs - No Spiritual/Cultural * A spiritual person - "Not very" * Islam - Gnosticism * Belong to a particular sabianism - No * Beliefs a source of comfort and strength - No * Zoroastrian or cultural practices restrictions - None * EOL considerations/rituals? No Functional Assessment * Able to walk independently - Yes * Assistive devices - Uses walker and cane at home * Able to use the bathroom independently - Yes * Continent - Yes * Require assistance bathing- Needs help getting in and out of shower, uses shower chair * Able to feed self - Yes * Who prepares meals - and son * How many meals a day eaten - 3 meals a day * What percentage of meals eaten daily -Only able to take a couple of days of e ach meal, loss his sense of taste * Able to clean house/do laundry - Some of it * Transportation - Patient does not drive, his son and provide transportation * Able to shop - Yes * Who manages medications - Patient * Who manages finances - Patient PPS score - 60% Psychological/Emotional * Dementia present - No * Insight and judgment - Intact * Depression - Mild * Suicidal thoughts - No * Good support system - Yes, family * Patients goals - Optimize functionality and comfort * Frequent hospitalizations - Yes, recently * Desire to keep coming back to the hospital for treatment - Yes Symptoms * Pain - 05/08, chronic back pain, has nerve stimulator and states pain is well controlled. Continue Lidocaine patches, Baclofen, Neurotin, and [employer] * Fatigue - Chronic fatigue and weakness * SOB - dyspnea with exertion, states it edgar improved. Continue on Albuterol neb, Duoneb, and Prednisone * Insomnia - Occasionally, takes Melatonin at home * N/V - No * Anxiety - No * Depression - Mild depression, Continue Cymbalta * Confusion - No * Agitation - No * Hallucinations - No * Appetite/weight loss - Decreased appetite secondary to loss of taste. 10 lb weight loss in last 4 months. * Dysphagia - No * Constipation - Occasional with use of [employer]. Takes Miralax, colace, and/or Dulcolax at home. * Incontinence - No, voiding per urinal * Itch - No Plan: Summary/Goals - The patient is resting in bed and appears comfortable. Palliative care philosophies and services explained to patient. No visitors present. The patient states his goal is to continue aggressive treatment for his cancer. He recently had immunotherapy and is scheduled to start chemotherapy next week. He feels weaker than before admission. He is concerned that he staff has not gotten him out of be and moving around very much. He stated he would like to go home upon discharge. He would like a visiting nurse, PT/OT and OP palliative care. He will follow up with his oncologist from [facility] in [facility] for further treatment recommendations. He would benefit with symptom management from outpatient palliative care and is agreeable. Returned to room to explain palliative care philosophies and services to the patient's , Marlene, who is also agreeable. All questions answered. Recommendations - Discharge home with visiting nurse, PT/OT, and OP palliative care Advanced Directives - No, information provided Code Status - Full code Thank you for this consult Mary Whitman [facility] Palliative Care [facility] [id number] Email: [email or web address] Time with Patient: Greater than 30
[2021-09-25 11:33] LABS: Glucose,Whole Blood 223 mg/dL (70-110)
[2021-09-25 11:38] VITALS: PULSE 71
--- NOTE | 2021-09-25 15:41 | P.PN ---
Subjective Progress Note Date: 09/25/21 58-year-old male patient with known history of COPD and chronic hypoxic respiratory failure maintained on oxygen 4 L per minute nasal cannula. The patient has metastatic adenocarcinoma of the lung with previous history of HISTORY DEPARTMENT CHAIR metastases and the patient has undergone surgical resection and radiation thera py. The patient then followed up with oncology/radiation oncology from [facility] in [facility].. The patient had a recent PET/CT that was done on 09/12/2021 that showed focal uptake in the parotid gland a severe 4, left cervical adenopathy progressed compared to the earlier PET scan from April 2021 and supraclavicular lymphadenopathy on the left with various SUVs high as being at around 8.7. There is also superior mediastinal lymph node on the left measuring an SUV of 4 and extensive calcified nodes within the mediastinum and hilar regions bilaterally. There is also bilateral pleural effusion noted and some mild hilar uptake and subcarinal uptake in the lymph nodes. As such, the impression was that the patient has had some progression of the left neck and supraclavicular lymphadenopathy. His other comorbidities include diabetes mellitus, hypertension and hyperlipidemia and the patient is morbidly obese and the patient has obstructive sleep apnea and he is not compliant to CPAP therapy. He suffers from chronic back pain and the patient is a pain stimulator in [facility]. The patient came into the hospital yesterday complaining of shortness of breath. He denied having any fever chills or night sweats. No nausea vomiting or emesis. No abdominal pain. No diarrhea. In the emergency, he was on 4 L with a pulse ox of 98%. CBC was unremarkable. LFTs were unremarkable. Chemistry was unremarkable. ProBNP level was 535 with a troponin level of 0.01. EKG showed normal sinus rhythm. The chest x-ray showing small right-sided pleural effusion. There was a patchy retrocardiac and basilar opacity. Note that the patient a white cell count of 9.4 with a hemoglobin of 13.2. He was admitted to the hospital and the patient was started on bronchodilators and sys temic steroids. He is on long-term anticoagulation with Xarelto 20 mg on a daily basis. All medications of been ordered resume. 09/24/2021, I'm seeing the patient for a follow-up. Fortunately, the was in the room and I was able to get some more information regarding his lung cancer treatment. The patient is currently receiving immunotherapy in the form of Keytruda. Note that since his last PET/CT from April 2021, the patient has undergone bilateral pleural effusion thoracentesis and a pericardiocentesis. The believes that the pericardial fluid was positive for malignancy. The pleural fluids are not known in terms of his cytology. Nevertheless, the follow-up PET scan that was done on 09/12/2021 showed recurrence of the pleural effusions amount of fluid in both lungs are essentially the same compared to the PET scan from April 2021. The patient is doing well for now. His own 40s about 2 by nasal cannula. He is a bit hesitant to undergo thoracentesis which I understand. I think it's better off sending this patient back to [facility] to meet his electronic sales and service technician and oncologist for further advice. His condition is stable for now. No signs of any infection for now. There is evidence of disease progression based on the most recent CAT scan findings. The patient is seen today 09/25/2021 in follow-up on the regular medical floor. He is currently sitting up in bed. Awake and alert in no acute distress. He is maintaining O2 saturations in the mid 90s on 3 L/m per nasal cannula. He's been afebrile. Hemodynamically stable. Improved and feeling back to his baseline. White count 16.9. Hemoglobin 12.3. Platelets 368. Glucose 153. He was contin ued on DuoNeb inhalations, Singulair, IV Solu-Medrol. Anticoagulated with Xarelto. Objective - Vital Signs Vital signs: Vital Signs Temp 97.9 F 09/25/21 05:01 Pulse 71 09/25/21 11:37 Resp 18 09/25/21 05:01 BP 155/80 09/25/21 05:01 Pulse Ox 96 09/25/21 07:27 FiO2 Intake & Output 09/24/21 09/25/21 09/25/21 18:59 06:59 18:59 Intake Total 420 800 Output Total 150 Balance 270 800 Intake: Oral 420 800 Output: Urine 150 Other: Voiding Method Toilet Urinal # Voids 1 3 - Exam GENERAL EXAM: Alert, 61-year-old male patient, on 3 L nasal cannula, comfortable in no apparent distress. HEAD: Normocephalic. EYES: Normal reaction of pupils, equal size. NOSE: Clear with pink turbinates. THROAT: No erythema or exudates. NECK: No masses, no JVD. CHEST: No chest wall deformity. LUNGS: Equal air entry with no crackles, wheeze, rhonchi or dullness. Diminished in the right lung base CVS: S1 and S2 normal with no audible murmur, regular rhythm. ABDOMEN: No hepatosplenomegaly, normal bowel sounds, no guarding or rigidity. SPINE: No scoliosis or deformity SKIN: No rashes CENTRAL NERVOUS SYSTEM: No focal deficits, tone is normal in all 4 extremities. EXTREMITIES: There is no peripheral edema. No clubbing, no cyanosis. Peripheral pulses are intact. - Labs CBC & Chem 7: 09/25/21 07:15 09/24/21 05:36 Labs: Abnormal Lab Results - Last 24 Hours (Table) 09/24/21 09/24/21 09/24/21 Range/Units 05:36 16:48 20:38 WBC (3.8-10.6) k/uL Hgb (13.0-17.5) gm/dL MCHC (31.0-37.0) g/dL Neutrophils # (1.3-7.7) k/uL Lymphocytes # (1.0-4.8) k/uL POC Glucose (mg/dL) 193 H 224 H (70-110) mg/dL Procalcitonin 0.10 H (0.02-0.09) ng/mL 09/25/21 09/25/21 09/25/21 Range/Units 06:59 07:15 11:32 WBC 16.9 H (3.8-10.6) k/uL Hgb 12.3 L (13.0-17.5) gm/dL MCHC 30.6 L (31.0-37.0) g/dL Neutrophils # 15.3 H (1.3-7.7) k/uL Lymphocytes # 0.5 L (1.0-4.8) k/uL POC Glucose (mg/dL) 153 H 223 H (70-110) mg/dL Procalcitonin (0.02-0.09) ng/mL Assessment and Plan Assessment: Acute on chronic shortness of breath, multifactorial. No clear indication for pneumonia and the most recent PET/CT on 09/12/2021 revealing evidence of progression of the patient's supraclavicular and left neck lymphadenopathy consistent with his underlying adenocarcinoma of the lung. There is also evidence of bilateral pleural effusion, and the pleural effusions have been chronic and unchanged compared to the previous PET scan from April 2021. Furthermore, the patient possibly is a component of COPD with exacerbation. Metastatic adenocarcinoma of the lungs with brain metastasis, status post surgical resection and radiation therapy at [facility]. Most recent PET scan was noted from 09/12/2021. The patient is mediastinal lymphadenopathy and cervical lymphadenopathy which is progress. Bilateral pleural effusions remain unchanged. Patient is receiving Keytruda on outpatient basis every 3 weeks Malignant pericardial effusion Bilateral pleural effusion, pain is bilateral thoracentesis, fluid cytology is not known. There is a recurrence of the bilateral pleural fluid as mentioned. History of COPD/ emphysema, not home oxygen dependent at baseline Type 2 diabetes mellitus Hypertension Hyperlipidemia Morbid obesity History of sleep apnea syndrome, noncompliant with CPAP Chronic back pain, status post spinal cord stimulator Left salivary gland mass, with hypermetabolic uptake on the PET scan Plan: The patient was seen and evaluated Medications and labs reviewed Complete a prednisone taper Continue his home pulmonary medications He is cleared for discharge from the pulmonary standpoint Plan is to follow-up with his electronic sales and service technician for possible Pleurx catheter placement in the outpatient setting I have personally seen and examined the patient, performed the documentation and the assessment and plan as written. Number of minutes spent on the visit: 10. Plan: I have personally seen and examined the patient and reviewed the documentation. I performed a joint evaluation with the nurse practitioner in this evaluation was done more than 15 minutes. I fully agree with the documentation above and the plan of care.
--- NOTE | 2021-09-25 17:41 | P.DS ---
Providers Date of admission: 09/23/21 05:55 Expected date of discharge: 09/25/21 Attending physician: Kaylee Patterson MD Consults: 09/23/21 05:54 Consult Physician Routine Consulting Provider: Isiah Naylor Consult Reason/Comments: known Do you want consulting provider notified?: Yes 09/25/21 08:01 Consult to Palliative Care Routine Consulting Provider: Mary Whitman Consult Reason/Comments: lung cancer, likely d/c today, seems like just decline overall Do you want consulting provider notified?: Yes Primary care physician: Vargas Husseinranjit Hospital Course: Discharge Diagnosis: Acute exacerbation of COPD Chronic respiratory failure requiring 4 L nasal cannula Metastatic non-small cell lung cancer Diabetes type 2 RAMILA on CPAP Hypertension Hyperlipidemia Hospital Course: Patient is a 61-year-old man with COPD and chronic respiratory failure on 4 L nasal cannula, metastatic non-small cell lung cancer currently following with oncology, hypertension, dyslipidemia, and diabetes who presented to the ER with worsening shortness of breath. In the ER he underwent an extensive evaluation. Laboratory analysis was rather unremarkable, BNP was 535. Chest x-ray showed patchy retrocardiac and medial right basilar opacities with a small right-sided pleural effusion. He is admitted for further monitoring. He was started on Lasix and echocardiogram was ordered which showed an ejection fraction of 55-60% and mild mitral regurgitation. He was seen by pulmonary. There was no indication for thoracentesis on the right. His procalcitonin came back negative. He was feeling slightly better. He continued to have his chronic headaches. He was determined stable for discharge home as heart failure and p neumonia were ruled out. He plans to follow back up with in [place] for continued chemo. He was seen by the palliative care nurse practitioner and arrangements were made for outpatient home care and palliative. He will complete an additional 4 days of prednisone on discharge for his COPD exacerbation. Patient seen and examined at bedside. He wants to go home. He is feeling slightly better than yesterday. He continues to have his chronic headache and overall feels fatigued. We discussed that he had some increased uptake in his lymph nodes on his recent PET scan and that he should discuss this with his oncologist. He was supposed to have an appointment yesterday but he was in the hospital. He will follow up with them next week. Vital signs reviewed and stable. General: nontoxic, no distress, appears at stated age Derm: warm, dry Head: atraumatic, normocephalic, symmetric Eyes: EOMI, no lid lag, anicteric sclera Mouth: no lip lesion, mucus membranes moist Cardiovascular: S1S2 reg, no murmur, positive posterior tibial pulse bilateral, Lungs: CTA bilateral, no rhonchi, no rales , no accessory muscle use Abdominal: soft, nontender to palpation, no guarding, no appreciable organomegaly Ext: no gross muscle atrophy, no edema, no contractures Neuro: CN II-XI grossly intact, no focal neuro deficits Psych: Alert, oriented, appropriate affect A total of 35 minutes of time were spent preparing this complex discharge summary. Patient was discharged on 09/25/21. Patient Condition at Discharge: Good Plan - Discharge Summary Discharge Rx Participant: Yes New Discharge Prescriptions: New predniSONE [Deltasone] 40 mg PO DAILY #8 tab Continue Baclofen 10 mg PO DAILY Isosorbide Mononitrate ER [Imdur] 30 mg PO DAILY #30 tab.er.24h Pioglitazone [Actos] 15 mg PO DAILY Montelukast [Singulair] 10 mg PO DAILY Lidocaine 5% Patch [Lidoderm 5% Patch] 1 patch TOPICAL DAILY Rosuvastatin [Crestor] 10 mg PO DAILY Lidocaine 5% Oint [Xylocaine 5% Oint] 1 applic TOPICAL DAILY PRN PRN Reason: knee pain Albuterol Inhaler [Ventolin Hfa Inhaler] 2 puff INHALATION RT-Q4H PRN PRN Reason: Shortness Of Breath Rivaroxaban [Xarelto] 20 mg PO DAILY Ondansetron [Zofran] 4 - 8 mg PO Q8H PRN PRN Reason: Nausea Gabapentin [Neurontin] 200 mg PO DAILY HYDROcodone/APAP 7.5-325MG [[place] 7.5-325] 1 tab PO Q8H PRN PRN Reason: Pain DULoxetine HCL [Cymbalta] 60 mg PO DAILY levETIRAcetam [Keppra] 1,000 mg PO BID Fluticasone Nasal [place] [Flonase Nasal [place]] 1 spray EA NOSTRIL BID Omeprazole 20 mg PO DAILY Metoprolol Tartrate [Lopressor] 12.5 mg PO BID Furosemide [Lasix] 40 mg PO BID Semaglutide [Ozempic] 1 mg SQ MO Ipratropium-Albuterol Nebulize [Duoneb 0.5 mg-3 mg/3 ml Soln] 3 ml INHALATION RT-QID Discharge Medication List Baclofen 10 mg PO DAILY 05/10/17 [History] Isosorbide Mononitrate ER [Imdur] 30 mg PO DAILY #30 tab.er.24h 05/14/17 [Rx] DULoxetine HCL [Cymbalta] 60 mg PO DAILY 11/14/20 [History] HYDROcodone/APAP 7.5-325MG [[place] 7.5-325] 1 tab PO Q8H PRN 11/14/20 [History] Lidocaine 5% Patch [Lidoderm 5% Patch] 1 patch TOPICAL DAILY 11/14/20 [History] Montelukast [Singulair] 10 mg PO DAILY 11/14/20 [History] Pioglitazone [Actos] 15 mg PO DAILY 11/14/20 [History] Rosuvastatin [Crestor] 10 mg PO DAILY 11/14/20 [History] Albuterol Inhaler [Ventolin Hfa Inhaler] 2 puff INHALATION RT-Q4H PRN 01/27/21 [History] Fluticasone Nasal [place] [Flonase Nasal [place]] 1 spray EA NOSTRIL BID 01/27/21 [History] Lidocaine 5% Oint [Xylocaine 5% Oint] 1 applic TOPICAL DAILY PRN 01/27/21 [History] levETIRAcetam [Keppra] 1,000 mg PO BID 01/27/21 [History] Furosemide [Lasix] 40 mg PO BID 09/23/21 [History] Gabapentin [Neurontin] 200 mg PO DAILY 09/23/21 [History] Ipratropium-Albuterol Nebulize [Duoneb 0.5 mg-3 mg/3 ml Soln] 3 ml INHALATION RT -QID 09/23/21 [History] Metoprolol Tartrate [Lopressor] 12.5 mg PO BID 09/23/21 [History] Omeprazole 20 mg PO DAILY 09/23/21 [History] Ondansetron [Zofran] 4 - 8 mg PO Q8H PRN 09/23/21 [History] Rivaroxaban [Xarelto] 20 mg PO DAILY 09/23/21 [History] Semaglutide [Ozempic] 1 mg SQ MO 09/23/21 [History] predniSONE [Deltasone] 40 mg PO DAILY #8 tab 09/25/21 [Rx] Follow up Appointment(s)/Referral(s): Beto Ng MD [Primary Care Provider] - 1-2 days (office will call patient with date and time of appt.) [facility], [NON-STAFF] - As Needed Care,[facility] [NON-STAFF] - As Needed Patient Instructions/Handouts: Prednisone (By mouth), COPD (Chronic Obstructive Pulmonary Disease) (DC) Activity/Diet/Wound Care/Special Instructions: Activity: as tolerated Diet: Heart healthy Special Instructions: Follow with home care and palliative care Follow with Dr. Pappas next week Follow with your air table operator in 1-2 weeks Discharge Disposition: HOME SELF-CARE
== END 2021-09-25 12:15 | disposition home or self-care (01) ==
LOC: EC 04:19 → 5NMEDONC 05:55
PROVIDERS: ADMIT Internal Medicine; ATTEND Internal Medicine
DX: J43.9 Emphysema, unspecified (principal); C34.90 Malignant neoplasm of unspecified part of unspecified bronchus or lung; J96.11 Chronic respiratory failure with hypoxia; C79.31 Secondary malignant neoplasm of brain; G47.33 Obstructive sleep apnea (adult) (pediatric); E11.9 Type 2 diabetes mellitus without complications; I10 Essential (primary) hypertension; E78.5 Hyperlipidemia, unspecified; E87.70 Fluid overload, unspecified; C79.89 Secondary malignant neoplasm of other specified sites; K11.9 Disease of salivary gland, unspecified; I31.3 Pericardial effusion (noninflammatory); J90 Pleural effusion, not elsewhere classified; R59.1 Generalized enlarged lymph nodes; Z91.19 Patient's noncompliance with other medical treatment and regimen; G89.29 Other chronic pain; M54.9 Dorsalgia, unspecified; I08.1 Rheumatic disorders of both mitral and tricuspid valves; F32.A Depression, unspecified; G47.00 Insomnia, unspecified; K59.00 Constipation, unspecified; E66.01 Morbid (severe) obesity due to excess calories; Z68.37 Body mass index [BMI] 37.0-37.9, adult; Z51.5 Encounter for palliative care; Z20.822 Contact with and (suspected) exposure to COVID-19; F41.9 Anxiety disorder, unspecified; Z79.84 Long term (current) use of oral hypoglycemic drugs; Z79.82 Long term (current) use of aspirin; Z79.4 Long term (current) use of insulin; Z79.899 Other long term (current) drug therapy; Z96.653 Presence of artificial knee joint, bilateral; Z87.891 Personal history of nicotine dependence; Z96.82 Presence of neurostimulator; Z98.42 Cataract extraction status, left eye; Z98.41 Cataract extraction status, right eye; Z79.01 Long term (current) use of anticoagulants; Z92.3 Personal history of irradiation; Z98.890 Other specified postprocedural states; Z83.3 Family history of diabetes mellitus; Z82.49 Family history of ischemic heart disease and other diseases of the circulatory system; Z82.5 Family history of asthma and other chronic lower respiratory diseases
CPT/HCPCS: 96376 ×3; 96361 ×2; 96374; 99285; 36415; 94640 ×6; 94760; 93005; 93306; 83880; 80053; 80048; 83735; 84484; 85025 ×3; 85610; 85730; 84145; 87635; 71045 ×2; G0378 ×3; J2930 ×2; J7512; Q9950

== ENCOUNTER 2021-10-03 02:24 | Inpatient (IN) | payer BC, MEDICARE, OTHER ==
[2021-10-03] MEDS ORDERED: SODIUM CHLORIDE 0.9% 500 ML 500 ML IV STA (02:30)
[2021-10-03] MEDS ORDERED: IPRATROPIUM-ALBUTEROL 3 ML NEB INHALATION STA (02:30)
[2021-10-03] MEDS ORDERED: SODIUM CHLORIDE 0.9% 1,000 ML IV STA (02:30)
--- NOTE | 2021-10-03 02:31 | ED ---
SOB HPI - General Stated Complaint: SOB Time Seen by Provider: 10/03/21 02:28 - Related Data Home Medications Medication Instructions Recorded Confirmed Baclofen 10 mg PO DAILY 05/10/17 09/23/21 DULoxetine HCL [Cymbalta] 60 mg PO DAILY 11/14/20 09/23/21 HYDROcodone/APAP 7.5-325MG [[place] 1 tab PO Q8H PRN 11/14/20 09/23/21 7.5-325] Lidocaine 5% Patch [Lidoderm 5% 1 patch TOPICAL DAILY 11/14/20 09/23/21 Patch] Montelukast [Singulair] 10 mg PO DAILY 11/14/20 09/23/21 Pioglitazone [Actos] 15 mg PO DAILY 11/14/20 09/23/21 Rosuvastatin [Crestor] 10 mg PO DAILY 11/14/20 09/23/21 Albuterol Inhaler [Ventolin Hfa 2 puff INHALATION RT-Q4H PRN 01/27/21 09/23/21 Inhaler] Fluticasone Nasal [place] [Flonase 1 spray EA NOSTRIL BID 01/27/21 09/23/21 Nasal [place]] Lidocaine 5% Oint [Xylocaine 5% 1 applic TOPICAL DAILY PRN 01/27/21 09/23/21 Oint] levETIRAcetam [Keppra] 1,000 mg PO BID 01/27/21 09/23/21 Furosemide [Lasix] 40 mg PO BID 09/23/21 09/23/21 Gabapentin [Neurontin] 200 mg PO DAILY 09/23/21 09/23/21 Ipratropium-Albuterol Nebulize 3 ml INHALATION RT-QID 09/23/21 09/23/21 [Duoneb 0.5 mg-3 mg/3 ml Soln] Metoprolol Tartrate [Lopressor] 12.5 mg PO BID 09/23/21 09/23/21 Omeprazole 20 mg PO DAILY 09/23/21 09/23/21 Ondansetron [Zofran] 4 - 8 mg PO Q8H PRN 09/23/21 09/23/21 Rivaroxaban [Xarelto] 20 mg PO DAILY 09/23/21 09/23/21 Semaglutide [Ozempic] 1 mg SQ MO 09/23/21 09/23/21 Previous Rx's Medication Instructions Recorded Isosorbide Mononitrate ER [Imdur] 30 mg PO DAILY #30 tab.er.24h 05/14/17 predniSONE [Deltasone] 40 mg PO DAILY #8 tab 09/25/21 Allergies Allergy/AdvReac Type Severity Reaction Status Date / Time No Known Allergies Allergy Verified 01/27/21 08:19 Review of Systems ROS Statement: Those systems with pertinent positive or pertinent negative responses have been documented in the HPI. ROS Other: All systems not noted in ROS Statement are negative. Past Medical History Past Medical History: Cancer, COPD, Diabetes Mellitus, Hyperlipidemia, Hypertension, Sleep Apnea/CPAP/BIPAP Additional Past Medical History / Comment(s): Patient has metastatic lung cancer, brain and neck also - sees a team of physicians at [facility] for his cancer treatment. History of Any Multi-Drug Resistant Organisms: None Reported Past Surgical History: Back Surgery, Hernia Repair, Orthopedic Surgery Additional Past Surgical History / Comment(s): BILAT knee replacements, 2 laminectomies L3-5, COLONOSCOPY, SPINAL CORD STIMULATOR. Excision of brain tumor 11/19/2020 at [facility]. Right inguinal hernia repair. Bilateral cataracts. Past Anesthesia/Blood Transfusion Reactions: No Reported Reaction Past Psychological History: Anxiety Smoking Status: Former smoker Past Alcohol Use History: None Reported Additional Past Alcohol Use History / Comment(s): QUIT SMOKING 2017 Past Drug Use History: None Reported - Past Family History Mother Family Medical History: Diabetes Mellitus, Myocardial Infarction (MD) Father Additional Family Medical History / Comment(s): silicosis of the lung, lung removal Course Vital Signs 10/03/21 10/03/21 10/03/21 02:27 03:48 04:06 Pulse Rate 85 88 95 Respiratory 20 Rate Blood Pressure 151/95 O2 Sat by Pulse 98 Oximetry Medical Decision Making - Lab Data Result diagrams: 10/03/21 03:05 10/03/21 03:05 Lab Results 10/03/21 10/03/21 10/03/21 Range/Units 03:05 03:05 03:05 WBC 11.8 H (3.8-10.6) k/uL RBC 4.79 (4.30-5.90) m/uL Hgb 12.6 L (13.0-17.5) gm/dL Hct 38.6 L (39.0-53.0) % MCV 80.8 (80.0-100.0) fL MCH 26.3 (25.0-35.0) pg MCHC 32.6 (31.0-37.0) g/dL RDW 14.7 (11.5-15.5) % Plt Count 331 (150-450) k/uL MPV 7.4 Neutrophils % 81 % Lymphocytes % 7 % Monocytes % 8 % Eosinophils % 3 % Basophils % 1 % Neutrophils # 9.6 H (1.3-7.7) k/uL Lymphocytes # 0.8 L (1.0-4.8) k/uL Monocytes # 0.9 (0-1.0) k/uL Eosinophils # 0.4 (0-0.7) k/uL Basophils # 0.1 (0-0.2) k/uL PT 10.8 (9.0-12.0) sec INR 1.0 (<1.2) APTT 24.4 (22.0-30.0) sec Sodium 132 L (137-145) mmol/L Potassium 8.3 H* (3.5-5.1) mmol/L Chloride 103 (98-107) mmol/L Carbon Dioxide 25 (22-30) mmol/L Anion Gap 4 mmol/L BUN 16 (9-20) mg/dL Creatinine 0.87 (0.66-1.25) mg/dL Est GFR (CKD-EPI)AfAm >90 (>60 ml/min/1.73 sqM) Est GFR (CKD-EPI)NonAf >90 (>60 ml/min/1.73 sqM) Glucose 151 H (74-99) mg/dL POC Glucose (mg/dL) (70-110) mg/dL POC Glu [place] As[employer]er ID Plasma Lactic Acid [place] (0.7-2.0) mmol/L Calcium 7.6 L (8.4-10.2) mg/dL Total Bilirubin 1.6 H (0.2-1.3) mg/dL AST 56 (17-59) U/L ALT 21 (4-49) U/L Alkaline Phosphatase 182 H (38-126) U/L Troponin I (0.000-0.034) ng/mL NT-Pro-B Natriuret Pep pg/mL Total Protein 7.0 (6.3-8.2) g/dL Albumin 3.2 L (3.5-5.0) g/dL 10/03/21 10/03/21 10/03/21 Range/Units 03:05 03:05 03:05 WBC (3.8-10.6) k/uL RBC (4.30-5.90) m/uL Hgb (13.0-17.5) gm/dL Hct (39.0-53.0) % MCV (80.0-100.0) fL MCH (25.0-35.0) pg MCHC (31.0-37.0) g/dL RDW (11.5-15.5) % Plt Count (150-450) k/uL MPV Neutrophils % % Lymphocytes % % Monocytes % % Eosinophils % % Basophils % % Neutrophils # (1.3-7.7) k/uL Lymphocytes # (1.0-4.8) k/uL Monocytes # (0-1.0) k/uL Eosinophils # (0-0.7) k/uL Basophils # (0-0.2) k/uL PT (9.0-12.0) sec INR (<1.2) APTT (22.0-30.0) sec Sodium (137-145) mmol/L Potassium (3.5-5.1) mmol/L Chloride (98-107) mmol/L Carbon Dioxide (22-30) mmol/L Anion Gap mmol/L BUN (9-20) mg/dL Creatinine (0.66-1.25) mg/dL Est GFR (CKD-EPI)AfAm (>60 ml/min/1.73 sqM) Est GFR (CKD-EPI)NonAf (>60 ml/min/1.73 sqM) Glucose (74-99) mg/dL POC Glucose (mg/dL) (70-110) mg/dL POC Glu [place] [employer] ID Plasma Lactic Acid [place] 1.4 (0.7-2.0) mmol/L Calcium (8.4-10.2) mg/dL Total Bilirubin (0.2-1.3) mg/dL AST (17-59) U/L ALT (4-49) U/L Alkaline Phosphatase (38-126) U/L Troponin I 0.012 (0.000-0.034) ng/mL NT-Pro-B Natriuret Pep 633 pg/mL Total Protein (6.3-8.2) g/dL Albumin (3.5-5.0) g/dL 10/03/21 Range/Units 05:14 WBC (3.8-10.6) k/uL RBC (4.30-5.90) m/uL Hgb (13.0-17.5) gm/dL Hct (39.0-53.0) % MCV (80.0-100.0) fL MCH (25.0-35.0) pg MCHC (31.0-37.0) g/dL RDW (11.5-15.5) % Plt Count (150-450) k/uL MPV Neutrophils % % Lymphocytes % % Monocytes % % Eosinophils % % Basophils % % Neutrophils # (1.3-7.7) k/uL Lymphocytes # (1.0-4.8) k/uL Monocytes # (0-1.0) k/uL Eosinophils # (0-0.7) k/uL Basophils # (0-0.2) k/uL PT (9.0-12.0) sec INR (<1.2) APTT (22.0-30.0) sec Sodium (137-145) mmol/L Potassium (3.5-5.1) mmol/L Chloride (98-107) mmol/L Carbon Dioxide (22-30) mmol/L Anion Gap mmol/L BUN (9-20) mg/dL Creatinine (0.66-1.25) mg/dL Est GFR (CKD-EPI)AfAm (>60 ml/min/1.73 sqM) Est GFR (CKD-EPI)NonAf (>60 ml/min/1.73 sqM) Glucose (74-99) mg/dL POC Glucose (mg/dL) 158 H (70-110) mg/dL POC Glu [place] [employer]er ID Braysher, Olga Plasma Lactic Acid [place] (0.7-2.0) mmol/L Calcium (8.4-10.2) mg/dL Total Bilirubin (0.2-1.3) mg/dL AST (17-59) U/L ALT (4-49) U/L Alkaline Phosphatase (38-126) U/L Troponin I (0.000-0.034) ng/mL NT-Pro-B Natriuret Pep pg/mL Total Protein (6.3-8.2) g/dL Albumin (3.5-5.0) g/dL - EKG Data -: EKG Interpreted by Me (EKG shows sinus rhythm PVCs 78 UT 143 QRS 102 QTC 428) Disposition Clinical Impression: Acute exacerbation of COPD with asthma, Community acquired pneumonia, COPD exacerbation, Hyperkalemia Disposition: ADMITTED IP TO THIS HOSP Condition: Fair Is patient prescribed a controlled substance at d/c from ED?: No Referrals: Beto Ng MD [Primary Care Provider] - 1-2 days
[2021-10-03 03:22] LABS: Basophils # (A) 0.1 k/uL (0-0.2); Basophils % (A) 1 %; Eosinophils # (A) 0.4 k/uL (0-0.7); Eosinophils % (A) 3 %; HCT 38.6 % (39.0-53.0); HGB 12.6 gm/dL (13.0-17.5); Lymphocytes # (A) 0.8 k/uL (1.0-4.8); Lymphocytes % (A) 7 %; MCH 26.3 pg (25.0-35.0); MCHC 32.6 g/dL (31.0-37.0); MCV 80.8 fL (80.0-100.0); Mean Platelet Volume 7.4; Monocytes # (A) 0.9 k/uL (0-1.0); Monocytes % (A) 8 %; Neutrophils # (A) 9.6 k/uL (1.3-7.7); Neutrophils % (A) 81 %; Platelet Count 331 k/uL (150-450); RBC 4.79 m/uL (4.30-5.90); RDW 14.7 % (11.5-15.5); WBC 11.8 k/uL (3.8-10.6)
[2021-10-03 03:32] LABS: Partial Thromboplastin Time 24.4 sec (22.0-30.0); Prothrombin Time 10.8 sec (9.0-12.0)
[2021-10-03 03:42] LABS: ALT 21 U/L (4-49); AST 56 U/L (17-59); African American GFR (CKD) >90 (>60 ml/min/1.73 sqM); Albumin 3.2 g/dL (3.5-5.0); Alkaline Phosphatase 182 U/L (38-126); Anion Gap 4 mmol/L; Blood Urea Nitrogen 16 mg/dL (9-20); Calcium 7.6 mg/dL (8.4-10.2); Carbon Dioxide 25 mmol/L (22-30); Chloride 103 mmol/L (98-107); Glucose 151 mg/dL (74-99); Non-African American GFR(CKD) >90 (>60 ml/min/1.73 sqM); Sodium 132 mmol/L (137-145); Total Bilirubin 1.6 mg/dL (0.2-1.3)
--- NOTE | 2021-10-03 04:11 | XR ---
EXAM: XR Chest, 1 View CLINICAL HISTORY: ITS.REASON XR Reason: sob TECHNIQUE: Frontal view of the chest. COMPARISON: 09/25/2021 FINDINGS: Lungs: Mild right perihilar and medial right base opacities. Pleural space: Blunting of the bilateral costophrenic angles. No pneumothorax. Heart: Mild cardiomegaly. Mediastinum: Unremarkable. Bones/joints: Unremarkable. IMPRESSION: 1. Mild perihilar and medial right base opacities which may be due to edema, aspiration, or infection. 2. Small bilateral pleural effusions, unchanged from prior study.
[2021-10-03 04:19] LABS: Potassium 8.3 mmol/L (3.5-5.1)
[2021-10-03] MEDS ORDERED: INSULIN REGULAR 100 UNIT/ML VIAL (IV) IV ONE (04:41)
[2021-10-03] MEDS ORDERED: CALCIUM CHLORIDE 0.5 GM in SODIUM CHLORIDE 0.9% 50 ML IVPB ONE (04:41)
[2021-10-03] MEDS ORDERED: SODIUM BICARB 8.4% 50 ML SYR (1 MEQ/ML) IV STA (04:41)
[2021-10-03] MEDS ORDERED: DEXTROSE 50% SYRINGE 50 ML IVP STA (04:41)
[2021-10-03 05:20] LABS: Glucose,Whole Blood 158 mg/dL (70-110)
[2021-10-03] MEDS ORDERED: MORPHINE SULFATE 4 MG/ML SYRINGE IV PRN (05:39)
[2021-10-03] MEDS ORDERED: NALOXONE 0.4 MG/ML 1 ML VIAL IV PRN (05:39)
[2021-10-03] MEDS ORDERED: SODIUM CHLORIDE 0.9% 1,000 ML IV SCH (05:45)
[2021-10-03] MEDS ORDERED: SODIUM ZIRCONIUM CYCLOSILICATE 10 GM PACKET PO ONE (07:00)
[2021-10-03] MEDS ORDERED: METOPROLOL TARTRATE 12.5 MG TAB PO SCH (09:00)
[2021-10-03] MEDS ORDERED: ACETAMINOPHEN TAB 325 MG TAB PO PRN (09:16)
[2021-10-03 09:34] LABS: Glucose,Whole Blood 127 mg/dL (70-110)
--- NOTE | 2021-10-03 10:40 | P.NPCON ---
History of Present Illness - Reason for Consult hyperkalemia - History of Present Illness Reason for consultation: Hyperkalemia History of present illness: Patient is a 61-year-old male seen in renal consultation for hyperkalemia. Patient presented to the hospital with shortness of breath which he states has been going on for the last once. Patient states he has history of non-small cell lung cancer and follows with oncologist out of [facility]. Patient denies any history of kidney disease. Patient's creatinine was 0.87 on admission. Potassium was elevated at 8.3 but was a hemolyzed sample. This was medically treated with IV calcium, IV insulin with D50 as well as sodium bicarb in the ER. Repeat potassium level came back at 3.6. Patient admits to good urine output. Denies any hematuria or dysuria. Patient does have history of diabetes. He denies use of nonsteroidals. Denies any history of heart disease. Blood sugars are fairly well controlled. No edema. Oral intake has been fair. Vital signs are stable. General: Awake. No acute distress. HEENT: Head exam is unremarkable. LUNGS: Breath sounds decreased. HEART: Rate and Rhythm are regular. ABDOMEN: Soft, no distention. Obese. EXTREMITITES: No edema. 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 History of Any Multi-Drug Resistant Organisms: None Reported Past Surgical History: Back Surgery, Hernia Repair, Orthopedic Surgery Additional Past Surgical History / Comment(s): 11/19/20 excision brain tumor at [facility], bilateral knee arthroscopies, bilateral total knee art hroplasties, lumbar laminectomy, spinal cord stimulator, R inguinal hernia repair, colonoscopy, bilateral cataract removals. Past Anesthesia/Blood Transfusion Reactions: No Reported Reaction Smoking Status: Former smoker - Past Family History Mother Family Medical History: Diabetes Mellitus, Myocardial Infarction ([place]) Father Family Medical History: Respiratory Disorder Additional Family Medical History / Comment(s): silicosis of the lung, lung removal Medications and Allergies Home Medications Medication Instructions Recorded Confirmed Type Baclofen 10 mg PO DAILY 05/10/17 10/03/21 History Isosorbide Mononitrate ER [Imdur] 30 mg PO DAILY #30 tab.er.24h 05/14/17 10/03/21 Rx DULoxetine HCL [Cymbalta] 60 mg PO DAILY 11/14/20 10/03/21 History HYDROcodone/APAP 7.5-325MG [[place] 1 tab PO Q8H PRN 11/14/20 10/03/21 History 7.5-325] Lidocaine 5% Patch [Lidoderm 5% 1 patch TOPICAL DAILY 11/14/20 10/03/21 History Patch] Montelukast [Singulair] 10 mg PO DAILY 11/14/20 10/03/21 History Pioglitazone [Actos] 15 mg PO DAILY 11/14/20 10/03/21 History Rosuvastatin [Crestor] 10 mg PO DAILY 11/14/20 10/03/21 History Albuterol Inhaler [Ventolin Hfa 2 puff INHALATION RT-Q4H PRN 01/27/21 10/03/21 History Inhaler] Fluticasone Nasal [place] [Flonase 1 spray EA NOSTRIL BID 01/27/21 10/03/21 History Nasal [place]] Lidocaine 5% Oint [Xylocaine 5% 1 applic TOPICAL DAILY PRN 01/27/21 10/03/21 History Oint] levETIRAcetam [Keppra] 1,000 mg PO BID 01/27/21 10/03/21 History Furosemide [Lasix] 40 mg PO BID 09/23/21 10/03/21 History Gabapentin [Neurontin] 200 mg PO DAILY 09/23/21 10/03/21 History Ipratropium-Albuterol Nebulize 3 ml INHALATION RT-QID 09/23/21 10/03/21 History [Duoneb 0.5 mg-3 mg/3 ml Soln] Metoprolol Tartrate [Lopressor] 12.5 mg PO BID 09/23/21 10/03/21 History Omeprazole 20 mg PO DAILY 09/23/21 10/03/21 History Ondansetron [Zofran] 4 - 8 mg PO Q8H PRN 09/23/21 10/03/21 History Rivaroxaban [Xarelto] 20 mg PO DAILY 09/23/21 10/03/21 History Semaglutide [Ozempic] 1 mg SQ MO 09/23/21 10/03/21 History Allergies Allergy/AdvReac Type Severity Reaction Status Date / Time No Known Allergies Allergy Verified 10/03/21 07:22 Physical Exam Vitals: Vital Signs Pulse Resp BP Pulse Ox 10/03/21 08:57 87 16 151/92 95 10/03/21 07:14 89 16 170/108 95 10/03/21 06:31 90 16 177/100 96 10/03/21 04:06 95 10/03/21 03:48 88 10/03/21 02:45 22 10/03/21 02:27 85 20 151/95 98 Intake and Output 10/02/21 10/03/21 10/03/21 22:59 06:59 14:59 Other: Weight 68 kg 68 kg Results - Lab Results Most recent lab results Calcium 7.6 mg/dL (8.4-10.2) L 10/03/21 03:05 10/03/21 03:05 10/03/21 07:16 Assessment and Plan Plan: Assessment: 1. Hyperkalemia. This was a hemolyzed sample. He did receive medical treatment. Repeat potassium level 3.6. No evidence of acidosis. Blood sugars fairly well controlled. 2. Non-small cell lung cancer. 3. Hyponatremia. Slightly hypervolemic. Pleural effusions noted on chest x- ray. 4. Benign hypertension. Plan: Hep-Lock IV fluids. Repeat potassium level at 4 PM. Check bladder scan to rule out urinary retention. Add hydralazine 25 mg 3 times daily. Hold for systolic blood pressure less than 125. Thank you for the consultation. I will continue to follow the patient with you during his hospital stay.
[2021-10-03] MEDS: hydrALAZINE HCL 25 MG TAB PO SCH ×3 (12:46→21:18)
[2021-10-03] MEDS ORDERED: ALBUTEROL NEBULIZED 2.5 MG/3 ML INHALATION PRN (13:20)
--- NOTE | 2021-10-03 13:31 | P.HPIM ---
History of Present Illness H&P Date: 10/03/21 Chief Complaint: sob 61-year-old male with hx of lung cancer currently receiving treatment presented to the hospital with shortness of breath for the past several days. He was just discharged from the hospital after he was treated for COPD exacerbation. He denied fevers, cough or chest pain. No n/v/d. No sick contacts. He follows with oncologist out of [facility]. Denied leg swelling. In the ER his K was 8.3, sample hemolysed, was given the K lowering meds anyway however. CXR showed mild perihilar and medical right base opacities could be sec to edema, aspiration or infiltrates. Small bilateral pleural effusions. He was admitted for further management. 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 History of Any Multi-Drug Resistant Organisms: None Reported Past Surgical History: Back Surgery, Hernia Repair, Orthopedic Surgery Additional Past Surgical History / Comment(s): 11/19/20 excision brain tumor at [facility], bilateral knee arthroscopies, bilateral total knee arthroplasties, lumbar laminectomy, spinal cord stimulator, R inguinal hernia repair, colonoscopy, bilateral cataract removals. Past Anesthesia/Blood Transfusion Reactions: No Reported Reaction Smoking Status: Former smoker - Past Family History Mother Family Medical History: Diabetes Mellitus, Myocardial Infarction ([place]) Father Family Medical History: Respiratory Disorder Additional Family Medical History / Comment(s): silicosis of the lung, lung re moval Medications and Allergies Home Medications Medication Instructions Recorded Confirmed Type Baclofen 10 mg PO DAILY 05/10/17 10/03/21 History Isosorbide Mononitrate ER [Imdur] 30 mg PO DAILY #30 tab.er.24h 05/14/17 10/03/21 Rx DULoxetine HCL [Cymbalta] 60 mg PO DAILY 11/14/20 10/03/21 History HYDROcodone/APAP 7.5-325MG [[place] 1 tab PO Q8H PRN 11/14/20 10/03/21 History 7.5-325] Lidocaine 5% Patch [Lidoderm 5% 1 patch TOPICAL DAILY 11/14/20 10/03/21 History Patch] Montelukast [Singulair] 10 mg PO DAILY 11/14/20 10/03/21 History Pioglitazone [Actos] 15 mg PO DAILY 11/14/20 10/03/21 History Rosuvastatin [Crestor] 10 mg PO DAILY 11/14/20 10/03/21 History Albuterol Inhaler [Ventolin Hfa 2 puff INHALATION RT-Q4H PRN 01/27/21 10/03/21 History Inhaler] Fluticasone Nasal [place] [Flonase 1 spray EA NOSTRIL BID 01/27/21 10/03/21 History Nasal [place]] Lidocaine 5% Oint [Xylocaine 5% 1 applic TOPICAL DAILY PRN 01/27/21 10/03/21 History Oint] levETIRAcetam [Keppra] 1,000 mg PO BID 01/27/21 10/03/21 History Furosemide [Lasix] 40 mg PO BID 09/23/21 10/03/21 History Gabapentin [Neurontin] 200 mg PO DAILY 09/23/21 10/03/21 History Ipratropium-Albuterol Nebulize 3 ml INHALATION RT-QID 09/23/21 10/03/21 History [Duoneb 0.5 mg-3 mg/3 ml Soln] Metoprolol Tartrate [Lopressor] 12.5 mg PO BID 09/23/21 10/03/21 History Omeprazole 20 mg PO DAILY 09/23/21 10/03/21 History Ondansetron [Zofran] 4 - 8 mg PO Q8H PRN 09/23/21 10/03/21 History Rivaroxaban [Xarelto] 20 mg PO DAILY 09/23/21 10/03/21 History Semaglutide [Ozempic] 1 mg SQ MO 09/23/21 10/03/21 History Allergies Allergy/AdvReac Type Severity Reaction Status Date / Time No Known Allergies Allergy Verified 10/03/21 07:22 Physical Exam Vitals: Vital Signs Pulse Resp BP Pulse Ox 10/03/21 12:47 69 16 103/79 96 10/03/21 11:04 66 16 126/69 97 10/03/21 08:57 87 16 151/92 95 10/03/21 07:14 89 16 170/108 95 10/03/21 06:31 90 16 177/100 96 10/03/21 04:06 95 10/03/21 03:48 88 10/03/21 02:45 22 10/03/21 02:27 85 20 151/95 98 Intake and Output 10/02/21 10/03/21 10/03/21 22:59 06:59 14:59 Other: Weight 68 kg 68 kg Constitutional: No acute distress, conversant, pleasant Eyes:Anicteric sclerae, moist conjunctiva, no lid-lag, PERRLA, ENMT: Oropharynx clear, no erythema, exudates Neck: Supple, FROM, no masses, or JVD, No carotid bruits, No thyromegaly Lungs: Clear to auscultation, Clear to percussion, Normal respiratory effort, no accessory muscle use Cardiovascular: Heart regular in rate and rhythm, No murmurs, gallops, or rubs, No peripheral edema Abdominal: Soft, Nontender, no guarding, rebound or rigidity, Normoactive bowel sounds, No hepatomegaly, No splenomegaly, No palpable mass Skin: Normal temperature, tone, texture, turgor, no induration, No subcutaneous nodules, No rash, lesions, No ulcers Extremities: No digital cyanosis, No clubbing, Pedal pulses intact and symmetrical, Radial pulses intact and symmetrical, No calf tenderness Psychiatric: Alert and oriented to person, place and time, appropriate affect, intact judgement Neuro: Muscles Strength 5/5 in all 4 extremities, Sensation to light touch gross ly present throughout, Cranial nerves II-XII grossly intact, no focal sensory deficits Results CBC & Chem 7: 10/03/21 03:05 10/03/21 07:16 Labs: Abnormal Lab Results - Last 24 Hours (Table) 10/03/21 10/03/21 10/03/21 Range/Units 03:05 03:05 05:14 WBC 11.8 H (3.8-10.6) k/uL Hgb 12.6 L (13.0-17.5) gm/dL Hct 38.6 L (39.0-53.0) % Neutrophils # 9.6 H (1.3-7.7) k/uL Lymphocytes # 0.8 L (1.0-4.8) k/uL Sodium 132 L (137-145) mmol/L Potassium 8.3 H* (3.5-5.1) mmol/L Glucose 151 H (74-99) mg/dL POC Glucose (mg/dL) 158 H (70-110) mg/dL Calcium 7.6 L (8.4-10.2) mg/dL Total Bilirubin 1.6 H (0.2-1.3) mg/dL Alkaline Phosphatase 182 H (38-126) U/L Albumin 3.2 L (3.5-5.0) g/dL 10/03/21 Range/Units 09:24 WBC (3.8-10.6) k/uL Hgb (13.0-17.5) gm/dL Hct (39.0-53.0) % Neutrophils # (1.3-7.7) k/uL Lymphocytes # (1.0-4.8) k/uL Sodium (137-145) mmol/L Potassium (3.5-5.1) mmol/L Glucose (74-99) mg/dL POC Glucose (mg/dL) 127 H (70-110) mg/dL Calcium (8.4-10.2) mg/dL Total Bilirubin (0.2-1.3) mg/dL Alkaline Phosphatase (38-126) U/L Albumin (3.5-5.0) g/dL Thrombosis Risk Factor Assmnt - Choose All That Apply Any of the Below Risk Factors Present?: Yes Each Factor Represents 1 point: Abnormal pulmonary function (COPD), Serious lung disease incl. pneumonia (< 1month) Other Risk Factors: Yes Each Risk Factor Represents 2 Points: Age 61-74 years, Malignancy Other congenital or acquired thrombophilia - If yes, enter type in comment: No Thrombosis Risk Factor Assessment Total Risk Factor Score: 6 Thrombosis Risk Factor Assessment Level: High Risk Assessment and Plan Plan: Shortness of breath secondary to community-acquired pneumonia Acute on chronic hypoxic respiratory failure COPD exacerbation History of lung cancer Start antibiotics with ceftriaxone and azithromycin Oral prednisone Check pro calcitonin Check blood cultures Consult pulm Hyperkalemia Sample hemolysed, seen by nephro. Will follow. Chronic Malignant pericardial effusion Bilateral pleural effusions, Type 2 diabetes mellitus Hypertension Hyperlipidemia Morbid obesity History of sleep apnea syndrome, noncompliant with CPAP Chronic back pain, status post spinal cord stimulator All stable resume meds DVT prophylaxis On eliquis
--- NOTE | 2021-10-03 14:22 | CDI ---
Documentation Clarification Form Date: 10/03/2021 02:11:04 PM From: Bisi Guerra RN, CCDS Admit Date: 10/03/2021 05:39:00 AM Patient Name: Isiah Malin Visit Number: [id number] Discharge Date: ATTENTION: The Clinical Documentation Specialists (CDI) and [facility] Coding Staff appreciate your assistance in clarifying documentation. Please respond to the clarification below the line at the bottom and electronically sign. The CDI & [facility] Coding staff will review the response and follow-up if needed. Please note: Queries are made part of the Legal Health Record. If you have any questions, please contact the author of this message via ITS. Dr. Robby Khan Atrial Fibrillation is documented in the past medical history and in the H/P. Additional clarification regarding the type of atrial fibrillation is requested. History/Risk Factors: Atrial Fibrillation, Adenocarcinoma of lung, COPD, Diabetes Mellitus, Hypertension, chronic hypoxic respiratory failure on home O2 at 4/L ATC Clinical Indicators: 61-year-old male with past medical history showing atrial fibrillation. 10/03 vital sign: 151/95 85 20 10/03 EKG/telemetry: sinus rhythm PVCs 78 bpm Treatment: Xarelto 20 MG PO Daily Please clarify the type of atrial fibrillation, if known: [ ] Chronic [ ] Permanent [ ] Paroxysmal [ ] Persistent [ ] Other, please specify [ ] Unable to determine (Template Last Revised: July 2020) Chronic MTDD
[2021-10-03] MEDS: FUROSEMIDE 40 MG TAB PO SCH (14:24)
[2021-10-03] MEDS: predniSONE 20 MG TAB PO SCH (14:25)
[2021-10-03] MEDS: IPRATROPIUM-ALBUTEROL 3 ML NEB INHALATION SCH ×2 (15:23→21:01)
[2021-10-03] MEDS: AZITHROMYCIN 500 MG in SODIUM CHLORIDE 0.9% 250 ML IVPB SCH (15:43)
--- NOTE | 2021-10-03 15:45 | P.CNPUL ---
History of Present Illness Consult date: 10/03/21 Requesting physician: Kaylee Patterson Reason for consult: dyspnea, COPD, abnormal CXR/CT Chief complaint: Shortness of breath, cough, congestion History of present illness: This is a very pleasant 61-year-old male patient with a known history of obstructive sleep apnea not tolerant to CPAP, chronic back pain with the stimulator in place, chronic obstructive pulmonary disease with chronic hypoxemic respiratory failure on home oxygen at 4 L/m per nasal cannula. He also has metastatic adenocarcinoma of the lung with a previous history of TEAM MEMBER metastasis and had undergone surgical resection and radiation therapy. He has been followed at the [facility] and [facility]. A recent PET scan was done on 09/12/2021 that showed focal uptake in the parotid gland and left cervical adenopathy which has progressed compared to previous PET scan in April 2021. There was supraclavicular lymphadenopathy on the left and various SUV was high and being around 8.7. There is also superior mediastinal lymph node on the left measuring SUV of 4 and extensive calcified nodes with in the mediastinum and hilar regions bilaterally. There is bilateral pleural effusion and mild hilar uptake in the subcarinal uptake in the lymph nodes. The patient also had a previous pericardial fluid that was positive for malignancy. He had recently been receiving immunotherapy in the form of Keytruda. He was just discharged home from here for an acute on chronic hypoxic respiratory failure on 09/25/2021. He was to follow-up with his pulmonary team out of [place] and there was talk about possible Pleurx catheter placement. In the interim he developed worsening shortness of breath and came back to the e mergency room early this morning. Chest x-ray continues to show mild perihilar medial right base opacities. There is small bilateral pleural effusions unchanged compared to previous. He is seen in consultation in the emergency department. Currently sitting up on a stretcher. Awake and alert in no acute distress. He is maintaining O2 saturations in the mid 90s on 2 L/m per nasal cannula. He's been afebrile. Hemodynamically stable. White count 11.8. Hemoglobin 12.6. Sodium 132. Initial potassium 8.3, suspect hemolyzed, treated in potassium currently 3.6. BUN 16. Creatinine 0.87. Glucose 151. AST 56. ALT 21. BMP 633. Troponin negative 1. He's been initiated on DuoNeb inhala tions, prednisone, empiric antibiotics in the form of ceftriaxone and azithromycin. Review of Systems REVIEW OF SYSTEMS: CONSTITUTIONAL: Denies any recent significant weight loss or weight gain. EYES: Denies change in vision. EARS, NOSE, MOUTH, THROAT: Denies headaches, denies sore throat. CARDIOVASCULAR: Denies chest pain, palpitations or syncopal episodes. RESPIRATORY: Positive for shortness of breath, cough, congestion no hemoptysis. GASTROINTESTINAL: Denies change in appetite, denies abdominal pain GENITOURINARY: Denies hematuria, denies infections. MUSKULOSKELETAL: Denies pain, denies swelling. INTEGUMENTARY: Denies rash, denies eczema. NEUROLOGICAL: Denies recent memory loss, no recent seizure activity. PSYCHIATRIC: Denies anxiety, denies depression. HEMATOLOGIC/LYMPHATIC: Denies anemia, denies enlarged lymph nodes. Past Medical History Past Medical History: Atrial Fibrillation, Cancer, COPD, Diabetes Mellitus, Hyperlipidemia, Hypertension, Osteoarthritis (OA), Sleep Apnea/CPAP/BIPAP Additional Past Medical History / Comment(s): Adenocarcimoma of lung with TEAM MEMBER metastasis, resection of brain tumor and radiation treatments, chronic hypoxic respiratory failure/home oxygen at 4L/[place] ATC, bilateral pleural effusions, chronic headaches, chronic back pain. History of Any Multi-Drug Resistant Organisms: None Reported Past Surgical History: Back Surgery, Hernia Repair, Orthopedic Surgery Additional Past Surgical History / Comment(s): 11/19/20 excision brain tumor at [facility], bilateral knee arthroscopies, bilateral total knee arthroplasties, lumbar laminectomy, spinal cord stimulator, R inguinal hernia repair, colonoscopy, bilateral cataract removals. Past Anesthesia/Blood Transfusion Reactions: No Reported Reaction Smoking Status: Former smoker - Past Family History Mother Family Medical History: Diabetes Mellitus, Myocardial Infarction ([place]) Father Family Medical History: Respiratory Disorder Additional Family Medical History / Comment(s): silicosis of the lung, lung removal Medications and Allergies Home Medications Medication Instructions Recorded Confirmed Type Baclofen 10 mg PO DAILY 05/10/17 10/03/21 History Isosorbide Mononitrate ER [Imdur] 30 mg PO DAILY #30 tab.er.24h 05/14/17 10/03/21 Rx DULoxetine HCL [Cymbalta] 60 mg PO DAILY 11/14/20 10/03/21 History HYDROcodone/APAP 7.5-325MG [[place] 1 tab PO Q8H PRN 11/14/20 10/03/21 History 7.5-325] Lidocaine 5% Patch [Lidoderm 5% 1 patch TOPICAL DAILY 11/14/20 10/03/21 History Patch] Montelukast [Singulair] 10 mg PO DAILY 11/14/20 10/03/21 History Pioglitazone [Actos] 15 mg PO DAILY 11/14/20 10/03/21 History Rosuvastatin [Crestor] 10 mg PO DAILY 11/14/20 10/03/21 History Albuterol Inhaler [Ventolin Hfa 2 puff INHALATION RT-Q4H PRN 01/27/21 10/03/21 History Inhaler] Fluticasone Nasal [place] [Flonase 1 spray EA NOSTRIL BID 01/27/21 10/03/21 History Nasal [place]] Lidocaine 5% Oint [Xylocaine 5% 1 applic TOPICAL DAILY PRN 01/27/21 10/03/21 History Oint] levETIRAcetam [Keppra] 1,000 mg PO BID 01/27/21 10/03/21 History Furosemide [Lasix] 40 mg PO BID 09/23/21 10/03/21 History Gabapentin [Neurontin] 200 mg PO DAILY 09/23/21 10/03/21 History Ipratropium-Albuterol Nebulize 3 ml INHALATION RT-QID 09/23/21 10/03/21 History [Duoneb 0.5 mg-3 mg/3 ml Soln] Metoprolol Tartrate [Lopressor] 12.5 mg PO BID 09/23/21 10/03/21 History Omeprazole 20 mg PO DAILY 09/23/21 10/03/21 History Ondansetron [Zofran] 4 - 8 mg PO Q8H PRN 09/23/21 10/03/21 History Rivaroxaban [Xarelto] 20 mg PO DAILY 09/23/21 10/03/21 History Semaglutide [Ozempic] 1 mg SQ MO 09/23/21 10/03/21 History Allergies Allergy/AdvReac Type Severity Reaction Status Date / Time No Known Allergies Allergy Verified 10/03/21 07: Physical Exam Vitals: Vital Signs Temp Pulse Pulse Resp BP BP Pulse Ox 10/03/21 15:31 88 10/03/21 13:55 98 F 77 18 161/90 97 10/03/21 12:47 69 16 103/79 96 10/03/21 11:04 66 16 126/69 97 10/03/21 08:57 87 16 151/92 95 10/03/21 07:14 89 16 170/108 95 10/03/21 06:31 90 16 177/100 96 10/03/21 04:06 95 10/03/21 03:48 88 10/03/21 02:45 22 10/03/21 02:27 85 20 151/95 98 Intake and Output 10/03/21 10/03/21 10/03/21 06:59 14:59 22:59 Other: Voiding Method Urinal Weight 68 kg 68 kg GENERAL EXAM: Alert, pleasant 61-year-old male patient, on 2 L nasal cannula, fairly comfortable in no apparent distress. HEAD: Normocephalic. EYES: Normal reaction of pupils, equal size. NOSE: Clear with pink turbinates. THROAT: No erythema or exudates. NECK: No masses, no JVD. CHEST: No chest wall deformity. LUNGS: Equal air entry with faint crackles in the posterior bases. CVS: S1 and S2 normal with no audible murmur, regular rhythm. ABDOMEN: No hepatosplenomegaly, normal bowel sounds, no guarding or rigidity. SPINE: No scoliosis or deformity SKIN: No rashes CENTRAL NERVOUS SYSTEM: No focal deficits, tone is normal in all 4 extremities. EXTREMITIES: There is no peripheral edema. No clubbing, no cyanosis. Peripheral pulses are intact. Results - Laboratory Findings CBC and BMP: 10/03/21 03:05 10/03/21 07:16 PT/INR, D-dimer PT 10.8 sec (9.0-12.0) 10/03/21 03:05 INR 1.0 (<1.2) 10/03/21 03:05 Abnormal lab findings: Abnormal Labs 10/03/21 10/03/21 10/03/21 03:05 03:05 05:14 WBC 11.8 H Hgb 12.6 L Hct 38.6 L Neutrophils # 9.6 H Lymphocytes # 0.8 L Sodium 132 L Potassium 8.3 H* Glucose 151 H POC Glucose (mg/dL) 158 H Calcium 7.6 L Total Bilirubin 1.6 H Alkaline Phosphatase 182 H Albumin 3.2 L 10/03/21 09:24 WBC Hgb Hct Neutrophils # Lymphocytes # Sodium Potassium Glucose POC Glucose (mg/dL) 127 H Calcium Total Bilirubin Alkaline Phosphatase Albumin - Diagnostic Findings Chest x-ray: image reviewed Assessment and Plan Assessment: 1 Acute on chronic hypoxemic respiratory failure, multifactorial. No clear indication for pneumonia and the most recent PET/CT on 09/12/2021 revealing evidence of progression of the patient's supraclavicular and left neck lymphadenopathy consistent with his underlying adenocarcinoma of the lung. There is also evidence of bilateral pleural effusion, and the pleural effusions have been chronic and unchanged compared to the previous PET scan from April 2021. Furthermore, the patient possibly is a component of COPD with exacerbatio n. 2 Metastatic adenocarcinoma of the lungs with brain metastasis, status post surgical resection and radiation therapy at [facility]. Most recent PET scan was noted from 09/12/2021. The patient is mediastinal lymphadenopathy and cervical lymphadenopathy which is progress. Bilateral pleural effusions remain unchanged. Patient is receiving Keytruda on outpatient basis every 3 weeks 3 Malignant pericardial effusion 4 Bilateral pleural effusion, previous thoracentesis, fluid cytology is not known. There is a recurrence of the bilateral pleural fluid as mentioned. 5 History of COPD/ emphysema, not home oxygen dependent at baseline 6 Type 2 diabetes mellitus 7 Hypertension 8 Hyperlipidemia 9 Morbid obesity 10 History of sleep apnea syndrome, noncompliant with CPAP 11 Chronic back pain, status post spinal cord stimulator 12 Left salivary gland mass, with hypermetabolic uptake on the PET scan Plan: The patient was seen and evaluated Chest x-ray, labs and medications reviewed No plans for thoracentesis at this time Continue with bronchodilators, prednisone, empiric antibiotics Consult oncology as he is planning to transfer his care here for future treatment Titrate the FiO2 as tolerated If pleural fluid becomes significant may consider Pleurx catheter at some point We will continue to follow and make further recommendations based on his clinical status I have personally seen and examined the patient, performed the documentation and the assessment and plan as written. Number of minutes spent on the visit: 20.
[2021-10-03 16:38] VITALS: BMI 19.8
[2021-10-03 16:50] LABS: Glucose,Whole Blood 152 mg/dL (70-110)
[2021-10-03] MEDS: INSULIN ASPART (NovoLOG) 100 UNIT/ML VIAL SQ SCH ×2 (17:10→21:18)
--- NOTE | 2021-10-03 17:15 | P.CONS ---
History of Present Illness - Reason for Consult Consult date: 10/03/21 Second Opinion Lung Cancer. From [facility] Requesting physician: Beto Trimble - Chief Complaint SOB - History of Present Illness Isiah is a 61 year old male who has apparently been following Dr. Herber Askew through [facility] for diagnosis of Lung Cancer. Per the record he would like to establish care in [place], therefore we have been asked to further evaluate. At this time I do not have access to his oncologic records, they have been requested. He presented to ER for SOB and is currently being treated for pneumonia and hyperkalemia. Review of Systems All systems: negative Constitutional: Reports as per HPI Past Medical History Past Medical History: Atrial Fibrillation, Cancer, COPD, Diabetes Mellitus, Hyperlipidemia, Hypertension, Osteoarthritis (OA), Sleep Apnea/CPAP/BIPAP Additional Past Medical History / Comment(s): Adenocarcimoma of lung with MEAT TE[employer] LEAD metastasis, resection of brain tumor and radiation treatments, chronic hypoxic respiratory failure/home oxygen at 4L/[place] ATC, bilateral pleural effusions, chronic headaches, chronic back pain. History of Any Multi-Drug Resistant Organisms: None Reported Past Surgical History: Back Surgery, Hernia Repair, Orthopedic Surgery Additional Past Surgical History / Comment(s): 11/19/20 excision brain tumor at [facility], bilateral knee arthroscopies, bilateral total knee arthroplasties, lumbar laminectomy, spinal cord stimulator, R inguinal hernia repair, colonoscopy, bilateral cataract removals. Past Anesthesia/Blood Transfusion Reactions: No Reported Reaction Smoking Status: Former smoker - Past Family History Mother Family Medical History: Diabetes Mellitus, Myocardial Infarction ([place]) Father Family Medical History: Respiratory Disorder Additional Family Medical History / Comment(s): silicosis of the lung, lung removal Medications and Allergies Home Medications Medication Instructions Recorded Confirmed Type Baclofen 10 mg PO DAILY 05/10/17 10/03/21 History Isosorbide Mononitrate ER [Imdur] 30 mg PO DAILY #30 tab.er.24h 05/14/17 10/03/21 Rx DULoxetine HCL [Cymbalta] 60 mg PO DAILY 11/14/20 10/03/21 History HYDROcodone/APAP 7.5-325MG [[place] 1 tab PO Q8H PRN 11/14/20 10/03/21 History 7.5-325] Lidocaine 5% Patch [Lidoderm 5% 1 patch TOPICAL DAILY 11/14/20 10/03/21 History Patch] Montelukast [Singulair] 10 mg PO DAILY 11/14/20 10/03/21 History Pioglitazone [Actos] 15 mg PO DAILY 11/14/20 10/03/21 History Rosuvastatin [Crestor] 10 mg PO DAILY 11/14/20 10/03/21 History Albuterol Inhaler [Ventolin Hfa 2 puff INHALATION RT-Q4H PRN 01/27/21 10/03/21 History Inhaler] Fluticasone Nasal [place] [Flonase 1 spray EA NOSTRIL BID 01/27/21 10/03/21 History Nasal [place]] Lidocaine 5% Oint [Xylocaine 5% 1 applic TOPICAL DAILY PRN 01/27/21 10/03/21 History Oint] levETIRAcetam [Keppra] 1,000 mg PO BID 01/27/21 10/03/21 History Furosemide [Lasix] 40 mg PO BID 09/23/21 10/03/21 History Gabapentin [Neurontin] 200 mg PO DAILY 09/23/21 10/03/21 History Ipratropium-Albuterol Nebulize 3 ml INHALATION RT-QID 09/23/21 10/03/21 History [Duoneb 0.5 mg-3 mg/3 ml Soln] Metoprolol Tartrate [Lopressor] 12.5 mg PO BID 09/23/21 10/03/21 History Omeprazole 20 mg PO DAILY 09/23/21 10/03/21 History Ondansetron [Zofran] 4 - 8 mg PO Q8H PRN 09/23/21 10/03/21 History Rivaroxaban [Xarelto] 20 mg PO DAILY 09/23/21 10/03/21 History Semaglutide [Ozempic] 1 mg SQ MO 09/23/21 10/03/21 History Allergies Allergy/AdvReac Type Severity Reaction Status Date / Time No Known Allergies Allergy Verified 10/03/21 07:22 Physical Exam Vitals: Vital Signs Pulse Resp BP Pulse Ox 10/03/21 11:04 66 16 126/69 97 10/03/21 08:57 87 16 151/92 95 10/03/21 07:14 89 16 170/108 95 07/08/22 06:31 90 16 177/100 96 10/03/21 04:06 95 10/03/21 03:48 88 10/03/21 02:45 22 10/03/21 02:27 85 20 151/95 98 Intake and Output 10/02/21 10/03/21 10/03/21 22:59 06:59 14:59 Other: Weight 68 kg 68 kg Results CBC & Chem 7: 10/03/21 03:05 10/03/21 07:16 Labs: Abnormal Lab Results - Last 24 Hours (Table) 10/03/21 10/03/21 10/03/21 Range/Units 03:05 03:05 05:14 WBC 11.8 H (3.8-10.6) k/uL Hgb 12.6 L (13.0-17.5) gm/dL Hct 38.6 L (39.0-53.0) % Neutrophils # 9.6 H (1.3-7.7) k/uL Lymphocytes # 0.8 L (1.0-4.8) k/uL Sodium 132 L (137-145) mmol/L Potassium 8.3 H* (3.5-5.1) mmol/L Glucose 151 H (74-99) mg/dL POC Glucose (mg/dL) 158 H (70-110) mg/dL Calcium 7.6 L (8.4-10.2) mg/dL Total Bilirubin 1.6 H (0.2-1.3) mg/dL Alkaline Phosphatase 182 H (38-126) U/L Albumin 3.2 L (3.5-5.0) g/dL 10/03/21 Range/Units 09:24 WBC (3.8-10.6) k/uL Hgb (13.0-17.5) gm/dL Hct (39.0-53.0) % Neutrophils # (1.3-7.7) k/uL Lymphocytes # (1.0-4.8) k/uL Sodium (137-145) mmol/L Potassium (3.5-5.1) mmol/L Glucose (74-99) mg/dL POC Glucose (mg/dL) 127 H (70-110) mg/dL Calcium (8.4-10.2) mg/dL Total Bilirubin (0.2-1.3) mg/dL Alkaline Phosphatase (38-126) U/L Albumin (3.5-5.0) g/dL Comments: 09/17/21 -PET with increased lymphadenopathy in right supraclavicular. Chest x-ray: report reviewed
[2021-10-03] MEDS: HYDROcodone/APAP 7.5-325MG 1 EACH TAB PO PRN (19:15)
[2021-10-03 19:58] LABS: Glucose,Whole Blood 259 mg/dL (70-110)
[2021-10-03] MEDS: METOPROLOL TARTRATE 12.5 MG TAB PO SCH (21:18)
[2021-10-03] MEDS: levETIRAcetam 500 MG TAB PO SCH (21:18)
[2021-10-03] MEDS: FLUTICASONE 50MCG/SPRAY NASAL 16GM EA NOSTRIL SCH (21:19)
[2021-10-04] MEDS: HYDROcodone/APAP 7.5-325MG 1 EACH TAB PO PRN (02:30)
[2021-10-04 05:27] VITALS: TEMP 97.6
[2021-10-04 06:54] LABS: Glucose,Whole Blood 148 mg/dL (70-110)
[2021-10-04] MEDS ORDERED: PANTOPRAZOLE 40 MG TABLET PO SCH (07:30)
[2021-10-04] MEDS: INSULIN ASPART (NovoLOG) 100 UNIT/ML VIAL SQ SCH ×2 (08:14→12:42)
[2021-10-04] MEDS: FLUTICASONE 50MCG/SPRAY NASAL 16GM EA NOSTRIL SCH (08:15)
[2021-10-04] MEDS: hydrALAZINE HCL 25 MG TAB PO SCH (08:16)
[2021-10-04] MEDS: levETIRAcetam 500 MG TAB PO SCH (08:16)
[2021-10-04] MEDS: FUROSEMIDE 40 MG TAB PO SCH (08:16)
[2021-10-04] MEDS: METOPROLOL TARTRATE 12.5 MG TAB PO SCH (08:16)
[2021-10-04] MEDS: IPRATROPIUM-ALBUTEROL 3 ML NEB INHALATION SCH ×3 (08:17→15:12)
[2021-10-04] MEDS: predniSONE 20 MG TAB PO SCH (08:17)
[2021-10-04 08:41] LABS: Basophils # (A) 0.04 X 10*3/uL (0.00-0.10); Basophils % (A) 0.3 %; Eosinophils # (A) 0.01 X 10*3/uL (0.04-0.35); Eosinophils % (A) 0.1 %; HCT 44.2 % (39.6-50.0); HGB 13.6 g/dL (13.0-17.0); Immature Grans, Automated 1.8 %; Lymphocytes # (A) 0.69 X 10*3/uL (0.90-5.00); Lymphocytes % (A) 5.4 %; MCH 24.9 pg (27.0-32.0); MCHC 30.8 g/dL (32.0-37.0); MCV 80.8 fL (80.0-97.0); Mean Platelet Volume 10.3 fL (9.5-12.2); Monocytes # (A) 0.88 X 10*3/uL (0.20-1.00); Monocytes % (A) 6.9 %; NRBC Per 100 WBC 0 /100 WBCS (0.0-0.0); Neutrophils # (A) 10.89 X 10*3/uL (1.80-7.70); Neutrophils % (A) 85.5 %; Platelet Count 433 X 10*3/uL (140-440); RBC 5.47 X 10*6/uL (4.40-5.60); RDW 15.2 % (11.5-14.5); WBC 12.74 X 10*3/uL (4.50-10.00)
[2021-10-04] MEDS ORDERED: BACLOFEN 10 MG TAB PO SCH (09:00)
[2021-10-04] MEDS ORDERED: GABAPENTIN 100 MG CAP PO SCH (09:00)
[2021-10-04] MEDS ORDERED: ISOSORBIDE MONONITRATE ER 30 MG TAB.ER.24H PO SCH (09:00)
[2021-10-04] MEDS ORDERED: ATORVASTATIN 20 MG TAB PO SCH (09:00)
[2021-10-04] MEDS ORDERED: DULoxetine HCL 60 MG CAPSULE.DR PO SCH (09:00)
[2021-10-04] MEDS ORDERED: RIVAROXABAN 20 MG TAB PO SCH (09:00)
[2021-10-04] MEDS ORDERED: MONTELUKAST 10 MG TAB PO SCH (09:00)
[2021-10-04] MEDS: AZITHROMYCIN 500 MG in SODIUM CHLORIDE 0.9% 250 ML IVPB SCH (09:22)
[2021-10-04 09:30] LABS: African American GFR (CKD) 82.4 (60.0-200.0); Albumin 3.1 g/dL (3.8-4.9); Albumin/Globulin Ratio 0.94 (1.60-3.17); Anion Gap 13.1 mmol/L (10.00-18.00); BUN/Creat Ratio 11.82 Ratio (12.00-20.00); Calcium 8.8 mg/dL (8.7-10.3); Carbon Dioxide 26.9 mmol/L (20.0-27.5); Globulin 3.3 g/dL (1.6-3.3); Magnesium 1.9 mg/dL (1.5-2.4); Non-African American GFR(CKD) 71.1 (60.0-200.0); Phosphorus 4.5 mg/dL (2.4-5.1); Potassium 3.7 mmol/L (3.5-5.5); Total Bilirubin 0.4 mg/dL (0.30-1.20); Total Protein 6.4 g/dL (6.2-8.2)
--- NOTE | 2021-10-04 11:17 | P.PN ---
Subjective Progress Note Date: 10/04/21 Principal diagnosis: Shortness of breath, cough, congestion This is a very pleasant 61-year-old male patient with a known history of obstructive sleep apnea not tolerant to CPAP, chronic back pain with the stimulator in place, chronic obstructive pulmonary disease with chronic hypoxemic respiratory failure on home oxygen at 4 L/m per nasal cannula. He also has metastatic adenocarcinoma of the lung with a previous history of [employer] metastasis and had undergone surgical resection and radiation therapy. He has been followed at the [facility] and [facility]. A recent PET scan was done on 09/12/2021 that showed focal uptake in the parotid gland and left cervical adenopathy which has progressed compared to previous PET scan in April 2021. There was supraclavicular lymphadenopathy on the left and various SUV was high and being around 8.7. There is also superior mediastinal lymph node on the left measuring SUV of 4 and extensive calcified nodes with in the mediastinum and hilar regions bilaterally. There is bilateral pleural effusion and mild hilar uptake in the subcarinal uptake in the lymph nodes. The patient also had a previous pericardial fluid that was positive for malignancy. He had recently been receiving immunotherapy in the form of Keytruda. He was just discharged home from here for an acute on chronic hypoxic respiratory failure on 09/25/2021. He was to follow-up with his pulmonary team out of [place] and there was talk about possible Pleurx catheter placement. In the interim he developed worsening shortness of breath and came back to the emergency room early this morning. Chest x-ray continues to show mild perihilar medial right base opacities. There is small bilateral pleural effusions unchanged compared to previous. He is seen in consultation in the emergency department. Currently sitting up on a stretcher. Awake and alert in no acute distress. He is maintaining O2 saturations in the mid 90s on 2 L/m per nasal cannula. He's been afebrile. Hemodynamically stable. White count 11.8. Hemoglobin 12.6. Sodium 132. Initial potassium 8.3, suspect hemolyzed, treated in potassium currently 3.6. BUN 16. Creatinine 0.87. Glucose 151. AST 56. ALT 21. BMP 633. Troponin negative 1. He's been initiated on DuoNeb inhalations, prednisone, empiric antibiotics in the form of ceftriaxone and azithromycin. On 10/04/2021 patient seen in follow-up. He is resting in bed, in no acute distress, breathing comfortably, on 3 L of oxygen his head is 99%, no worsening dyspnea, cough or congestion. His progressed on a level came back low at 0.16, he remains on Rocephin for empiric antibiotic coverage. No fever or chills, or signs have been stable. He states he is feeling better. Today's labs have been reviewed, white blood cell count is 12.7, hemoglobin is 13.6, electrolytes and renal profile were unremarkable, proBNP was 633 without normal limits, troponin was negative at 0.02. patient continues on azithromycin and Rocephin, breathing treatments, and oral prednisone. Objective - Vital Signs Vital signs: Vital Signs Temp 97.6 F 10/04/21 05:00 Pulse 78 10/04/21 09:43 Resp 18 10/04/21 05:00 BP 151/72 10/04/21 09:43 Pulse Ox 100 10/04/21 08:20 FiO2 21 10/04/21 08:20 Intake & Output 10/03/21 10/04/21 10/04/21 18:59 06:59 18:59 Output Total 450 Balance -450 Weight 68 kg 116.12 kg Output: Urine 450 Other: Voiding Method Urinal Toilet # Voids 3 # Bowel Movements 1 - Exam GENERAL EXAM: Alert, very pleasant, 61-year-old white male, on 3 L of oxygen pulse ox 100% comfortable in no apparent distress. HEAD: Normocephalic/atraumatic. EYES: Normal reaction of pupils, equal size. Conjunctiva pink, sclera white. NOSE: Clear with pink turbinates. THROAT: No erythema or exudates. NECK: No masses, no JVD, no thyroid enlargement, no adenopathy. CHEST: No chest wall deformity. Symmetrical expansion. LUNGS: Equal air entry with diminished bases CVS: Regular rate and rhythm, normal S1 and S2, no gallops, no murmurs, no rubs ABDOMEN: Soft, nontender. No hepatosplenomegaly, normal bowel sounds, no guarding or rigidity. EXTREMITIES: No clubbing, no edema, no cyanosis, 2+ pulses and upper and lower extremities. MUSCULOSKELETAL: Muscle strength and tone normal. SPINE: No scoliosis or deformity SKIN: No rashes CENTRAL NERVOUS SYSTEM: Alert and oriented -3. No focal deficits, tone is normal in all 4 extremities. PSYCHIATRIC: Alert and oriented -3. Appropriate affect. Intact judgment and insight. - Labs CBC & Chem 7: 10/04/21 06:10 10/04/21 06:10 Labs: Abnormal Lab Results - Last 24 Hours (Table) 10/03/21 10/03/21 10/03/21 Range/Units 03:05 16:48 19:57 WBC (4.50-10.00) X 10*3/uL MCH (27.0-32.0) pg MCHC (32.0-37.0) g/dL RDW (11.5-14.5) % Immature Gran # (0.00-0.04) X 10*3/uL Neutrophils # (1.80-7.70) X 10*3/uL Lymphocytes # (0.90-5.00) X 10*3/uL Eosinophils # (0.04-0.35) X 10*3/uL BUN/Creatinine Ratio (12.00-20.00) Ratio Glucose (70-110) mg/dL POC Glucose (mg/dL) 152 H 259 H (70-110) mg/dL Alkaline Phosphatase (41-126) U/L Albumin (3.8-4.9) g/dL Albumin/Globulin Ratio (1.60-3.17) g/dL Procalcitonin 0.16 H (0.02-0.09) ng/mL 10/04/21 10/04/21 10/04/21 Range/Units 06:10 06:10 06:53 WBC 12.74 H (4.50-10.00) X 10*3/uL MCH 24.9 L (27.0-32.0) pg MCHC 30.8 L (32.0-37.0) g/dL RDW 15.2 H (11.5-14.5) % Immature Gran # 0.23 H (0.00-0.04) X 10*3/uL Neutrophils # 10.89 H (1.80-7.70) X 10*3/uL Lymphocytes # 0.69 L (0.90-5.00) X 10*3/uL Eosinophils # 0.01 L (0.04-0.35) X 10*3/uL BUN/Creatinine Ratio 11.82 L (12.00-20.00) Ratio Glucose 156 H (70-110) mg/dL POC Glucose (mg/dL) 148 H (70-110) mg/dL Alkaline Phosphatase 257 H (41-126) U/L Albumin 3.1 L (3.8-4.9) g/dL Albumin/Globulin Ratio 0.94 L (1.60-3.17) g/dL Procalcitonin (0.02-0.09) ng/mL Assessment and Plan Plan: Assessment: #1. Acute on chronic hypoxic respiratory failure, multifactorial, no clear indication for pneumonia #2. Metastatic adenocarcinoma of the lung with brain metastasis status post med gical resection and radiation therapy at [facility]. Most recent PET scan from 09/12/2021 showed progression of the patient's mediastinal and cervical and supraclavicular adenopathy, bilateral pleural effusions have remained unchanged. Patient remains on immunotherapy in the form of [place] every 3 weeks #3. Malignant pericardial effusion #4. Bilateral pleural effusions with previous thoracentesis with unknown fluid cytology results #5. History of COPD/emphysema most recently on oxygen at 4 L/m #6. Type 2 diabetes mellitus #7. Hypertension #8. Hyperlipidemia #9. Morbid obesity #10. History of sleep apnea noncompliant with CPAP #11. Chronic back pain, status post spinal cord stimulator implantation #12. 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 Number of minutes spent on the visit: [15] Time with Patient: Less than 30
[2021-10-04 11:22] LABS: Glucose,Whole Blood 201 mg/dL (70-110)
[2021-10-04 11:54] VITALS: BP 115/66
--- NOTE | 2021-10-04 14:34 | P.DS ---
Providers Date of admission: 10/03/21 05:39 Expected date of discharge: 10/04/21 Attending physician: Kaylee Patterson MD Consults: 10/03/21 05:39 Consult Physician Routine Consulting Provider: Isiah Naylor Consult Reason/Comments: known Do you want consulting provider notified?: Yes Consult Physician Routine Consulting Provider: Philomena Su Consult Reason/Comments: hyperK Do you want consulting provider notified?: Yes 10/03/21 09:50 Consult Physician Routine Consulting Provider: Grzegorz Funez Consult Reason/Comments: Lung cancer, transferring care to you from [place] Do you want consulting provider notified?: Yes Primary care physician: [facility] Course: 61-year-old male patient with a known history of obstructive sleep apnea not tolerant to CPAP, chronic back pain with the stimulator in place, chronic obstructive pulmonary disease with chronic hypoxemic respiratory failure on home oxygen at 4 L/m per nasal cannula. He also has metastatic adenocarcinoma of the lung with a previous history of [employer] metastasis and had undergone surgical resection and radiation therapy. He has been followed at the [facility] and [facility]. A recent PET scan was done on 09/12/2021 that showed focal uptake in the parotid gland and left cervical adenopathy which has progressed compared to previous PET scan in April 2021. There is bilateral pleural effusion and mild hilar uptake in the subcarinal uptake in the lymph nodes. The patient also had a previous pericardial fluid that was positive for malignancy. He had recently been receiving immunotherapy in the form of Keytruda. He was just discharged home from here for an acute on chronic hypoxic respiratory failure on 09/25/2021. He was to follow-up with his pulmonary team out of [place] and there was talk about possible Pleurx catheter placement. In the interim he developed worsening shortness of breath and came back to the emergency room. He denied fevers, cough or chest pain. No n/v/d. No sick contacts. Denied leg swelling. Work up in the ER revealed White count 11.8. Hemoglobin 12.6. Sodium 132. Initial potassium 8.3, suspect hemolyzed, treated in potassium currently 3.6. BUN 16. Creatinine 0.87. Glucose 151. AST 56. ALT 21. BMP 633. Troponin negative 1. Chest x-ray continues to show mild perihilar medial right base opacities. There is small bilateral pleural effusions unchanged compared to previous. He's been initiated on DuoNeb inhalations, prednisone, empiric antibiotics in the form of ceftriaxone and azithromycin then admitted. In the ER his K was 8.3, sample hemolysed, was given the K lowering meds anyway however. Repeat K was normal. Upon admission he was seen by pulmonary service who agreed with the management. Pro calcitonin was slightly elevated at 0.16. On the day of discharge he is feeling much better and his breathing is back to baseline. He was cleared by pulmonary for discharge. He will be discharged on Levaquin and Medrol Dosepak. Time for discharge 35 minutes. Patient Condition at Discharge: Fair Plan - Discharge Summary Discharge Rx Participant: No New Discharge Prescriptions: New Levofloxacin [Levaquin] 750 mg PO DAILY 5 Days #5 tab methylPREDNISolone Dose Pack [Medrol Dose Pack] 4 mg PO DIRECTED #21 tab Continue Baclofen 10 mg PO DAILY Isosorbide Mononitrate ER [Imdur] 30 mg PO DAILY #30 tab.er.24h Pioglitazone [Actos] 15 mg PO DAILY Montelukast [Singulair] 10 mg PO DAILY Lidocaine 5% Patch [Lidoderm 5% Patch] 1 patch TOPICAL DAILY Rosuvastatin [Crestor] 10 mg PO DAILY Lidocaine 5% Oint [Xylocaine 5% Oint] 1 applic TOPICAL DAILY PRN PRN Reason: knee pain Albuterol Inhaler [Ventolin Hfa Inhaler] 2 puff INHALATION RT-Q4H PRN PRN Reason: Shortness Of Breath Rivaroxaban [Xarelto] 20 mg PO DAILY Ondansetron [Zofran] 4 - 8 mg PO Q8H PRN PRN Reason: Nausea Gabapentin [Neurontin] 200 mg PO DAILY HYDROcodone/APAP 7.5-325MG [Aurelia 7.5-325] 1 tab PO Q8H PRN PRN Reason: Pain DULoxetine HCL [Cymbalta] 60 mg PO DAILY levETIRAcetam [Keppra] 1,000 mg PO BID Fluticasone Nasal [place] [Flonase Nasal [place]] 1 spray EA NOSTRIL BID Omeprazole 20 mg PO DAILY Metoprolol Tartrate [Lopressor] 12.5 mg PO BID Furosemide [Lasix] 40 mg PO BID Semaglutide [Ozempic] 1 mg SQ MO Ipratropium-Albuterol Nebulize [Duoneb 0.5 mg-3 mg/3 ml Soln] 3 ml INHALATION RT-QID Discharge Medication List Baclofen 10 mg PO DAILY 05/10/17 [History] Isosorbide Mononitrate ER [Imdur] 30 mg PO DAILY #30 tab.er.24h 05/14/17 [Rx] DULoxetine HCL [Cymbalta] 60 mg PO DAILY 11/14/20 [History] HYDROcodone/APAP 7.5-325MG [[place]urelia 7.5-325] 1 tab PO Q8H PRN 11/14/20 [History] Lidocaine 5% Patch [Lidoderm 5% Patch] 1 patch TOPICAL DAILY 11/14/20 [History] Montelukast [Singulair] 10 mg PO DAILY 11/14/20 [History] Pioglitazone [Actos] 15 mg PO DAILY 11/14/20 [History] Rosuvastatin [Crestor] 10 mg PO DAILY 11/14/20 [History] Albuterol Inhaler [Ventolin Hfa Inhaler] 2 puff INHALATION RT-Q4H PRN 01/27/21 [History] Fluticasone Nasal [place] [Flonase Nasal [place]] 1 spray EA NOSTRIL BID 01/27/21 [History] Lidocaine 5% Oint [Xylocaine 5% Oint] 1 applic TOPICAL DAILY PRN 01/27/21 [History] levETIRAcetam [Keppra] 1,000 mg PO BID 01/27/21 [History] Furosemide [Lasix] 40 mg PO BID 09/23/21 [History] Gabapentin [Neurontin] 200 mg PO DAILY 09/23/21 [History] Ipratropium-Albuterol Nebulize [Duoneb 0.5 mg-3 mg/3 ml Soln] 3 ml INHALATION RT-QID 09/23/21 [History] Metoprolol Tartrate [Lopressor] 12.5 mg PO BID 09/23/21 [History] Omeprazole 20 mg PO DAILY 09/23/21 [History] Ondansetron [Zofran] 4 - 8 mg PO Q8H PRN 09/23/21 [History] Rivaroxaban [Xarelto] 20 mg PO DAILY 09/23/21 [History] Semaglutide [Ozempic] 1 mg SQ MO 09/23/21 [History] Levofloxacin [Levaquin] 750 mg PO DAILY 5 Days #5 tab 10/04/21 [Rx] methylPREDNISolone Dose Pack [Medrol Dose Pack] 4 mg PO DIRECTED #21 tab 10/04/21 [Rx] Follow up Appointment(s)/Referral(s): Beto Ng MD [Primary Care Provider] - 1-2 days
[2021-10-04 15:16] VITALS: RESP 14
[2021-10-04 15:23] VITALS: PULSE 69
== END 2021-10-04 15:45 | disposition home or self-care (01) | DRG 190 ==
LOC: EC 02:24 → 3SCARD 05:39 → 5NMEDONC 12:33
PROVIDERS: ADMIT Internal Medicine; ATTEND Internal Medicine
DX: J43.9 Emphysema, unspecified (principal); J96.21 Acute and chronic respiratory failure with hypoxia; C34.90 Malignant neoplasm of unspecified part of unspecified bronchus or lung; C79.31 Secondary malignant neoplasm of brain; C79.89 Secondary malignant neoplasm of other specified sites; I48.20 Chronic atrial fibrillation, unspecified; E87.1 Hypo-osmolality and hyponatremia; J90 Pleural effusion, not elsewhere classified; J45.901 Unspecified asthma with (acute) exacerbation; E66.01 Morbid (severe) obesity due to excess calories; E11.9 Type 2 diabetes mellitus without complications; E87.5 Hyperkalemia; G47.33 Obstructive sleep apnea (adult) (pediatric); I10 Essential (primary) hypertension; E87.70 Fluid overload, unspecified; E78.5 Hyperlipidemia, unspecified; F41.9 Anxiety disorder, unspecified; M54.9 Dorsalgia, unspecified; G89.29 Other chronic pain; R59.0 Localized enlarged lymph nodes; M19.90 Unspecified osteoarthritis, unspecified site; Z91.19 Patient's noncompliance with other medical treatment and regimen; Z99.81 Dependence on supplemental oxygen; Z79.01 Long term (current) use of anticoagulants; Z79.84 Long term (current) use of oral hypoglycemic drugs; Z79.899 Other long term (current) drug therapy; Z96.82 Presence of neurostimulator; Z92.3 Personal history of irradiation; Z87.891 Personal history of nicotine dependence; Z83.6 Family history of other diseases of the respiratory system
CPT/HCPCS: 36415; 71045; 80053; 83605; 83735; 83880; 84100; 84132; 84145; 84484; 85025; 85610; 85730; 87040; 93005; 94640; 94760; 96365; 96366; 96375; 99285